=== PATIENT | female | born 1960 | race African-American/Black ===

== ENCOUNTER 2021-01-19 12:04 | Inpatient (IN) | payer OTHER ==
[2021-01-19 13:33] LABS: INR 1.28 (0.83-1.09); PROTHROMBIN TIME (PATIENT) 15.6 SEC (9.7-13.0)
[2021-01-19 13:36] LABS: ACTIVATED PTT 26.3 SECONDS (25.2-36.5)
[2021-01-19 13:51] LABS: BASO % 0.3 % (0-2.0); EOS % 0.6 % (0-4.5); HEMATOCRIT 41.7 % (32.4-45.2); HEMOGLOBIN 13.2 GM/dL (10.7-15.3); LYMPH % 7.5 % (8-40); MCH 24.6 pg (25.7-33.7); MCHC 31.6 g/dl (32.0-36.0); MEAN PLT VOLUME 7.7 fl (7.5-11.1); MONO % 6.6 % (3.8-10.2); PLATELET COUNT 341 K/MM3 (134-434); RBC 5.35 M/mm3 (3.60-5.2); RDW 18.8 % (11.6-15.6); WHITE BLOOD COUNT 8.1 K/mm3 (4.0-10.0)
[2021-01-19 13:58] LABS: CALCIUM 9.3 mg/dL (8.5-10.1)
[2021-01-19 13:59] LABS: ALBUMIN 3.1 g/dl (3.4-5.0); BLOOD UREA NITROGEN 19.8 mg/dL (7-18); MAGNESIUM 2.3 mg/dL (1.8-2.4)
[2021-01-19] MEDS ORDERED: FUROSEMIDE 40 MG/4 ML INJECTABLE VIAL IVPUSH ONE ×2 (14:03→16:12)
[2021-01-19 14:04] LABS: BILIRUBIN,TOTAL 1.8 mg/dL (0.2-1); TOT PROT 7.5 g/dl (6.4-8.2)
[2021-01-19 14:08] LABS: N-TERMINAL BNP 15423.9 pg/ml (5-125)
[2021-01-19] MEDS ORDERED: FUROSEMIDE 40 MG/4 ML INJECTABLE VIAL ONE ×2 (14:08→16:29)
[2021-01-19 14:21] LABS: PHOSPHOROUS 3.2 mg/dL (2.5-4.9)
[2021-01-19] MEDS ORDERED: ASPIRIN 81 MG CHEWABLE TABLETS PO ONE (15:26)
[2021-01-19] MEDS ORDERED: ASPIRIN 81 MG CHEWABLE TABLETS ONE (15:53)
[2021-01-19] MEDS ORDERED: amLODIPine BESYLATE 5 MG TABLET (FP) PO ONE (16:11)
[2021-01-19] MEDS ORDERED: amLODIPine BESYLATE 5 MG TABLET (FP) ONE (16:28)
[2021-01-19 17:42] LABS: EPI CELLS 9 /uL (0-25.1); HYALINE CASTS 5 /uL (0-3.1); PH,URINE 5.5 (5.0-8.0); URINE APPEARANCE CLEAR; URINE BACTERIA 47 /uL (0-1359); URINE BILIRUBIN NEGATIVE (NEGATIVE); URINE COLOR YELLOW; URINE GLUCOSE (UA) NEGATIVE (NEGATIVE); URINE KETONE NEGATIVE (NEGATIVE); URINE LEUK ESTERASE NEGATIVE (NEGATIVE); URINE NITRITE NEGATIVE (NEGATIVE); URINE PROTEIN 2+ (NEGATIVE); URINE RBC 21 /uL (0-23.9); URINE WBC 9 /uL (0-25.8)
[2021-01-19] MEDS: LISINOPRIL 10 MG TABLET PO SCH (18:58)
[2021-01-19] MEDS ORDERED: LISINOPRIL 5 MG TABLET PO SCH (19:00)
[2021-01-20] MEDS ORDERED: FUROSEMIDE 40 MG/4 ML INJECTABLE VIAL IVPUSH SCH (06:00)
[2021-01-20] MEDS ORDERED: metoPROLOL SUCCINATE 25 MG TAB.SR.24H (FP) PO SCH (10:00)
[2021-01-20] MEDS: FUROSEMIDE 40 MG/4 ML INJECTABLE VIAL IVPUSH SCH (10:53)
[2021-01-20] MEDS: ENOXAPARIN NA (PORCINE) 40 MG/0.4 ML DISP.SYRIN SQ SCH (10:54)
[2021-01-20] MEDS: LISINOPRIL 10 MG TABLET PO SCH (10:54)
[2021-01-20] MEDS ORDERED: PT OWN MED DRAWER 7, Y5N ONE (11:27)
[2021-01-20 13:48] LABS: HEMATOCRIT 42.2 % (32.4-45.2); HEMOGLOBIN 13.2 GM/dL (10.7-15.3); MCH 24.5 pg (25.7-33.7); MCHC 31.2 g/dl (32.0-36.0); MEAN CELL VOLUME 78.3 fl (80-96); MEAN PLT VOLUME 7.5 fl (7.5-11.1); PLATELET COUNT 335 K/MM3 (134-434); RBC 5.39 M/mm3 (3.60-5.2); WHITE BLOOD COUNT 10.3 K/mm3 (4.0-10.0)
[2021-01-20 14:26] LABS: ALBUMIN 2.9 g/dl (3.4-5.0); CALCIUM 9.6 mg/dL (8.5-10.1); MAGNESIUM 1.9 mg/dL (1.8-2.4)
[2021-01-20 14:29] LABS: CREATININE 0.8 mg/dL (0.55-1.3)
[2021-01-20 14:30] LABS: PHOSPHOROUS 3.3 mg/dL (2.5-4.9); TOT PROT 6.7 g/dl (6.4-8.2)
[2021-01-20 14:32] LABS: BILIRUBIN,TOTAL 1.4 mg/dL (0.2-1)
[2021-01-20] MEDS ORDERED: POTASSIUM CHLORIDE TABS 20 MEQ TABLET.ER (FP) PO ONE (15:15)
[2021-01-20] MEDS: ACETAMINOPHEN 325 MG TABLET (FP) PO PRN (16:55)
[2021-01-20 17:36] LABS: ARTERIAL BLD GAS O2 SATURATION 96.8 mmHg (95-98); ARTERIAL BLOOD GAS BASE EXCESS 4.6 mmol/L (-2-2); ARTERIAL BLOOD GAS PO2 96.7 mmHg (80-100); ARTERIAL BLOOD GAS pH 7.334 (7.350-7.450)
[2021-01-20 17:38] LABS: ALLENS TEST POSITIVE
[2021-01-20] MEDS ORDERED: DEXTROSE 5%-WATER - 50 ML IVPB ONE (18:24)
[2021-01-20] MEDS ORDERED: cefTRIAXone SODIUM 1 GM VIAL ONE (18:24)
[2021-01-20] MEDS: AZITHROMYCIN IVPB 500 MG/250 ML BAG IVPB SCH (18:47)
[2021-01-20] MEDS: CEFTRIAXONE 1 GM in DEXTROSE 5%-WATER - 50 ML IVPB SCH (18:48)
[2021-01-21 09:03] LABS: HEMATOCRIT 41.4 % (32.4-45.2); HEMOGLOBIN 12.9 GM/dL (10.7-15.3); MCH 24.6 pg (25.7-33.7); MCHC 31.1 g/dl (32.0-36.0); MEAN CELL VOLUME 79.1 fl (80-96); MEAN PLT VOLUME 7.5 fl (7.5-11.1); PLATELET COUNT 330 K/MM3 (134-434); RBC 5.23 M/mm3 (3.60-5.2); RDW 18.9 % (11.6-15.6); WHITE BLOOD COUNT 9.1 K/mm3 (4.0-10.0)
[2021-01-21 09:13] LABS: CALCIUM 9.2 mg/dL (8.5-10.1)
[2021-01-21 09:14] LABS: ALBUMIN 2.9 g/dl (3.4-5.0); BLOOD UREA NITROGEN 16.5 mg/dL (7-18); MAGNESIUM 2.1 mg/dL (1.8-2.4)
[2021-01-21 09:17] LABS: CREATININE 0.8 mg/dL (0.55-1.3); PHOSPHOROUS 2.4 mg/dL (2.5-4.9)
[2021-01-21 09:18] LABS: BILIRUBIN,TOTAL 1.2 mg/dL (0.2-1); TOT PROT 6.6 g/dl (6.4-8.2)
[2021-01-21] MEDS ORDERED: cefTRIAXone SODIUM 1 GM VIAL ONE (09:27)
[2021-01-21] MEDS ORDERED: DEXTROSE 5%-WATER - 50 ML IVPB ONE ×3 (09:27→18:20)
[2021-01-21] MEDS ORDERED: METOPROLOL TARTRATE 25 MG TABLET (FP) PO SCH (10:00)
[2021-01-21] MEDS: FUROSEMIDE 40 MG/4 ML INJECTABLE VIAL IVPUSH SCH (10:09)
[2021-01-21] MEDS: LISINOPRIL 10 MG TABLET PO SCH (10:09)
[2021-01-21] MEDS: ENOXAPARIN NA (PORCINE) 40 MG/0.4 ML DISP.SYRIN SQ SCH (10:09)
[2021-01-21] MEDS: CEFTRIAXONE 1 GM in DEXTROSE 5%-WATER - 50 ML IVPB SCH (10:10)
[2021-01-21] MEDS: AZITHROMYCIN IVPB 500 MG/250 ML BAG IVPB SCH (10:10)
[2021-01-21] MEDS ORDERED: KCL 10 MEQ IVPB 10 MEQ/100 ML INFUS.BAG IVPB ONE (11:45)
[2021-01-21] MEDS ORDERED: SODIUM PHOSPHATE - 30 MM in SODIUM CHLORIDE 250 ML IVPB ONE (11:49)
[2021-01-21] MEDS ORDERED: EPINEPHrine 1:10,000 (P-F SYR) 1 MG/10 ML DISP.SYRIN ONE (12:13)
[2021-01-21] MEDS ORDERED: NOREPINEPHRINE BITARTRATE 8,000 MCG/500 ML BAG IVPB ONE (12:27)
[2021-01-21] MEDS: NOREPINEPHRINE NS PREMIX 8,000 MCG/500 ML BAG IVPB SCH (12:50)
[2021-01-21] MEDS: MAGNESIUM SULF 50% (8.12 MEQ/2 ML-1 GM VIAL) IVPB ONE ×2 (13:36→18:28)
[2021-01-21] MEDS: NAPH,MB-DB/K PH,MBDB POWDER PACKET PO SCH ×2 (13:57→21:51)
[2021-01-21] MEDS ORDERED: PT OWN MED DRAWER 7, Y5N ONE (14:00)
[2021-01-21] MEDS ORDERED: HEPARIN NA (PORCINE) 5,000 UNITS/ML 1ML VIAL IVPUSH PRN ×2 (14:16)
[2021-01-21] MEDS ORDERED: HEPARIN NA (PORCINE) 5,000 UNITS/ML 1ML VIAL SQ SCH (14:30)
[2021-01-21] MEDS ORDERED: HEPARIN - 25,000 UNIT in SODIUM CHLORIDE 495 ML IV SCH (14:30)
[2021-01-21] MEDS ORDERED: PIPERACILLIN/TAZOBACTAM 3.375 GM VIAL IVPB ONE ×2 (15:10→18:20)
[2021-01-21 15:12] LABS: BASO % 0.1 % (0-2.0); EOS % 0.1 % (0-4.5); HEMATOCRIT 42.8 % (32.4-45.2); LYMPH % 1.9 % (8-40); MCH 23.9 pg (25.7-33.7); MCHC 30.3 g/dl (32.0-36.0); MEAN CELL VOLUME 78.9 fl (80-96); MEAN PLT VOLUME 7.5 fl (7.5-11.1); MONO % 2.9 % (3.8-10.2); PLATELET COUNT 311 K/MM3 (134-434); RBC 5.43 M/mm3 (3.60-5.2); RDW 19.2 % (11.6-15.6); WHITE BLOOD COUNT 19.4 K/mm3 (4.0-10.0)
[2021-01-21 15:17] LABS: INR 1.31 (0.83-1.09)
[2021-01-21 15:20] LABS: ACTIVATED PTT 30.6 SECONDS (25.2-36.5)
[2021-01-21] MEDS: PIPERACILLIN/TAZOB 3.375 GM 3.375 GM in DEXTROSE 5%-WATER - 50 ML IVPB SCH ×2 (15:42→18:24)
[2021-01-21 16:07] LABS: ALBUMIN 2.4 g/dl (3.4-5.0); BLOOD UREA NITROGEN 18.4 mg/dL (7-18); CALCIUM 8.2 mg/dL (8.5-10.1)
[2021-01-21 16:11] LABS: CREATININE 1.1 mg/dL (0.55-1.3)
[2021-01-21 16:12] LABS: BILIRUBIN,TOTAL 0.9 mg/dL (0.2-1); TOT PROT 5.6 g/dl (6.4-8.2)
[2021-01-21] MEDS: POTASSIUM CHLORIDE 10 MEQ PREMIX IVPB (POTASSIUM RIDER) IVPB SCH ×4 (16:39→22:57)
[2021-01-21] MEDS: FENTANYL NS IVPB 500 MCG/100 ML BAG IVPB SCH (17:03)
[2021-01-21] MEDS: VANCOMYCIN 1 GRAM (PRE-DOCKED) 1,000 MG/250 ML BAG IVPB SCH (17:03)
[2021-01-21 18:01] LABS: ANISOCYTOSIS 1+; MACROCYTOSIS 0; PLATELET ESTIMATE NORMAL
[2021-01-21] MEDS: ENOXAPARIN NA (PORCINE) 100 MG/1 ML DISP.SYRIN SQ SCH ×2 (18:29→21:51)
[2021-01-21] MEDS ORDERED: POTASSIUM CHLORIDE 10 MEQ PREMIX IVPB (POTASSIUM RIDER) IVPB SCH (18:30)
[2021-01-21] MEDS: PROPOFOL 1,000,000 MCG/100 ML VIAL IVPB SCH (19:45)
[2021-01-21] MEDS ORDERED: GLYCOPYRROLATE 0.2 MG/1 ML VIAL IM STA (20:33)
[2021-01-21 22:39] LABS: ARTERIAL BLD GAS O2 SATURATION 86.9 mmHg (95-98); ARTERIAL BLOOD GAS BASE EXCESS 3.2 mmol/L (-2-2); ARTERIAL BLOOD GAS PO2 57.3 mmHg (80-100); ARTERIAL BLOOD GAS pH 7.321 (7.350-7.450)
[2021-01-21 22:40] LABS: ALLENS TEST POSITIVE
[2021-01-21 22:41] LABS: VENT MODE A/C; VENT RATE 16
[2021-01-21 23:10] LABS: EPI CELLS >36 /uL (0-25.1); HYALINE CASTS 1 /uL (0-3.1); URINE APPEARANCE CLEAR; URINE BACTERIA 56 /uL (0-1359); URINE BILIRUBIN NEGATIVE (NEGATIVE); URINE COLOR YELLOW; URINE GLUCOSE (UA) NEGATIVE (NEGATIVE); URINE KETONE NEGATIVE (NEGATIVE); URINE LEUK ESTERASE NEGATIVE (NEGATIVE); URINE NITRITE NEGATIVE (NEGATIVE); URINE PROTEIN 2+ (NEGATIVE); URINE RBC 231 /uL (0-23.9); URINE UROBILINOGEN 0.2 mg/dL (0.2-1.0); URINE WBC 37 /uL (0-25.8)
[2021-01-22] MEDS ORDERED: PIPERACILLIN/TAZOBACTAM 3.375 GM VIAL IVPB ONE ×2 (01:36→09:12)
[2021-01-22] MEDS ORDERED: DEXTROSE 5%-WATER - 50 ML IVPB ONE ×2 (01:36→09:12)
[2021-01-22] MEDS: PIPERACILLIN/TAZOB 3.375 GM 3.375 GM in DEXTROSE 5%-WATER - 50 ML IVPB SCH ×3 (02:30→17:23)
[2021-01-22 02:35] LABS: COCAINE, UR NEGATIVE ng/ml (CUTOFF=300); METHADONE, UR NEGATIVE ng/ml (CUTOFF=300); OPIATES, URI NEGATIVE ng/ml (CUTOFF=300); URINE AMPHETAMINES NEGATIVE ng/ml (CUTOFF=500); URINE BARBITURATES NEGATIVE ng/ml (CUTOFF=200); URINE BENZODIAZEPINES NEGATIVE ng/ml (CUTOFF=200)
[2021-01-22 02:36] LABS: PHENCYCLIDINE,URINE NEGATIVE ng/ml (CUTOFF=25)
[2021-01-22] MEDS: VANCOMYCIN 1 GRAM (PRE-DOCKED) 1,000 MG/250 ML BAG IVPB SCH ×2 (03:15→14:14)
[2021-01-22] MEDS: NAPH,MB-DB/K PH,MBDB POWDER PACKET PO SCH ×3 (05:01→21:42)
[2021-01-22 07:10] LABS: BLOOD UREA NITROGEN 19.9 mg/dL (7-18); CALCIUM 8.7 mg/dL (8.5-10.1)
[2021-01-22 07:14] LABS: CREATININE 1.1 mg/dL (0.55-1.3)
[2021-01-22 07:17] LABS: BASO % 0.1 % (0-2.0); EOS % 1.1 % (0-4.5); HEMATOCRIT 45.3 % (32.4-45.2); HEMOGLOBIN 13.7 GM/dL (10.7-15.3); LYMPH % 8.4 % (8-40); MCH 23.9 pg (25.7-33.7); MCHC 30.2 g/dl (32.0-36.0); MEAN PLT VOLUME 7.6 fl (7.5-11.1); MONO % 6.4 % (3.8-10.2); PLATELET COUNT 273 K/MM3 (134-434); RBC 5.74 M/mm3 (3.60-5.2); RDW 18.7 % (11.6-15.6); WHITE BLOOD COUNT 9.9 K/mm3 (4.0-10.0)
[2021-01-22] MEDS: FENTANYL NS IVPB 500 MCG/100 ML BAG IVPB SCH ×2 (08:10→13:46)
[2021-01-22 08:49] LABS: MAGNESIUM 1.8 mg/dL (1.8-2.4)
[2021-01-22 08:53] LABS: PHOSPHOROUS 3.2 mg/dL (2.5-4.9)
[2021-01-22] MEDS: ENOXAPARIN NA (PORCINE) 100 MG/1 ML DISP.SYRIN SQ SCH ×2 (09:19→21:41)
[2021-01-22] MEDS: FAMOTIDINE 20 MG/50 ML IVPB 20 MG/50 ML MG IVPB SCH ×2 (09:20→21:41)
[2021-01-22] MEDS: FUROSEMIDE 40 MG/4 ML INJECTABLE VIAL IVPUSH SCH (12:01)
[2021-01-22] MEDS: NOREPINEPHRINE NS PREMIX 8,000 MCG/500 ML BAG IVPB SCH (17:23)
[2021-01-22] MEDS ORDERED: FENTANYL NS IVPB 500 MCG/100 ML BAG IVPB SCH (22:15)
[2021-01-23] MEDS ORDERED: PIPERACILLIN/TAZOBACTAM 3.375 GM VIAL IVPB ONE ×3 (00:51→18:45)
[2021-01-23] MEDS ORDERED: DEXTROSE 5%-WATER - 50 ML IVPB ONE ×3 (00:52→18:45)
[2021-01-23] MEDS: PIPERACILLIN/TAZOB 3.375 GM 3.375 GM in DEXTROSE 5%-WATER - 50 ML IVPB SCH ×3 (01:36→18:52)
[2021-01-23] MEDS: PROPOFOL 1,000,000 MCG/100 ML VIAL IVPB SCH (01:36)
[2021-01-23] MEDS: VANCOMYCIN 1 GRAM (PRE-DOCKED) 1,000 MG/250 ML BAG IVPB SCH (02:34)
[2021-01-23] MEDS: NAPH,MB-DB/K PH,MBDB POWDER PACKET PO SCH ×3 (06:34→21:15)
[2021-01-23] MEDS ORDERED: SODIUM CHLORIDE 250 ML IV STA (06:37)
[2021-01-23 07:47] LABS: HEMATOCRIT 45.6 % (32.4-45.2); HEMOGLOBIN 14.6 GM/dL (10.7-15.3); MCH 24.6 pg (25.7-33.7); MCHC 32.1 g/dl (32.0-36.0); MEAN CELL VOLUME 76.8 fl (80-96); MEAN PLT VOLUME 8.1 fl (7.5-11.1); PLATELET COUNT 316 K/MM3 (134-434); RBC 5.94 M/mm3 (3.60-5.2); RDW 18.9 % (11.6-15.6); WHITE BLOOD COUNT 10.9 K/mm3 (4.0-10.0)
[2021-01-23 08:01] LABS: BLOOD UREA NITROGEN 24.3 mg/dL (7-18); MAGNESIUM 1.7 mg/dL (1.8-2.4)
[2021-01-23 08:04] LABS: CREATININE 1.7 mg/dL (0.55-1.3); PHOSPHOROUS 3.4 mg/dL (2.5-4.9)
[2021-01-23] MEDS: FAMOTIDINE 20 MG/50 ML IVPB 20 MG/50 ML MG IVPB SCH ×2 (09:36→21:15)
[2021-01-23] MEDS: ENOXAPARIN NA (PORCINE) 100 MG/1 ML DISP.SYRIN SQ SCH ×2 (09:36→21:16)
[2021-01-23] MEDS: NOREPINEPHRINE NS PREMIX 8,000 MCG/500 ML BAG IVPB SCH (14:36)
[2021-01-23] MEDS ORDERED: LORazepam 2 MG/ML SDV VIAL IVPUSH PRN (21:55)
[2021-01-24] MEDS ORDERED: PIPERACILLIN/TAZOBACTAM 3.375 GM VIAL IVPB ONE ×4 (01:41→22:39)
[2021-01-24] MEDS: PIPERACILLIN/TAZOB 3.375 GM 3.375 GM in DEXTROSE 5%-WATER - 50 ML IVPB SCH ×3 (03:20→17:00)
[2021-01-24 06:52] LABS: HEMATOCRIT 41.4 % (32.4-45.2); HEMOGLOBIN 13.4 GM/dL (10.7-15.3); MCH 24.7 pg (25.7-33.7); MCHC 32.5 g/dl (32.0-36.0); MEAN CELL VOLUME 76.2 fl (80-96); MEAN PLT VOLUME 7.8 fl (7.5-11.1); PLATELET COUNT 236 K/MM3 (134-434); RBC 5.44 M/mm3 (3.60-5.2); RDW 18.5 % (11.6-15.6); WHITE BLOOD COUNT 10.3 K/mm3 (4.0-10.0)
[2021-01-24] MEDS: NAPH,MB-DB/K PH,MBDB POWDER PACKET PO SCH ×3 (06:56→22:41)
[2021-01-24 07:50] LABS: MAGNESIUM 1.7 mg/dL (1.8-2.4)
[2021-01-24 07:52] LABS: CREATININE 2.4 mg/dL (0.55-1.3)
[2021-01-24 07:53] LABS: PHOSPHOROUS 3.5 mg/dL (2.5-4.9)
[2021-01-24 07:54] LABS: TOT PROT 5.3 g/dl (6.4-8.2)
[2021-01-24] MEDS ORDERED: DEXTROSE 5%-WATER - 50 ML IVPB ONE ×3 (08:10→22:39)
[2021-01-24] MEDS: FAMOTIDINE 20 MG/50 ML IVPB 20 MG/50 ML MG IVPB SCH ×2 (09:01→22:41)
[2021-01-24] MEDS: ENOXAPARIN NA (PORCINE) 100 MG/1 ML DISP.SYRIN SQ SCH ×2 (09:02→22:41)
[2021-01-24] MEDS: ACETAMINOPHEN 325 MG TABLET (FP) PO PRN (09:02)
[2021-01-24] MEDS: SCOPOLAMINE HYDROBROMIDE 1 PATCH PATCH.TD72 TD SCH (16:37)
[2021-01-24] MEDS ORDERED: PT OWN MED DRAWER 7, Y5N ONE ×2 (18:25→22:39)
[2021-01-24] MEDS ORDERED: SCOPOLAMINE HYDROBROMIDE 1 PATCH PATCH.TD72 TD SCH (22:30)
[2021-01-25] MEDS: NOREPINEPHRINE NS PREMIX 8,000 MCG/500 ML BAG IVPB SCH (03:05)
[2021-01-25] MEDS: PIPERACILLIN/TAZOB 3.375 GM 3.375 GM in DEXTROSE 5%-WATER - 50 ML IVPB SCH ×3 (03:11→18:06)
[2021-01-25] MEDS: ACETAMINOPHEN 325 MG TABLET (FP) PO PRN (03:54)
[2021-01-25] MEDS: NAPH,MB-DB/K PH,MBDB POWDER PACKET PO SCH ×3 (06:50→21:21)
[2021-01-25 07:25] LABS: HEMATOCRIT 37.2 % (32.4-45.2); HEMOGLOBIN 11.9 GM/dL (10.7-15.3); MCH 24.3 pg (25.7-33.7); MCHC 32.1 g/dl (32.0-36.0); MEAN CELL VOLUME 75.8 fl (80-96); MEAN PLT VOLUME 8.1 fl (7.5-11.1); PLATELET COUNT 176 K/MM3 (134-434); RDW 18.9 % (11.6-15.6); WHITE BLOOD COUNT 11.6 K/mm3 (4.0-10.0)
[2021-01-25 08:00] LABS: ALBUMIN 1.8 g/dl (3.4-5.0); BILIRUBIN,TOTAL 0.9 mg/dL (0.2-1); BLOOD UREA NITROGEN 32.6 mg/dL (7-18); CALCIUM 8.3 mg/dL (8.5-10.1); CREATININE 2.8 mg/dL (0.55-1.3); TOT PROT 5.1 g/dl (6.4-8.2)
[2021-01-25] MEDS ORDERED: PIPERACILLIN/TAZOBACTAM 3.375 GM VIAL IVPB ONE ×2 (10:12→16:45)
[2021-01-25] MEDS ORDERED: DEXTROSE 5%-WATER - 50 ML IVPB ONE ×2 (10:12→16:45)
[2021-01-25] MEDS ORDERED: PT OWN MED DRAWER 7, Y5N ONE (10:12)
[2021-01-25] MEDS: ENOXAPARIN NA (PORCINE) 100 MG/1 ML DISP.SYRIN SQ SCH ×5 (10:34→21:23)
[2021-01-25] MEDS: FAMOTIDINE 20 MG/50 ML IVPB 20 MG/50 ML MG IVPB SCH ×2 (10:34→21:20)
[2021-01-25] MEDS ORDERED: METOPROLOL TARTRATE 5 MG/5 ML VIAL IVPUSH ONE (12:44)
[2021-01-25] MEDS ORDERED: ENOXAPARIN NA (PORCINE) 100 MG/1 ML DISP.SYRIN SQ ONE (16:04)
[2021-01-25 16:22] VITALS: BMI 39.4
[2021-01-26] MEDS ORDERED: DEXTROSE 5%-WATER - 50 ML IVPB ONE ×3 (01:07→16:57)
[2021-01-26] MEDS ORDERED: PIPERACILLIN/TAZOBACTAM 3.375 GM VIAL IVPB ONE ×4 (01:07→16:57)
[2021-01-26] MEDS: PIPERACILLIN/TAZOB 3.375 GM 3.375 GM in DEXTROSE 5%-WATER - 50 ML IVPB SCH ×3 (02:37→17:23)
[2021-01-26] MEDS: NAPH,MB-DB/K PH,MBDB POWDER PACKET PO SCH ×3 (06:28→21:20)
[2021-01-26 06:43] LABS: HEMATOCRIT 37.2 % (32.4-45.2); HEMOGLOBIN 11.8 GM/dL (10.7-15.3); MCH 24.1 pg (25.7-33.7); MCHC 31.6 g/dl (32.0-36.0); MEAN CELL VOLUME 76.2 fl (80-96); PLATELET COUNT 182 K/MM3 (134-434); RBC 4.88 M/mm3 (3.60-5.2); RDW 19.5 % (11.6-15.6); WHITE BLOOD COUNT 11.8 K/mm3 (4.0-10.0)
[2021-01-26 07:07] LABS: CALCIUM 8.1 mg/dL (8.5-10.1)
[2021-01-26 07:08] LABS: ALBUMIN 1.7 g/dl (3.4-5.0); BLOOD UREA NITROGEN 34.1 mg/dL (7-18)
[2021-01-26 07:10] LABS: BILIRUBIN,TOTAL 0.7 mg/dL (0.2-1); TOT PROT 5.1 g/dl (6.4-8.2)
[2021-01-26 07:11] LABS: CREATININE 2.7 mg/dL (0.55-1.3); PHOSPHOROUS 3.8 mg/dL (2.5-4.9)
[2021-01-26] MEDS: KCL 10 MEQ IVPB 10 MEQ/100 ML INFUS.BAG IVPB SCH ×3 (08:51→11:22)
[2021-01-26] MEDS: FAMOTIDINE 20 MG/50 ML IVPB 20 MG/50 ML MG IVPB SCH ×2 (09:05→21:20)
[2021-01-26] MEDS: amLODIPine BESYLATE 10 MG TABLET (FP) PO SCH (09:18)
[2021-01-26] MEDS: ENOXAPARIN NA (PORCINE) 100 MG/1 ML DISP.SYRIN SQ SCH (09:19)
[2021-01-26] MEDS ORDERED: amLODIPine BESYLATE 10 MG TABLET (FP) PO SCH (10:00)
[2021-01-26] MEDS ORDERED: METOPROLOL TARTRATE 5 MG/5 ML VIAL IVPUSH PRN ×2 (10:34→10:36)
[2021-01-26] MEDS: hydrALAZINE HCL 20 MG/ML VIAL IVPUSH PRN (13:18)
[2021-01-26] MEDS: ENOXAPARIN NA (PORCINE) 80 MG/0.8 ML DISP.SYRIN SQ SCH ×2 (13:23→21:20)
[2021-01-26 14:08] LABS: BF WBC & OTHER NUCLEATED CELLS 2109 /mm3
[2021-01-26 14:42] LABS: BODY FLUID BASOPHIL 0 %; BODY FLUID HISTIOCYTES 0 %; BODY FLUID MACROPHAGES 3 %; BODY FLUID MESOTHELIAL 4 %; BODY FLUID MONOCYTE 0 %; BODY FLUID PLASMA CELL 0 %; BODYL FLD EOSINOPHIL 0 %
[2021-01-26 15:47] LABS: CALCIUM 7.9 mg/dL (8.5-10.1)
[2021-01-26 15:48] LABS: BLOOD UREA NITROGEN 33.3 mg/dL (7-18)
[2021-01-26 15:51] LABS: CREATININE 2.7 mg/dL (0.55-1.3)
[2021-01-26] MEDS: POTASSIUM CHLORIDE 20 MEQ PREMIX IVPB 100 ML IVPB SCH ×2 (15:51→17:08)
[2021-01-27] MEDS ORDERED: DEXTROSE 5%-WATER - 50 ML IVPB ONE ×3 (01:02→17:14)
[2021-01-27] MEDS ORDERED: PIPERACILLIN/TAZOBACTAM 3.375 GM VIAL IVPB ONE ×3 (01:02→17:13)
[2021-01-27] MEDS: PIPERACILLIN/TAZOB 3.375 GM 3.375 GM in DEXTROSE 5%-WATER - 50 ML IVPB SCH ×3 (01:43→18:27)
[2021-01-27] MEDS: NAPH,MB-DB/K PH,MBDB POWDER PACKET PO SCH ×3 (05:40→21:03)
[2021-01-27 07:25] LABS: HEMATOCRIT 33.6 % (32.4-45.2); HEMOGLOBIN 10.6 GM/dL (10.7-15.3); MCH 24.1 pg (25.7-33.7); MCHC 31.7 g/dl (32.0-36.0); MEAN CELL VOLUME 76.1 fl (80-96); MEAN PLT VOLUME 8.2 fl (7.5-11.1); PLATELET COUNT 184 K/MM3 (134-434); RBC 4.41 M/mm3 (3.60-5.2); RDW 18.6 % (11.6-15.6); WHITE BLOOD COUNT 8.8 K/mm3 (4.0-10.0)
[2021-01-27 07:44] LABS: CALCIUM 7.6 mg/dL (8.5-10.1)
[2021-01-27 07:45] LABS: BLOOD UREA NITROGEN 32.3 mg/dL (7-18)
[2021-01-27 07:48] LABS: CREATININE 2.6 mg/dL (0.55-1.3)
[2021-01-27] MEDS ORDERED: KCL 10 MEQ IVPB 10 MEQ/100 ML INFUS.BAG IVPB SCH (08:45)
[2021-01-27] MEDS: amLODIPine BESYLATE 10 MG TABLET (FP) PO SCH (09:00)
[2021-01-27] MEDS ORDERED: POTASSIUM CHLORIDE 20 MEQ PREMIX IVPB 100 ML IVPB ONE (09:01)
[2021-01-27] MEDS: ENOXAPARIN NA (PORCINE) 80 MG/0.8 ML DISP.SYRIN SQ SCH ×2 (09:02→21:03)
[2021-01-27] MEDS: FAMOTIDINE 20 MG/50 ML IVPB 20 MG/50 ML MG IVPB SCH ×2 (09:03→21:03)
[2021-01-27] MEDS: SCOPOLAMINE HYDROBROMIDE 1 PATCH PATCH.TD72 TD SCH (14:47)
[2021-01-28] MEDS ORDERED: DEXTROSE 5%-WATER - 50 ML IVPB ONE ×3 (00:42→18:05)
[2021-01-28] MEDS ORDERED: PIPERACILLIN/TAZOBACTAM 3.375 GM VIAL IVPB ONE ×3 (00:42→18:04)
[2021-01-28] MEDS ORDERED: DEXMEDETOMIDINE IN 0.9 % NACL 200 MCG/50 ML EACH IVPB SCH (00:45)
[2021-01-28] MEDS: PIPERACILLIN/TAZOB 3.375 GM 3.375 GM in DEXTROSE 5%-WATER - 50 ML IVPB SCH ×3 (01:23→18:08)
[2021-01-28] MEDS: DEXMEDETOMIDINE IN 0.9 % NACL 400 MCG/100 ML VIAL IVPB SCH (01:24)
[2021-01-28] MEDS: NAPH,MB-DB/K PH,MBDB POWDER PACKET PO SCH ×3 (06:17→21:45)
[2021-01-28 07:32] LABS: HEMATOCRIT 31.4 % (32.4-45.2); HEMOGLOBIN 9.6 GM/dL (10.7-15.3); MCH 23.7 pg (25.7-33.7); MCHC 30.7 g/dl (32.0-36.0); MEAN CELL VOLUME 77.2 fl (80-96); MEAN PLT VOLUME 8.9 fl (7.5-11.1); PLATELET COUNT 187 K/MM3 (134-434); RBC 4.07 M/mm3 (3.60-5.2); WHITE BLOOD COUNT 8.7 K/mm3 (4.0-10.0)
[2021-01-28 08:20] LABS: BLOOD UREA NITROGEN 30.4 mg/dL (7-18); CALCIUM 8.3 mg/dL (8.5-10.1); CREATININE 2.4 mg/dL (0.55-1.3)
[2021-01-28 08:21] LABS: ALBUMIN 1.5 g/dl (3.4-5.0)
[2021-01-28 08:22] LABS: BILIRUBIN,TOTAL 0.5 mg/dL (0.2-1); TOT PROT 4.8 g/dl (6.4-8.2)
[2021-01-28] MEDS ORDERED: PT OWN MED DRAWER 7, Y5N ONE (08:57)
[2021-01-28] MEDS: FAMOTIDINE 20 MG/50 ML IVPB 20 MG/50 ML MG IVPB SCH ×2 (09:01→21:44)
[2021-01-28] MEDS: ENOXAPARIN NA (PORCINE) 80 MG/0.8 ML DISP.SYRIN SQ SCH ×2 (09:02→21:45)
[2021-01-28] MEDS: amLODIPine BESYLATE 10 MG TABLET (FP) PO SCH (09:13)
[2021-01-28] MEDS: hydrALAZINE HCL 20 MG/ML VIAL IVPUSH PRN (09:15)
[2021-01-28] MEDS: KCL 10 MEQ IVPB 10 MEQ/100 ML INFUS.BAG IVPB SCH ×5 (13:21→23:00)
[2021-01-28 14:07] LABS: BODY FLUID ALBUMIN 1.7 g/dL (Not Estab.)
[2021-01-28 20:58] LABS: CREATININE 2.4 mg/dL (0.55-1.3); MAGNESIUM 2.1 mg/dL (1.8-2.4); PHOSPHOROUS 2.4 mg/dL (2.5-4.9)
[2021-01-28] MEDS ORDERED: POTASSIUM CHLORIDE ORAL LIQUID 20 MEQ/15 ML PO ONE (21:45)
[2021-01-29] MEDS: KCL 10 MEQ IVPB 10 MEQ/100 ML INFUS.BAG IVPB SCH (00:35)
[2021-01-29] MEDS ORDERED: DEXTROSE 5%-WATER - 50 ML IVPB ONE ×3 (00:43→18:08)
[2021-01-29] MEDS ORDERED: PIPERACILLIN/TAZOBACTAM 3.375 GM VIAL IVPB ONE ×3 (00:43→18:08)
[2021-01-29] MEDS: DEXMEDETOMIDINE IN 0.9 % NACL 400 MCG/100 ML VIAL IVPB SCH (01:25)
[2021-01-29] MEDS ORDERED: PROPOFOL 1,000,000 MCG/100 ML VIAL ONE (02:11)
[2021-01-29] MEDS: PIPERACILLIN/TAZOB 3.375 GM 3.375 GM in DEXTROSE 5%-WATER - 50 ML IVPB SCH ×3 (02:51→18:12)
[2021-01-29] MEDS: PROPOFOL 1,000,000 MCG/100 ML VIAL IVPB SCH ×3 (02:53→21:48)
[2021-01-29] MEDS: NAPH,MB-DB/K PH,MBDB POWDER PACKET PO SCH ×3 (06:54→21:49)
[2021-01-29 07:08] LABS: HEMOGLOBIN 10.3 GM/dL (10.7-15.3); MCH 23.9 pg (25.7-33.7); MCHC 31.1 g/dl (32.0-36.0); MEAN CELL VOLUME 76.9 fl (80-96); MEAN PLT VOLUME 8.8 fl (7.5-11.1); PLATELET COUNT 241 K/MM3 (134-434); RBC 4.29 M/mm3 (3.60-5.2); RDW 19.1 % (11.6-15.6); WHITE BLOOD COUNT 11.4 K/mm3 (4.0-10.0)
[2021-01-29 07:57] LABS: ALBUMIN 1.6 g/dl (3.4-5.0); BILIRUBIN,TOTAL 0.5 mg/dL (0.2-1); BLOOD UREA NITROGEN 30.5 mg/dL (7-18); CREATININE 2.4 mg/dL (0.55-1.3); MAGNESIUM 2.2 mg/dL (1.8-2.4); PHOSPHOROUS 2.4 mg/dL (2.5-4.9); TOT PROT 5.1 g/dl (6.4-8.2)
[2021-01-29] MEDS: FAMOTIDINE 20 MG/50 ML IVPB 20 MG/50 ML MG IVPB SCH ×2 (09:01→21:49)
[2021-01-29] MEDS: ENOXAPARIN NA (PORCINE) 80 MG/0.8 ML DISP.SYRIN SQ SCH (09:02)
[2021-01-29] MEDS: amLODIPine BESYLATE 10 MG TABLET (FP) PO SCH ×2 (09:02→16:15)
[2021-01-29] MEDS ORDERED: METOPROLOL TARTRATE 5 MG/5 ML VIAL ONE (15:18)
[2021-01-29] MEDS: METOPROLOL TARTRATE 5 MG/5 ML VIAL IVPUSH PRN (15:20)
[2021-01-29] MEDS: ACETAMINOPHEN 325 MG TABLET (FP) PO PRN (21:49)
[2021-01-29] MEDS: ENOXAPARIN NA (PORCINE) 100 MG/1 ML DISP.SYRIN SQ SCH (21:49)
[2021-01-30] MEDS ORDERED: DEXTROSE 5%-WATER - 50 ML IVPB ONE ×3 (00:54→17:39)
[2021-01-30] MEDS ORDERED: PIPERACILLIN/TAZOBACTAM 3.375 GM VIAL IVPB ONE ×3 (00:54→17:39)
[2021-01-30] MEDS: DEXMEDETOMIDINE IN 0.9 % NACL 400 MCG/100 ML VIAL IVPB SCH (01:14)
[2021-01-30] MEDS: PIPERACILLIN/TAZOB 3.375 GM 3.375 GM in DEXTROSE 5%-WATER - 50 ML IVPB SCH ×3 (01:14→17:47)
[2021-01-30] MEDS: PROPOFOL 1,000,000 MCG/100 ML VIAL IVPB SCH ×2 (04:04→22:00)
[2021-01-30] MEDS: ACETAMINOPHEN 325 MG TABLET (FP) PO PRN (05:16)
[2021-01-30] MEDS: NAPH,MB-DB/K PH,MBDB POWDER PACKET PO SCH ×3 (05:16→21:05)
[2021-01-30 07:19] LABS: ALBUMIN 1.5 g/dl (3.4-5.0); CALCIUM 8.1 mg/dL (8.5-10.1)
[2021-01-30 07:20] LABS: MAGNESIUM 2.3 mg/dL (1.8-2.4)
[2021-01-30 07:23] LABS: CREATININE 2.4 mg/dL (0.55-1.3); PHOSPHOROUS 2.9 mg/dL (2.5-4.9)
[2021-01-30 07:24] LABS: BILIRUBIN,TOTAL 0.5 mg/dL (0.2-1); TOT PROT 4.9 g/dl (6.4-8.2)
[2021-01-30 07:31] LABS: HEMATOCRIT 32.9 % (32.4-45.2); HEMOGLOBIN 9.9 GM/dL (10.7-15.3); MCHC 30.2 g/dl (32.0-36.0); MEAN CELL VOLUME 79.3 fl (80-96); MEAN PLT VOLUME 8.4 fl (7.5-11.1); PLATELET COUNT 295 K/MM3 (134-434); RBC 4.15 M/mm3 (3.60-5.2); RDW 19.6 % (11.6-15.6); WHITE BLOOD COUNT 9.2 K/mm3 (4.0-10.0)
[2021-01-30] MEDS: amLODIPine BESYLATE 10 MG TABLET (FP) PO SCH (09:49)
[2021-01-30] MEDS: ENOXAPARIN NA (PORCINE) 100 MG/1 ML DISP.SYRIN SQ SCH ×2 (09:49→21:05)
[2021-01-30] MEDS: FAMOTIDINE 20 MG/50 ML IVPB 20 MG/50 ML MG IVPB SCH ×2 (09:50→21:06)
[2021-01-30] MEDS: SCOPOLAMINE HYDROBROMIDE 1 PATCH PATCH.TD72 TD SCH (14:15)
[2021-01-31] MEDS: hydrALAZINE HCL 20 MG/ML VIAL IVPUSH PRN ×2 (00:30→09:13)
[2021-01-31] MEDS ORDERED: PIPERACILLIN/TAZOBACTAM 3.375 GM VIAL IVPB ONE ×4 (01:08→20:19)
[2021-01-31] MEDS ORDERED: DEXTROSE 5%-WATER - 50 ML IVPB ONE ×4 (01:09→20:19)
[2021-01-31] MEDS: PIPERACILLIN/TAZOB 3.375 GM 3.375 GM in DEXTROSE 5%-WATER - 50 ML IVPB SCH ×3 (01:10→17:19)
[2021-01-31] MEDS: PROPOFOL 1,000,000 MCG/100 ML VIAL IVPB SCH (06:11)
[2021-01-31] MEDS: NAPH,MB-DB/K PH,MBDB POWDER PACKET PO SCH ×3 (06:11→21:18)
[2021-01-31] MEDS: DEXMEDETOMIDINE IN 0.9 % NACL 400 MCG/100 ML VIAL IVPB SCH (06:12)
[2021-01-31 06:31] LABS: HEMATOCRIT 28.8 % (32.4-45.2); HEMOGLOBIN 9.2 GM/dL (10.7-15.3); MCH 24.6 pg (25.7-33.7); MEAN PLT VOLUME 7.8 fl (7.5-11.1); PLATELET COUNT 321 K/MM3 (134-434); RBC 3.74 M/mm3 (3.60-5.2); RDW 19.6 % (11.6-15.6); WHITE BLOOD COUNT 9.6 K/mm3 (4.0-10.0)
[2021-01-31] MEDS: METOPROLOL TARTRATE 5 MG/5 ML VIAL IVPUSH PRN (06:38)
[2021-01-31 07:12] LABS: CALCIUM 8.1 mg/dL (8.5-10.1)
[2021-01-31 07:13] LABS: ALBUMIN 1.6 g/dl (3.4-5.0); BLOOD UREA NITROGEN 29.4 mg/dL (7-18); MAGNESIUM 2.2 mg/dL (1.8-2.4)
[2021-01-31 07:16] LABS: CREATININE 2.1 mg/dL (0.55-1.3); PHOSPHOROUS 2.8 mg/dL (2.5-4.9)
[2021-01-31 07:17] LABS: BILIRUBIN,TOTAL 0.3 mg/dL (0.2-1)
[2021-01-31] MEDS: FAMOTIDINE 20 MG/50 ML IVPB 20 MG/50 ML MG IVPB SCH ×2 (09:11→21:18)
[2021-01-31] MEDS: amLODIPine BESYLATE 10 MG TABLET (FP) PO SCH (09:12)
[2021-01-31] MEDS: ENOXAPARIN NA (PORCINE) 100 MG/1 ML DISP.SYRIN SQ SCH ×2 (09:12→21:18)
[2021-01-31] MEDS ORDERED: LORazepam 2 MG/ML SDV VIAL IVPUSH ONE (09:55)
[2021-01-31] MEDS ORDERED: LORazepam 2 MG/ML SDV VIAL ONE (09:57)
[2021-01-31 10:32] LABS: EPI CELLS 22 /uL (0-25.1); HYALINE CASTS 1 /uL (0-3.1); URINE APPEARANCE CLEAR; URINE BACTERIA 19 /uL (0-1359); URINE BILIRUBIN NEGATIVE (NEGATIVE); URINE COLOR YELLOW; URINE GLUCOSE (UA) NEGATIVE (NEGATIVE); URINE KETONE NEGATIVE (NEGATIVE); URINE LEUK ESTERASE NEGATIVE (NEGATIVE); URINE NITRITE NEGATIVE (NEGATIVE); URINE PROTEIN 2+ (NEGATIVE); URINE RBC 27 /uL (0-23.9); URINE UROBILINOGEN 0.2 mg/dL (0.2-1.0); URINE WBC 11 /uL (0-25.8)
[2021-01-31] MEDS: ACETAMINOPHEN 325 MG TABLET (FP) PO PRN (20:28)
[2021-02-01] MEDS: DEXMEDETOMIDINE IN 0.9 % NACL 400 MCG/100 ML VIAL IVPB SCH (02:36)
[2021-02-01] MEDS: PROPOFOL 1,000,000 MCG/100 ML VIAL IVPB SCH (02:37)
[2021-02-01] MEDS: PIPERACILLIN/TAZOB 3.375 GM 3.375 GM in DEXTROSE 5%-WATER - 50 ML IVPB SCH ×3 (02:37→17:17)
[2021-02-01] MEDS: NAPH,MB-DB/K PH,MBDB POWDER PACKET PO SCH ×3 (06:38→21:51)
[2021-02-01 07:20] LABS: BASO % 0.8 % (0-2.0); EOS % 2.8 % (0-4.5); HEMATOCRIT 29.2 % (32.4-45.2); LYMPH % 6.3 % (8-40); MCH 24.1 pg (25.7-33.7); MCHC 30.8 g/dl (32.0-36.0); MEAN CELL VOLUME 78.3 fl (80-96); MEAN PLT VOLUME 8.3 fl (7.5-11.1); NEUT % 83.1 % (42.8-82.8); PLATELET COUNT 362 K/MM3 (134-434); RBC 3.72 M/mm3 (3.60-5.2); RDW 19.4 % (11.6-15.6); WHITE BLOOD COUNT 11.3 K/mm3 (4.0-10.0)
[2021-02-01 08:23] LABS: ALBUMIN 1.8 g/dl (3.4-5.0); BILIRUBIN,TOTAL 0.4 mg/dL (0.2-1); BLOOD UREA NITROGEN 28.6 mg/dL (7-18); CALCIUM 8.1 mg/dL (8.5-10.1); CREATININE 2.1 mg/dL (0.55-1.3); MAGNESIUM 2.3 mg/dL (1.8-2.4); TOT PROT 5.6 g/dl (6.4-8.2)
[2021-02-01] MEDS ORDERED: PIPERACILLIN/TAZOBACTAM 3.375 GM VIAL IVPB ONE ×3 (08:34→20:49)
[2021-02-01] MEDS ORDERED: DEXTROSE 5%-WATER - 50 ML IVPB ONE ×3 (08:34→20:49)
[2021-02-01] MEDS: LACTOBACILLUS ACIDOPHILUS 1 TABLET PO SCH (09:01)
[2021-02-01] MEDS: ENOXAPARIN NA (PORCINE) 100 MG/1 ML DISP.SYRIN SQ SCH ×2 (09:01→20:45)
[2021-02-01] MEDS: amLODIPine BESYLATE 10 MG TABLET (FP) PO SCH (09:01)
[2021-02-01] MEDS: FAMOTIDINE 20 MG/50 ML IVPB 20 MG/50 ML MG IVPB SCH ×2 (09:01→20:45)
[2021-02-01] MEDS ORDERED: METOPROLOL TARTRATE 25 MG TABLET (FP) PO SCH (10:00)
[2021-02-01] MEDS: hydrALAZINE HCL 20 MG/ML VIAL IVPUSH PRN ×2 (12:15→23:34)
[2021-02-01] MEDS: ACETAMINOPHEN 325 MG TABLET (FP) PO PRN (12:16)
[2021-02-01 12:46] LABS: ANISOCYTOSIS 1+; MACROCYTOSIS 0; OVALOCYTE 1+; PLATELET ESTIMATE NORMAL; TEAR DROP CELLS 1+
[2021-02-01] MEDS: MORPHINE SULFATE 2 MG/ML VIAL IVPUSH PRN (20:45)
[2021-02-01] MEDS: METOPROLOL TARTRATE 25 MG TABLET (FP) PO SCH ×2 (20:45→22:00)
[2021-02-01] MEDS ORDERED: FUROSEMIDE 40 MG/4 ML INJECTABLE VIAL IVPUSH ONE (20:59)
[2021-02-01] MEDS: hydrALAZINE HCL 25 MG TABLET (FP) PO SCH (22:00)
[2021-02-02] MEDS: PIPERACILLIN/TAZOB 3.375 GM 3.375 GM in DEXTROSE 5%-WATER - 50 ML IVPB SCH ×3 (04:45→17:06)
[2021-02-02] MEDS: MORPHINE SULFATE 2 MG/ML VIAL IVPUSH PRN ×3 (05:55→21:45)
[2021-02-02 06:41] LABS: HEMATOCRIT 28.9 % (32.4-45.2); HEMOGLOBIN 9.1 GM/dL (10.7-15.3); MCH 24.2 pg (25.7-33.7); MCHC 31.6 g/dl (32.0-36.0); MEAN CELL VOLUME 76.5 fl (80-96); MEAN PLT VOLUME 7.6 fl (7.5-11.1); PLATELET COUNT 420 K/MM3 (134-434); RBC 3.78 M/mm3 (3.60-5.2); RDW 19.4 % (11.6-15.6); WHITE BLOOD COUNT 10.6 K/mm3 (4.0-10.0)
[2021-02-02] MEDS: DEXMEDETOMIDINE IN 0.9 % NACL 400 MCG/100 ML VIAL IVPB SCH (06:57)
[2021-02-02] MEDS: NAPH,MB-DB/K PH,MBDB POWDER PACKET PO SCH ×3 (06:58→21:28)
[2021-02-02] MEDS: PROPOFOL 1,000,000 MCG/100 ML VIAL IVPB SCH (06:58)
[2021-02-02 07:26] LABS: CALCIUM 8.2 mg/dL (8.5-10.1)
[2021-02-02 07:27] LABS: ALBUMIN 1.7 g/dl (3.4-5.0); BLOOD UREA NITROGEN 26.5 mg/dL (7-18)
[2021-02-02 07:30] LABS: CREATININE 1.8 mg/dL (0.55-1.3)
[2021-02-02 07:32] LABS: BILIRUBIN,TOTAL 0.4 mg/dL (0.2-1); TOT PROT 5.3 g/dl (6.4-8.2)
[2021-02-02] MEDS ORDERED: PIPERACILLIN/TAZOBACTAM 3.375 GM VIAL IVPB ONE ×2 (08:16→17:05)
[2021-02-02] MEDS ORDERED: DEXTROSE 5%-WATER - 50 ML IVPB ONE ×2 (08:16→17:05)
[2021-02-02] MEDS: amLODIPine BESYLATE 10 MG TABLET (FP) PO SCH ×2 (08:17→10:36)
[2021-02-02] MEDS: LACTOBACILLUS ACIDOPHILUS 1 TABLET PO SCH ×2 (08:18→10:35)
[2021-02-02] MEDS: METOPROLOL TARTRATE 25 MG TABLET (FP) PO SCH ×3 (08:18→21:27)
[2021-02-02] MEDS: hydrALAZINE HCL 25 MG TABLET (FP) PO SCH ×2 (08:18→21:27)
[2021-02-02] MEDS: FAMOTIDINE 20 MG/50 ML IVPB 20 MG/50 ML MG IVPB SCH ×2 (09:00→21:27)
[2021-02-02] MEDS: ENOXAPARIN NA (PORCINE) 100 MG/1 ML DISP.SYRIN SQ SCH ×2 (09:38→21:27)
[2021-02-02] MEDS: KCL 10 MEQ IVPB 10 MEQ/100 ML INFUS.BAG IVPB SCH ×3 (09:44→12:27)
[2021-02-02] MEDS ORDERED: PROPOFOL 200 MG/20 ML VIAL IVPUSH ONE ×2 (11:52→13:00)
[2021-02-02] MEDS ORDERED: ROCURONIUM BROMIDE 50 MG/5 ML SYRINGE IVPUSH ONE ×2 (11:56→13:30)
[2021-02-02] MEDS ORDERED: MIDAZOLAM HCL 5 MG/1 ML Single Dose Vial ONE (12:56)
[2021-02-02] MEDS ORDERED: MIDAZOLAM HCL 5 MG/1 ML Single Dose Vial IVPUSH ONE (13:00)
[2021-02-02] MEDS ORDERED: ROCURONIUM BROMIDE 100 MG/10 ML VIAL ONE (13:21)
[2021-02-02] MEDS ORDERED: LIDOCAINE 1%/EPI 1:100000 (20 ML MULTI DOSE VIAL) IJ ONE (13:30)
[2021-02-02] MEDS: SCOPOLAMINE HYDROBROMIDE 1 PATCH PATCH.TD72 TD SCH (16:00)
[2021-02-02] MEDS: hydrALAZINE HCL 20 MG/ML VIAL IVPUSH PRN (17:04)
[2021-02-03] MEDS ORDERED: DEXTROSE 5%-WATER - 50 ML IVPB ONE (02:12)
[2021-02-03] MEDS ORDERED: PIPERACILLIN/TAZOBACTAM 3.375 GM VIAL IVPB ONE (02:12)
[2021-02-03] MEDS: PIPERACILLIN/TAZOB 3.375 GM 3.375 GM in DEXTROSE 5%-WATER - 50 ML IVPB SCH (02:45)
[2021-02-03] MEDS: hydrALAZINE HCL 20 MG/ML VIAL IVPUSH PRN (03:40)
[2021-02-03] MEDS: MORPHINE SULFATE 2 MG/ML VIAL IVPUSH PRN ×2 (03:45→21:03)
[2021-02-03 07:17] LABS: HEMATOCRIT 30.9 % (32.4-45.2); HEMOGLOBIN 9.4 GM/dL (10.7-15.3); MCH 24.2 pg (25.7-33.7); MCHC 30.5 g/dl (32.0-36.0); MEAN CELL VOLUME 79.4 fl (80-96); MEAN PLT VOLUME 8.2 fl (7.5-11.1); PLATELET COUNT 443 K/MM3 (134-434); RBC 3.89 M/mm3 (3.60-5.2); RDW 19.6 % (11.6-15.6); WHITE BLOOD COUNT 13.4 K/mm3 (4.0-10.0)
[2021-02-03] MEDS: PROPOFOL 1,000,000 MCG/100 ML VIAL IVPB SCH (07:44)
[2021-02-03] MEDS: DEXMEDETOMIDINE IN 0.9 % NACL 400 MCG/100 ML VIAL IVPB SCH (07:44)
[2021-02-03] MEDS: NAPH,MB-DB/K PH,MBDB POWDER PACKET PO SCH ×4 (07:45→21:03)
[2021-02-03 07:53] LABS: ALBUMIN 1.9 g/dl (3.4-5.0); BILIRUBIN,TOTAL 0.4 mg/dL (0.2-1); BLOOD UREA NITROGEN 24.8 mg/dL (7-18); CALCIUM 8.5 mg/dL (8.5-10.1); MAGNESIUM 2.3 mg/dL (1.8-2.4)
[2021-02-03 07:55] LABS: TOT PROT 5.8 g/dl (6.4-8.2)
[2021-02-03 07:56] LABS: CREATININE 1.7 mg/dL (0.55-1.3); PHOSPHOROUS 3.8 mg/dL (2.5-4.9)
[2021-02-03] MEDS: hydrALAZINE HCL 25 MG TABLET (FP) PO SCH ×2 (10:42→21:02)
[2021-02-03] MEDS: ENOXAPARIN NA (PORCINE) 100 MG/1 ML DISP.SYRIN SQ SCH ×2 (10:43→21:02)
[2021-02-03] MEDS: METOPROLOL TARTRATE 25 MG TABLET (FP) PO SCH ×2 (10:43→21:02)
[2021-02-03] MEDS: LACTOBACILLUS ACIDOPHILUS 1 TABLET PO SCH (11:43)
[2021-02-03] MEDS: FAMOTIDINE 20 MG/50 ML IVPB 20 MG/50 ML MG IVPB SCH ×2 (11:44→21:02)
[2021-02-03] MEDS: amLODIPine BESYLATE 10 MG TABLET (FP) PO SCH (11:44)
[2021-02-03] MEDS: NYSTATIN 100,000 UNIT/GM TOPICAL CREAM 15 GM TUBE TP SCH ×2 (16:59→19:59)
[2021-02-04] MEDS: NYSTATIN 100,000 UNIT/GM TOPICAL CREAM 15 GM TUBE TP SCH ×5 (00:15→18:24)
[2021-02-04] MEDS: MORPHINE SULFATE 2 MG/ML VIAL IVPUSH PRN ×2 (02:30→12:32)
[2021-02-04] MEDS: PROPOFOL 1,000,000 MCG/100 ML VIAL IVPB SCH (04:51)
[2021-02-04] MEDS ORDERED: PT OWN MED DRAWER 7, Y5N ONE (06:26)
[2021-02-04 06:35] LABS: HEMATOCRIT 25.5 % (32.4-45.2); MCH 24.3 pg (25.7-33.7); MCHC 31.3 g/dl (32.0-36.0); MEAN CELL VOLUME 77.5 fl (80-96); MEAN PLT VOLUME 7.7 fl (7.5-11.1); PLATELET COUNT 456 K/MM3 (134-434); RBC 3.29 M/mm3 (3.60-5.2); RDW 19.4 % (11.6-15.6); WHITE BLOOD COUNT 13.8 K/mm3 (4.0-10.0)
[2021-02-04 06:54] LABS: CALCIUM 8.6 mg/dL (8.5-10.1)
[2021-02-04 06:55] LABS: ALBUMIN 1.7 g/dl (3.4-5.0); BLOOD UREA NITROGEN 25.6 mg/dL (7-18)
[2021-02-04 06:58] LABS: CREATININE 1.7 mg/dL (0.55-1.3)
[2021-02-04 07:00] LABS: BILIRUBIN,TOTAL 0.5 mg/dL (0.2-1); TOT PROT 5.3 g/dl (6.4-8.2)
[2021-02-04] MEDS: NAPH,MB-DB/K PH,MBDB POWDER PACKET PO SCH ×3 (07:04→21:44)
[2021-02-04] MEDS: FAMOTIDINE 20 MG/50 ML IVPB 20 MG/50 ML MG IVPB SCH ×2 (09:29→21:43)
[2021-02-04] MEDS: LACTOBACILLUS ACIDOPHILUS 1 TABLET PO SCH (12:54)
[2021-02-04] MEDS: METOPROLOL TARTRATE 25 MG TABLET (FP) PO SCH ×2 (12:54→21:43)
[2021-02-04] MEDS: hydrALAZINE HCL 25 MG TABLET (FP) PO SCH ×2 (12:54→21:43)
[2021-02-04] MEDS: amLODIPine BESYLATE 10 MG TABLET (FP) PO SCH (12:55)
[2021-02-04] MEDS: ENOXAPARIN NA (PORCINE) 100 MG/1 ML DISP.SYRIN SQ SCH ×3 (12:55→21:48)
[2021-02-04 20:36] LABS: HEMATOCRIT 25.4 % (32.4-45.2); HEMOGLOBIN 7.8 GM/dL (10.7-15.3); MCHC 30.7 g/dl (32.0-36.0); MEAN CELL VOLUME 78.2 fl (80-96); MEAN PLT VOLUME 7.8 fl (7.5-11.1); PLATELET COUNT 487 K/MM3 (134-434); RBC 3.25 M/mm3 (3.60-5.2); RDW 19.6 % (11.6-15.6); WHITE BLOOD COUNT 13.5 K/mm3 (4.0-10.0)
[2021-02-04] MEDS ORDERED: METOPROLOL TARTRATE 5 MG/5 ML VIAL IVPUSH PRN (23:14)
[2021-02-04] MEDS ORDERED: ACETAMINOPHEN 325 MG TABLET (FP) PO PRN (23:14)
[2021-02-04] MEDS ORDERED: PROPOFOL 1,000,000 MCG/100 ML VIAL IVPB SCH (23:14)
[2021-02-04] MEDS ORDERED: hydrALAZINE HCL 20 MG/ML VIAL IVPUSH PRN (23:14)
[2021-02-05] MEDS: NYSTATIN 100,000 UNIT/GM TOPICAL CREAM 15 GM TUBE TP SCH ×5 (01:42→23:02)
[2021-02-05] MEDS: MORPHINE SULFATE 2 MG/ML VIAL IVPUSH PRN (03:57)
[2021-02-05] MEDS: NAPH,MB-DB/K PH,MBDB POWDER PACKET PO SCH ×2 (06:19→14:18)
[2021-02-05 08:34] LABS: HEMATOCRIT 27.6 % (32.4-45.2); HEMOGLOBIN 8.8 GM/dL (10.7-15.3); MCHC 31.8 g/dl (32.0-36.0); MEAN CELL VOLUME 78.5 fl (80-96); MEAN PLT VOLUME 7.5 fl (7.5-11.1); PLATELET COUNT 528 K/MM3 (134-434); RBC 3.51 M/mm3 (3.60-5.2); RDW 19.6 % (11.6-15.6); WHITE BLOOD COUNT 13.3 K/mm3 (4.0-10.0)
[2021-02-05 09:01] LABS: CREATININE 1.6 mg/dL (0.55-1.3)
[2021-02-05 09:02] LABS: BILIRUBIN,TOTAL 1.1 mg/dL (0.2-1); TOT PROT 5.8 g/dl (6.4-8.2)
[2021-02-05] MEDS: METOPROLOL TARTRATE 25 MG TABLET (FP) PO SCH ×2 (09:39→23:02)
[2021-02-05] MEDS: amLODIPine BESYLATE 10 MG TABLET (FP) PO SCH (09:39)
[2021-02-05] MEDS: hydrALAZINE HCL 25 MG TABLET (FP) PO SCH ×2 (09:39→23:02)
[2021-02-05] MEDS: ENOXAPARIN NA (PORCINE) 100 MG/1 ML DISP.SYRIN SQ SCH ×2 (09:39→23:04)
[2021-02-05] MEDS: LACTOBACILLUS ACIDOPHILUS 1 TABLET PO SCH (09:40)
[2021-02-05] MEDS ORDERED: FAMOTIDINE 20 MG/50 ML IVPB 20 MG/50 ML MG IVPB SCH (10:00)
[2021-02-05] MEDS ORDERED: PT OWN MED DRAWER 7, Y5N ONE (14:00)
[2021-02-05] MEDS: SCOPOLAMINE HYDROBROMIDE 1 PATCH PATCH.TD72 TD SCH (14:18)
[2021-02-05] MEDS: PANTOPRAZOLE SODIUM 40 MG VIAL IVPUSH SCH (23:02)
[2021-02-06] MEDS: NYSTATIN 100,000 UNIT/GM TOPICAL CREAM 15 GM TUBE TP SCH ×3 (05:25→17:32)
[2021-02-06 09:33] LABS: BASO % 1.2 % (0-2.0); EOS % 2.6 % (0-4.5); LYMPH % 5.5 % (8-40); MCH 25.4 pg (25.7-33.7); MEAN CELL VOLUME 79.2 fl (80-96); MEAN PLT VOLUME 7.7 fl (7.5-11.1); MONO % 4.6 % (3.8-10.2); NEUT % 86.1 % (42.8-82.8); PLATELET COUNT 476 K/MM3 (134-434); RBC 3.15 M/mm3 (3.60-5.2); RDW 19.8 % (11.6-15.6); WHITE BLOOD COUNT 12.9 K/mm3 (4.0-10.0)
[2021-02-06 09:42] LABS: INR 1.09 (0.83-1.09); PROTHROMBIN TIME (PATIENT) 13.4 SEC (9.7-13.0)
[2021-02-06] MEDS: METOPROLOL TARTRATE 25 MG TABLET (FP) PO SCH ×2 (10:37→21:10)
[2021-02-06] MEDS: PANTOPRAZOLE SODIUM 40 MG VIAL IVPUSH SCH ×2 (10:38→21:10)
[2021-02-06] MEDS: LACTOBACILLUS ACIDOPHILUS 1 TABLET PO SCH (10:38)
[2021-02-06] MEDS: hydrALAZINE HCL 25 MG TABLET (FP) PO SCH ×2 (10:38→21:10)
[2021-02-06] MEDS: amLODIPine BESYLATE 10 MG TABLET (FP) PO SCH (10:38)
[2021-02-06 11:34] LABS: ALBUMIN 2.1 g/dl (3.4-5.0); BLOOD UREA NITROGEN 33.9 mg/dL (7-18)
[2021-02-06 11:38] LABS: CREATININE 1.9 mg/dL (0.55-1.3)
[2021-02-06] MEDS: ENOXAPARIN NA (PORCINE) 100 MG/1 ML DISP.SYRIN SQ SCH (11:38)
[2021-02-06 11:39] LABS: BILIRUBIN,TOTAL 0.4 mg/dL (0.2-1); TOT PROT 6.1 g/dl (6.4-8.2)
[2021-02-06 11:41] LABS: CALCIUM 9.1 mg/dL (8.5-10.1)
[2021-02-06] MEDS ORDERED: DEXTROSE 5%-WATER - 1,000 ML IV SCH (16:15)
[2021-02-07] MEDS: NYSTATIN 100,000 UNIT/GM TOPICAL CREAM 15 GM TUBE TP SCH ×5 (00:40→23:01)
[2021-02-07 09:48] LABS: BASO % 0.3 % (0-2.0); EOS % 3.3 % (0-4.5); HEMATOCRIT 26.5 % (32.4-45.2); HEMOGLOBIN 8.5 GM/dL (10.7-15.3); LYMPH % 5.6 % (8-40); MCH 25.2 pg (25.7-33.7); MEAN CELL VOLUME 78.6 fl (80-96); MEAN PLT VOLUME 7.8 fl (7.5-11.1); MONO % 3.7 % (3.8-10.2); NEUT % 87.1 % (42.8-82.8); PLATELET COUNT 493 K/MM3 (134-434); RBC 3.38 M/mm3 (3.60-5.2); RDW 20.1 % (11.6-15.6); WHITE BLOOD COUNT 12.7 K/mm3 (4.0-10.0)
[2021-02-07] MEDS: hydrALAZINE HCL 25 MG TABLET (FP) PO SCH ×2 (10:14→23:01)
[2021-02-07] MEDS: PANTOPRAZOLE SODIUM 40 MG VIAL IVPUSH SCH ×2 (10:14→23:01)
[2021-02-07] MEDS: LACTOBACILLUS ACIDOPHILUS 1 TABLET PO SCH (10:14)
[2021-02-07] MEDS: METOPROLOL TARTRATE 25 MG TABLET (FP) PO SCH ×2 (10:14→23:01)
[2021-02-07] MEDS: amLODIPine BESYLATE 10 MG TABLET (FP) PO SCH (10:14)
[2021-02-07 10:23] LABS: PROTHROMBIN TIME (PATIENT) 12.1 SEC (9.7-13.0)
[2021-02-07 10:33] LABS: ALBUMIN 1.8 g/dl (3.4-5.0); CALCIUM 8.6 mg/dL (8.5-10.1)
[2021-02-07 10:34] LABS: BLOOD UREA NITROGEN 31.7 mg/dL (7-18)
[2021-02-07 10:37] LABS: CREATININE 1.6 mg/dL (0.55-1.3)
[2021-02-07 10:38] LABS: BILIRUBIN,TOTAL 0.4 mg/dL (0.2-1); TOT PROT 5.7 g/dl (6.4-8.2)
[2021-02-07] MEDS: MORPHINE SULFATE 2 MG/ML VIAL IVPUSH PRN (10:41)
[2021-02-07] MEDS ORDERED: hydrALAZINE HCL 20 MG/ML VIAL IVPB PRN (15:04)
[2021-02-07] MEDS: METOPROLOL TARTRATE 5 MG/5 ML VIAL IVPB PRN (15:23)
[2021-02-08] MEDS: METOPROLOL TARTRATE 5 MG/5 ML VIAL IVPB PRN ×2 (02:11→17:30)
[2021-02-08] MEDS: NYSTATIN 100,000 UNIT/GM TOPICAL CREAM 15 GM TUBE TP SCH ×3 (05:29→17:32)
[2021-02-08] MEDS ORDERED: PT OWN MED DRAWER 7, Y5N ONE ×2 (06:52→16:56)
[2021-02-08] MEDS: hydrALAZINE HCL 25 MG TABLET (FP) PO SCH ×2 (10:45→22:43)
[2021-02-08] MEDS: PANTOPRAZOLE SODIUM 40 MG VIAL IVPUSH SCH ×2 (10:45→22:48)
[2021-02-08] MEDS: LACTOBACILLUS ACIDOPHILUS 1 TABLET PO SCH (10:45)
[2021-02-08] MEDS: METOPROLOL TARTRATE 25 MG TABLET (FP) PO SCH ×2 (10:45→22:44)
[2021-02-08] MEDS: amLODIPine BESYLATE 10 MG TABLET (FP) PO SCH (10:45)
[2021-02-08] MEDS: ENOXAPARIN NA (PORCINE) 80 MG/0.8 ML DISP.SYRIN SQ SCH ×2 (11:15→22:48)
[2021-02-08 13:04] LABS: BASO % 0.9 % (0-2.0); EOS % 4.1 % (0-4.5); HEMATOCRIT 26.8 % (32.4-45.2); HEMOGLOBIN 8.8 GM/dL (10.7-15.3); LYMPH % 5.4 % (8-40); MCH 25.9 pg (25.7-33.7); MCHC 32.8 g/dl (32.0-36.0); MEAN CELL VOLUME 78.8 fl (80-96); MEAN PLT VOLUME 7.6 fl (7.5-11.1); MONO % 5.1 % (3.8-10.2); NEUT % 84.5 % (42.8-82.8); PLATELET COUNT 464 K/MM3 (134-434); RDW 20.5 % (11.6-15.6); WHITE BLOOD COUNT 9.7 K/mm3 (4.0-10.0)
[2021-02-08 13:33] LABS: CALCIUM 8.7 mg/dL (8.5-10.1)
[2021-02-08 13:34] LABS: ALBUMIN 1.8 g/dl (3.4-5.0); BLOOD UREA NITROGEN 27.8 mg/dL (7-18)
[2021-02-08 13:37] LABS: CREATININE 1.3 mg/dL (0.55-1.3)
[2021-02-08 13:39] LABS: BILIRUBIN,TOTAL 0.5 mg/dL (0.2-1); TOT PROT 5.8 g/dl (6.4-8.2)
[2021-02-08] MEDS: SCOPOLAMINE HYDROBROMIDE 1 PATCH PATCH.TD72 TD SCH (17:30)
[2021-02-08] MEDS: ATORVASTATIN CA 80 MG TABLET (FP) PO SCH (22:43)
[2021-02-09] MEDS: NYSTATIN 100,000 UNIT/GM TOPICAL CREAM 15 GM TUBE TP SCH ×4 (00:15→18:41)
[2021-02-09] MEDS: METOPROLOL TARTRATE 5 MG/5 ML VIAL IVPB PRN ×3 (01:23→10:22)
[2021-02-09 09:18] LABS: MEAN CELL VOLUME 78.7 fl (80-96); MEAN PLT VOLUME 7.7 fl (7.5-11.1)
[2021-02-09 09:21] LABS: HEMATOCRIT 27.1 % (32.4-45.2); MCHC 33.1 g/dl (32.0-36.0); PLATELET COUNT 474 K/MM3 (134-434); RBC 3.44 M/mm3 (3.60-5.2); RDW 20.6 % (11.6-15.6); WHITE BLOOD COUNT 10.2 K/mm3 (4.0-10.0)
[2021-02-09 09:40] LABS: PHOSPHOROUS 3.2 mg/dL (2.5-4.9)
[2021-02-09 09:41] LABS: BILIRUBIN,TOTAL 0.5 mg/dL (0.2-1)
[2021-02-09 09:42] LABS: TOT PROT 5.8 g/dl (6.4-8.2)
[2021-02-09 09:48] LABS: ALBUMIN 1.8 g/dl (3.4-5.0); BLOOD UREA NITROGEN 25.9 mg/dL (7-18)
[2021-02-09 09:50] LABS: CREATININE 1.3 mg/dL (0.55-1.3)
[2021-02-09 09:53] LABS: CALCIUM 8.4 mg/dL (8.5-10.1); MAGNESIUM 2.1 mg/dL (1.8-2.4)
[2021-02-09] MEDS: ENOXAPARIN NA (PORCINE) 80 MG/0.8 ML DISP.SYRIN SQ SCH ×2 (10:21→22:14)
[2021-02-09] MEDS: PANTOPRAZOLE SODIUM 40 MG VIAL IVPUSH SCH ×2 (10:22→22:14)
[2021-02-09] MEDS: hydrALAZINE HCL 25 MG TABLET (FP) PO SCH ×2 (10:23→22:13)
[2021-02-09] MEDS: METOPROLOL TARTRATE 25 MG TABLET (FP) PO SCH ×2 (10:24→22:13)
[2021-02-09] MEDS: amLODIPine BESYLATE 10 MG TABLET (FP) PO SCH (10:24)
[2021-02-09] MEDS: LACTOBACILLUS ACIDOPHILUS 1 TABLET PO SCH (10:24)
[2021-02-09] MEDS ORDERED: METOPROLOL TARTRATE 5 MG/5 ML VIAL IVPB ONE (13:01)
[2021-02-09] MEDS: BANATROL PLUS POWDER PACKET PEG SCH ×2 (14:16→23:14)
[2021-02-09] MEDS ORDERED: ATORVASTATIN CA 40 MG TABLET (FP) ONE (22:06)
[2021-02-09] MEDS ORDERED: PT OWN MED DRAWER 7, Y5N ONE (22:07)
[2021-02-09] MEDS: ATORVASTATIN CA 80 MG TABLET (FP) PO SCH (22:14)
[2021-02-10] MEDS: NYSTATIN 100,000 UNIT/GM TOPICAL CREAM 15 GM TUBE TP SCH ×4 (01:18→17:35)
[2021-02-10] MEDS ORDERED: PT OWN MED DRAWER 7, Y5N ONE ×2 (04:47→21:14)
[2021-02-10] MEDS: BANATROL PLUS POWDER PACKET PEG SCH ×3 (05:27→21:22)
[2021-02-10] MEDS: LACTOBACILLUS ACIDOPHILUS 1 TABLET PO SCH (11:28)
[2021-02-10] MEDS: hydrALAZINE HCL 25 MG TABLET (FP) PO SCH ×2 (11:28→21:21)
[2021-02-10] MEDS: METOPROLOL TARTRATE 25 MG TABLET (FP) PO SCH ×2 (11:28→21:21)
[2021-02-10] MEDS: amLODIPine BESYLATE 10 MG TABLET (FP) PO SCH (11:28)
[2021-02-10] MEDS: ENOXAPARIN NA (PORCINE) 80 MG/0.8 ML DISP.SYRIN SQ SCH ×2 (11:29→21:22)
[2021-02-10] MEDS: PANTOPRAZOLE SODIUM 40 MG VIAL IVPUSH SCH ×2 (11:30→21:22)
[2021-02-10] MEDS: ATORVASTATIN CA 80 MG TABLET (FP) PO SCH (21:21)
[2021-02-11] MEDS ORDERED: PT OWN MED DRAWER 7, Y5N ONE ×3 (04:57→22:55)
[2021-02-11] MEDS: BANATROL PLUS POWDER PACKET PEG SCH ×3 (05:00→22:57)
[2021-02-11] MEDS: NYSTATIN 100,000 UNIT/GM TOPICAL CREAM 15 GM TUBE TP SCH ×5 (05:00→23:12)
[2021-02-11] MEDS: METOPROLOL TARTRATE 5 MG/5 ML VIAL IVPB PRN (06:39)
[2021-02-11 10:15] LABS: HEMATOCRIT 26.5 % (32.4-45.2); HEMOGLOBIN 8.4 GM/dL (10.7-15.3); MCH 25.2 pg (25.7-33.7); MCHC 31.9 g/dl (32.0-36.0); MEAN CELL VOLUME 78.8 fl (80-96); MEAN PLT VOLUME 7.6 fl (7.5-11.1); PLATELET COUNT 408 K/MM3 (134-434); RBC 3.36 M/mm3 (3.60-5.2); RDW 20.9 % (11.6-15.6); WHITE BLOOD COUNT 9.1 K/mm3 (4.0-10.0)
[2021-02-11] MEDS: amLODIPine BESYLATE 10 MG TABLET (FP) PO SCH (10:42)
[2021-02-11] MEDS: LACTOBACILLUS ACIDOPHILUS 1 TABLET PO SCH (10:42)
[2021-02-11] MEDS: LISINOPRIL 10 MG TABLET PO SCH (10:42)
[2021-02-11] MEDS: PANTOPRAZOLE 40 MG TABLET PO SCH (10:42)
[2021-02-11] MEDS: CARVEDILOL 6.25 MG TABLET (FP) PO SCH ×2 (10:42→22:56)
[2021-02-11] MEDS: ENOXAPARIN NA (PORCINE) 80 MG/0.8 ML DISP.SYRIN SQ SCH ×2 (10:42→22:57)
[2021-02-11 10:48] LABS: ALBUMIN 1.7 g/dl (3.4-5.0); BLOOD UREA NITROGEN 21.8 mg/dL (7-18); CALCIUM 8.8 mg/dL (8.5-10.1)
[2021-02-11 10:52] LABS: BILIRUBIN,TOTAL 0.5 mg/dL (0.2-1); CREATININE 1.1 mg/dL (0.55-1.3); TOT PROT 5.7 g/dl (6.4-8.2)
[2021-02-11] MEDS: SCOPOLAMINE HYDROBROMIDE 1 PATCH PATCH.TD72 TD SCH (16:18)
[2021-02-11] MEDS: ATORVASTATIN CA 80 MG TABLET (FP) PO SCH (22:56)
[2021-02-12] MEDS: BANATROL PLUS POWDER PACKET PEG SCH ×2 (05:00→15:09)
[2021-02-12] MEDS: NYSTATIN 100,000 UNIT/GM TOPICAL CREAM 15 GM TUBE TP SCH ×3 (05:33→17:36)
[2021-02-12] MEDS: CARVEDILOL 6.25 MG TABLET (FP) PO SCH (09:49)
[2021-02-12] MEDS: amLODIPine BESYLATE 10 MG TABLET (FP) PO SCH (09:49)
[2021-02-12] MEDS: PANTOPRAZOLE 40 MG TABLET PO SCH (09:49)
[2021-02-12] MEDS: LACTOBACILLUS ACIDOPHILUS 1 TABLET PO SCH (09:49)
[2021-02-12] MEDS: ENOXAPARIN NA (PORCINE) 80 MG/0.8 ML DISP.SYRIN SQ SCH (09:49)
[2021-02-12] MEDS: LISINOPRIL 10 MG TABLET PO SCH (09:49)
[2021-02-12 12:25] LABS: ALBUMIN 1.8 g/dl (3.4-5.0); CALCIUM 8.8 mg/dL (8.5-10.1)
[2021-02-12 12:26] LABS: BLOOD UREA NITROGEN 20.4 mg/dL (7-18)
[2021-02-12 12:31] LABS: TOT PROT 5.9 g/dl (6.4-8.2)
[2021-02-12 12:36] LABS: BILIRUBIN,TOTAL 0.5 mg/dL (0.2-1)
[2021-02-12 17:41] VITALS: BP 158/75; PULSE 73; TEMP 98.5
== END 2021-02-12 17:37 | DRG 4 ==
LOC: JER 12:04 → JERBED 14:48 → J4W 18:12 → JICU 01-21 12:06 → J5S 02-04 23:16
PROVIDERS: ADMIT Student in an Organized Health Care Education/Training Program; ATTEND Internal Medicine
PROC: 5A1955Z Respiratory Ventilation, Greater than 96 Consecutive Hours (ICD-10-PCS; principal; 2021-01-21)
PROC: 0CHY7BZ Insertion of Airway into Mouth and Throat, Via Natural or Artificial Opening (ICD-10-PCS; 2021-01-21)
PROC: 0DH67UZ Insertion of Feeding Device into Stomach, Via Natural or Artificial Opening (ICD-10-PCS; 2021-01-21)
PROC: 3E0G76Z Introduction of Nutritional Substance into Upper GI, Via Natural or Artificial Opening (ICD-10-PCS; 2021-01-21)
PROC: 5A12012 Performance of Cardiac Output, Single, Manual (ICD-10-PCS; 2021-01-21)
PROC: 05HN33Z Insertion of Infusion Device into Left Internal Jugular Vein, Percutaneous Approach (ICD-10-PCS; 2021-01-22)
PROC: B544ZZA Ultrasonography of Left Jugular Veins, Guidance (ICD-10-PCS; 2021-01-22)
PROC: 0W9G3ZX Drainage of Peritoneal Cavity, Percutaneous Approach, Diagnostic (ICD-10-PCS; 2021-01-26)
PROC: 0BJ08ZZ Inspection of Tracheobronchial Tree, Via Natural or Artificial Opening Endoscopic (ICD-10-PCS; 2021-02-02)
PROC: 0B113F4 Bypass Trachea to Cutaneous with Tracheostomy Device, Percutaneous Approach (ICD-10-PCS; 2021-02-02)
PROC: 30233N1 Transfusion of Nonautologous Red Blood Cells into Peripheral Vein, Percutaneous Approach (ICD-10-PCS; 2021-02-05)
PROC: 0DH63UZ Insertion of Feeding Device into Stomach, Percutaneous Approach (ICD-10-PCS; 2021-02-08)
PROC: 0WBH3ZX Excision of Retroperitoneum, Percutaneous Approach, Diagnostic (ICD-10-PCS; 2021-02-08)
DX: I26.99 Other pulmonary embolism without acute cor pulmonale (principal); J81.0 Acute pulmonary edema; J96.01 Acute respiratory failure with hypoxia; I11.0 Hypertensive heart disease with heart failure; E87.0 Hyperosmolality and hypernatremia; G47.30 Sleep apnea, unspecified; J18.9 Pneumonia, unspecified organism; N17.0 Acute kidney failure with tubular necrosis; I50.21 Acute systolic (congestive) heart failure; R18.8 Other ascites; E87.5 Hyperkalemia; E87.70 Fluid overload, unspecified; G93.1 Anoxic brain damage, not elsewhere classified; I46.9 Cardiac arrest, cause unspecified; I31.3 Pericardial effusion (noninflammatory); D25.9 Leiomyoma of uterus, unspecified; E87.1 Hypo-osmolality and hyponatremia; R57.9 Shock, unspecified; J98.11 Atelectasis; E87.6 Hypokalemia; R73.03 Prediabetes; E66.01 Morbid (severe) obesity due to excess calories; Z68.37 Body mass index [BMI] 37.0-37.9, adult; R00.1 Bradycardia, unspecified; D72.829 Elevated white blood cell count, unspecified; N85.8 Other specified noninflammatory disorders of uterus; R97.1 Elevated cancer antigen 125 [CA 125]; Z87.11 Personal history of peptic ulcer disease
CPT/HCPCS: 36415; 36430; 36511; 36600; 49180; 49440; 70450-TC; 71045-TC-FY; 71270-TC; 74018-TC-FY; 74178-TC; 80048; 80053; 80061; 80307; 81003; 82042; 82105; 82150; 82272; 82378; 82436; 82465; 82550; 82553; 82565; 82728; 82803; 82945; 82962; 83036; 83615; 83721; 83735; 83880; 83986; 84100; 84132; 84133; 84156; 84300; 84439; 84443; 84484; 84702; 85025; 85027; 85379; 85384; 85610; 85730; 86140; 86304; 86769; 86850; 86900; 86901; 86922; 87040; 87070; 87075; 87077; 87086; 87205; 87804; 88108; 88305-TC; 93005; 93010; 93225; 93226; 93306-TC; 93970-TC; 94002; 94660; 97162-GP; 99291; C9803; J1644; P9017; P9038; P9058; U0003; U0005

== ENCOUNTER 2021-03-07 00:45 | Inpatient (IN) | payer OTHER ==
[2021-03-07] MEDS ORDERED: ACETAMINOPHEN 1000 MG/100 ML VIAL (NON FORMULARY) IVPB ONE (01:05)
[2021-03-07 01:12] LABS: BASO % 0.5 % (0-2.0); EOS % 2.3 % (0-4.5); HEMATOCRIT 16.8 % (32.4-45.2); LYMPH % 10.5 % (8-40); MCH 24.8 pg (25.7-33.7); MCHC 28.4 g/dl (32.0-36.0); MEAN CELL VOLUME 87.5 fl (80-96); MEAN PLT VOLUME 12.1 fl (7.5-11.1); MONO % 1.1 % (3.8-10.2); NEUT % 85.6 % (42.8-82.8); PLATELET COUNT 173 K/MM3 (134-434); RBC 1.92 M/mm3 (3.60-5.2); RDW 23.8 % (11.6-15.6); WHITE BLOOD COUNT 13.5 K/mm3 (4.0-10.0)
[2021-03-07] MEDS ORDERED: ACETAMINOPHEN INJECTION 100 ML IVPB ONE (01:12)
[2021-03-07 01:20] LABS: INR 1.89 (0.83-1.09); PROTHROMBIN TIME (PATIENT) 22.8 SEC (9.7-13.0)
[2021-03-07 01:22] LABS: ACTIVATED PTT 32.8 SECONDS (25.2-36.5)
[2021-03-07 01:26] LABS: HEMOGLOBIN 4.8 GM/dL (10.7-15.3)
[2021-03-07 01:39] LABS: CO2 27 mmol/L (21-32)
[2021-03-07 01:43] LABS: BILIRUBIN,TOTAL 0.6 mg/dL (0.2-1)
[2021-03-07 01:45] LABS: ALK PHOS 67 U/L (45-117)
[2021-03-07 01:50] LABS: EPI CELLS 2 /uL (0-25.1); HYALINE CASTS 1 /uL (0-3.1); PH,URINE 6.5 (5.0-8.0); URINE APPEARANCE TURBID; URINE BACTERIA >9,000 /uL (0-1359); URINE BILIRUBIN NEGATIVE (NEGATIVE); URINE COLOR DK YELLOW; URINE GLUCOSE (UA) NEGATIVE (NEGATIVE); URINE KETONE NEGATIVE (NEGATIVE); URINE LEUK ESTERASE 2+ (NEGATIVE); URINE NITRITE NEGATIVE (NEGATIVE); URINE PROTEIN 2+ (NEGATIVE); URINE RBC 42 /uL (0-23.9); URINE UROBILINOGEN 0.2 mg/dL (0.2-1.0); URINE WBC 949 /uL (0-25.8)
[2021-03-07 01:50] LABS: ALBUMIN 1.5 g/dl (3.4-5.0); ANION GAP 2 MMOL/L (8-16); BLOOD UREA NITROGEN 174.4 mg/dL (7-18); CALCIUM 8.6 mg/dL (8.5-10.1); CHLORIDE 123 mmol/L (98-107); CREATININE 5.9 mg/dL (0.55-1.3); GLUCOSE,RANDOM 254 mg/dL (74-106); LACTIC ACID 2.6 mmol/L (0.4-2.0); SGOT/AST 402 U/L (15-37); SGPT/ALT 126 U/L (13-61); SODIUM 152 mmol/L (136-145); TOT PROT 7.6 g/dl (6.4-8.2)
[2021-03-07] MEDS ORDERED: LACTATED RINGERS SOLUTION 1000 ML INFUS.BAG IV ONE (01:52)
[2021-03-07] MEDS ORDERED: CALCIUM GLUCONATE 10% - 1,000 MG/10 ML VIAL IVPB ONE (01:56)
[2021-03-07] MEDS ORDERED: CALCIUM GLUC IN NACL, ISO-OSM 1 GM/50 ML BAG IVPB ONE (02:06)
[2021-03-07] MEDS ORDERED: PIPERACILLIN/TAZOB 2.25 GM 2.25 GM in DEXTROSE 5%-WATER - 50 ML IVPB ONE (03:10)
[2021-03-07] MEDS ORDERED: VANCOMYCIN 1,000 MG in DEXTROSE 5%-WATER - 250 ML IVPB ONE (03:10)
[2021-03-07 03:28] LABS: ANION GAP 7 MMOL/L (8-16); BLOOD UREA NITROGEN 179.1 mg/dL (7-18); CALCIUM 8.5 mg/dL (8.5-10.1); CHLORIDE 126 mmol/L (98-107); CO2 26 mmol/L (21-32); CREATININE 5.8 mg/dL (0.55-1.3); GLUCOSE,RANDOM 261 mg/dL (74-106); SODIUM 158 mmol/L (136-145)
[2021-03-07] MEDS ORDERED: INSULIN REGULAR HUMAN 100 UNITS/ML *VIAL IVPUSH ONE ×3 (03:30→07:41)
[2021-03-07] MEDS ORDERED: DEXTROSE 50%-WATER - 25 GM/50 ML VIAL IVPUSH ONE ×2 (03:30→07:42)
[2021-03-07] MEDS ORDERED: PIPERACILLIN/TAZOB 2.25 GM 2.25 GM/50 ML BAG IVPB ONE (03:54)
[2021-03-07] MEDS ORDERED: VANCOMYCIN 1 GRAM (PRE-DOCKED) 1,000 MG/250 ML BAG IVPB ONE (03:54)
[2021-03-07] MEDS ORDERED: DEXTROSE 50%-WATER 25 GM/50 ML DISP.SYRIN ONE (03:54)
[2021-03-07 04:45] LABS: N-TERMINAL BNP 2153.1 pg/ml (5-125)
[2021-03-07] MEDS ORDERED: DEXTROSE 5%-WATER - 1,000 ML IV SCH (04:45)
[2021-03-07] MEDS ORDERED: SODIUM CHLORIDE 1,000 ML IV SCH ×2 (05:15)
[2021-03-07 06:37] LABS: ANISOCYTOSIS 3+; MACROCYTOSIS 0; PLATELET ESTIMATE NORMAL
[2021-03-07 07:22] LABS: CHLORIDE 124 mmol/L (98-107); SODIUM 156 mmol/L (136-145)
[2021-03-07 07:23] LABS: CALCIUM 8.9 mg/dL (8.5-10.1)
[2021-03-07 07:24] LABS: CO2 26 mmol/L (21-32); GLUCOSE,RANDOM 348 mg/dL (74-106)
[2021-03-07 07:27] LABS: CREATININE 5.8 mg/dL (0.55-1.3)
[2021-03-07 07:32] LABS: ANION GAP 6 MMOL/L (8-16); BLOOD UREA NITROGEN 170.4 mg/dL (7-18)
[2021-03-07] MEDS ORDERED: SODIUM BICARBONATE 8.4% 50 MEQ/50 ML DISP.SYRIN IVPUSH ONE (07:42)
[2021-03-07] MEDS ORDERED: INSULIN REGULAR 100 UNITS in SODIUM CHLORIDE 99 ML IVPB SCH (07:45)
[2021-03-07] MEDS ORDERED: PIPERACILLIN/TAZOBACTAM 2.25 GM VIAL IVPB ONE ×2 (09:21→17:12)
[2021-03-07] MEDS ORDERED: PT OWN MED DRAWER 7, Y5N ONE ×2 (09:21→17:12)
[2021-03-07] MEDS ORDERED: DEXTROSE 5%-WATER - 50 ML IVPB ONE ×2 (09:21→17:13)
[2021-03-07] MEDS ORDERED: PIPERACILLIN/TAZOB 2.25 GM 2.25 GM in DEXTROSE 5%-WATER - 50 ML IVPB SCH (10:00)
[2021-03-07] MEDS ORDERED: PANTOPRAZOLE SODIUM 40 MG VIAL IVPUSH SCH (10:00)
[2021-03-07] MEDS: MUPIROCIN 2% TOPICAL OINTMENT FOR DECOLONIZATION NS SCH ×2 (10:42→21:10)
[2021-03-07 12:04] LABS: HEMATOCRIT 22.6 % (32.4-45.2); HEMOGLOBIN 7.2 GM/dL (10.7-15.3); MCH 27.8 pg (25.7-33.7); MCHC 31.7 g/dl (32.0-36.0); MEAN CELL VOLUME 87.7 fl (80-96); MEAN PLT VOLUME 11.5 fl (7.5-11.1); PLATELET COUNT 169 K/MM3 (134-434); RBC 2.57 M/mm3 (3.60-5.2); RDW 17.9 % (11.6-15.6); WHITE BLOOD COUNT 14.2 K/mm3 (4.0-10.0)
[2021-03-07 12:24] LABS: LACTIC ACID 2.7 mmol/L (0.4-2.0)
[2021-03-07 12:37] VITALS: BMI 36.6
[2021-03-07 13:17] LABS: ALBUMIN 1.7 g/dl (3.4-5.0); ALK PHOS 77 U/L (45-117); ANION GAP 8 MMOL/L (8-16); BILIRUBIN,TOTAL 0.5 mg/dL (0.2-1); BLOOD UREA NITROGEN 172.1 mg/dL (7-18); CALCIUM 8.7 mg/dL (8.5-10.1); CHLORIDE 124 mmol/L (98-107); CO2 24 mmol/L (21-32); CREATININE 5.9 mg/dL (0.55-1.3); GLUCOSE,RANDOM 363 mg/dL (74-106); SGOT/AST 313 U/L (15-37); SGPT/ALT 118 U/L (13-61); SODIUM 157 mmol/L (136-145); TOT PROT 6.6 g/dl (6.4-8.2)
[2021-03-07] MEDS ORDERED: FUROSEMIDE INJECTION 100 MG in DEXTROSE 5%-WATER - 90 ML IVPB SCH (15:15)
[2021-03-07 15:40] LABS: CHLORIDE 124 mmol/L (98-107); SODIUM 156 mmol/L (136-145)
[2021-03-07 15:42] LABS: CO2 26 mmol/L (21-32); GLUCOSE,RANDOM 289 mg/dL (74-106)
[2021-03-07 15:45] LABS: CREATININE 5.9 mg/dL (0.55-1.3)
[2021-03-07 15:46] LABS: ANION GAP 6 MMOL/L (8-16); BLOOD UREA NITROGEN 168.8 mg/dL (7-18)
[2021-03-07] MEDS ORDERED: TUBE FEED DECLOGGING SOLUTION 12,000 UNITS GT ONE (17:00)
[2021-03-07] MEDS: PIPERACILLIN/TAZOB 2.25 GM 2.25 GM in DEXTROSE 5%-WATER - 50 ML IVPB SCH (17:15)
[2021-03-07] MEDS: SODIUM ZIRCONIUM CYCLOSILICATE (LOKELMA) 5 GM PACKET PO SCH (18:04)
[2021-03-07] MEDS: CHLORHEXIDINE GLUCONATE 4% CLEANSER FOR DECOLONIZATION TP SCH (21:10)
[2021-03-07 21:42] LABS: CHLORIDE 124 mmol/L (98-107); SODIUM 157 mmol/L (136-145)
[2021-03-07 21:43] LABS: CALCIUM 9.3 mg/dL (8.5-10.1)
[2021-03-07 21:44] LABS: CO2 26 mmol/L (21-32); GLUCOSE,RANDOM 165 mg/dL (74-106)
[2021-03-07 21:47] LABS: CREATININE 5.9 mg/dL (0.55-1.3)
[2021-03-07 21:51] LABS: ANION GAP 7 MMOL/L (8-16); BLOOD UREA NITROGEN 172.6 mg/dL (7-18)
[2021-03-07 23:06] LABS: CHLORIDE 125 mmol/L (98-107); SODIUM 158 mmol/L (136-145)
[2021-03-07 23:07] LABS: CO2 26 mmol/L (21-32)
[2021-03-07 23:08] LABS: GLUCOSE,RANDOM 136 mg/dL (74-106)
[2021-03-07 23:11] LABS: CREATININE 5.9 mg/dL (0.55-1.3)
[2021-03-07 23:15] LABS: ANION GAP 7 MMOL/L (8-16); BLOOD UREA NITROGEN 175.7 mg/dL (7-18)
[2021-03-07] MEDS ORDERED: CALCIUM GLUCONATE IN NACL 1 GM/50 ML BAG IVPB ONE (23:28)
[2021-03-07] MEDS ORDERED: ALBUTEROL SO4 0.083% IH SOL 2.5 MG/3 ML VIAL.NEB. NEB ONE (23:32)
[2021-03-07] MEDS ORDERED: INSULIN SLIDING SCALE (NOVOLOG) 1 VIAL SQ SCH ×2 (23:45→23:59)
[2021-03-08] MEDS ORDERED: SODIUM ZIRCONIUM CYCLOSILICATE (LOKELMA) 5 GM PACKET PO ONE ×3 (00:23→17:12)
[2021-03-08] MEDS ORDERED: DEXTROSE 5%-WATER - 50 ML IVPB ONE ×4 (01:00→22:46)
[2021-03-08] MEDS ORDERED: INSULIN SLIDING SCALE (NOVOLOG) 1 VIAL SQ SCH (01:00)
[2021-03-08] MEDS ORDERED: PIPERACILLIN/TAZOBACTAM 2.25 GM VIAL IVPB ONE ×4 (01:00→22:46)
[2021-03-08] MEDS: PIPERACILLIN/TAZOB 2.25 GM 2.25 GM in DEXTROSE 5%-WATER - 50 ML IVPB SCH ×3 (01:53→17:37)
[2021-03-08 03:22] LABS: CHLORIDE 124 mmol/L (98-107); SODIUM 156 mmol/L (136-145)
[2021-03-08 03:23] LABS: CALCIUM 9.2 mg/dL (8.5-10.1)
[2021-03-08 03:24] LABS: CO2 25 mmol/L (21-32); GLUCOSE,RANDOM 99 mg/dL (74-106)
[2021-03-08 03:26] LABS: ANION GAP 7 MMOL/L (8-16)
[2021-03-08 03:36] LABS: CREATININE 6.2 mg/dL (0.55-1.3)
[2021-03-08 03:37] LABS: BLOOD UREA NITROGEN 166.4 mg/dL (7-18)
[2021-03-08] MEDS ORDERED: ALBUTEROL SO4 0.5 % INH SOLN 2.5 MG/0.5 ML VIAL.NEB. NEB ONE ×4 (03:42→21:34)
[2021-03-08] MEDS ORDERED: CALCIUM GLUCONATE IN NACL 1 GM/50 ML BAG IVPB ONE ×2 (03:42→17:15)
[2021-03-08] MEDS ORDERED: DEXTROSE 50%-WATER - 25 GM/50 ML VIAL IVPUSH ONE ×4 (03:42→20:52)
[2021-03-08] MEDS ORDERED: INSULIN REGULAR HUMAN 100 UNITS/ML *VIAL IVPUSH ONE ×4 (03:42→20:52)
[2021-03-08] MEDS ORDERED: DEXTROSE 50%-WATER 25 GM/50 ML DISP.SYRIN ONE ×3 (03:58→21:18)
[2021-03-08] MEDS ORDERED: ALBUTEROL SO4 0.083% IH SOL 2.5 MG/3 ML VIAL.NEB. NEB ONE (04:28)
[2021-03-08 06:46] LABS: HEMATOCRIT 24.2 % (32.4-45.2); HEMOGLOBIN 7.7 GM/dL (10.7-15.3); MCH 27.5 pg (25.7-33.7); MCHC 31.9 g/dl (32.0-36.0); MEAN CELL VOLUME 86.1 fl (80-96); MEAN PLT VOLUME 10.9 fl (7.5-11.1); PLATELET COUNT 181 K/MM3 (134-434); RBC 2.81 M/mm3 (3.60-5.2); RDW 18.6 % (11.6-15.6); WHITE BLOOD COUNT 15.2 K/mm3 (4.0-10.0)
[2021-03-08 07:20] LABS: CHLORIDE 122 mmol/L (98-107); SODIUM 155 mmol/L (136-145)
[2021-03-08 07:30] LABS: ALBUMIN 1.6 g/dl (3.4-5.0); CALCIUM 9.4 mg/dL (8.5-10.1); CO2 25 mmol/L (21-32); MAGNESIUM 3.6 mg/dL (1.8-2.4)
[2021-03-08 07:31] LABS: GLUCOSE,RANDOM 123 mg/dL (74-106)
[2021-03-08 07:33] LABS: CREATININE 6.1 mg/dL (0.55-1.3); SGOT/AST 253 U/L (15-37); SGPT/ALT 113 U/L (13-61)
[2021-03-08 07:34] LABS: PHOSPHOROUS 6.7 mg/dL (2.5-4.9)
[2021-03-08 07:35] LABS: BILIRUBIN,TOTAL 0.5 mg/dL (0.2-1); TOT PROT 6.7 g/dl (6.4-8.2)
[2021-03-08 07:37] LABS: ALK PHOS 76 U/L (45-117)
[2021-03-08 08:25] LABS: ANION GAP 8 MMOL/L (8-16)
[2021-03-08] MEDS: MUPIROCIN 2% TOPICAL OINTMENT FOR DECOLONIZATION NS SCH ×2 (10:05→21:23)
[2021-03-08] MEDS: PANTOPRAZOLE SODIUM 40 MG VIAL IVPUSH SCH (10:05)
[2021-03-08] MEDS: SODIUM ZIRCONIUM CYCLOSILICATE (LOKELMA) 5 GM PACKET PO SCH (10:05)
[2021-03-08] MEDS ORDERED: SODIUM CHLORIDE 1,000 ML IV SCH (10:30)
[2021-03-08] MEDS ORDERED: FUROSEMIDE 40 MG/4 ML INJECTABLE VIAL IVPUSH ONE ×2 (11:31→17:10)
[2021-03-08] MEDS ORDERED: SODIUM CHLORIDE 0.45% 1,000 ML IV SCH (11:45)
[2021-03-08 16:52] LABS: CHLORIDE 121 mmol/L (98-107); SODIUM 153 mmol/L (136-145)
[2021-03-08 16:54] LABS: CALCIUM 9.4 mg/dL (8.5-10.1); CO2 22 mmol/L (21-32)
[2021-03-08 16:55] LABS: GLUCOSE,RANDOM 113 mg/dL (74-106)
[2021-03-08 16:58] LABS: CREATININE 6.1 mg/dL (0.55-1.3)
[2021-03-08 16:59] LABS: ANION GAP 10 MMOL/L (8-16); BLOOD UREA NITROGEN 165.6 mg/dL (7-18)
[2021-03-08] MEDS ORDERED: SODIUM CHLORIDE 500 ML IV STA (17:08)
[2021-03-08] MEDS ORDERED: SODIUM CHLORIDE 1,000 ML IV STA (17:11)
[2021-03-08] MEDS ORDERED: SODIUM BICARBONATE 8.4% 50 MEQ/50 ML DISP.SYRIN IVPUSH ONE (17:16)
[2021-03-08] MEDS: SODIUM CHLORIDE 0.45% 1,000 ML IV SCH (17:31)
[2021-03-08] MEDS ORDERED: CALCIUM CHLORIDE 1 GM/10 ML *DISP.SYRIN IVPB ONE (20:53)
[2021-03-08] MEDS: CHLORHEXIDINE GLUCONATE 4% CLEANSER FOR DECOLONIZATION TP SCH (21:24)
[2021-03-09] MEDS: PIPERACILLIN/TAZOB 2.25 GM 2.25 GM in DEXTROSE 5%-WATER - 50 ML IVPB SCH ×3 (02:00→18:38)
[2021-03-09 04:44] LABS: CHLORIDE 118 mmol/L (98-107); SODIUM 150 mmol/L (136-145)
[2021-03-09 04:46] LABS: CALCIUM 8.7 mg/dL (8.5-10.1)
[2021-03-09 04:47] LABS: ANION GAP 10 MMOL/L (8-16); CO2 23 mmol/L (21-32); GLUCOSE,RANDOM 102 mg/dL (74-106)
[2021-03-09 05:00] LABS: BLOOD UREA NITROGEN 170.5 mg/dL (7-18)
[2021-03-09 06:52] LABS: HEMATOCRIT 21.5 % (32.4-45.2); MCH 27.7 pg (25.7-33.7); MCHC 32.3 g/dl (32.0-36.0); MEAN CELL VOLUME 85.8 fl (80-96); PLATELET COUNT 187 K/MM3 (134-434); RBC 2.51 M/mm3 (3.60-5.2); RDW 18.4 % (11.6-15.6); WHITE BLOOD COUNT 13.7 K/mm3 (4.0-10.0)
[2021-03-09 06:58] LABS: CHLORIDE 119 mmol/L (98-107); SODIUM 151 mmol/L (136-145)
[2021-03-09 07:01] LABS: CALCIUM 8.9 mg/dL (8.5-10.1)
[2021-03-09 07:02] LABS: ALBUMIN 1.4 g/dl (3.4-5.0); ANION GAP 8 MMOL/L (8-16); CO2 23 mmol/L (21-32); GLUCOSE,RANDOM 104 mg/dL (74-106); MAGNESIUM 3.2 mg/dL (1.8-2.4)
[2021-03-09 07:05] LABS: CREATININE 5.9 mg/dL (0.55-1.3); PHOSPHOROUS 8.8 mg/dL (2.5-4.9); SGOT/AST 192 U/L (15-37); SGPT/ALT 105 U/L (13-61)
[2021-03-09 07:06] LABS: BILIRUBIN,TOTAL 0.5 mg/dL (0.2-1); TOT PROT 6.1 g/dl (6.4-8.2)
[2021-03-09 07:08] LABS: ALK PHOS 75 U/L (45-117)
[2021-03-09 07:17] LABS: BLOOD UREA NITROGEN > 150.0 mg/dL (7-18)
[2021-03-09] MEDS ORDERED: PT OWN MED DRAWER 7, Y5N ONE (09:15)
[2021-03-09] MEDS ORDERED: PIPERACILLIN/TAZOBACTAM 2.25 GM VIAL IVPB ONE ×3 (09:16→21:44)
[2021-03-09] MEDS ORDERED: DEXTROSE 5%-WATER - 50 ML IVPB ONE ×3 (09:16→21:44)
[2021-03-09] MEDS: PANTOPRAZOLE SODIUM 40 MG VIAL IVPUSH SCH (10:30)
[2021-03-09] MEDS: MUPIROCIN 2% TOPICAL OINTMENT FOR DECOLONIZATION NS SCH ×2 (10:30→22:21)
[2021-03-09] MEDS: SODIUM ZIRCONIUM CYCLOSILICATE (LOKELMA) 5 GM PACKET PO SCH (10:30)
[2021-03-09] MEDS: NAPH,MB-DB/K PH,MBDB POWDER PACKET PO SCH ×2 (14:19→22:20)
[2021-03-09] MEDS ORDERED: FUROSEMIDE 40 MG/4 ML INJECTABLE VIAL IVPUSH ONE (16:15)
[2021-03-09] MEDS ORDERED: ARTIFICIAL TEARS (POLYVINYL ALCOHOL) OPTH DROPS OU PRN (16:16)
[2021-03-09] MEDS ORDERED: SODIUM ZIRCONIUM CYCLOSILICATE (LOKELMA) 5 GM PACKET PO ONE ×2 (17:00→18:00)
[2021-03-09] MEDS: SODIUM CHLORIDE 0.45% 1,000 ML IV SCH (17:06)
[2021-03-09] MEDS ORDERED: SODIUM ZIRCONIUM CYCLOSILICATE (LOKELMA) 10 GM PACKET PO ONE (18:00)
[2021-03-09] MEDS: CHLORHEXIDINE GLUCONATE 4% CLEANSER FOR DECOLONIZATION TP SCH (22:20)
[2021-03-09] MEDS: INSULIN SLIDING SCALE (NOVOLOG) 1 VIAL SQ SCH (23:25)
[2021-03-10] MEDS: PIPERACILLIN/TAZOB 2.25 GM 2.25 GM in DEXTROSE 5%-WATER - 50 ML IVPB SCH ×3 (01:00→17:00)
[2021-03-10] MEDS: INSULIN SLIDING SCALE (NOVOLOG) 1 VIAL SQ SCH ×4 (06:25→22:11)
[2021-03-10 07:41] LABS: HEMATOCRIT 20.9 % (32.4-45.2); MCH 27.1 pg (25.7-33.7); MCHC 31.5 g/dl (32.0-36.0); MEAN PLT VOLUME 10.2 fl (7.5-11.1); PLATELET COUNT 183 K/MM3 (134-434); RBC 2.43 M/mm3 (3.60-5.2); RDW 18.4 % (11.6-15.6); WHITE BLOOD COUNT 12.4 K/mm3 (4.0-10.0)
[2021-03-10 07:48] LABS: HEMOGLOBIN 6.6 GM/dL (10.7-15.3)
[2021-03-10 07:59] LABS: CHLORIDE 115 mmol/L (98-107); SODIUM 149 mmol/L (136-145)
[2021-03-10] MEDS ORDERED: AMINO ACIDS/PROTEIN HYDROLYS 30 ML LIQUID.PKT PO SCH (08:00)
[2021-03-10 08:14] LABS: ANION GAP 14 MMOL/L (8-16); CALCIUM 7.9 mg/dL (8.5-10.1); CO2 19 mmol/L (21-32); GLUCOSE,RANDOM 98 mg/dL (74-106)
[2021-03-10 08:15] LABS: ALBUMIN 1.4 g/dl (3.4-5.0); MAGNESIUM 3.2 mg/dL (1.8-2.4)
[2021-03-10 08:18] LABS: CREATININE 5.9 mg/dL (0.55-1.3); SGOT/AST 164 U/L (15-37); SGPT/ALT 95 U/L (13-61)
[2021-03-10 08:19] LABS: TOT PROT 6.1 g/dl (6.4-8.2)
[2021-03-10 08:21] LABS: ALK PHOS 84 U/L (45-117)
[2021-03-10 08:22] LABS: BILIRUBIN,TOTAL 0.5 mg/dL (0.2-1)
[2021-03-10] MEDS: PANTOPRAZOLE SODIUM 40 MG VIAL IVPUSH SCH (10:39)
[2021-03-10] MEDS: SODIUM ZIRCONIUM CYCLOSILICATE (LOKELMA) 5 GM PACKET PO SCH (10:40)
[2021-03-10] MEDS: NAPH,MB-DB/K PH,MBDB POWDER PACKET PO SCH (10:40)
[2021-03-10] MEDS: MUPIROCIN 2% TOPICAL OINTMENT FOR DECOLONIZATION NS SCH (10:41)
[2021-03-10] MEDS ORDERED: SODIUM CHLORIDE 250 ML IV PRN (13:09)
[2021-03-10] MEDS: CALCIUM ACETATE 667 MG CAPSULE (FP) PO SCH ×2 (14:23→18:09)
[2021-03-10] MEDS: SODIUM CHLORIDE 0.45% 1,000 ML IV SCH (18:09)
[2021-03-10] MEDS ORDERED: SODIUM CHLORIDE 0.45% 1,000 ML IV SCH (20:57)
[2021-03-11] MEDS ORDERED: PIPERACILLIN/TAZOBACTAM 2.25 GM VIAL IVPB ONE ×3 (01:34→17:41)
[2021-03-11] MEDS ORDERED: DEXTROSE 5%-WATER - 50 ML IVPB ONE ×3 (01:35→17:41)
[2021-03-11] MEDS: PIPERACILLIN/TAZOB 2.25 GM 2.25 GM in DEXTROSE 5%-WATER - 50 ML IVPB SCH ×3 (02:06→17:48)
[2021-03-11] MEDS: INSULIN SLIDING SCALE (NOVOLOG) 1 VIAL SQ SCH ×4 (06:31→22:39)
[2021-03-11 08:25] LABS: HEMATOCRIT 20.6 % (32.4-45.2); MCH 26.5 pg (25.7-33.7); MCHC 31.7 g/dl (32.0-36.0); MEAN CELL VOLUME 83.6 fl (80-96); MEAN PLT VOLUME 9.7 fl (7.5-11.1); PLATELET COUNT 193 K/MM3 (134-434); RBC 2.46 M/mm3 (3.60-5.2); RDW 17.8 % (11.6-15.6)
[2021-03-11 08:32] LABS: CHLORIDE 111 mmol/L (98-107); SODIUM 145 mmol/L (136-145)
[2021-03-11 08:35] LABS: ALBUMIN 1.4 g/dl (3.4-5.0); ANION GAP 12 MMOL/L (8-16); CO2 23 mmol/L (21-32); GLUCOSE,RANDOM 113 mg/dL (74-106)
[2021-03-11 08:37] LABS: CREATININE 4.6 mg/dL (0.55-1.3); SGOT/AST 156 U/L (15-37); SGPT/ALT 85 U/L (13-61)
[2021-03-11 08:40] LABS: ALK PHOS 86 U/L (45-117); BILIRUBIN,TOTAL 0.4 mg/dL (0.2-1); TOT PROT 5.6 g/dl (6.4-8.2)
[2021-03-11 08:44] LABS: BLOOD UREA NITROGEN 125.2 mg/dL (7-18)
[2021-03-11 08:57] LABS: HEMOGLOBIN 6.5 GM/dL (10.7-15.3)
[2021-03-11] MEDS ORDERED: SODIUM ZIRCONIUM CYCLOSILICATE (LOKELMA) 5 GM PACKET PO SCH (10:00)
[2021-03-11] MEDS: AMINO ACIDS/PROTEIN HYDROLYS 30 ML LIQUID.PKT PO SCH (10:59)
[2021-03-11] MEDS: CALCIUM ACETATE 667 MG CAPSULE (FP) PO SCH ×3 (10:59→17:48)
[2021-03-11] MEDS: PANTOPRAZOLE SODIUM 40 MG VIAL IVPUSH SCH (11:00)
[2021-03-11] MEDS: BANATROL PLUS POWDER PACKET PO SCH ×2 (14:34→23:07)
[2021-03-11] MEDS ORDERED: SODIUM CHLORIDE 250 ML IV PRN (14:55)
[2021-03-11 19:54] LABS: HEMATOCRIT 22.3 % (32.4-45.2); HEMOGLOBIN 7.3 GM/dL (10.7-15.3); MCH 27.3 pg (25.7-33.7); MCHC 32.8 g/dl (32.0-36.0); MEAN CELL VOLUME 83.3 fl (80-96); MEAN PLT VOLUME 9.5 fl (7.5-11.1); PLATELET COUNT 196 K/MM3 (134-434); RBC 2.68 M/mm3 (3.60-5.2); WHITE BLOOD COUNT 14.3 K/mm3 (4.0-10.0)
[2021-03-11] MEDS ORDERED: PT OWN MED DRAWER 7, Y5N ONE (22:25)
[2021-03-12] MEDS ORDERED: DEXTROSE 5%-WATER - 50 ML IVPB ONE ×3 (02:49→16:44)
[2021-03-12] MEDS ORDERED: PIPERACILLIN/TAZOBACTAM 2.25 GM VIAL IVPB ONE ×3 (02:49→16:44)
[2021-03-12] MEDS: PIPERACILLIN/TAZOB 2.25 GM 2.25 GM in DEXTROSE 5%-WATER - 50 ML IVPB SCH ×3 (02:57→16:59)
[2021-03-12] MEDS: INSULIN SLIDING SCALE (NOVOLOG) 1 VIAL SQ SCH ×4 (06:33→23:00)
[2021-03-12] MEDS: BANATROL PLUS POWDER PACKET PO SCH ×3 (06:33→23:00)
[2021-03-12 08:47] LABS: BASO % 0.1 % (0-2.0); EOS % 3.6 % (0-4.5); HEMATOCRIT 21.7 % (32.4-45.2); HEMOGLOBIN 7.2 GM/dL (10.7-15.3); MCH 27.5 pg (25.7-33.7); MCHC 33.1 g/dl (32.0-36.0); MEAN CELL VOLUME 82.9 fl (80-96); MEAN PLT VOLUME 9.2 fl (7.5-11.1); MONO % 2.7 % (3.8-10.2); NEUT % 89.6 % (42.8-82.8); PLATELET COUNT 208 K/MM3 (134-434); RBC 2.62 M/mm3 (3.60-5.2); RDW 17.6 % (11.6-15.6); WHITE BLOOD COUNT 12.3 K/mm3 (4.0-10.0)
[2021-03-12 09:06] LABS: CHLORIDE 109 mmol/L (98-107); SODIUM 146 mmol/L (136-145)
[2021-03-12 09:08] LABS: ALBUMIN 1.3 g/dl (3.4-5.0); ANION GAP 15 MMOL/L (8-16); CO2 22 mmol/L (21-32); GLUCOSE,RANDOM 109 mg/dL (74-106)
[2021-03-12 09:12] LABS: CREATININE 4.7 mg/dL (0.55-1.3); SGOT/AST 160 U/L (15-37); SGPT/ALT 86 U/L (13-61)
[2021-03-12 09:13] LABS: BILIRUBIN,TOTAL 0.4 mg/dL (0.2-1); TOT PROT 5.4 g/dl (6.4-8.2)
[2021-03-12 09:15] LABS: ALK PHOS 99 U/L (45-117)
[2021-03-12 09:16] LABS: BLOOD UREA NITROGEN 120.1 mg/dL (7-18); CALCIUM 6.2 mg/dL (8.5-10.1)
[2021-03-12 09:45] LABS: ANISOCYTOSIS 0; MACROCYTOSIS 0; PLATELET ESTIMATE NORMAL
[2021-03-12] MEDS: CALCIUM ACETATE 667 MG CAPSULE (FP) PO SCH ×3 (10:26→16:58)
[2021-03-12] MEDS: PANTOPRAZOLE SODIUM 40 MG VIAL IVPUSH SCH (10:26)
[2021-03-12] MEDS: AMINO ACIDS/PROTEIN HYDROLYS 30 ML LIQUID.PKT PO SCH (10:27)
[2021-03-12] MEDS ORDERED: ACETAMINOPHEN 1000 MG/100 ML VIAL (NON FORMULARY) IVPB ONE (16:03)
[2021-03-12 16:09] LABS: HEP B CORE AB, TOT Negative (Negative)
[2021-03-12 19:48] LABS: HEMATOCRIT 22.4 % (32.4-45.2); HEMOGLOBIN 7.4 GM/dL (10.7-15.3); MCH 27.1 pg (25.7-33.7); MCHC 32.8 g/dl (32.0-36.0); MEAN CELL VOLUME 82.7 fl (80-96); MEAN PLT VOLUME 8.9 fl (7.5-11.1); PLATELET COUNT 211 K/MM3 (134-434); RBC 2.71 M/mm3 (3.60-5.2); RDW 17.1 % (11.6-15.6)
[2021-03-12] MEDS ORDERED: PT OWN MED DRAWER 7, Y5N ONE (23:00)
[2021-03-13] MEDS ORDERED: ACETAMINOPHEN 650 MG/20.3 ML ORAL SOLUTION (CUPS) PO ONE (00:45)
[2021-03-13] MEDS ORDERED: PIPERACILLIN/TAZOBACTAM 2.25 GM VIAL IVPB ONE ×3 (01:03→17:49)
[2021-03-13] MEDS ORDERED: DEXTROSE 5%-WATER - 50 ML IVPB ONE ×3 (01:03→17:49)
[2021-03-13] MEDS: PIPERACILLIN/TAZOB 2.25 GM 2.25 GM in DEXTROSE 5%-WATER - 50 ML IVPB SCH ×3 (01:05→17:52)
[2021-03-13] MEDS: BANATROL PLUS POWDER PACKET PO SCH ×3 (06:13→21:24)
[2021-03-13] MEDS: INSULIN SLIDING SCALE (NOVOLOG) 1 VIAL SQ SCH ×4 (06:13→21:25)
[2021-03-13 09:02] LABS: HEMATOCRIT 26.3 % (32.4-45.2); HEMOGLOBIN 8.7 GM/dL (10.7-15.3); MCH 27.7 pg (25.7-33.7); MEAN CELL VOLUME 84.2 fl (80-96); MEAN PLT VOLUME 8.4 fl (7.5-11.1); PLATELET COUNT 210 K/MM3 (134-434); RBC 3.13 M/mm3 (3.60-5.2); WHITE BLOOD COUNT 14.3 K/mm3 (4.0-10.0)
[2021-03-13 09:03] LABS: CHLORIDE 102 mmol/L (98-107); SODIUM 139 mmol/L (136-145)
[2021-03-13 09:05] LABS: ANION GAP 8 MMOL/L (8-16); CO2 29 mmol/L (21-32)
[2021-03-13 09:06] LABS: GLUCOSE,RANDOM 113 mg/dL (74-106); MAGNESIUM 2.2 mg/dL (1.8-2.4)
[2021-03-13 09:09] LABS: PHOSPHOROUS 5.1 mg/dL (2.5-4.9)
[2021-03-13 09:10] LABS: CREATININE 3.2 mg/dL (0.55-1.3)
[2021-03-13 09:12] LABS: CALCIUM 6.8 mg/dL (8.5-10.1)
[2021-03-13] MEDS ORDERED: PT OWN MED DRAWER 7, Y5N ONE ×2 (09:46→13:53)
[2021-03-13] MEDS: CALCIUM ACETATE 667 MG CAPSULE (FP) PO SCH ×3 (09:49→17:52)
[2021-03-13] MEDS: AMINO ACIDS/PROTEIN HYDROLYS 30 ML LIQUID.PKT PO SCH (09:49)
[2021-03-13] MEDS: SILVER SULFADIAZINE 1% TOP CREAM 50 GM JAR TP SCH (10:50)
[2021-03-13] MEDS: PANTOPRAZOLE SODIUM 40 MG VIAL IVPUSH SCH (10:50)
[2021-03-13] MEDS: KCL 10 MEQ IVPB 10 MEQ/100 ML INFUS.BAG IVPB SCH ×2 (12:02→12:52)
[2021-03-13] MEDS ORDERED: POTASSIUM CHLORIDE ORAL LIQUID 20 MEQ/15 ML PO ONE (13:22)
[2021-03-14] MEDS ORDERED: PIPERACILLIN/TAZOBACTAM 2.25 GM VIAL IVPB ONE ×4 (02:46→17:22)
[2021-03-14] MEDS ORDERED: DEXTROSE 5%-WATER - 50 ML IVPB ONE ×3 (02:46→17:22)
[2021-03-14] MEDS: PIPERACILLIN/TAZOB 2.25 GM 2.25 GM in DEXTROSE 5%-WATER - 50 ML IVPB SCH ×3 (02:48→17:34)
[2021-03-14] MEDS: BANATROL PLUS POWDER PACKET PO SCH ×3 (05:27→21:54)
[2021-03-14] MEDS ORDERED: PT OWN MED DRAWER 7, Y5N ONE ×2 (05:27→21:50)
[2021-03-14] MEDS: INSULIN SLIDING SCALE (NOVOLOG) 1 VIAL SQ SCH ×4 (06:09→21:57)
[2021-03-14 09:55] LABS: BASO % 0.2 % (0-2.0); EOS % 2.9 % (0-4.5); HEMATOCRIT 27.6 % (32.4-45.2); HEMOGLOBIN 9.2 GM/dL (10.7-15.3); LYMPH % 4.2 % (8-40); MCH 27.4 pg (25.7-33.7); MCHC 33.2 g/dl (32.0-36.0); MEAN CELL VOLUME 82.5 fl (80-96); MEAN PLT VOLUME 7.6 fl (7.5-11.1); MONO % 2.5 % (3.8-10.2); NEUT % 90.2 % (42.8-82.8); PLATELET COUNT 267 K/MM3 (134-434); RBC 3.35 M/mm3 (3.60-5.2); WHITE BLOOD COUNT 18.2 K/mm3 (4.0-10.0)
[2021-03-14] MEDS: CALCIUM ACETATE 667 MG CAPSULE (FP) PO SCH ×3 (10:07→17:34)
[2021-03-14] MEDS: PANTOPRAZOLE SODIUM 40 MG VIAL IVPUSH SCH (10:07)
[2021-03-14] MEDS: AMINO ACIDS/PROTEIN HYDROLYS 30 ML LIQUID.PKT PO SCH (10:07)
[2021-03-14] MEDS: SILVER SULFADIAZINE 1% TOP CREAM 50 GM JAR TP SCH (10:07)
[2021-03-14 10:19] LABS: BLOOD UREA NITROGEN 88.3 mg/dL (7-18); CALCIUM 7.4 mg/dL (8.5-10.1)
[2021-03-14 10:22] LABS: CREATININE 3.5 mg/dL (0.55-1.3)
[2021-03-14 10:57] LABS: ANISOCYTOSIS 0; MACROCYTOSIS 0; PLATELET ESTIMATE NORMAL
[2021-03-14] MEDS ORDERED: SODIUM CHLORIDE 0.45% 1,000 ML IV SCH (12:00)
[2021-03-15] MEDS ORDERED: PIPERACILLIN/TAZOBACTAM 2.25 GM VIAL IVPB ONE ×2 (01:38→09:02)
[2021-03-15] MEDS ORDERED: DEXTROSE 5%-WATER - 50 ML IVPB ONE ×2 (01:38→09:02)
[2021-03-15] MEDS: PIPERACILLIN/TAZOB 2.25 GM 2.25 GM in DEXTROSE 5%-WATER - 50 ML IVPB SCH ×2 (01:41→09:36)
[2021-03-15] MEDS ORDERED: PT OWN MED DRAWER 7, Y5N ONE ×2 (05:10→09:01)
[2021-03-15] MEDS: INSULIN SLIDING SCALE (NOVOLOG) 1 VIAL SQ SCH ×4 (06:37→23:48)
[2021-03-15] MEDS: BANATROL PLUS POWDER PACKET PO SCH ×2 (06:37→13:31)
[2021-03-15 08:40] LABS: BASO % 0.1 % (0-2.0); EOS % 2.8 % (0-4.5); HEMATOCRIT 27.8 % (32.4-45.2); HEMOGLOBIN 9.3 GM/dL (10.7-15.3); LYMPH % 3.3 % (8-40); MCH 27.7 pg (25.7-33.7); MCHC 33.3 g/dl (32.0-36.0); MEAN CELL VOLUME 83.3 fl (80-96); MEAN PLT VOLUME 7.8 fl (7.5-11.1); MONO % 2.1 % (3.8-10.2); NEUT % 91.7 % (42.8-82.8); PLATELET COUNT 300 K/MM3 (134-434); RBC 3.34 M/mm3 (3.60-5.2); RDW 17.2 % (11.6-15.6); WHITE BLOOD COUNT 17.2 K/mm3 (4.0-10.0)
[2021-03-15] MEDS: AMINO ACIDS/PROTEIN HYDROLYS 30 ML LIQUID.PKT PO SCH (09:36)
[2021-03-15] MEDS: CALCIUM ACETATE 667 MG CAPSULE (FP) PO SCH ×3 (09:36→17:29)
[2021-03-15] MEDS: SILVER SULFADIAZINE 1% TOP CREAM 50 GM JAR TP SCH (09:37)
[2021-03-15] MEDS: PANTOPRAZOLE SODIUM 40 MG VIAL IVPUSH SCH (09:37)
[2021-03-15 10:39] LABS: ALBUMIN 1.5 g/dl (3.4-5.0); BLOOD UREA NITROGEN 92.1 mg/dL (7-18); CALCIUM 7.8 mg/dL (8.5-10.1)
[2021-03-15 10:42] LABS: CREATININE 3.3 mg/dL (0.55-1.3)
[2021-03-15 10:44] LABS: BILIRUBIN,TOTAL 0.7 mg/dL (0.2-1); TOT PROT 5.9 g/dl (6.4-8.2)
[2021-03-15 11:48] LABS: ANISOCYTOSIS 0; MACROCYTOSIS 0; PLATELET ESTIMATE NORMAL
[2021-03-15] MEDS ORDERED: FUROSEMIDE 40 MG/4 ML INJECTABLE VIAL IVPUSH ONE (11:51)
[2021-03-15] MEDS ORDERED: ADENOSINE 6 MG/2 ML VIAL IVPUSH ONE (14:25)
[2021-03-15] MEDS ORDERED: METOPROLOL TARTRATE 5 MG/5 ML VIAL IVPUSH ONE (14:32)
[2021-03-15 15:22] LABS: HEMATOCRIT 28.4 % (32.4-45.2); HEMOGLOBIN 9.3 GM/dL (10.7-15.3); MCH 27.7 pg (25.7-33.7); MCHC 32.9 g/dl (32.0-36.0); MEAN CELL VOLUME 84.2 fl (80-96); MEAN PLT VOLUME 7.8 fl (7.5-11.1); PLATELET COUNT 313 K/MM3 (134-434); RBC 3.37 M/mm3 (3.60-5.2); WHITE BLOOD COUNT 17.4 K/mm3 (4.0-10.0)
[2021-03-15 15:36] LABS: CALCIUM 7.7 mg/dL (8.5-10.1)
[2021-03-15 15:37] LABS: BLOOD UREA NITROGEN 93.9 mg/dL (7-18)
[2021-03-15 15:41] LABS: CREATININE 3.4 mg/dL (0.55-1.3)
[2021-03-15] MEDS ORDERED: dilTIAZem HCL 50 MG/10 ML - 10 ML VIAL IVPUSH ONE (16:33)
[2021-03-15] MEDS ORDERED: dilTIAZem HCL 50 MG/10 ML - 10 ML VIAL IVPUSH PRN ×2 (16:52→17:05)
[2021-03-15] MEDS ORDERED: ACETAMINOPHEN 1000 MG/100 ML VIAL (NON FORMULARY) IVPB ONE (16:56)
[2021-03-15] MEDS ORDERED: METOPROLOL TARTRATE 5 MG/5 ML VIAL IVPB ONE (17:02)
[2021-03-15] MEDS ORDERED: CHLORHEXIDINE GLUCONATE 4% CLEANSER FOR DECOLONIZATION TP SCH (22:00)
[2021-03-15] MEDS ORDERED: MUPIROCIN 2% TOPICAL OINTMENT FOR DECOLONIZATION NS SCH ×2 (22:00)
[2021-03-15] MEDS: DILTIAZEM INJECTION 125 MG in SODIUM CHLORIDE 100 ML IVPB SCH (23:47)
[2021-03-16] MEDS: BANATROL PLUS POWDER PACKET PO SCH ×3 (00:15→13:25)
[2021-03-16] MEDS: INSULIN SLIDING SCALE (NOVOLOG) 1 VIAL SQ SCH ×4 (06:20→23:02)
[2021-03-16 06:23] LABS: ARTERIAL BLOOD GAS BASE EXCESS -0.4 mmol/L (-2-2); ARTERIAL BLOOD GAS PO2 107.8 mmHg (80-100); ARTERIAL BLOOD GAS pH 7.416 (7.350-7.450)
[2021-03-16 06:24] LABS: ALLENS TEST POSITIVE; VENT MODE A/C VC; VENT RATE 18
[2021-03-16 08:59] LABS: BASO % 0.1 % (0-2.0); EOS % 2.7 % (0-4.5); LYMPH % 4.7 % (8-40); MCHC 33.2 g/dl (32.0-36.0); MEAN CELL VOLUME 84.6 fl (80-96); MONO % 2.4 % (3.8-10.2); NEUT % 90.1 % (42.8-82.8); PLATELET COUNT 371 K/MM3 (134-434); RBC 3.55 M/mm3 (3.60-5.2); RDW 16.7 % (11.6-15.6)
[2021-03-16 09:18] LABS: ALBUMIN 1.6 g/dl (3.4-5.0); BLOOD UREA NITROGEN 97.2 mg/dL (7-18); MAGNESIUM 2.3 mg/dL (1.8-2.4)
[2021-03-16 09:21] LABS: BILIRUBIN,TOTAL 0.5 mg/dL (0.2-1); TOT PROT 6.1 g/dl (6.4-8.2)
[2021-03-16 09:22] LABS: CREATININE 3.4 mg/dL (0.55-1.3); PHOSPHOROUS 6.3 mg/dL (2.5-4.9)
[2021-03-16 10:47] LABS: ANISOCYTOSIS 0; HELMET CELLS 0; HOWELL-JOLLY BODIES 0; MACROCYTOSIS 0; OVALOCYTE 0; PLATELET ESTIMATE NORMAL; ROULEAU 0; SICKELED CELLS 0; TARGET CELLS 0; TEAR DROP CELLS 0; TOXIC GRANULATION 0
[2021-03-16] MEDS: SILVER SULFADIAZINE 1% TOP CREAM 50 GM JAR TP SCH (11:41)
[2021-03-16] MEDS: AMINO ACIDS/PROTEIN HYDROLYS 30 ML LIQUID.PKT PO SCH (11:41)
[2021-03-16] MEDS: PANTOPRAZOLE SODIUM 40 MG VIAL IVPUSH SCH (11:41)
[2021-03-16] MEDS: CALCIUM ACETATE 667 MG CAPSULE (FP) PO SCH ×3 (11:41→18:20)
[2021-03-16] MEDS: DILTIAZEM INJECTION 125 MG in SODIUM CHLORIDE 100 ML IVPB SCH (18:21)
[2021-03-17] MEDS: INSULIN SLIDING SCALE (NOVOLOG) 1 VIAL SQ SCH ×4 (06:39→21:29)
[2021-03-17 08:46] LABS: BASO % 0.4 % (0-2.0); EOS % 2.7 % (0-4.5); HEMATOCRIT 25.8 % (32.4-45.2); HEMOGLOBIN 8.6 GM/dL (10.7-15.3); LYMPH % 4.2 % (8-40); MCHC 33.1 g/dl (32.0-36.0); MEAN CELL VOLUME 84.5 fl (80-96); MEAN PLT VOLUME 7.6 fl (7.5-11.1); MONO % 2.5 % (3.8-10.2); NEUT % 90.2 % (42.8-82.8); PLATELET COUNT 366 K/MM3 (134-434); RBC 3.06 M/mm3 (3.60-5.2); RDW 17.3 % (11.6-15.6); WHITE BLOOD COUNT 17.2 K/mm3 (4.0-10.0)
[2021-03-17 09:03] LABS: CALCIUM 7.9 mg/dL (8.5-10.1)
[2021-03-17 09:04] LABS: ALBUMIN 1.5 g/dl (3.4-5.0); MAGNESIUM 2.4 mg/dL (1.8-2.4)
[2021-03-17 09:07] LABS: BLOOD UREA NITROGEN 98.4 mg/dL (7-18); CREATININE 3.2 mg/dL (0.55-1.3); PHOSPHOROUS 6.3 mg/dL (2.5-4.9)
[2021-03-17 09:08] LABS: BILIRUBIN,TOTAL 0.4 mg/dL (0.2-1); TOT PROT 6.2 g/dl (6.4-8.2)
[2021-03-17] MEDS: AMINO ACIDS/PROTEIN HYDROLYS 30 ML LIQUID.PKT PO SCH (11:26)
[2021-03-17] MEDS: PANTOPRAZOLE SODIUM 40 MG VIAL IVPUSH SCH (11:26)
[2021-03-17] MEDS: CALCIUM ACETATE 667 MG CAPSULE (FP) PO SCH ×3 (11:26→18:45)
[2021-03-17] MEDS: SILVER SULFADIAZINE 1% TOP CREAM 50 GM JAR TP SCH (11:27)
[2021-03-17 19:48] LABS: HEMATOCRIT 23.1 % (32.4-45.2); HEMOGLOBIN 7.4 GM/dL (10.7-15.3); MCH 27.3 pg (25.7-33.7); MCHC 32.1 g/dl (32.0-36.0); MEAN CELL VOLUME 84.9 fl (80-96); MEAN PLT VOLUME 7.7 fl (7.5-11.1); PLATELET COUNT 349 K/MM3 (134-434); RBC 2.72 M/mm3 (3.60-5.2); RDW 17.5 % (11.6-15.6); WHITE BLOOD COUNT 14.6 K/mm3 (4.0-10.0)
[2021-03-17] MEDS: ACETAMINOPHEN 325 MG TABLET (FP) PO PRN (21:26)
[2021-03-18] MEDS: INSULIN SLIDING SCALE (NOVOLOG) 1 VIAL SQ SCH ×4 (06:03→22:15)
[2021-03-18 08:24] LABS: HEMATOCRIT 23.1 % (32.4-45.2); HEMOGLOBIN 7.7 GM/dL (10.7-15.3); MCH 28.3 pg (25.7-33.7); MCHC 33.5 g/dl (32.0-36.0); MEAN CELL VOLUME 84.5 fl (80-96); MEAN PLT VOLUME 7.7 fl (7.5-11.1); PLATELET COUNT 358 K/MM3 (134-434); RBC 2.73 M/mm3 (3.60-5.2); RDW 17.3 % (11.6-15.6); WHITE BLOOD COUNT 13.7 K/mm3 (4.0-10.0)
[2021-03-18 09:01] LABS: ALBUMIN 1.6 g/dl (3.4-5.0); BLOOD UREA NITROGEN 96.4 mg/dL (7-18); CALCIUM 8.1 mg/dL (8.5-10.1); MAGNESIUM 2.4 mg/dL (1.8-2.4)
[2021-03-18 09:04] LABS: CREATININE 2.9 mg/dL (0.55-1.3); PHOSPHOROUS 6.1 mg/dL (2.5-4.9)
[2021-03-18 09:06] LABS: BILIRUBIN,TOTAL 0.3 mg/dL (0.2-1); TOT PROT 6.2 g/dl (6.4-8.2)
[2021-03-18] MEDS: PANTOPRAZOLE SODIUM 40 MG VIAL IVPUSH SCH (11:27)
[2021-03-18] MEDS: AMINO ACIDS/PROTEIN HYDROLYS 30 ML LIQUID.PKT PO SCH (11:28)
[2021-03-18] MEDS: SILVER SULFADIAZINE 1% TOP CREAM 50 GM JAR TP SCH (11:28)
[2021-03-18] MEDS: CALCIUM ACETATE 667 MG CAPSULE (FP) PO SCH ×3 (11:28→18:25)
[2021-03-18] MEDS ORDERED: PT OWN MED DRAWER 7, Y5N ONE (17:54)
[2021-03-18] MEDS: POTASSIUM CHLORIDE ORAL LIQUID 20 MEQ/15 ML PO ONE ×2 (17:56→18:48)
[2021-03-18 18:45] LABS: HEMATOCRIT 25.7 % (32.4-45.2); HEMOGLOBIN 8.5 GM/dL (10.7-15.3); MCH 28.4 pg (25.7-33.7); MCHC 33.1 g/dl (32.0-36.0); MEAN CELL VOLUME 85.8 fl (80-96); MEAN PLT VOLUME 7.7 fl (7.5-11.1); PLATELET COUNT 358 K/MM3 (134-434); RDW 16.7 % (11.6-15.6); WHITE BLOOD COUNT 14.3 K/mm3 (4.0-10.0)
[2021-03-19] MEDS: INSULIN SLIDING SCALE (NOVOLOG) 1 VIAL SQ SCH ×4 (06:02→21:07)
[2021-03-19 08:08] LABS: HEMATOCRIT 25.8 % (32.4-45.2); HEMOGLOBIN 8.4 GM/dL (10.7-15.3); MCH 28.3 pg (25.7-33.7); MCHC 32.7 g/dl (32.0-36.0); MEAN CELL VOLUME 86.4 fl (80-96); MEAN PLT VOLUME 7.6 fl (7.5-11.1); PLATELET COUNT 371 K/MM3 (134-434); RBC 2.99 M/mm3 (3.60-5.2); RDW 16.8 % (11.6-15.6); WHITE BLOOD COUNT 14.2 K/mm3 (4.0-10.0)
[2021-03-19 08:36] LABS: CALCIUM 8.4 mg/dL (8.5-10.1)
[2021-03-19 08:37] LABS: ALBUMIN 1.8 g/dl (3.4-5.0); BLOOD UREA NITROGEN 94.4 mg/dL (7-18); MAGNESIUM 2.4 mg/dL (1.8-2.4)
[2021-03-19 08:40] LABS: CREATININE 2.4 mg/dL (0.55-1.3); PHOSPHOROUS 5.6 mg/dL (2.5-4.9)
[2021-03-19 08:42] LABS: TOT PROT 6.6 g/dl (6.4-8.2)
[2021-03-19 08:43] LABS: BILIRUBIN,TOTAL 0.6 mg/dL (0.2-1)
[2021-03-19] MEDS: AMINO ACIDS/PROTEIN HYDROLYS 30 ML LIQUID.PKT PO SCH (11:04)
[2021-03-19] MEDS: CALCIUM ACETATE 667 MG CAPSULE (FP) PO SCH ×3 (11:04→18:06)
[2021-03-19] MEDS: SILVER SULFADIAZINE 1% TOP CREAM 50 GM JAR TP SCH (12:43)
[2021-03-19] MEDS: PANTOPRAZOLE SODIUM 40 MG VIAL IVPUSH SCH (12:43)
[2021-03-19] MEDS ORDERED: POTASSIUM CHLORIDE ORAL LIQUID 20 MEQ/15 ML PO ONE (14:32)
[2021-03-19] MEDS: COLLAGENASE CLOSTRIDIUM HIST. 30 GRAMS TUBE TP SCH (16:02)
[2021-03-19] MEDS ORDERED: PIPERACILLIN/TAZOB 3.375 GM 3.375 GM in DEXTROSE 5%-WATER - 50 ML IVPB ONE (18:16)
[2021-03-19] MEDS ORDERED: DEXTROSE 5%-WATER - 50 ML IVPB ONE (19:26)
[2021-03-19] MEDS ORDERED: PIPERACILLIN/TAZOBACTAM 3.375 GM VIAL IVPB ONE (19:26)
[2021-03-19] MEDS ORDERED: ACETAMINOPHEN 1000 MG/100 ML VIAL (NON FORMULARY) IVPB ONE (21:09)
[2021-03-20] MEDS: INSULIN SLIDING SCALE (NOVOLOG) 1 VIAL SQ SCH ×4 (06:04→20:59)
[2021-03-20 09:59] LABS: BASO % 0.5 % (0-2.0); EOS % 2.8 % (0-4.5); HEMATOCRIT 26.4 % (32.4-45.2); HEMOGLOBIN 8.6 GM/dL (10.7-15.3); LYMPH % 5.3 % (8-40); MCHC 32.6 g/dl (32.0-36.0); MEAN PLT VOLUME 7.8 fl (7.5-11.1); MONO % 2.3 % (3.8-10.2); NEUT % 89.1 % (42.8-82.8); PLATELET COUNT 402 K/MM3 (134-434); RBC 3.07 M/mm3 (3.60-5.2); RDW 16.6 % (11.6-15.6); WHITE BLOOD COUNT 13.5 K/mm3 (4.0-10.0)
[2021-03-20] MEDS ORDERED: PIPERACILLIN/TAZOB 3.375 GM 3.375 GM in DEXTROSE 5%-WATER - 50 ML IVPB SCH (10:00)
[2021-03-20 10:16] LABS: CALCIUM 8.2 mg/dL (8.5-10.1)
[2021-03-20 10:17] LABS: ALBUMIN 1.9 g/dl (3.4-5.0); BLOOD UREA NITROGEN 87.1 mg/dL (7-18)
[2021-03-20 10:19] LABS: CREATININE 2.3 mg/dL (0.55-1.3); MAGNESIUM 2.5 mg/dL (1.8-2.4)
[2021-03-20 10:20] LABS: PHOSPHOROUS 4.8 mg/dL (2.5-4.9)
[2021-03-20 10:21] LABS: TOT PROT 7.1 g/dl (6.4-8.2)
[2021-03-20] MEDS ORDERED: PIPERACILLIN/TAZOBACTAM 2.25 GM VIAL IVPB ONE ×3 (10:58→20:51)
[2021-03-20] MEDS ORDERED: DEXTROSE 5%-WATER - 50 ML IVPB ONE ×3 (10:58→20:51)
[2021-03-20] MEDS: PANTOPRAZOLE SODIUM 40 MG VIAL IVPUSH SCH (11:10)
[2021-03-20] MEDS: CALCIUM ACETATE 667 MG CAPSULE (FP) PO SCH ×3 (11:10→17:49)
[2021-03-20] MEDS: PIPERACILLIN/TAZOB 2.25 GM 2.25 GM in DEXTROSE 5%-WATER - 50 ML IVPB SCH ×3 (11:10→20:59)
[2021-03-20] MEDS: AMINO ACIDS/PROTEIN HYDROLYS 30 ML LIQUID.PKT PO SCH ×2 (11:10→12:05)
[2021-03-20] MEDS: COLLAGENASE CLOSTRIDIUM HIST. 30 GRAMS TUBE TP SCH (11:10)
[2021-03-20] MEDS: SILVER SULFADIAZINE 1% TOP CREAM 50 GM JAR TP SCH (11:11)
[2021-03-21] MEDS ORDERED: PIPERACILLIN/TAZOBACTAM 2.25 GM VIAL IVPB ONE ×4 (01:29→22:22)
[2021-03-21] MEDS ORDERED: DEXTROSE 5%-WATER - 50 ML IVPB ONE ×4 (01:29→22:22)
[2021-03-21] MEDS: PIPERACILLIN/TAZOB 2.25 GM 2.25 GM in DEXTROSE 5%-WATER - 50 ML IVPB SCH ×4 (02:05→22:29)
[2021-03-21] MEDS: ACETAMINOPHEN 325 MG TABLET (FP) PO PRN ×2 (05:26→14:28)
[2021-03-21] MEDS: INSULIN SLIDING SCALE (NOVOLOG) 1 VIAL SQ SCH ×4 (06:03→22:36)
[2021-03-21] MEDS: PANTOPRAZOLE SODIUM 40 MG VIAL IVPUSH SCH (09:56)
[2021-03-21] MEDS: COLLAGENASE CLOSTRIDIUM HIST. 30 GRAMS TUBE TP SCH (09:56)
[2021-03-21] MEDS: AMINO ACIDS/PROTEIN HYDROLYS 30 ML LIQUID.PKT PO SCH (09:56)
[2021-03-21] MEDS: SILVER SULFADIAZINE 1% TOP CREAM 50 GM JAR TP SCH (09:56)
[2021-03-21] MEDS: CALCIUM ACETATE 667 MG CAPSULE (FP) PO SCH ×3 (09:56→16:41)
[2021-03-21] MEDS ORDERED: FUROSEMIDE 40 MG TABLET (FP) PO SCH (15:15)
[2021-03-21] MEDS: FUROSEMIDE 40 MG TABLET (FP) GT SCH (16:41)
[2021-03-21] MEDS: ACETAMINOPHEN 650 MG/20.3 ML ORAL SOLUTION (CUPS) GT PRN (22:44)
[2021-03-22] MEDS ORDERED: PIPERACILLIN/TAZOBACTAM 2.25 GM VIAL IVPB ONE ×4 (02:35→22:53)
[2021-03-22] MEDS ORDERED: DEXTROSE 5%-WATER - 50 ML IVPB ONE ×4 (02:36→22:53)
[2021-03-22] MEDS: PIPERACILLIN/TAZOB 2.25 GM 2.25 GM in DEXTROSE 5%-WATER - 50 ML IVPB SCH ×4 (03:43→22:54)
[2021-03-22] MEDS: ACETAMINOPHEN 650 MG/20.3 ML ORAL SOLUTION (CUPS) GT PRN ×2 (04:59→17:10)
[2021-03-22 08:56] LABS: BASO % 0.5 % (0-2.0); EOS % 6.7 % (0-4.5); HEMATOCRIT 24.1 % (32.4-45.2); HEMOGLOBIN 8.1 GM/dL (10.7-15.3); LYMPH % 7.6 % (8-40); MCH 29.3 pg (25.7-33.7); MCHC 33.6 g/dl (32.0-36.0); MEAN CELL VOLUME 87.2 fl (80-96); MEAN PLT VOLUME 7.4 fl (7.5-11.1); MONO % 4.1 % (3.8-10.2); NEUT % 81.1 % (42.8-82.8); PLATELET COUNT 306 K/MM3 (134-434); RBC 2.76 M/mm3 (3.60-5.2); RDW 16.8 % (11.6-15.6); WHITE BLOOD COUNT 9.1 K/mm3 (4.0-10.0)
[2021-03-22 09:15] LABS: CHLORIDE 118 mmol/L (98-107); SODIUM 153 mmol/L (136-145)
[2021-03-22 09:28] LABS: CALCIUM 8.3 mg/dL (8.5-10.1)
[2021-03-22 09:29] LABS: ALBUMIN 1.8 g/dl (3.4-5.0); BLOOD UREA NITROGEN 67.3 mg/dL (7-18); CO2 27 mmol/L (21-32); GLUCOSE,RANDOM 115 mg/dL (74-106)
[2021-03-22 09:32] LABS: CREATININE 1.7 mg/dL (0.55-1.3); SGOT/AST 31 U/L (15-37); SGPT/ALT 35 U/L (13-61)
[2021-03-22 09:33] LABS: BILIRUBIN,TOTAL 0.5 mg/dL (0.2-1); TOT PROT 7.2 g/dl (6.4-8.2)
[2021-03-22 09:35] LABS: ALK PHOS 101 U/L (45-117)
[2021-03-22 09:36] LABS: ANION GAP 8 MMOL/L (8-16)
[2021-03-22 10:27] LABS: MAGNESIUM 2.4 mg/dL (1.8-2.4)
[2021-03-22 10:31] LABS: PHOSPHOROUS 3.8 mg/dL (2.5-4.9)
[2021-03-22] MEDS ORDERED: POTASSIUM CHLORIDE ORAL LIQUID 20 MEQ/15 ML PO ONE (11:45)
[2021-03-22] MEDS: AMINO ACIDS/PROTEIN HYDROLYS 30 ML LIQUID.PKT GT SCH (12:24)
[2021-03-22] MEDS: CALCIUM ACETATE 667 MG CAPSULE (FP) PO SCH ×2 (12:24→17:10)
[2021-03-22] MEDS: COLLAGENASE CLOSTRIDIUM HIST. 30 GRAMS TUBE TP SCH (12:25)
[2021-03-22] MEDS: INSULIN SLIDING SCALE (NOVOLOG) 1 VIAL SQ SCH ×4 (12:25→22:58)
[2021-03-22] MEDS: FUROSEMIDE 40 MG TABLET (FP) GT SCH (12:25)
[2021-03-22] MEDS: PANTOPRAZOLE SODIUM 40 MG VIAL IVPUSH SCH (12:25)
[2021-03-22] MEDS: SILVER SULFADIAZINE 1% TOP CREAM 50 GM JAR TP SCH (12:25)
[2021-03-22] MEDS: NYSTATIN 100,000 UNIT/GM TOPICAL CREAM 15 GM TUBE TP SCH ×2 (14:30→22:54)
[2021-03-22] MEDS: METOPROLOL TARTRATE 25 MG TABLET (FP) PO SCH ×2 (14:30→22:54)
[2021-03-23] MEDS ORDERED: PIPERACILLIN/TAZOBACTAM 2.25 GM VIAL IVPB ONE ×4 (02:01→20:25)
[2021-03-23] MEDS ORDERED: DEXTROSE 5%-WATER - 50 ML IVPB ONE ×4 (02:01→20:26)
[2021-03-23] MEDS: PIPERACILLIN/TAZOB 2.25 GM 2.25 GM in DEXTROSE 5%-WATER - 50 ML IVPB SCH ×4 (03:40→21:20)
[2021-03-23] MEDS: INSULIN SLIDING SCALE (NOVOLOG) 1 VIAL SQ SCH ×4 (06:05→21:21)
[2021-03-23 08:37] LABS: HEMATOCRIT 24.9 % (32.4-45.2); HEMOGLOBIN 8.2 GM/dL (10.7-15.3); MCHC 32.7 g/dl (32.0-36.0); MEAN CELL VOLUME 88.5 fl (80-96); MEAN PLT VOLUME 7.8 fl (7.5-11.1); PLATELET COUNT 266 K/MM3 (134-434); RBC 2.81 M/mm3 (3.60-5.2); RDW 17.2 % (11.6-15.6); WHITE BLOOD COUNT 6.5 K/mm3 (4.0-10.0)
[2021-03-23 08:49] LABS: ALBUMIN 1.8 g/dl (3.4-5.0); BLOOD UREA NITROGEN 55.4 mg/dL (7-18); CALCIUM 8.5 mg/dL (8.5-10.1)
[2021-03-23 08:50] LABS: MAGNESIUM 2.1 mg/dL (1.8-2.4)
[2021-03-23 08:53] LABS: CREATININE 1.3 mg/dL (0.55-1.3); PHOSPHOROUS 3.2 mg/dL (2.5-4.9)
[2021-03-23 08:54] LABS: BILIRUBIN,TOTAL 0.7 mg/dL (0.2-1); TOT PROT 7.1 g/dl (6.4-8.2)
[2021-03-23] MEDS: AMINO ACIDS/PROTEIN HYDROLYS 30 ML LIQUID.PKT GT SCH (09:46)
[2021-03-23] MEDS: COLLAGENASE CLOSTRIDIUM HIST. 30 GRAMS TUBE TP SCH (09:46)
[2021-03-23] MEDS: PANTOPRAZOLE SODIUM 40 MG VIAL IVPUSH SCH (09:46)
[2021-03-23] MEDS: NYSTATIN 100,000 UNIT/GM TOPICAL CREAM 15 GM TUBE TP SCH ×2 (09:46→21:21)
[2021-03-23] MEDS: CALCIUM ACETATE 667 MG CAPSULE (FP) PO SCH ×3 (09:46→18:07)
[2021-03-23] MEDS: METOPROLOL TARTRATE 25 MG TABLET (FP) PO SCH ×2 (09:46→21:20)
[2021-03-23] MEDS: SILVER SULFADIAZINE 1% TOP CREAM 50 GM JAR TP SCH (09:47)
[2021-03-23] MEDS: ACETAMINOPHEN 650 MG/20.3 ML ORAL SOLUTION (CUPS) GT PRN ×3 (10:27→22:41)
[2021-03-23] MEDS: POTASSIUM CHLORIDE ORAL LIQUID 20 MEQ/15 ML PO SCH ×2 (13:37→21:21)
[2021-03-23] MEDS: KCL 10 MEQ IVPB 10 MEQ/100 ML INFUS.BAG IVPB SCH ×2 (15:27→16:42)
[2021-03-24] MEDS ORDERED: DEXTROSE 5%-WATER - 50 ML IVPB ONE ×4 (02:57→22:41)
[2021-03-24] MEDS ORDERED: PIPERACILLIN/TAZOBACTAM 2.25 GM VIAL IVPB ONE ×5 (02:57→22:40)
[2021-03-24] MEDS: PIPERACILLIN/TAZOB 2.25 GM 2.25 GM in DEXTROSE 5%-WATER - 50 ML IVPB SCH ×4 (03:18→22:52)
[2021-03-24] MEDS: INSULIN SLIDING SCALE (NOVOLOG) 1 VIAL SQ SCH ×4 (06:14→22:52)
[2021-03-24] MEDS: CALCIUM ACETATE 667 MG CAPSULE (FP) PO SCH ×3 (08:44→18:20)
[2021-03-24] MEDS: AMINO ACIDS/PROTEIN HYDROLYS 30 ML LIQUID.PKT GT SCH (08:44)
[2021-03-24 08:55] LABS: HEMATOCRIT 24.6 % (32.4-45.2); HEMOGLOBIN 8.1 GM/dL (10.7-15.3); MCHC 32.9 g/dl (32.0-36.0); MEAN CELL VOLUME 88.2 fl (80-96); MEAN PLT VOLUME 7.8 fl (7.5-11.1); PLATELET COUNT 241 K/MM3 (134-434); RBC 2.79 M/mm3 (3.60-5.2); RDW 17.6 % (11.6-15.6); WHITE BLOOD COUNT 6.7 K/mm3 (4.0-10.0)
[2021-03-24 09:35] LABS: ALBUMIN 1.6 g/dl (3.4-5.0); MAGNESIUM 2.2 mg/dL (1.8-2.4)
[2021-03-24 09:36] LABS: CREATININE 1.2 mg/dL (0.55-1.3)
[2021-03-24 09:37] LABS: PHOSPHOROUS 2.2 mg/dL (2.5-4.9)
[2021-03-24 09:38] LABS: BILIRUBIN,TOTAL 0.4 mg/dL (0.2-1); TOT PROT 7.3 g/dl (6.4-8.2)
[2021-03-24] MEDS: METOPROLOL TARTRATE 25 MG TABLET (FP) PO SCH ×2 (10:09→22:51)
[2021-03-24] MEDS: PANTOPRAZOLE SODIUM 40 MG VIAL IVPUSH SCH (10:09)
[2021-03-24] MEDS: COLLAGENASE CLOSTRIDIUM HIST. 30 GRAMS TUBE TP SCH (10:09)
[2021-03-24] MEDS: NYSTATIN 100,000 UNIT/GM TOPICAL CREAM 15 GM TUBE TP SCH ×2 (10:09→22:51)
[2021-03-24] MEDS: POTASSIUM CHLORIDE ORAL LIQUID 20 MEQ/15 ML PO SCH (10:09)
[2021-03-24] MEDS: SILVER SULFADIAZINE 1% TOP CREAM 50 GM JAR TP SCH (10:10)
[2021-03-25] MEDS ORDERED: PIPERACILLIN/TAZOBACTAM 2.25 GM VIAL IVPB ONE ×4 (02:09→21:02)
[2021-03-25] MEDS ORDERED: DEXTROSE 5%-WATER - 50 ML IVPB ONE ×4 (02:09→21:03)
[2021-03-25] MEDS: PIPERACILLIN/TAZOB 2.25 GM 2.25 GM in DEXTROSE 5%-WATER - 50 ML IVPB SCH ×4 (02:46→21:16)
[2021-03-25] MEDS: ACETAMINOPHEN 650 MG/20.3 ML ORAL SOLUTION (CUPS) GT PRN ×3 (06:25→21:18)
[2021-03-25] MEDS: INSULIN SLIDING SCALE (NOVOLOG) 1 VIAL SQ SCH ×4 (06:26→21:31)
[2021-03-25 08:31] LABS: CALCIUM 8.8 mg/dL (8.5-10.1)
[2021-03-25 08:32] LABS: BLOOD UREA NITROGEN 51.2 mg/dL (7-18)
[2021-03-25] MEDS: METOPROLOL TARTRATE 25 MG TABLET (FP) PO SCH ×2 (10:47→21:16)
[2021-03-25] MEDS: AMINO ACIDS/PROTEIN HYDROLYS 30 ML LIQUID.PKT GT SCH (10:47)
[2021-03-25] MEDS: CALCIUM ACETATE 667 MG CAPSULE (FP) PO SCH ×3 (10:47→17:34)
[2021-03-25] MEDS: POTASSIUM CHLORIDE ORAL LIQUID 20 MEQ/15 ML PO SCH (10:48)
[2021-03-25] MEDS: SILVER SULFADIAZINE 1% TOP CREAM 50 GM JAR TP SCH (10:48)
[2021-03-25] MEDS: NYSTATIN 100,000 UNIT/GM TOPICAL CREAM 15 GM TUBE TP SCH ×2 (10:48→21:17)
[2021-03-25] MEDS: COLLAGENASE CLOSTRIDIUM HIST. 30 GRAMS TUBE TP SCH (10:48)
[2021-03-25] MEDS: PANTOPRAZOLE SODIUM 40 MG VIAL IVPUSH SCH (10:49)
[2021-03-25 11:58] LABS: BASO % 0.7 % (0-2.0); EOS % 8.4 % (0-4.5); HEMATOCRIT 23.6 % (32.4-45.2); HEMOGLOBIN 7.5 GM/dL (10.7-15.3); LYMPH % 10.9 % (8-40); MCH 28.3 pg (25.7-33.7); MCHC 31.8 g/dl (32.0-36.0); MEAN PLT VOLUME 8.2 fl (7.5-11.1); MONO % 9.4 % (3.8-10.2); NEUT % 70.6 % (42.8-82.8); PLATELET COUNT 228 K/MM3 (134-434); RBC 2.66 M/mm3 (3.60-5.2); RDW 17.6 % (11.6-15.6); WHITE BLOOD COUNT 6.9 K/mm3 (4.0-10.0)
[2021-03-25 15:20] LABS: ANISOCYTOSIS 1+; MACROCYTOSIS 0; PLATELET ESTIMATE NORMAL; TEAR DROP CELLS 1+
[2021-03-25] MEDS: BANATROL PLUS POWDER PACKET PEG SCH (21:17)
[2021-03-26] MEDS ORDERED: PIPERACILLIN/TAZOBACTAM 2.25 GM VIAL IVPB ONE ×4 (01:42→21:56)
[2021-03-26] MEDS ORDERED: DEXTROSE 5%-WATER - 50 ML IVPB ONE ×4 (01:42→21:56)
[2021-03-26] MEDS: ACETAMINOPHEN 650 MG/20.3 ML ORAL SOLUTION (CUPS) GT PRN ×2 (02:09→16:45)
[2021-03-26] MEDS: PIPERACILLIN/TAZOB 2.25 GM 2.25 GM in DEXTROSE 5%-WATER - 50 ML IVPB SCH ×4 (02:09→21:58)
[2021-03-26] MEDS: BANATROL PLUS POWDER PACKET PEG SCH ×3 (06:08→21:58)
[2021-03-26] MEDS: INSULIN SLIDING SCALE (NOVOLOG) 1 VIAL SQ SCH ×4 (06:38→22:00)
[2021-03-26] MEDS: COLLAGENASE CLOSTRIDIUM HIST. 30 GRAMS TUBE TP SCH (10:35)
[2021-03-26] MEDS: SILVER SULFADIAZINE 1% TOP CREAM 50 GM JAR TP SCH (10:35)
[2021-03-26] MEDS: NYSTATIN 100,000 UNIT/GM TOPICAL CREAM 15 GM TUBE TP SCH ×2 (10:35→21:58)
[2021-03-26] MEDS: AMINO ACIDS/PROTEIN HYDROLYS 30 ML LIQUID.PKT GT SCH (10:35)
[2021-03-26] MEDS: METOPROLOL TARTRATE 25 MG TABLET (FP) PO SCH ×2 (10:35→21:58)
[2021-03-26] MEDS: CALCIUM ACETATE 667 MG CAPSULE (FP) PO SCH ×3 (10:35→16:42)
[2021-03-26] MEDS: POTASSIUM CHLORIDE ORAL LIQUID 20 MEQ/15 ML PO SCH (10:35)
[2021-03-26] MEDS: PANTOPRAZOLE SODIUM 40 MG VIAL IVPUSH SCH (10:35)
[2021-03-26 12:13] LABS: ALBUMIN 1.7 g/dl (3.4-5.0); CALCIUM 8.6 mg/dL (8.5-10.1)
[2021-03-26 12:17] LABS: CREATININE 0.9 mg/dL (0.55-1.3)
[2021-03-26 12:18] LABS: BILIRUBIN,TOTAL 0.4 mg/dL (0.2-1); TOT PROT 7.1 g/dl (6.4-8.2)
[2021-03-26] MEDS ORDERED: PNEUMOC 13-VAL CONJ-DIP CRM/PF 0.5 ML DISP.SYRIN IM ONE (15:19)
[2021-03-26] MEDS ORDERED: PNEUMOCOCCAL 23 VACCINE 0.5 ML VIAL IM ONE (15:30)
[2021-03-26] MEDS: DEXTROSE 5%-WATER - 1,000 ML IV SCH (16:41)
[2021-03-27] MEDS ORDERED: PIPERACILLIN/TAZOBACTAM 2.25 GM VIAL IVPB ONE ×4 (02:15→22:31)
[2021-03-27] MEDS ORDERED: DEXTROSE 5%-WATER - 50 ML IVPB ONE ×4 (02:15→22:31)
[2021-03-27] MEDS: PIPERACILLIN/TAZOB 2.25 GM 2.25 GM in DEXTROSE 5%-WATER - 50 ML IVPB SCH ×4 (02:35→22:37)
[2021-03-27] MEDS: INSULIN SLIDING SCALE (NOVOLOG) 1 VIAL SQ SCH ×4 (06:44→22:38)
[2021-03-27 10:24] LABS: HEMATOCRIT 30.6 % (32.4-45.2); HEMOGLOBIN 9.7 GM/dL (10.7-15.3); MCHC 31.8 g/dl (32.0-36.0); MEAN PLT VOLUME 8.8 fl (7.5-11.1); PLATELET COUNT 260 K/MM3 (134-434); RBC 3.48 M/mm3 (3.60-5.2); RDW 17.1 % (11.6-15.6); WHITE BLOOD COUNT 13.2 K/mm3 (4.0-10.0)
[2021-03-27 10:43] LABS: CALCIUM 8.7 mg/dL (8.5-10.1)
[2021-03-27 10:44] LABS: BLOOD UREA NITROGEN 37.6 mg/dL (7-18)
[2021-03-27 10:50] LABS: CREATININE 0.8 mg/dL (0.55-1.3)
[2021-03-27] MEDS: METOPROLOL TARTRATE 25 MG TABLET (FP) PO SCH ×2 (11:35→22:37)
[2021-03-27] MEDS: AMINO ACIDS/PROTEIN HYDROLYS 30 ML LIQUID.PKT GT SCH (11:35)
[2021-03-27] MEDS: CALCIUM ACETATE 667 MG CAPSULE (FP) PO SCH ×3 (11:35→19:05)
[2021-03-27] MEDS: NYSTATIN 100,000 UNIT/GM TOPICAL CREAM 15 GM TUBE TP SCH ×2 (11:36→22:38)
[2021-03-27] MEDS: SILVER SULFADIAZINE 1% TOP CREAM 50 GM JAR TP SCH (11:36)
[2021-03-27] MEDS: COLLAGENASE CLOSTRIDIUM HIST. 30 GRAMS TUBE TP SCH (11:36)
[2021-03-27] MEDS: BANATROL PLUS POWDER PACKET PEG SCH ×2 (11:36→22:38)
[2021-03-27] MEDS: PANTOPRAZOLE SODIUM 40 MG VIAL IVPUSH SCH (11:37)
[2021-03-27] MEDS: DEXTROSE 5%-WATER - 1,000 ML IV SCH (16:37)
[2021-03-28] MEDS ORDERED: PIPERACILLIN/TAZOBACTAM 2.25 GM VIAL IVPB ONE ×4 (02:26→21:17)
[2021-03-28] MEDS ORDERED: DEXTROSE 5%-WATER - 50 ML IVPB ONE ×4 (02:26→21:18)
[2021-03-28] MEDS: PIPERACILLIN/TAZOB 2.25 GM 2.25 GM in DEXTROSE 5%-WATER - 50 ML IVPB SCH ×4 (03:10→21:31)
[2021-03-28] MEDS: INSULIN SLIDING SCALE (NOVOLOG) 1 VIAL SQ SCH ×4 (06:10→21:31)
[2021-03-28] MEDS ORDERED: INSULIN (NOVOLOG) ASPART 100 UNITS/ML 10ML VIAL ONE (06:57)
[2021-03-28 09:30] LABS: BASO % 0.5 % (0-2.0); EOS % 2.5 % (0-4.5); HEMATOCRIT 27.7 % (32.4-45.2); HEMOGLOBIN 9.1 GM/dL (10.7-15.3); LYMPH % 7.1 % (8-40); MCH 28.3 pg (25.7-33.7); MCHC 32.8 g/dl (32.0-36.0); MEAN CELL VOLUME 86.4 fl (80-96); MEAN PLT VOLUME 8.7 fl (7.5-11.1); NEUT % 78.9 % (42.8-82.8); PLATELET COUNT 279 K/MM3 (134-434); RDW 16.9 % (11.6-15.6); WHITE BLOOD COUNT 13.9 K/mm3 (4.0-10.0)
[2021-03-28 09:58] LABS: ALBUMIN 1.6 g/dl (3.4-5.0); BLOOD UREA NITROGEN 34.7 mg/dL (7-18)
[2021-03-28 10:00] LABS: CALCIUM 8.7 mg/dL (8.5-10.1)
[2021-03-28 10:01] LABS: BILIRUBIN,TOTAL 0.5 mg/dL (0.2-1)
[2021-03-28 10:04] LABS: CREATININE 0.7 mg/dL (0.55-1.3)
[2021-03-28] MEDS ORDERED: PT OWN MED DRAWER 7, Y5N ONE ×2 (10:34→18:02)
[2021-03-28] MEDS: CALCIUM ACETATE 667 MG CAPSULE (FP) PO SCH ×3 (10:49→17:11)
[2021-03-28] MEDS: AMINO ACIDS/PROTEIN HYDROLYS 30 ML LIQUID.PKT GT SCH (10:49)
[2021-03-28] MEDS: PANTOPRAZOLE SODIUM 40 MG VIAL IVPUSH SCH (10:49)
[2021-03-28] MEDS: METOPROLOL TARTRATE 25 MG TABLET (FP) PO SCH ×2 (10:49→21:30)
[2021-03-28] MEDS: BANATROL PLUS POWDER PACKET PEG SCH ×2 (10:50→21:30)
[2021-03-28] MEDS: NYSTATIN 100,000 UNIT/GM TOPICAL CREAM 15 GM TUBE TP SCH ×2 (10:50→21:31)
[2021-03-28] MEDS: COLLAGENASE CLOSTRIDIUM HIST. 30 GRAMS TUBE TP SCH (10:51)
[2021-03-28] MEDS: SILVER SULFADIAZINE 1% TOP CREAM 50 GM JAR TP SCH (10:51)
[2021-03-28 11:26] LABS: ANISOCYTOSIS 0; HELMET CELLS 0; HOWELL-JOLLY BODIES 0; MACROCYTOSIS 0; OVALOCYTE 0; PLATELET ESTIMATE NORMAL; ROULEAU 0; SICKELED CELLS 0; TARGET CELLS 0; TEAR DROP CELLS 0; TOXIC GRANULATION 0
[2021-03-28] MEDS: DEXTROSE 5%-WATER - 1,000 ML IV SCH (17:10)
[2021-03-29] MEDS ORDERED: PIPERACILLIN/TAZOBACTAM 2.25 GM VIAL IVPB ONE ×4 (02:11→21:44)
[2021-03-29] MEDS ORDERED: DEXTROSE 5%-WATER - 50 ML IVPB ONE ×4 (02:12→21:44)
[2021-03-29] MEDS: PIPERACILLIN/TAZOB 2.25 GM 2.25 GM in DEXTROSE 5%-WATER - 50 ML IVPB SCH ×4 (02:45→21:49)
[2021-03-29] MEDS: INSULIN SLIDING SCALE (NOVOLOG) 1 VIAL SQ SCH ×4 (06:16→23:27)
[2021-03-29] MEDS ORDERED: PT OWN MED DRAWER 7, Y5N ONE (09:09)
[2021-03-29] MEDS: BANATROL PLUS POWDER PACKET PEG SCH ×2 (09:22→21:49)
[2021-03-29] MEDS: METOPROLOL TARTRATE 25 MG TABLET (FP) PO SCH ×2 (09:22→21:49)
[2021-03-29] MEDS: AMINO ACIDS/PROTEIN HYDROLYS 30 ML LIQUID.PKT GT SCH (09:22)
[2021-03-29] MEDS: CALCIUM ACETATE 667 MG CAPSULE (FP) PO SCH ×2 (09:22→13:48)
[2021-03-29] MEDS: SILVER SULFADIAZINE 1% TOP CREAM 50 GM JAR TP SCH (09:23)
[2021-03-29] MEDS: PANTOPRAZOLE SODIUM 40 MG VIAL IVPUSH SCH (09:23)
[2021-03-29 10:33] LABS: BASO % 0.5 % (0-2.0); EOS % 1.8 % (0-4.5); HEMOGLOBIN 9.2 GM/dL (10.7-15.3); LYMPH % 6.2 % (8-40); MCH 28.4 pg (25.7-33.7); MCHC 32.9 g/dl (32.0-36.0); MEAN CELL VOLUME 86.2 fl (80-96); MEAN PLT VOLUME 8.5 fl (7.5-11.1); MONO % 8.2 % (3.8-10.2); NEUT % 83.3 % (42.8-82.8); PLATELET COUNT 298 K/MM3 (134-434); RBC 3.25 M/mm3 (3.60-5.2); RDW 16.8 % (11.6-15.6); WHITE BLOOD COUNT 13.3 K/mm3 (4.0-10.0)
[2021-03-29 11:03] LABS: ALBUMIN 1.6 g/dl (3.4-5.0); BLOOD UREA NITROGEN 29.7 mg/dL (7-18); CALCIUM 8.4 mg/dL (8.5-10.1)
[2021-03-29 11:07] LABS: BILIRUBIN,TOTAL 0.3 mg/dL (0.2-1); CREATININE 0.6 mg/dL (0.55-1.3)
[2021-03-29] MEDS: NYSTATIN 100,000 UNIT/GM TOPICAL CREAM 15 GM TUBE TP SCH ×2 (12:19→21:49)
[2021-03-29] MEDS: COLLAGENASE CLOSTRIDIUM HIST. 30 GRAMS TUBE TP SCH (12:19)
[2021-03-29 12:48] LABS: OVALOCYTE 1+; PLATELET ESTIMATE ADEQUATE
[2021-03-29] MEDS: DEXTROSE 5%-WATER - 1,000 ML IV SCH (13:48)
[2021-03-29] MEDS ORDERED: NAPH,MB-DB/K PH,MBDB POWDER PACKET PO ONE (14:18)
[2021-03-30] MEDS ORDERED: PIPERACILLIN/TAZOBACTAM 2.25 GM VIAL IVPB ONE ×4 (01:41→22:19)
[2021-03-30] MEDS ORDERED: DEXTROSE 5%-WATER - 50 ML IVPB ONE ×4 (01:41→22:20)
[2021-03-30] MEDS: PIPERACILLIN/TAZOB 2.25 GM 2.25 GM in DEXTROSE 5%-WATER - 50 ML IVPB SCH ×4 (03:14→22:40)
[2021-03-30] MEDS: INSULIN SLIDING SCALE (NOVOLOG) 1 VIAL SQ SCH ×4 (06:32→23:11)
[2021-03-30] MEDS ORDERED: PT OWN MED DRAWER 7, Y5N ONE ×2 (08:58→22:21)
[2021-03-30] MEDS: AMINO ACIDS/PROTEIN HYDROLYS 30 ML LIQUID.PKT GT SCH (09:24)
[2021-03-30] MEDS: BANATROL PLUS POWDER PACKET PEG SCH ×2 (09:25→23:10)
[2021-03-30] MEDS: METOPROLOL TARTRATE 25 MG TABLET (FP) PO SCH ×2 (09:25→23:10)
[2021-03-30] MEDS: NYSTATIN 100,000 UNIT/GM TOPICAL CREAM 15 GM TUBE TP SCH ×2 (09:25→23:11)
[2021-03-30] MEDS: COLLAGENASE CLOSTRIDIUM HIST. 30 GRAMS TUBE TP SCH (09:25)
[2021-03-30] MEDS: SILVER SULFADIAZINE 1% TOP CREAM 50 GM JAR TP SCH (09:26)
[2021-03-30] MEDS: PANTOPRAZOLE SODIUM 40 MG VIAL IVPUSH SCH (09:26)
[2021-03-30 10:17] LABS: HEMOGLOBIN 8.9 GM/dL (10.7-15.3); MCH 28.4 pg (25.7-33.7); MCHC 32.8 g/dl (32.0-36.0); MEAN CELL VOLUME 86.3 fl (80-96); MEAN PLT VOLUME 8.4 fl (7.5-11.1); PLATELET COUNT 348 K/MM3 (134-434); RBC 3.13 M/mm3 (3.60-5.2); WHITE BLOOD COUNT 16.1 K/mm3 (4.0-10.0)
[2021-03-30 10:47] LABS: ALBUMIN 1.6 g/dl (3.4-5.0); CALCIUM 8.5 mg/dL (8.5-10.1)
[2021-03-30 10:50] LABS: CREATININE 0.6 mg/dL (0.55-1.3); PHOSPHOROUS 2.6 mg/dL (2.5-4.9)
[2021-03-30 10:52] LABS: BILIRUBIN,TOTAL 0.3 mg/dL (0.2-1)
[2021-03-31] MEDS ORDERED: PIPERACILLIN/TAZOBACTAM 2.25 GM VIAL IVPB ONE ×5 (02:30→21:47)
[2021-03-31] MEDS ORDERED: DEXTROSE 5%-WATER - 50 ML IVPB ONE ×5 (02:30→21:47)
[2021-03-31] MEDS: PIPERACILLIN/TAZOB 2.25 GM 2.25 GM in DEXTROSE 5%-WATER - 50 ML IVPB SCH ×4 (02:51→21:58)
[2021-03-31] MEDS: INSULIN SLIDING SCALE (NOVOLOG) 1 VIAL SQ SCH ×4 (06:03→22:03)
[2021-03-31 08:53] LABS: BASO % 0.3 % (0-2.0); EOS % 0.9 % (0-4.5); HEMATOCRIT 25.7 % (32.4-45.2); HEMOGLOBIN 8.5 GM/dL (10.7-15.3); LYMPH % 5.1 % (8-40); MCH 28.3 pg (25.7-33.7); MCHC 33.2 g/dl (32.0-36.0); MEAN CELL VOLUME 85.1 fl (80-96); MEAN PLT VOLUME 7.9 fl (7.5-11.1); MONO % 4.4 % (3.8-10.2); NEUT % 89.3 % (42.8-82.8); PLATELET COUNT 379 K/MM3 (134-434); RBC 3.02 M/mm3 (3.60-5.2); WHITE BLOOD COUNT 17.9 K/mm3 (4.0-10.0)
[2021-03-31 09:25] LABS: CALCIUM 8.4 mg/dL (8.5-10.1)
[2021-03-31 09:26] LABS: ALBUMIN 1.6 g/dl (3.4-5.0); BLOOD UREA NITROGEN 28.8 mg/dL (7-18); MAGNESIUM 1.9 mg/dL (1.8-2.4)
[2021-03-31 09:29] LABS: CREATININE 0.5 mg/dL (0.55-1.3); PHOSPHOROUS 2.6 mg/dL (2.5-4.9)
[2021-03-31 09:31] LABS: BILIRUBIN,TOTAL 0.3 mg/dL (0.2-1)
[2021-03-31] MEDS ORDERED: PT OWN MED DRAWER 7, Y5N ONE (09:47)
[2021-03-31 10:04] LABS: ANISOCYTOSIS 0; HELMET CELLS 0; HOWELL-JOLLY BODIES 0; MACROCYTOSIS 0; OVALOCYTE 0; PLATELET ESTIMATE NORMAL; ROULEAU 0; SICKELED CELLS 0; TARGET CELLS 0; TEAR DROP CELLS 0; TOXIC GRANULATION 0
[2021-03-31] MEDS: BANATROL PLUS POWDER PACKET PEG SCH ×2 (10:59→21:58)
[2021-03-31] MEDS: PANTOPRAZOLE SODIUM 40 MG VIAL IVPUSH SCH (10:59)
[2021-03-31] MEDS: AMINO ACIDS/PROTEIN HYDROLYS 30 ML LIQUID.PKT GT SCH (10:59)
[2021-03-31] MEDS: METOPROLOL TARTRATE 25 MG TABLET (FP) PO SCH ×2 (10:59→22:03)
[2021-03-31] MEDS: COLLAGENASE CLOSTRIDIUM HIST. 30 GRAMS TUBE TP SCH (11:02)
[2021-03-31] MEDS: SILVER SULFADIAZINE 1% TOP CREAM 50 GM JAR TP SCH (11:03)
[2021-03-31] MEDS: NYSTATIN 100,000 UNIT/GM TOPICAL CREAM 15 GM TUBE TP SCH ×2 (11:03→22:03)
[2021-04-01] MEDS ORDERED: DEXTROSE 5%-WATER - 50 ML IVPB ONE ×2 (02:29→11:02)
[2021-04-01] MEDS ORDERED: PIPERACILLIN/TAZOBACTAM 2.25 GM VIAL IVPB ONE ×2 (02:29→11:02)
[2021-04-01] MEDS: PIPERACILLIN/TAZOB 2.25 GM 2.25 GM in DEXTROSE 5%-WATER - 50 ML IVPB SCH ×3 (02:39→15:12)
[2021-04-01] MEDS: INSULIN SLIDING SCALE (NOVOLOG) 1 VIAL SQ SCH ×4 (06:13→21:59)
[2021-04-01] MEDS ORDERED: INSULIN (NOVOLOG) ASPART 100 UNITS/ML 10ML VIAL ONE (06:26)
[2021-04-01] MEDS ORDERED: INSULIN (LEVEMIR) 100 UNITS/ML UNITS SQ ONE (06:26)
[2021-04-01] MEDS ORDERED: PT OWN MED DRAWER 7, Y5N ONE ×2 (11:02→21:30)
[2021-04-01] MEDS: PANTOPRAZOLE SODIUM 40 MG VIAL IVPUSH SCH (11:09)
[2021-04-01] MEDS: AMINO ACIDS/PROTEIN HYDROLYS 30 ML LIQUID.PKT GT SCH (11:09)
[2021-04-01] MEDS: BANATROL PLUS POWDER PACKET PEG SCH ×2 (11:11→22:03)
[2021-04-01] MEDS: METOPROLOL TARTRATE 25 MG TABLET (FP) PO SCH ×2 (11:11→22:00)
[2021-04-01] MEDS: COLLAGENASE CLOSTRIDIUM HIST. 30 GRAMS TUBE TP SCH (11:13)
[2021-04-01] MEDS: SILVER SULFADIAZINE 1% TOP CREAM 50 GM JAR TP SCH (11:13)
[2021-04-01] MEDS: NYSTATIN 100,000 UNIT/GM TOPICAL CREAM 15 GM TUBE TP SCH ×2 (11:13→21:59)
[2021-04-02] MEDS ORDERED: amLODIPine BESYLATE 5 MG TABLET (FP) PO ONE (06:20)
[2021-04-02] MEDS: INSULIN SLIDING SCALE (NOVOLOG) 1 VIAL SQ SCH ×3 (06:33→17:12)
[2021-04-02 08:59] LABS: HEMATOCRIT 28.2 % (32.4-45.2); HEMOGLOBIN 9.1 GM/dL (10.7-15.3); MCH 27.7 pg (25.7-33.7); MCHC 32.3 g/dl (32.0-36.0); MEAN CELL VOLUME 85.7 fl (80-96); MEAN PLT VOLUME 7.8 fl (7.5-11.1); PLATELET COUNT 533 K/MM3 (134-434); RBC 3.29 M/mm3 (3.60-5.2); WHITE BLOOD COUNT 25.7 K/mm3 (4.0-10.0)
[2021-04-02] MEDS ORDERED: PT OWN MED DRAWER 7, Y5N ONE ×2 (09:09→13:28)
[2021-04-02] MEDS: AMINO ACIDS/PROTEIN HYDROLYS 30 ML LIQUID.PKT GT SCH (09:29)
[2021-04-02] MEDS: BANATROL PLUS POWDER PACKET PEG SCH (09:29)
[2021-04-02] MEDS: NYSTATIN 100,000 UNIT/GM TOPICAL CREAM 15 GM TUBE TP SCH (09:29)
[2021-04-02] MEDS: SILVER SULFADIAZINE 1% TOP CREAM 50 GM JAR TP SCH (09:29)
[2021-04-02] MEDS: METOPROLOL TARTRATE 25 MG TABLET (FP) PO SCH (09:29)
[2021-04-02] MEDS ORDERED: PANTOPRAZOLE SOD 40 MG SUSPENSION PACKET PO SCH (10:00)
[2021-04-02 14:23] VITALS: PULSE 80
[2021-04-02 14:56] VITALS: BP 142/88; TEMP 98.2
[2021-04-02] MEDS: COLLAGENASE CLOSTRIDIUM HIST. 30 GRAMS TUBE TP SCH (15:44)
[2021-04-03] MEDS ORDERED: amLODIPine BESYLATE 5 MG TABLET (FP) GT SCH (10:00)
== END 2021-04-02 16:52 | DRG 720 ==
LOC: JER 00:45 → JERBED 04:48 → JICU 07:29 → J5S 03-10 19:53 → JICU 03-15 21:31 → J5S 03-16 01:31
PROVIDERS: ADMIT Internal Medicine
PROC: 30233N1 Transfusion of Nonautologous Red Blood Cells into Peripheral Vein, Percutaneous Approach (ICD-10-PCS; principal; 2021-03-07)
PROC: 5A1955Z Respiratory Ventilation, Greater than 96 Consecutive Hours (ICD-10-PCS; 2021-03-07)
PROC: 3E0G76Z Introduction of Nutritional Substance into Upper GI, Via Natural or Artificial Opening (ICD-10-PCS; 2021-03-07)
PROC: 05HN33Z Insertion of Infusion Device into Left Internal Jugular Vein, Percutaneous Approach (ICD-10-PCS; 2021-03-10)
PROC: B544ZZA Ultrasonography of Left Jugular Veins, Guidance (ICD-10-PCS; 2021-03-10)
PROC: 5A1D70Z Performance of Urinary Filtration, Intermittent, Less than 6 Hours Per Day (ICD-10-PCS; 2021-03-10)
PROC: 5A1D70Z Performance of Urinary Filtration, Intermittent, Less than 6 Hours Per Day (ICD-10-PCS; 2021-03-12)
DX: A41.89 Other specified sepsis (principal); R65.20 Severe sepsis without septic shock; D62 Acute posthemorrhagic anemia; R74.01 Elevation of levels of liver transaminase levels; E87.5 Hyperkalemia; R41.82 Altered mental status, unspecified; R73.03 Prediabetes; N39.0 Urinary tract infection, site not specified; B96.20 Unspecified Escherichia coli [E. coli] as the cause of diseases classified elsewhere; B96.89 Other specified bacterial agents as the cause of diseases classified elsewhere; J96.00 Acute respiratory failure, unspecified whether with hypoxia or hypercapnia; E87.0 Hyperosmolality and hypernatremia; E87.2 Acidosis; R23.8 Other skin changes; N17.9 Acute kidney failure, unspecified; I11.0 Hypertensive heart disease with heart failure; I50.30 Unspecified diastolic (congestive) heart failure; I31.3 Pericardial effusion (noninflammatory); C55 Malignant neoplasm of uterus, part unspecified; C79.89 Secondary malignant neoplasm of other specified sites; J98.11 Atelectasis; T17.390A Other foreign object in larynx causing asphyxiation, initial encounter; G93.1 Anoxic brain damage, not elsewhere classified; E87.70 Fluid overload, unspecified; D25.9 Leiomyoma of uterus, unspecified; N93.9 Abnormal uterine and vaginal bleeding, unspecified; R18.8 Other ascites; J96.10 Chronic respiratory failure, unspecified whether with hypoxia or hypercapnia; L89.150 Pressure ulcer of sacral region, unstageable; E87.6 Hypokalemia; E66.9 Obesity, unspecified; Z68.36 Body mass index [BMI] 36.0-36.9, adult; Z93.0 Tracheostomy status; Z87.11 Personal history of peptic ulcer disease
CPT/HCPCS: 36415; 36430; 36511; 36600; 49450; 70450-TC; 71045-TC-FY; 74176-TC; 76700-TC; 76856-TC; 80048; 80053; 81003; 82272; 82550; 82553; 82570; 82728; 82803; 82962; 83605; 83735; 83880; 83930; 83935; 84100; 84132; 84300; 84484; 85025; 85027; 85610; 85730; 86704; 86706; 86707; 86708; 86709; 86803; 86850; 86870; 86900; 86901; 86902; 86922; 87040; 87070; 87086; 87186; 87205; 87324; 87340; 87449; 87899; 90732; 93005; 93010; 94002; 94640; 99285-25; C9803; G0009; G0480; J0131; P9038; P9058; U0003; U0005

== ENCOUNTER 2021-04-28 21:04 | Inpatient (IN) | payer OTHER ==
[2021-04-28] MEDS ORDERED: ACETAMINOPHEN 1000 MG/100 ML VIAL (NON FORMULARY) IVPB ONE (21:28)
[2021-04-28] MEDS ORDERED: SODIUM CHLORIDE 2,123 ML IV ONE (21:28)
[2021-04-28] MEDS ORDERED: ACETAMINOPHEN INJECTION 100 ML IVPB ONE (21:45)
[2021-04-28] MEDS ORDERED: PIPERACILLIN/TAZOB 4.5 GM 4.5 GM in DEXTROSE 5%-WATER 100 ML IVPB ONE (22:23)
[2021-04-28] MEDS ORDERED: VANCOMYCIN HCL 1,500 MG in DEXTROSE 5%-WATER - 500 ML IVPB ONE (22:23)
[2021-04-28 22:27] LABS: EPI CELLS >36 /uL (0-25.1); HYALINE CASTS 9 /uL (0-3.1); PH,URINE 5.5 (5.0-8.0); URINE APPEARANCE CLOUDY; URINE BACTERIA 49 /uL (0-1359); URINE BILIRUBIN NEGATIVE (NEGATIVE); URINE COLOR DK YELLOW; URINE GLUCOSE (UA) NEGATIVE (NEGATIVE); URINE KETONE NEGATIVE (NEGATIVE); URINE LEUK ESTERASE 2+ (NEGATIVE); URINE NITRITE NEGATIVE (NEGATIVE); URINE PROTEIN 2+ (NEGATIVE); URINE UROBILINOGEN 0.2 mg/dL (0.2-1.0); URINE WBC 200 /uL (0-25.8)
[2021-04-28] MEDS ORDERED: VANCOMYCIN 500 MG VIAL (RESTRICTED TO ID ONLY) ONE (22:33)
[2021-04-28] MEDS ORDERED: PIPERACILLIN/TAZOB 4.5 GM 4.5 GM/100 ML BAG IVPB ONE (22:34)
[2021-04-28 22:41] LABS: BASO % 0.4 % (0-2.0); EOS % 0.2 % (0-4.5); HEMATOCRIT 23.7 % (32.4-45.2); LACTIC ACID 4.5 mmol/L (0.4-2.0); MCH 26.6 pg (25.7-33.7); MCHC 28.9 g/dl (32.0-36.0); MEAN CELL VOLUME 92.1 fl (80-96); MEAN PLT VOLUME 11.2 fl (7.5-11.1); MONO % 2.2 % (3.8-10.2); NEUT % 85.2 % (42.8-82.8); PLATELET COUNT 273 10^3/uL (134-434); RBC 2.58 M/mm3 (3.60-5.2); RDW 18.5 % (11.6-15.6)
[2021-04-28 22:42] LABS: WHITE BLOOD COUNT 31.9 K/mm3 (4.0-10.0)
[2021-04-28 22:43] LABS: HEMOGLOBIN 6.9 GM/dL (10.7-15.3)
[2021-04-28] MEDS ORDERED: VANCOMYCIN PREMIX 1.5 GM 1,500 MG/300 ML BAG IVPB ONE (22:45)
[2021-04-28 22:47] LABS: INR 1.18 (0.83-1.09); PROTHROMBIN TIME (PATIENT) 14.2 SEC (9.7-13.0)
[2021-04-28 22:51] LABS: ACTIVATED PTT 36.1 SECONDS (25.2-36.5)
[2021-04-28 23:00] LABS: CHLORIDE 121 mmol/L (98-107); SODIUM 155 mmol/L (136-145)
[2021-04-28 23:03] LABS: CALCIUM 9.5 mg/dL (8.5-10.1)
[2021-04-28 23:03] LABS: ARTERIAL BLD GAS O2 SATURATION 57.5 mmHg (95-98); ARTERIAL BLOOD GAS BASE EXCESS -5.2 mmol/L (-2-2); ARTERIAL BLOOD GAS pH 7.203 (7.350-7.450)
[2021-04-28 23:04] LABS: ALBUMIN 2.4 g/dl (3.4-5.0); CO2 25 mmol/L (21-32); GLUCOSE,RANDOM 152 mg/dL (74-106)
[2021-04-28 23:05] LABS: ALLENS TEST POSITIVE
[2021-04-28 23:06] LABS: VENT MODE V-AC; VENT RATE 18
[2021-04-28 23:07] LABS: CREATININE 3.1 mg/dL (0.55-1.3); SGOT/AST 221 U/L (15-37); SGPT/ALT 163 U/L (13-61)
[2021-04-28 23:07] LABS: ARTERIAL BLOOD GAS PO2 36.9 mmHg (80-100)
[2021-04-28 23:09] LABS: BILIRUBIN,TOTAL 0.8 mg/dL (0.2-1); TOT PROT 8.1 g/dl (6.4-8.2)
[2021-04-28 23:10] LABS: ALK PHOS 131 U/L (45-117)
[2021-04-28 23:24] LABS: URINE RBC 356.9 /uL (0-23.9); YEAST MANY (NEGATIVE)
[2021-04-28 23:28] LABS: ANION GAP 10 MMOL/L (8-16); BLOOD UREA NITROGEN 169.9 mg/dL (7-18)
[2021-04-28] MEDS ORDERED: CALCIUM GLUCONATE 10% - 1,000 MG/10 ML VIAL IVPB ONE (23:30)
[2021-04-28] MEDS ORDERED: CALCIUM GLUCONATE 10% - 1,000 MG/10 ML VIAL ONE (23:42)
[2021-04-29] MEDS ORDERED: SODIUM BICARBONATE 8.4% 50 MEQ/50 ML VIAL IVPUSH ONE (00:31)
[2021-04-29] MEDS ORDERED: INSULIN REGULAR HUMAN 100 UNITS/ML *VIAL SQ ONE (00:31)
[2021-04-29] MEDS ORDERED: DEXTROSE 50%-WATER - 25 GM/50 ML VIAL IVPUSH ONE ×2 (00:40→09:00)
[2021-04-29] MEDS ORDERED: SODIUM BICARBONATE 8.4% 50 MEQ/50 ML VIAL ONE (00:47)
[2021-04-29] MEDS ORDERED: DEXTROSE 50%-WATER 25 GM/50 ML DISP.SYRIN ONE (00:47)
[2021-04-29] MEDS ORDERED: INSULIN REGULAR HUMAN 100 UNITS/ML *VIAL ONE (00:48)
[2021-04-29 01:12] LABS: ANISOCYTOSIS 2+; MACROCYTOSIS 0; PLATELET ESTIMATE NORMAL; ROULEAU 1+
[2021-04-29] MEDS: SODIUM CHLORIDE 0.45% 1,000 ML IV SCH (01:21)
[2021-04-29 03:07] LABS: LACTIC ACID 5.7 mmol/L (0.4-2.0)
[2021-04-29] MEDS ORDERED: PIPERACILLIN/TAZOB 2.25 GM 2.25 GM in DEXTROSE 5%-WATER - 50 ML IVPB SCH (05:15)
[2021-04-29] MEDS ORDERED: PIPERACILLIN/TAZOB 4.5 GM 4.5 GM in DEXTROSE 5%-WATER 100 ML IVPB SCH (06:00)
[2021-04-29 06:32] LABS: CHLORIDE 121 mmol/L (98-107); SODIUM 155 mmol/L (136-145)
[2021-04-29 06:34] LABS: CALCIUM 8.7 mg/dL (8.5-10.1); GLUCOSE,RANDOM 223 mg/dL (74-106)
[2021-04-29 06:35] LABS: CO2 23 mmol/L (21-32); MAGNESIUM 3.8 mg/dL (1.8-2.4)
[2021-04-29 06:38] LABS: PHOSPHOROUS 3.9 mg/dL (2.5-4.9); SGOT/AST 159 U/L (15-37); SGPT/ALT 135 U/L (13-61)
[2021-04-29 06:39] LABS: BILIRUBIN,TOTAL 0.7 mg/dL (0.2-1); TOT PROT 7.2 g/dl (6.4-8.2)
[2021-04-29 06:40] LABS: ALK PHOS 118 U/L (45-117)
[2021-04-29 06:47] LABS: BASO % 0.5 % (0-2.0); EOS % 0.2 % (0-4.5); HEMATOCRIT 26.5 % (32.4-45.2); LYMPH % 5.7 % (8-40); MCHC 30.1 g/dl (32.0-36.0); MEAN CELL VOLUME 89.9 fl (80-96); MEAN PLT VOLUME 11.1 fl (7.5-11.1); MONO % 2.7 % (3.8-10.2); NEUT % 90.9 % (42.8-82.8); PLATELET COUNT 166 10^3/uL (134-434); RBC 2.95 M/mm3 (3.60-5.2); RDW 17.6 % (11.6-15.6); WHITE BLOOD COUNT 22.8 K/mm3 (4.0-10.0)
[2021-04-29] MEDS ORDERED: DEXTROSE 5%-WATER - 50 ML IVPB ONE ×2 (06:50→08:48)
[2021-04-29] MEDS ORDERED: PIPERACILLIN/TAZOBACTAM 2.25 GM VIAL IVPB ONE ×2 (06:50→08:48)
[2021-04-29 07:00] LABS: ANION GAP 11 MMOL/L (8-16); BLOOD UREA NITROGEN 181.6 mg/dL (7-18); LACTIC ACID 3.4 mmol/L (0.4-2.0)
[2021-04-29] MEDS: SODIUM ZIRCONIUM CYCLOSILICATE (LOKELMA) 5 GM PACKET PO SCH ×2 (08:57→14:49)
[2021-04-29] MEDS ORDERED: CALCIUM GLUCONATE 10% - 1,000 MG/10 ML VIAL IVPB ONE (09:00)
[2021-04-29] MEDS: PANTOPRAZOLE SODIUM 40 MG VIAL IVPUSH SCH ×2 (09:00→22:28)
[2021-04-29] MEDS ORDERED: INSULIN REGULAR HUMAN 100 UNITS/ML *VIAL IVPUSH ONE (09:00)
[2021-04-29] MEDS ORDERED: PT OWN MED DRAWER 7, Y5N ONE ×2 (09:16→22:25)
[2021-04-29] MEDS: MUPIROCIN 2% TOPICAL OINTMENT FOR DECOLONIZATION NS SCH ×2 (09:18→22:28)
[2021-04-29] MEDS ORDERED: PANTOPRAZOLE SODIUM 40 MG VIAL IVPUSH SCH (10:00)
[2021-04-29] MEDS ORDERED: PANTOPRAZOLE 40 MG TABLET PO SCH (10:00)
[2021-04-29 10:47] LABS: ANISOCYTOSIS 1+; MACROCYTOSIS 0; PLATELET ESTIMATE NORMAL; TEAR DROP CELLS 1+
[2021-04-29] MEDS ORDERED: MIDAZOLAM HCL 2 MG/2 ML SINGLE DOSE VIAL ONE (11:29)
[2021-04-29] MEDS ORDERED: MIDAZOLAM HCL 5 MG/1 ML Single Dose Vial IVPUSH ONE (12:46)
[2021-04-29] MEDS ORDERED: TIGECYCLINE 100 MG in DEXTROSE 5%-WATER - 100 ML IVPB ONE (13:00)
[2021-04-29] MEDS ORDERED: CEFTAZIDIME/AVIBACTAM 1.25 GM in DEXTROSE 5%-WATER - 100 ML IVPB SCH (13:15)
[2021-04-29] MEDS ORDERED: SODIUM CHLORIDE 250 ML IV PRN (13:41)
[2021-04-29] MEDS: COLLAGENASE CLOSTRIDIUM HIST. 30 GRAMS TUBE TP SCH (15:02)
[2021-04-29] MEDS ORDERED: SODIUM CHLORIDE 1,000 ML IV ONE (15:09)
[2021-04-29 16:13] LABS: IRON SERUM 23 ug/dL (50-175); TOTAL IRON BINDING CAPACITY 133 ug/dL (250-450)
[2021-04-29] MEDS ORDERED: MIDAZOLAM HCL 2 MG/2 ML SINGLE DOSE VIAL IVPUSH ONE (16:32)
[2021-04-29 16:55] LABS: RETICULOCYTES 1.11 % (0.5-1.5)
[2021-04-29 21:59] LABS: HEMATOCRIT 20.1 % (32.4-45.2); MCH 27.7 pg (25.7-33.7); MCHC 32.3 g/dl (32.0-36.0); MEAN CELL VOLUME 85.8 fl (80-96); MEAN PLT VOLUME 10.5 fl (7.5-11.1); PLATELET COUNT 131 10^3/uL (134-434); RBC 2.34 M/mm3 (3.60-5.2); WHITE BLOOD COUNT 15.3 K/mm3 (4.0-10.0)
[2021-04-29 22:04] LABS: HEMOGLOBIN 6.5 GM/dL (10.7-15.3)
[2021-04-29 22:16] LABS: CALCIUM 8.1 mg/dL (8.5-10.1)
[2021-04-29 22:20] LABS: CREATININE 1.5 mg/dL (0.55-1.3)
[2021-04-29 22:21] LABS: BLOOD UREA NITROGEN 93.4 mg/dL (7-18)
[2021-04-29] MEDS: CHLORHEXIDINE GLUCONATE 4% CLEANSER FOR DECOLONIZATION TP SCH (22:28)
[2021-04-30] MEDS ORDERED: VANCOMYCIN 1 GRAM (PRE-DOCKED) 1,000 MG/250 ML BAG IVPB ONE
[2021-04-30] MEDS ORDERED: TIGECYCLINE 50 MG in DEXTROSE 5%-WATER - 100 ML IVPB SCH (02:00)
[2021-04-30] MEDS ORDERED: CEFTAZIDIME/AVIBACTAM 0.94 GM in DEXTROSE 5%-WATER - 250 ML IVPB SCH (02:00)
[2021-04-30] MEDS: TIGECYCLINE 50 MG in DEXTROSE 5%-WATER - 100 ML IVPB SCH ×2 (02:47→15:02)
[2021-04-30 06:51] LABS: BASO % 0.5 % (0-2.0); EOS % 0.5 % (0-4.5); HEMATOCRIT 26.9 % (32.4-45.2); HEMOGLOBIN 8.9 GM/dL (10.7-15.3); LYMPH % 1.8 % (8-40); MCH 28.4 pg (25.7-33.7); MCHC 33.1 g/dl (32.0-36.0); MEAN CELL VOLUME 85.9 fl (80-96); MEAN PLT VOLUME 10.2 fl (7.5-11.1); MONO % 1.2 % (3.8-10.2); PLATELET COUNT 114 10^3/uL (134-434); RBC 3.14 M/mm3 (3.60-5.2); RDW 15.4 % (11.6-15.6); WHITE BLOOD COUNT 16.3 K/mm3 (4.0-10.0)
[2021-04-30 07:19] LABS: ALBUMIN 1.8 g/dl (3.4-5.0); BLOOD UREA NITROGEN 101.6 mg/dL (7-18); CALCIUM 8.2 mg/dL (8.5-10.1); MAGNESIUM 2.7 mg/dL (1.8-2.4)
[2021-04-30 07:23] LABS: CREATININE 1.5 mg/dL (0.55-1.3); PHOSPHOROUS 3.5 mg/dL (2.5-4.9)
[2021-04-30 07:24] LABS: BILIRUBIN,TOTAL 0.9 mg/dL (0.2-1); TOT PROT 6.2 g/dl (6.4-8.2)
[2021-04-30] MEDS: PANTOPRAZOLE SODIUM 40 MG VIAL IVPUSH SCH ×2 (09:51→22:19)
[2021-04-30] MEDS: SODIUM ZIRCONIUM CYCLOSILICATE (LOKELMA) 5 GM PACKET PO SCH (09:53)
[2021-04-30] MEDS: MUPIROCIN 2% TOPICAL OINTMENT FOR DECOLONIZATION NS SCH ×2 (09:58→22:19)
[2021-04-30] MEDS: COLLAGENASE CLOSTRIDIUM HIST. 30 GRAMS TUBE TP SCH (09:59)
[2021-04-30 10:23] LABS: ANISOCYTOSIS 1+; MACROCYTOSIS 0; PLATELET ESTIMATE DECREASED
[2021-04-30 10:49] LABS: ARTERIAL BLOOD GAS BASE EXCESS -2.5 mmol/L (-2-2); ARTERIAL BLOOD GAS PO2 107.2 mmHg (80-100); ARTERIAL BLOOD GAS pH 7.407 (7.350-7.450)
[2021-04-30 10:50] LABS: ALLENS TEST POSITIVE; VENT MODE A/C; VENT RATE 18
[2021-04-30] MEDS: CEFTAZIDIME/AVIBACTAM 1.25 GM in DEXTROSE 5%-WATER - 100 ML IVPB SCH ×2 (11:23→17:38)
[2021-04-30] MEDS: SODIUM CHLORIDE 0.45% 1,000 ML IV SCH ×3 (13:58→21:30)
[2021-04-30] MEDS ORDERED: PT OWN MED DRAWER 7, Y5N ONE (15:01)
[2021-04-30 21:59] LABS: BASO % 0.6 % (0-2.0); EOS % 0.7 % (0-4.5); HEMATOCRIT 22.9 % (32.4-45.2); HEMOGLOBIN 7.6 GM/dL (10.7-15.3); LYMPH % 2.1 % (8-40); MCH 28.3 pg (25.7-33.7); MEAN CELL VOLUME 85.6 fl (80-96); MEAN PLT VOLUME 10.6 fl (7.5-11.1); MONO % 2.3 % (3.8-10.2); NEUT % 94.3 % (42.8-82.8); PLATELET COUNT 108 10^3/uL (134-434); RBC 2.67 M/mm3 (3.60-5.2); RDW 15.4 % (11.6-15.6); WHITE BLOOD COUNT 12.3 K/mm3 (4.0-10.0)
[2021-04-30] MEDS ORDERED: ATORVASTATIN CA 80 MG TABLET (FP) PO SCH (22:00)
[2021-04-30] MEDS: CHLORHEXIDINE GLUCONATE 4% CLEANSER FOR DECOLONIZATION TP SCH (22:19)
[2021-04-30 22:47] LABS: ANISOCYTOSIS 1+; MACROCYTOSIS 1+; PLATELET ESTIMATE DECREASED
[2021-04-30] MEDS: VANCOMYCIN 250 MG/5 ML ORAL SOLUTION PO SCH (23:26)
[2021-05-01] MEDS ORDERED: VANCOMYCIN 250 MG/5 ML ORAL SOLUTION PO SCH
[2021-05-01] MEDS: TIGECYCLINE 50 MG in DEXTROSE 5%-WATER - 100 ML IVPB SCH ×2 (02:09→14:30)
[2021-05-01] MEDS: CEFTAZIDIME/AVIBACTAM 1.25 GM in DEXTROSE 5%-WATER - 100 ML IVPB SCH ×3 (03:00→17:38)
[2021-05-01] MEDS: VANCOMYCIN 250 MG/5 ML ORAL SOLUTION PO SCH ×3 (05:01→17:26)
[2021-05-01 06:34] LABS: BASO % 0.2 % (0-2.0); EOS % 0.4 % (0-4.5); HEMATOCRIT 27.5 % (32.4-45.2); LYMPH % 1.5 % (8-40); MCH 28.1 pg (25.7-33.7); MCHC 32.8 g/dl (32.0-36.0); MEAN CELL VOLUME 85.7 fl (80-96); MEAN PLT VOLUME 10.2 fl (7.5-11.1); MONO % 2.1 % (3.8-10.2); NEUT % 95.8 % (42.8-82.8); PLATELET COUNT 133 10^3/uL (134-434); RBC 3.21 M/mm3 (3.60-5.2); RDW 15.7 % (11.6-15.6); WHITE BLOOD COUNT 14.6 K/mm3 (4.0-10.0)
[2021-05-01 06:52] LABS: ALBUMIN 1.7 g/dl (3.4-5.0); CALCIUM 8.3 mg/dL (8.5-10.1)
[2021-05-01 06:53] LABS: BLOOD UREA NITROGEN 94.7 mg/dL (7-18); MAGNESIUM 2.7 mg/dL (1.8-2.4)
[2021-05-01 06:56] LABS: CREATININE 1.3 mg/dL (0.55-1.3); PHOSPHOROUS 4.2 mg/dL (2.5-4.9)
[2021-05-01 06:57] LABS: BILIRUBIN,TOTAL 0.5 mg/dL (0.2-1)
[2021-05-01] MEDS: SODIUM CHLORIDE 0.45% 1,000 ML IV SCH ×2 (07:50→17:32)
[2021-05-01] MEDS ORDERED: ADENOSINE 6 MG/2 ML VIAL IVPUSH ONE (08:06)
[2021-05-01] MEDS: AMINO ACIDS/PROTEIN HYDROLYS 30 ML LIQUID.PKT PO SCH ×2 (08:55→17:26)
[2021-05-01] MEDS ORDERED: PT OWN MED DRAWER 7, Y5N ONE ×2 (09:07→17:37)
[2021-05-01 09:13] LABS: ANISOCYTOSIS 1+; MACROCYTOSIS 0; PLATELET ESTIMATE DECREASED
[2021-05-01] MEDS: PANTOPRAZOLE SODIUM 40 MG VIAL IVPUSH SCH ×2 (09:43→22:04)
[2021-05-01] MEDS: COLLAGENASE CLOSTRIDIUM HIST. 30 GRAMS TUBE TP SCH (09:44)
[2021-05-01] MEDS: MUPIROCIN 2% TOPICAL OINTMENT FOR DECOLONIZATION NS SCH ×2 (09:44→22:03)
[2021-05-01] MEDS: KCL 10 MEQ IVPB 10 MEQ/100 ML INFUS.BAG IVPB SCH ×3 (09:52→11:55)
[2021-05-01] MEDS: CHLORHEXIDINE GLUCONATE 4% CLEANSER FOR DECOLONIZATION TP SCH (22:04)
[2021-05-02] MEDS ORDERED: PT OWN MED DRAWER 7, Y5N ONE ×2 (01:17→09:26)
[2021-05-02] MEDS: TIGECYCLINE 50 MG in DEXTROSE 5%-WATER - 100 ML IVPB SCH ×2 (01:56→13:58)
[2021-05-02] MEDS: CEFTAZIDIME/AVIBACTAM 1.25 GM in DEXTROSE 5%-WATER - 100 ML IVPB SCH ×3 (01:57→17:20)
[2021-05-02] MEDS: VANCOMYCIN 250 MG/5 ML ORAL SOLUTION PO SCH ×4 (06:40→17:21)
[2021-05-02 06:42] LABS: BASO % 0.1 % (0-2.0); EOS % 0.6 % (0-4.5); HEMATOCRIT 26.9 % (32.4-45.2); HEMOGLOBIN 8.8 GM/dL (10.7-15.3); LYMPH % 3.2 % (8-40); MCH 28.1 pg (25.7-33.7); MCHC 32.7 g/dl (32.0-36.0); MEAN PLT VOLUME 9.9 fl (7.5-11.1); MONO % 2.6 % (3.8-10.2); NEUT % 93.5 % (42.8-82.8); PLATELET COUNT 139 10^3/uL (134-434); RBC 3.13 M/mm3 (3.60-5.2); RDW 15.5 % (11.6-15.6); WHITE BLOOD COUNT 11.5 K/mm3 (4.0-10.0)
[2021-05-02 06:57] LABS: CALCIUM 8.4 mg/dL (8.5-10.1)
[2021-05-02 06:58] LABS: ALBUMIN 1.7 g/dl (3.4-5.0); BLOOD UREA NITROGEN 78.1 mg/dL (7-18); MAGNESIUM 2.5 mg/dL (1.8-2.4)
[2021-05-02 07:01] LABS: CREATININE 0.9 mg/dL (0.55-1.3); PHOSPHOROUS 3.1 mg/dL (2.5-4.9)
[2021-05-02 07:02] LABS: BILIRUBIN,TOTAL 0.4 mg/dL (0.2-1)
[2021-05-02 07:03] LABS: TOT PROT 5.9 g/dl (6.4-8.2)
[2021-05-02 09:46] LABS: ANISOCYTOSIS 0; MACROCYTOSIS 0; PLATELET ESTIMATE DECREASED
[2021-05-02] MEDS: PANTOPRAZOLE SODIUM 40 MG VIAL IVPUSH SCH ×2 (10:03→22:00)
[2021-05-02] MEDS: AMINO ACIDS/PROTEIN HYDROLYS 30 ML LIQUID.PKT PO SCH ×2 (10:03→17:20)
[2021-05-02] MEDS ORDERED: POTASSIUM CHLORIDE ORAL LIQUID 20 MEQ/15 ML PO ONE (10:06)
[2021-05-02] MEDS: COLLAGENASE CLOSTRIDIUM HIST. 30 GRAMS TUBE TP SCH (10:08)
[2021-05-02] MEDS: MUPIROCIN 2% TOPICAL OINTMENT FOR DECOLONIZATION NS SCH ×2 (10:08→22:00)
[2021-05-02] MEDS: LACTOBACILLUS ACIDOPHILUS 1 TABLET PEG SCH ×2 (10:42→22:00)
[2021-05-02 11:23] VITALS: BMI 25.0
[2021-05-02] MEDS: BANATROL PLUS POWDER PACKET PEG SCH ×2 (14:22→22:00)
[2021-05-02] MEDS: CHLORHEXIDINE GLUCONATE 4% CLEANSER FOR DECOLONIZATION TP SCH (22:00)
[2021-05-03] MEDS: TIGECYCLINE 50 MG in DEXTROSE 5%-WATER - 100 ML IVPB SCH ×2 (01:24→14:40)
[2021-05-03] MEDS: CEFTAZIDIME/AVIBACTAM 1.25 GM in DEXTROSE 5%-WATER - 100 ML IVPB SCH ×3 (03:00→17:45)
[2021-05-03] MEDS: VANCOMYCIN 250 MG/5 ML ORAL SOLUTION PO SCH ×4 (06:16→17:48)
[2021-05-03] MEDS: BANATROL PLUS POWDER PACKET PEG SCH ×3 (06:16→22:00)
[2021-05-03 07:41] LABS: BASO % 0.3 % (0-2.0); EOS % 0.7 % (0-4.5); LYMPH % 3.2 % (8-40); MCH 27.9 pg (25.7-33.7); MEAN CELL VOLUME 87.1 fl (80-96); MONO % 2.9 % (3.8-10.2); NEUT % 92.9 % (42.8-82.8); RBC 3.21 M/mm3 (3.60-5.2); RDW 16.4 % (11.6-15.6); WHITE BLOOD COUNT 16.7 K/mm3 (4.0-10.0)
[2021-05-03 07:57] LABS: ALBUMIN 1.7 g/dl (3.4-5.0); BLOOD UREA NITROGEN 72.8 mg/dL (7-18); CALCIUM 8.5 mg/dL (8.5-10.1); MAGNESIUM 2.5 mg/dL (1.8-2.4)
[2021-05-03 08:01] LABS: BILIRUBIN,TOTAL 0.4 mg/dL (0.2-1); CREATININE 0.7 mg/dL (0.55-1.3); TOT PROT 6.1 g/dl (6.4-8.2)
[2021-05-03] MEDS ORDERED: PT OWN MED DRAWER 7, Y5N ONE (08:08)
[2021-05-03] MEDS: AMINO ACIDS/PROTEIN HYDROLYS 30 ML LIQUID.PKT PO SCH ×2 (08:13→17:45)
[2021-05-03 09:21] LABS: ANISOCYTOSIS 0; HELMET CELLS 0; HOWELL-JOLLY BODIES 0; MACROCYTOSIS 0; OVALOCYTE 0; PLATELET ESTIMATE NORMAL; ROULEAU 0; SICKELED CELLS 0; TARGET CELLS 0; TEAR DROP CELLS 0; TOXIC GRANULATION 0
[2021-05-03 09:22] LABS: MEAN PLT VOLUME 9.4 fl (7.5-11.1); PLATELET COUNT 181 10^3/uL (134-434)
[2021-05-03] MEDS: PANTOPRAZOLE SODIUM 40 MG VIAL IVPUSH SCH ×2 (09:24→22:00)
[2021-05-03] MEDS: COLLAGENASE CLOSTRIDIUM HIST. 30 GRAMS TUBE TP SCH (09:26)
[2021-05-03] MEDS: LACTOBACILLUS ACIDOPHILUS 1 TABLET PEG SCH ×2 (09:26→22:00)
[2021-05-03] MEDS: MULTIVIT-MINERALS ORAL LIQUID PEG SCH (09:26)
[2021-05-03] MEDS: MUPIROCIN 2% TOPICAL OINTMENT FOR DECOLONIZATION NS SCH ×2 (09:26→22:00)
[2021-05-03] MEDS ORDERED: POTASSIUM CHLORIDE TABS 20 MEQ TABLET.ER (FP) PO ONE (09:53)
[2021-05-03 14:07] LABS: HEP B CORE AB, TOT Negative (Negative)
[2021-05-03] MEDS ORDERED: POTASSIUM CHLORIDE ORAL LIQUID 20 MEQ/15 ML PO ONE (15:29)
[2021-05-03] MEDS: POTASSIUM CHLORIDE 10 MEQ in DEXTROSE 5%-WATER - 1,000 ML IV SCH (16:43)
[2021-05-03] MEDS: CHLORHEXIDINE GLUCONATE 4% CLEANSER FOR DECOLONIZATION TP SCH (22:00)
[2021-05-04] MEDS: TIGECYCLINE 50 MG in DEXTROSE 5%-WATER - 100 ML IVPB SCH (02:32)
[2021-05-04] MEDS: CEFTAZIDIME/AVIBACTAM 1.25 GM in DEXTROSE 5%-WATER - 100 ML IVPB SCH ×2 (02:32→10:15)
[2021-05-04] MEDS: BANATROL PLUS POWDER PACKET PEG SCH ×3 (06:31→21:48)
[2021-05-04] MEDS: VANCOMYCIN 250 MG/5 ML ORAL SOLUTION PO SCH ×5 (06:31→23:12)
[2021-05-04 06:54] LABS: BASO % 0.2 % (0-2.0); EOS % 2.1 % (0-4.5); HEMATOCRIT 26.1 % (32.4-45.2); HEMOGLOBIN 8.5 GM/dL (10.7-15.3); LYMPH % 6.1 % (8-40); MCH 28.6 pg (25.7-33.7); MCHC 32.7 g/dl (32.0-36.0); MEAN CELL VOLUME 87.4 fl (80-96); MEAN PLT VOLUME 9.2 fl (7.5-11.1); MONO % 4.3 % (3.8-10.2); NEUT % 87.3 % (42.8-82.8); PLATELET COUNT 180 10^3/uL (134-434); RBC 2.98 M/mm3 (3.60-5.2); RDW 16.3 % (11.6-15.6); WHITE BLOOD COUNT 10.4 K/mm3 (4.0-10.0)
[2021-05-04 07:22] LABS: BLOOD UREA NITROGEN 61.9 mg/dL (7-18)
[2021-05-04 07:23] LABS: ALBUMIN 1.6 g/dl (3.4-5.0)
[2021-05-04 07:25] LABS: CREATININE 0.6 mg/dL (0.55-1.3)
[2021-05-04 07:26] LABS: BILIRUBIN,TOTAL 0.8 mg/dL (0.2-1); PHOSPHOROUS 1.9 mg/dL (2.5-4.9)
[2021-05-04 07:27] LABS: CALCIUM 7.9 mg/dL (8.5-10.1); TOT PROT 5.8 g/dl (6.4-8.2)
[2021-05-04 07:29] LABS: MAGNESIUM 2.2 mg/dL (1.8-2.4)
[2021-05-04] MEDS ORDERED: POTASSIUM PHOSPHATE 20 MM in SODIUM CHLORIDE 500 ML IVPB ONE (08:28)
[2021-05-04] MEDS: AMINO ACIDS/PROTEIN HYDROLYS 30 ML LIQUID.PKT PO SCH ×2 (08:45→18:18)
[2021-05-04] MEDS: PANTOPRAZOLE SODIUM 40 MG VIAL IVPUSH SCH ×2 (10:14→21:48)
[2021-05-04] MEDS: LACTOBACILLUS ACIDOPHILUS 1 TABLET PEG SCH ×2 (10:15→21:49)
[2021-05-04] MEDS: COLLAGENASE CLOSTRIDIUM HIST. 30 GRAMS TUBE TP SCH (10:15)
[2021-05-04] MEDS: MULTIVIT-MINERALS ORAL LIQUID PEG SCH (10:22)
[2021-05-04] MEDS: POTASSIUM CHLORIDE 10 MEQ in DEXTROSE 5%-WATER - 1,000 ML IV SCH ×2 (12:34→23:17)
[2021-05-04] MEDS ORDERED: CEFTAZIDIME/AVIBACTAM 2.5 GM in DEXTROSE 5%-WATER - 250 ML IVPB SCH (18:00)
[2021-05-04] MEDS: CHLORHEXIDINE GLUCONATE 4% CLEANSER FOR DECOLONIZATION TP SCH (21:49)
[2021-05-05] MEDS: ACETAMINOPHEN 650 MG/20.3 ML ORAL SOLUTION (CUPS) PEG PRN (02:04)
[2021-05-05] MEDS: CEFTAZIDIME/AVIBACTAM 2.5 GM in DEXTROSE 5%-WATER - 250 ML IVPB SCH ×3 (02:47→19:48)
[2021-05-05] MEDS ORDERED: BANATROL PLUS POWDER PACKET PEG SCH (06:00)
[2021-05-05] MEDS: VANCOMYCIN 250 MG/5 ML ORAL SOLUTION PO SCH ×3 (06:04→18:26)
[2021-05-05] MEDS ORDERED: AMINO ACIDS/PROTEIN HYDROLYS 30 ML LIQUID.PKT PO SCH (08:00)
[2021-05-05] MEDS: POTASSIUM CHLORIDE 10 MEQ in DEXTROSE 5%-WATER - 1,000 ML IV SCH (08:42)
[2021-05-05 09:05] LABS: BASO % 0.4 % (0-2.0); EOS % 1.9 % (0-4.5); HEMATOCRIT 26.7 % (32.4-45.2); HEMOGLOBIN 8.8 GM/dL (10.7-15.3); LYMPH % 5.6 % (8-40); MCH 28.6 pg (25.7-33.7); MCHC 32.8 g/dl (32.0-36.0); MEAN CELL VOLUME 87.2 fl (80-96); MEAN PLT VOLUME 8.4 fl (7.5-11.1); MONO % 4.3 % (3.8-10.2); NEUT % 87.8 % (42.8-82.8); PLATELET COUNT 214 10^3/uL (134-434); RBC 3.06 M/mm3 (3.60-5.2); RDW 16.5 % (11.6-15.6); WHITE BLOOD COUNT 11.6 K/mm3 (4.0-10.0)
[2021-05-05 09:35] LABS: ALBUMIN 1.8 g/dl (3.4-5.0)
[2021-05-05 09:37] LABS: CALCIUM 8.2 mg/dL (8.5-10.1)
[2021-05-05 09:38] LABS: BLOOD UREA NITROGEN 42.7 mg/dL (7-18)
[2021-05-05 09:40] LABS: CREATININE 0.4 mg/dL (0.55-1.3)
[2021-05-05 09:42] LABS: BILIRUBIN,TOTAL 0.4 mg/dL (0.2-1)
[2021-05-05] MEDS ORDERED: PT OWN MED DRAWER 7, Y5N ONE ×2 (10:41→18:05)
[2021-05-05] MEDS: COLLAGENASE CLOSTRIDIUM HIST. 30 GRAMS TUBE TP SCH (11:05)
[2021-05-05] MEDS: MULTIVIT-MINERALS ORAL LIQUID PEG SCH (11:06)
[2021-05-05] MEDS: PANTOPRAZOLE SODIUM 40 MG VIAL IVPUSH SCH ×2 (11:06→21:41)
[2021-05-05] MEDS: LACTOBACILLUS ACIDOPHILUS 1 TABLET PEG SCH ×2 (11:06→21:41)
[2021-05-05] MEDS ORDERED: CHLORHEXIDINE GLUCONATE 4% CLEANSER FOR DECOLONIZATION TP SCH (22:00)
[2021-05-05] MEDS ORDERED: METOPROLOL TARTRATE 25 MG TABLET (FP) PEG ONE (22:05)
[2021-05-06] MEDS: VANCOMYCIN 250 MG/5 ML ORAL SOLUTION PO SCH ×5 (00:49→23:55)
[2021-05-06] MEDS: CEFTAZIDIME/AVIBACTAM 2.5 GM in DEXTROSE 5%-WATER - 250 ML IVPB SCH ×3 (03:34→17:37)
[2021-05-06] MEDS ORDERED: METOPROLOL TARTRATE 25 MG TABLET (FP) PEG ONE (05:31)
[2021-05-06] MEDS ORDERED: PT OWN MED DRAWER 7, Y5N ONE ×3 (10:07→20:34)
[2021-05-06] MEDS: MULTIVIT-MINERALS ORAL LIQUID PEG SCH (10:58)
[2021-05-06] MEDS: METOPROLOL TARTRATE 25 MG TABLET (FP) PO SCH ×3 (10:59→21:24)
[2021-05-06] MEDS: LACTOBACILLUS ACIDOPHILUS 1 TABLET PEG SCH ×2 (10:59→21:25)
[2021-05-06] MEDS: LOSARTAN POTASSIUM 50 MG TABLET PO SCH (10:59)
[2021-05-06] MEDS: PANTOPRAZOLE SODIUM 40 MG VIAL IVPUSH SCH ×2 (11:00→21:25)
[2021-05-06 12:32] LABS: ALBUMIN 1.6 g/dl (3.4-5.0); BLOOD UREA NITROGEN 26.4 mg/dL (7-18); CALCIUM 7.8 mg/dL (8.5-10.1)
[2021-05-06 12:35] LABS: PHOSPHOROUS 1.5 mg/dL (2.5-4.9)
[2021-05-06 12:36] LABS: BILIRUBIN,TOTAL 0.5 mg/dL (0.2-1)
[2021-05-06 12:39] LABS: CREATININE 0.4 mg/dL (0.55-1.3)
[2021-05-06] MEDS: SODIUM PHOSPHATE - 30 MM in DEXTROSE 5%-WATER - 250 ML IVPB ONE ×2 (13:35→20:35)
[2021-05-06] MEDS: COLLAGENASE CLOSTRIDIUM HIST. 30 GRAMS TUBE TP SCH (14:45)
[2021-05-06] MEDS: amLODIPine BESYLATE 10 MG TABLET (FP) PO SCH (16:29)
[2021-05-06] MEDS: ACETAMINOPHEN 650 MG/20.3 ML ORAL SOLUTION (CUPS) PEG PRN (22:01)
[2021-05-07] MEDS: CEFTAZIDIME/AVIBACTAM 2.5 GM in DEXTROSE 5%-WATER - 250 ML IVPB SCH ×2 (01:48→09:24)
[2021-05-07] MEDS: VANCOMYCIN 250 MG/5 ML ORAL SOLUTION PO SCH ×3 (05:22→17:01)
[2021-05-07] MEDS: METOPROLOL TARTRATE 25 MG TABLET (FP) PO SCH ×2 (09:22→22:06)
[2021-05-07] MEDS: LOSARTAN POTASSIUM 50 MG TABLET PO SCH (09:22)
[2021-05-07] MEDS: PANTOPRAZOLE SODIUM 40 MG VIAL IVPUSH SCH (09:22)
[2021-05-07] MEDS: MULTIVIT-MINERALS ORAL LIQUID PEG SCH (09:22)
[2021-05-07] MEDS: amLODIPine BESYLATE 10 MG TABLET (FP) PO SCH (09:23)
[2021-05-07] MEDS: LACTOBACILLUS ACIDOPHILUS 1 TABLET PEG SCH ×2 (09:23→22:06)
[2021-05-07] MEDS: COLLAGENASE CLOSTRIDIUM HIST. 30 GRAMS TUBE TP SCH (12:00)
[2021-05-07] MEDS ORDERED: NAPH,MB-DB/K PH,MBDB POWDER PACKET PO ONE (13:42)
[2021-05-07] MEDS ORDERED: PT OWN MED DRAWER 7, Y5N ONE (21:17)
[2021-05-07] MEDS: FAMOTIDINE 40 MG/5 ML ORAL SUSPENSION NGT SCH (23:00)
[2021-05-08] MEDS: VANCOMYCIN 250 MG/5 ML ORAL SOLUTION PO SCH ×4 (01:23→17:53)
[2021-05-08] MEDS: METOPROLOL TARTRATE 25 MG TABLET (FP) PO SCH ×2 (10:22→21:20)
[2021-05-08] MEDS: amLODIPine BESYLATE 10 MG TABLET (FP) PO SCH (10:22)
[2021-05-08] MEDS: LOSARTAN POTASSIUM 50 MG TABLET PO SCH (10:22)
[2021-05-08] MEDS: LACTOBACILLUS ACIDOPHILUS 1 TABLET PEG SCH ×2 (10:22→21:20)
[2021-05-08] MEDS: COLLAGENASE CLOSTRIDIUM HIST. 30 GRAMS TUBE TP SCH (10:25)
[2021-05-08] MEDS: MULTIVIT-MINERALS ORAL LIQUID PEG SCH (10:25)
[2021-05-08] MEDS: FAMOTIDINE 40 MG/5 ML ORAL SUSPENSION NGT SCH ×2 (10:25→21:20)
[2021-05-08] MEDS ORDERED: PT OWN MED DRAWER 7, Y5N ONE (21:17)
[2021-05-09] MEDS: VANCOMYCIN 250 MG/5 ML ORAL SOLUTION PO SCH ×4 (00:06→17:24)
[2021-05-09] MEDS ORDERED: PT OWN MED DRAWER 7, Y5N ONE ×2 (09:25→21:18)
[2021-05-09] MEDS: MULTIVIT-MINERALS ORAL LIQUID PEG SCH (09:26)
[2021-05-09] MEDS: LOSARTAN POTASSIUM 50 MG TABLET PO SCH (09:26)
[2021-05-09] MEDS: LACTOBACILLUS ACIDOPHILUS 1 TABLET PEG SCH ×2 (09:26→21:15)
[2021-05-09] MEDS: amLODIPine BESYLATE 10 MG TABLET (FP) PO SCH (09:26)
[2021-05-09] MEDS: METOPROLOL TARTRATE 25 MG TABLET (FP) PO SCH ×2 (09:26→21:15)
[2021-05-09] MEDS: FAMOTIDINE 40 MG/5 ML ORAL SUSPENSION NGT SCH ×2 (09:27→21:19)
[2021-05-09] MEDS: ACETAMINOPHEN 650 MG/20.3 ML ORAL SOLUTION (CUPS) PEG PRN (09:34)
[2021-05-09] MEDS: COLLAGENASE CLOSTRIDIUM HIST. 30 GRAMS TUBE TP SCH (14:00)
[2021-05-09 16:15] LABS: ALBUMIN 1.8 g/dl (3.4-5.0); CALCIUM 8.5 mg/dL (8.5-10.1)
[2021-05-09 16:19] LABS: CREATININE 0.3 mg/dL (0.55-1.3); PHOSPHOROUS 1.8 mg/dL (2.5-4.9)
[2021-05-09 16:20] LABS: BILIRUBIN,TOTAL 0.4 mg/dL (0.2-1); TOT PROT 6.5 g/dl (6.4-8.2)
[2021-05-09 16:21] LABS: BLOOD UREA NITROGEN 16.2 mg/dL (7-18)
[2021-05-10] MEDS: VANCOMYCIN 250 MG/5 ML ORAL SOLUTION PO SCH ×3 (00:05→12:59)
[2021-05-10] MEDS ORDERED: AMINO ACIDS/PROTEIN HYDROLYS 30 ML LIQUID.PKT GT SCH (08:00)
[2021-05-10 10:09] LABS: HEMATOCRIT 27.5 % (32.4-45.2); HEMOGLOBIN 8.8 GM/dL (10.7-15.3); MCH 28.6 pg (25.7-33.7); MCHC 32.2 g/dl (32.0-36.0); MEAN CELL VOLUME 88.7 fl (80-96); MEAN PLT VOLUME 7.8 fl (7.5-11.1); PLATELET COUNT 322 10^3/uL (134-434); RDW 17.6 % (11.6-15.6); WHITE BLOOD COUNT 13.9 K/mm3 (4.0-10.0)
[2021-05-10] MEDS: METOPROLOL TARTRATE 25 MG TABLET (FP) PO SCH (10:17)
[2021-05-10] MEDS: LACTOBACILLUS ACIDOPHILUS 1 TABLET PEG SCH (10:17)
[2021-05-10] MEDS: LOSARTAN POTASSIUM 50 MG TABLET PO SCH (10:17)
[2021-05-10] MEDS: amLODIPine BESYLATE 10 MG TABLET (FP) PO SCH (10:17)
[2021-05-10] MEDS: MULTIVIT-MINERALS ORAL LIQUID PEG SCH (10:18)
[2021-05-10] MEDS: FAMOTIDINE 40 MG/5 ML ORAL SUSPENSION NGT SCH (10:18)
[2021-05-10] MEDS: COLLAGENASE CLOSTRIDIUM HIST. 30 GRAMS TUBE TP SCH (10:22)
[2021-05-10 10:39] LABS: ALBUMIN 1.7 g/dl (3.4-5.0); BLOOD UREA NITROGEN 14.3 mg/dL (7-18); CALCIUM 8.3 mg/dL (8.5-10.1)
[2021-05-10 10:44] LABS: BILIRUBIN,TOTAL 0.3 mg/dL (0.2-1); TOT PROT 6.3 g/dl (6.4-8.2)
[2021-05-10 10:53] LABS: CREATININE 0.2 mg/dL (0.55-1.3)
[2021-05-10 19:32] VITALS: BP 147/89; PULSE 91; TEMP 98.8
== END 2021-05-10 16:56 | DRG 720 ==
LOC: JER 21:04 → JERBED 22:24 → JICU 04-29 04:57 → J5S 05-04 22:45
PROVIDERS: ADMIT Internal Medicine Pulmonary Disease; ATTEND Family Medicine
PROC: 5A1955Z Respiratory Ventilation, Greater than 96 Consecutive Hours (ICD-10-PCS; principal; 2021-04-28)
PROC: 3E0G76Z Introduction of Nutritional Substance into Upper GI, Via Natural or Artificial Opening (ICD-10-PCS; 2021-04-28)
PROC: 30233N1 Transfusion of Nonautologous Red Blood Cells into Peripheral Vein, Percutaneous Approach (ICD-10-PCS; 2021-04-29)
PROC: 05HN33Z Insertion of Infusion Device into Left Internal Jugular Vein, Percutaneous Approach (ICD-10-PCS; 2021-04-29)
PROC: B544ZZA Ultrasonography of Left Jugular Veins, Guidance (ICD-10-PCS; 2021-04-29)
PROC: 5A1D70Z Performance of Urinary Filtration, Intermittent, Less than 6 Hours Per Day (ICD-10-PCS; 2021-04-29)
DX: A41.59 Other Gram-negative sepsis (principal); N17.9 Acute kidney failure, unspecified; J69.0 Pneumonitis due to inhalation of food and vomit; G93.1 Anoxic brain damage, not elsewhere classified; I95.9 Hypotension, unspecified; E87.5 Hyperkalemia; E87.0 Hyperosmolality and hypernatremia; A04.72 Enterocolitis due to Clostridium difficile, not specified as recurrent; D72.829 Elevated white blood cell count, unspecified; C55 Malignant neoplasm of uterus, part unspecified; J96.21 Acute and chronic respiratory failure with hypoxia; L89.154 Pressure ulcer of sacral region, stage 4; K80.20 Calculus of gallbladder without cholecystitis without obstruction; E87.2 Acidosis; J98.11 Atelectasis; I11.0 Hypertensive heart disease with heart failure; I50.32 Chronic diastolic (congestive) heart failure; R63.0 Anorexia; Z68.29 Body mass index [BMI] 29.0-29.9, adult; R19.5 Other fecal abnormalities; R18.8 Other ascites; R94.5 Abnormal results of liver function studies; D62 Acute posthemorrhagic anemia; Z87.11 Personal history of peptic ulcer disease; Z93.0 Tracheostomy status; Z93.1 Gastrostomy status; Z22.322 Carrier or suspected carrier of Methicillin resistant Staphylococcus aureus
CPT/HCPCS: 36415; 36430; 36511; 36600; 71045-TC-FY; 71250-TC; 74018-TC-FY; 74176-TC; 80048; 80053; 81003; 82272; 82607; 82728; 82803; 83540; 83550; 83605; 83735; 84100; 84439; 84443; 84484; 85025; 85027; 85045; 85610; 85730; 86140; 86304; 86704; 86706; 86707; 86708; 86709; 86803; 86850; 86900; 86901; 86922; 87040; 87070; 87086; 87184; 87186; 87205; 87324; 87340; 87449; 93005; 93010; 94002; 99291; 99292; C9803; G0480; J0131; J3243; P9038; P9058; U0003; U0005

== ENCOUNTER 2021-05-25 18:56 | Inpatient (IN) | payer OTHER ==
[2021-05-25 21:45] LABS: BASO % 0.2 % (0-2.0); EOS % 0.3 % (0-4.5); HEMOGLOBIN 8.5 GM/dL (10.7-15.3); LYMPH % 2.9 % (8-40); MCH 27.9 pg (25.7-33.7); MCHC 32.7 g/dl (32.0-36.0); MEAN CELL VOLUME 85.2 fl (80-96); MEAN PLT VOLUME 6.7 fl (7.5-11.1); MONO % 4.3 % (3.8-10.2); NEUT % 92.3 % (42.8-82.8); PLATELET COUNT 550 10^3/uL (134-434); RBC 3.06 M/mm3 (3.60-5.2); RDW 16.6 % (11.6-15.6); WHITE BLOOD COUNT 19.6 K/mm3 (4.0-10.0)
[2021-05-25 22:10] LABS: ALBUMIN 1.9 g/dl (3.4-5.0); BLOOD UREA NITROGEN 10.8 mg/dL (7-18); CALCIUM 8.6 mg/dL (8.5-10.1)
[2021-05-25 22:13] LABS: CREATININE 0.3 mg/dL (0.55-1.3)
[2021-05-25 22:15] LABS: BILIRUBIN,TOTAL 0.5 mg/dL (0.2-1); TOT PROT 7.1 g/dl (6.4-8.2)
[2021-05-25 22:46] LABS: PLATELET ESTIMATE INCREASED
[2021-05-26] MEDS ORDERED: PT OWN MED DRAWER 7, Y5N ONE (08:34)
[2021-05-26] MEDS ORDERED: METOPROLOL TARTRATE 25 MG TABLET (FP) ONE (08:34)
[2021-05-26] MEDS ORDERED: LOSARTAN POTASSIUM 50 MG TABLET ONE (08:34)
[2021-05-26] MEDS ORDERED: AMPICILLIN NA/SULBACTAM NA 1.5 GM in SODIUM CHLORIDE 100 ML IVPB SCH (09:00)
[2021-05-26] MEDS: DEXTROSE 5%-NORMAL SALINE 1,000 ML IV SCH (09:31)
[2021-05-26] MEDS: METOPROLOL TARTRATE 25 MG TABLET (FP) PO SCH ×2 (09:32→22:27)
[2021-05-26] MEDS: CARVEDILOL 12.5 MG TABLET (FP) PO SCH ×2 (09:32→22:27)
[2021-05-26] MEDS: LOSARTAN POTASSIUM 50 MG TABLET PO SCH (09:32)
[2021-05-26] MEDS: amLODIPine BESYLATE 10 MG TABLET (FP) PO SCH (09:32)
[2021-05-26] MEDS ORDERED: CARVEDILOL 12.5 MG TABLET (FP) ONE (09:37)
[2021-05-26] MEDS ORDERED: GENTAMICIN INJECTION 100 MG in SODIUM CHLORIDE 100 ML IVPB SCH (10:00)
[2021-05-26] MEDS: VANCOMYCIN 250 MG/5 ML ORAL SOLUTION PO SCH ×3 (12:23→23:15)
[2021-05-26 13:39] LABS: BASO % 0.6 % (0-2.0); EOS % 0.3 % (0-4.5); HEMATOCRIT 28.1 % (32.4-45.2); HEMOGLOBIN 9.4 GM/dL (10.7-15.3); LYMPH % 3.5 % (8-40); MCH 28.4 pg (25.7-33.7); MCHC 33.5 g/dl (32.0-36.0); MEAN CELL VOLUME 84.9 fl (80-96); MEAN PLT VOLUME 6.6 fl (7.5-11.1); MONO % 7.4 % (3.8-10.2); NEUT % 88.2 % (42.8-82.8); PLATELET COUNT 528 10^3/uL (134-434); RBC 3.32 M/mm3 (3.60-5.2); WHITE BLOOD COUNT 17.9 K/mm3 (4.0-10.0)
[2021-05-26 13:49] LABS: INR 1.3 (0.83-1.09); PROTHROMBIN TIME (PATIENT) 15.6 SEC (9.7-13.0)
[2021-05-26 13:51] LABS: ACTIVATED PTT 28.4 SECONDS (25.2-36.5)
[2021-05-26 13:56] LABS: BLOOD UREA NITROGEN 10.1 mg/dL (7-18); CALCIUM 8.9 mg/dL (8.5-10.1)
[2021-05-26 13:57] LABS: MAGNESIUM 2.1 mg/dL (1.8-2.4)
[2021-05-26 14:00] LABS: CREATININE 0.4 mg/dL (0.55-1.3); PHOSPHOROUS 3.6 mg/dL (2.5-4.9)
[2021-05-26 14:01] LABS: BILIRUBIN,TOTAL 0.7 mg/dL (0.2-1)
[2021-05-26 14:22] LABS: ERYTHROCYTE SEDIMENTATION RATE 110 mm/hr (0-30)
[2021-05-26 15:19] LABS: ANISOCYTOSIS 1+; MACROCYTOSIS 1+; PLATELET ESTIMATE INCREASED
[2021-05-26] MEDS: ATORVASTATIN CA 80 MG TABLET (FP) PO SCH (22:27)
[2021-05-27 01:59] LABS: EPI CELLS 4 /uL (0-25.1); HYALINE CASTS 2 /uL (0-3.1); PH,URINE >= 9.0 (5.0-8.0); URINE APPEARANCE CLOUDY; URINE BACTERIA 14 /uL (0-1359); URINE BILIRUBIN NEGATIVE (NEGATIVE); URINE COLOR YELLOW; URINE GLUCOSE (UA) NEGATIVE (NEGATIVE); URINE KETONE NEGATIVE (NEGATIVE); URINE LEUK ESTERASE 3+ (NEGATIVE); URINE NITRITE NEGATIVE (NEGATIVE); URINE PROTEIN 1+ (NEGATIVE); URINE RBC 172 /uL (0-23.9); URINE UROBILINOGEN 0.2 mg/dL (0.2-1.0); URINE WBC 1234 /uL (0-25.8)
[2021-05-27] MEDS: DEXTROSE 5%-NORMAL SALINE 1,000 ML IV SCH ×2 (03:40→10:25)
[2021-05-27] MEDS: VANCOMYCIN 250 MG/5 ML ORAL SOLUTION PO SCH ×2 (05:27→13:04)
[2021-05-27] MEDS: METOPROLOL TARTRATE 25 MG TABLET (FP) PO SCH ×2 (10:24→21:45)
[2021-05-27] MEDS: LOSARTAN POTASSIUM 50 MG TABLET PO SCH (10:24)
[2021-05-27] MEDS: amLODIPine BESYLATE 10 MG TABLET (FP) PO SCH (10:24)
[2021-05-27] MEDS: CARVEDILOL 12.5 MG TABLET (FP) PO SCH ×2 (10:24→21:45)
[2021-05-27 10:51] LABS: RETICULOCYTES 3.04 % (0.5-1.5)
[2021-05-27 10:59] LABS: BASO % 0.8 % (0-2.0); EOS % 0.4 % (0-4.5); HEMATOCRIT 25.7 % (32.4-45.2); HEMOGLOBIN 8.2 GM/dL (10.7-15.3); LYMPH % 5.8 % (8-40); MCH 27.4 pg (25.7-33.7); MEAN CELL VOLUME 85.7 fl (80-96); MEAN PLT VOLUME 6.5 fl (7.5-11.1); PLATELET COUNT 484 10^3/uL (134-434); RDW 16.9 % (11.6-15.6); WHITE BLOOD COUNT 14.8 K/mm3 (4.0-10.0)
[2021-05-27 11:22] LABS: CALCIUM 8.4 mg/dL (8.5-10.1)
[2021-05-27 11:23] LABS: ALBUMIN 1.8 g/dl (3.4-5.0); BLOOD UREA NITROGEN 9.5 mg/dL (7-18)
[2021-05-27 11:25] LABS: CREATININE 0.4 mg/dL (0.55-1.3)
[2021-05-27 11:27] LABS: BILIRUBIN,TOTAL 0.6 mg/dL (0.2-1); TOT PROT 6.4 g/dl (6.4-8.2)
[2021-05-27 12:04] LABS: ANISOCYTOSIS 0; MACROCYTOSIS 0; PLATELET ESTIMATE NORMAL
[2021-05-27] MEDS: ATORVASTATIN CA 80 MG TABLET (FP) PO SCH (21:45)
[2021-05-28] MEDS: DEXTROSE 5%-NORMAL SALINE 1,000 ML IV SCH ×2 (04:56→11:30)
[2021-05-28 09:31] LABS: BASO % 0.7 % (0-2.0); EOS % 0.7 % (0-4.5); HEMATOCRIT 26.3 % (32.4-45.2); HEMOGLOBIN 8.4 GM/dL (10.7-15.3); LYMPH % 6.1 % (8-40); MCH 27.2 pg (25.7-33.7); MCHC 31.8 g/dl (32.0-36.0); MEAN CELL VOLUME 85.5 fl (80-96); MEAN PLT VOLUME 6.9 fl (7.5-11.1); MONO % 5.8 % (3.8-10.2); NEUT % 86.7 % (42.8-82.8); PLATELET COUNT 509 10^3/uL (134-434); RBC 3.08 M/mm3 (3.60-5.2); RDW 16.9 % (11.6-15.6); WHITE BLOOD COUNT 15.6 K/mm3 (4.0-10.0)
[2021-05-28 09:57] LABS: ALBUMIN 1.9 g/dl (3.4-5.0); BLOOD UREA NITROGEN 11.4 mg/dL (7-18)
[2021-05-28 09:59] LABS: BILIRUBIN,TOTAL 0.6 mg/dL (0.2-1); CALCIUM 8.6 mg/dL (8.5-10.1); TOT PROT 6.7 g/dl (6.4-8.2)
[2021-05-28 10:01] LABS: CREATININE 0.4 mg/dL (0.55-1.3)
[2021-05-28] MEDS ORDERED: PT OWN MED DRAWER 7, Y5N ONE (11:23)
[2021-05-28] MEDS: CARVEDILOL 12.5 MG TABLET (FP) PO SCH ×2 (11:31→21:21)
[2021-05-28] MEDS: LOSARTAN POTASSIUM 50 MG TABLET PO SCH (11:31)
[2021-05-28] MEDS: MULTIVIT-MINERALS ORAL LIQUID PO SCH (11:31)
[2021-05-28] MEDS: amLODIPine BESYLATE 10 MG TABLET (FP) PO SCH (11:32)
[2021-05-28] MEDS: METOPROLOL TARTRATE 25 MG TABLET (FP) PO SCH ×2 (11:32→21:21)
[2021-05-28 12:00] LABS: ANISOCYTOSIS 0; MACROCYTOSIS 0; PLATELET ESTIMATE INCREASED
[2021-05-28] MEDS: SODIUM HYPOCHLORITE 0.5% 473 ML- BULK BOTTLE TP SCH (19:25)
[2021-05-28] MEDS: ATORVASTATIN CA 80 MG TABLET (FP) PO SCH (21:21)
[2021-05-29] MEDS: LOSARTAN POTASSIUM 50 MG TABLET PO SCH (10:05)
[2021-05-29] MEDS: amLODIPine BESYLATE 10 MG TABLET (FP) PO SCH (10:05)
[2021-05-29] MEDS: MULTIVIT-MINERALS ORAL LIQUID PO SCH (10:05)
[2021-05-29] MEDS: METOPROLOL TARTRATE 25 MG TABLET (FP) PO SCH ×2 (10:05→21:46)
[2021-05-29] MEDS: CARVEDILOL 12.5 MG TABLET (FP) PO SCH ×2 (10:05→21:46)
[2021-05-29] MEDS ORDERED: ACETAMINOPHEN 650 MG/20.3 ML ORAL SOLUTION (CUPS) PO PRN (11:19)
[2021-05-29] MEDS: SODIUM HYPOCHLORITE 0.5% 473 ML- BULK BOTTLE TP SCH (13:15)
[2021-05-29] MEDS: ATORVASTATIN CA 80 MG TABLET (FP) PO SCH (21:46)
[2021-05-30] MEDS ORDERED: NYSTATIN POWDER 100,000 UNITS/GM - 15 GM TOPICAL POWDER TP SCH (11:00)
[2021-05-30] MEDS: amLODIPine BESYLATE 10 MG TABLET (FP) PO SCH (11:10)
[2021-05-30] MEDS: LOSARTAN POTASSIUM 50 MG TABLET PO SCH (11:10)
[2021-05-30] MEDS: CARVEDILOL 12.5 MG TABLET (FP) PO SCH ×2 (11:10→22:43)
[2021-05-30] MEDS: METOPROLOL TARTRATE 25 MG TABLET (FP) PO SCH ×2 (11:10→22:43)
[2021-05-30] MEDS: MULTIVIT-MINERALS ORAL LIQUID PO SCH (11:11)
[2021-05-30] MEDS: SODIUM HYPOCHLORITE 0.5% 473 ML- BULK BOTTLE TP SCH (13:31)
[2021-05-30] MEDS: ATORVASTATIN CA 80 MG TABLET (FP) PO SCH (22:43)
[2021-05-31 09:00] LABS: BASO % 0.6 % (0-2.0); EOS % 0.7 % (0-4.5); HEMATOCRIT 25.6 % (32.4-45.2); HEMOGLOBIN 7.9 GM/dL (10.7-15.3); LYMPH % 4.5 % (8-40); MCH 26.7 pg (25.7-33.7); MCHC 30.9 g/dl (32.0-36.0); MEAN CELL VOLUME 86.5 fl (80-96); MONO % 4.4 % (3.8-10.2); NEUT % 89.8 % (42.8-82.8); RBC 2.95 M/mm3 (3.60-5.2); RDW 17.2 % (11.6-15.6)
[2021-05-31 09:26] LABS: BLOOD UREA NITROGEN 16.1 mg/dL (7-18); CALCIUM 8.7 mg/dL (8.5-10.1)
[2021-05-31 09:29] LABS: CREATININE 0.3 mg/dL (0.55-1.3)
[2021-05-31 10:14] LABS: ANISOCYTOSIS 0; HELMET CELLS 0; HOWELL-JOLLY BODIES 0; MACROCYTOSIS 0; OVALOCYTE 0; PLATELET ESTIMATE NORMAL; ROULEAU 0; SICKELED CELLS 0; TARGET CELLS 0; TEAR DROP CELLS 0; TOXIC GRANULATION 0
[2021-05-31 10:54] LABS: MEAN PLT VOLUME 7.2 fl (7.5-11.1); PLATELET COUNT 421 10^3/uL (134-434)
[2021-05-31] MEDS: LOSARTAN POTASSIUM 50 MG TABLET PO SCH (11:57)
[2021-05-31] MEDS: CARVEDILOL 12.5 MG TABLET (FP) PO SCH ×2 (11:57→21:09)
[2021-05-31] MEDS: amLODIPine BESYLATE 10 MG TABLET (FP) PO SCH (11:58)
[2021-05-31] MEDS: METOPROLOL TARTRATE 25 MG TABLET (FP) PO SCH ×2 (11:58→21:09)
[2021-05-31] MEDS: SODIUM HYPOCHLORITE 0.5% 473 ML- BULK BOTTLE TP SCH (11:58)
[2021-05-31] MEDS: MULTIVIT-MINERALS ORAL LIQUID PO SCH (11:58)
[2021-05-31] MEDS: VANCOMYCIN 250 MG/5 ML ORAL SOLUTION PO SCH ×2 (18:12→23:22)
[2021-05-31] MEDS: ATORVASTATIN CA 80 MG TABLET (FP) PO SCH (21:09)
[2021-06-01] MEDS: VANCOMYCIN 250 MG/5 ML ORAL SOLUTION PO SCH ×4 (05:57→23:18)
[2021-06-01] MEDS ORDERED: PT OWN MED DRAWER 7, Y5N ONE (10:00)
[2021-06-01] MEDS: SODIUM HYPOCHLORITE 0.5% 473 ML- BULK BOTTLE TP SCH (10:03)
[2021-06-01] MEDS: CARVEDILOL 12.5 MG TABLET (FP) PO SCH ×2 (10:03→21:14)
[2021-06-01] MEDS: METOPROLOL TARTRATE 25 MG TABLET (FP) PO SCH ×2 (10:03→21:14)
[2021-06-01] MEDS: LOSARTAN POTASSIUM 50 MG TABLET PO SCH (10:03)
[2021-06-01] MEDS: amLODIPine BESYLATE 10 MG TABLET (FP) PO SCH (10:03)
[2021-06-01] MEDS: MULTIVIT-MINERALS ORAL LIQUID PO SCH (10:03)
[2021-06-01 10:29] LABS: BASO % 0.6 % (0-2.0); HEMATOCRIT 23.5 % (32.4-45.2); HEMOGLOBIN 7.6 GM/dL (10.7-15.3); LYMPH % 4.8 % (8-40); MCH 27.7 pg (25.7-33.7); MCHC 32.5 g/dl (32.0-36.0); MEAN CELL VOLUME 85.3 fl (80-96); MEAN PLT VOLUME 6.7 fl (7.5-11.1); MONO % 6.3 % (3.8-10.2); NEUT % 87.3 % (42.8-82.8); PLATELET COUNT 431 10^3/uL (134-434); RBC 2.76 M/mm3 (3.60-5.2); RDW 17.2 % (11.6-15.6); WHITE BLOOD COUNT 19.6 K/mm3 (4.0-10.0)
[2021-06-01 10:55] LABS: CALCIUM 8.6 mg/dL (8.5-10.1)
[2021-06-01 10:57] LABS: BLOOD UREA NITROGEN 18.7 mg/dL (7-18)
[2021-06-01 11:00] LABS: CREATININE 0.3 mg/dL (0.55-1.3)
[2021-06-01] MEDS: ATORVASTATIN CA 80 MG TABLET (FP) PO SCH (21:14)
[2021-06-02] MEDS: VANCOMYCIN 250 MG/5 ML ORAL SOLUTION PO SCH ×4 (05:35→23:07)
[2021-06-02] MEDS ORDERED: PT OWN MED DRAWER 7, Y5N ONE (11:07)
[2021-06-02] MEDS: SODIUM HYPOCHLORITE 0.5% 473 ML- BULK BOTTLE TP SCH (11:11)
[2021-06-02] MEDS: METOPROLOL TARTRATE 25 MG TABLET (FP) PO SCH ×2 (11:12→21:59)
[2021-06-02] MEDS: amLODIPine BESYLATE 10 MG TABLET (FP) PO SCH (11:12)
[2021-06-02] MEDS: LOSARTAN POTASSIUM 50 MG TABLET PO SCH (11:12)
[2021-06-02] MEDS: CARVEDILOL 12.5 MG TABLET (FP) PO SCH ×2 (11:12→21:59)
[2021-06-02] MEDS: MULTIVIT-MINERALS ORAL LIQUID PO SCH (11:12)
[2021-06-02] MEDS: ATORVASTATIN CA 80 MG TABLET (FP) PO SCH (21:59)
[2021-06-03] MEDS: VANCOMYCIN 250 MG/5 ML ORAL SOLUTION PO SCH ×4 (05:55→23:37)
[2021-06-03 09:08] LABS: BASO % 0.7 % (0-2.0); EOS % 2.3 % (0-4.5); HEMATOCRIT 22.7 % (32.4-45.2); HEMOGLOBIN 7.1 GM/dL (10.7-15.3); LYMPH % 6.2 % (8-40); MCH 26.9 pg (25.7-33.7); MCHC 31.4 g/dl (32.0-36.0); MEAN CELL VOLUME 85.8 fl (80-96); MEAN PLT VOLUME 6.9 fl (7.5-11.1); MONO % 7.7 % (3.8-10.2); NEUT % 83.1 % (42.8-82.8); PLATELET COUNT 389 10^3/uL (134-434); RBC 2.64 M/mm3 (3.60-5.2); RDW 17.2 % (11.6-15.6); WHITE BLOOD COUNT 14.6 K/mm3 (4.0-10.0)
[2021-06-03] MEDS ORDERED: PT OWN MED DRAWER 7, Y5N ONE (09:29)
[2021-06-03 09:32] LABS: BLOOD UREA NITROGEN 19.8 mg/dL (7-18); CALCIUM 8.8 mg/dL (8.5-10.1)
[2021-06-03 09:35] LABS: CREATININE 0.3 mg/dL (0.55-1.3)
[2021-06-03] MEDS: CARVEDILOL 12.5 MG TABLET (FP) PO SCH ×2 (10:59→22:31)
[2021-06-03] MEDS: amLODIPine BESYLATE 10 MG TABLET (FP) PO SCH (10:59)
[2021-06-03] MEDS: SODIUM HYPOCHLORITE 0.5% 473 ML- BULK BOTTLE TP SCH (10:59)
[2021-06-03] MEDS: METOPROLOL TARTRATE 25 MG TABLET (FP) PO SCH ×2 (10:59→22:31)
[2021-06-03] MEDS: LOSARTAN POTASSIUM 50 MG TABLET PO SCH (10:59)
[2021-06-03] MEDS: MULTIVIT-MINERALS ORAL LIQUID PO SCH (10:59)
[2021-06-03] MEDS: ATORVASTATIN CA 80 MG TABLET (FP) PO SCH (22:31)
[2021-06-04] MEDS: VANCOMYCIN 250 MG/5 ML ORAL SOLUTION PO SCH ×4 (05:42→23:08)
[2021-06-04] MEDS ORDERED: PT OWN MED DRAWER 7, Y5N ONE (10:37)
[2021-06-04] MEDS: SODIUM HYPOCHLORITE 0.5% 473 ML- BULK BOTTLE TP SCH (10:41)
[2021-06-04] MEDS: amLODIPine BESYLATE 10 MG TABLET (FP) PO SCH (10:42)
[2021-06-04] MEDS: MULTIVIT-MINERALS ORAL LIQUID PO SCH (10:42)
[2021-06-04] MEDS: CARVEDILOL 12.5 MG TABLET (FP) PO SCH ×2 (10:42→21:16)
[2021-06-04] MEDS: LOSARTAN POTASSIUM 50 MG TABLET PO SCH (10:42)
[2021-06-04] MEDS: METOPROLOL TARTRATE 25 MG TABLET (FP) PO SCH ×2 (10:42→21:16)
[2021-06-04 10:59] LABS: BASO % 0.9 % (0-2.0); EOS % 2.4 % (0-4.5); HEMATOCRIT 22.9 % (32.4-45.2); HEMOGLOBIN 7.2 GM/dL (10.7-15.3); LYMPH % 6.7 % (8-40); MCH 27.5 pg (25.7-33.7); MCHC 31.4 g/dl (32.0-36.0); MEAN CELL VOLUME 87.8 fl (80-96); MEAN PLT VOLUME 7.2 fl (7.5-11.1); MONO % 8.3 % (3.8-10.2); NEUT % 81.7 % (42.8-82.8); PLATELET COUNT 407 10^3/uL (134-434); RBC 2.61 M/mm3 (3.60-5.2); RDW 17.5 % (11.6-15.6); WHITE BLOOD COUNT 17.1 K/mm3 (4.0-10.0)
[2021-06-04 11:09] LABS: BLOOD UREA NITROGEN 21.1 mg/dL (7-18); CALCIUM 8.8 mg/dL (8.5-10.1)
[2021-06-04 11:12] LABS: CREATININE 0.3 mg/dL (0.55-1.3)
[2021-06-04 11:40] LABS: ANISOCYTOSIS 0; HELMET CELLS 0; HOWELL-JOLLY BODIES 0; MACROCYTOSIS 0; OVALOCYTE 0; PLATELET ESTIMATE NORMAL; ROULEAU 0; SICKELED CELLS 0; TARGET CELLS 0; TEAR DROP CELLS 0; TOXIC GRANULATION 0
[2021-06-04 16:10] VITALS: BMI 23.1
[2021-06-04] MEDS: ATORVASTATIN CA 80 MG TABLET (FP) PO SCH (21:16)
[2021-06-05] MEDS: VANCOMYCIN 250 MG/5 ML ORAL SOLUTION PO SCH ×4 (05:49→23:01)
[2021-06-05] MEDS: amLODIPine BESYLATE 10 MG TABLET (FP) PO SCH (11:32)
[2021-06-05] MEDS: MULTIVIT-MINERALS ORAL LIQUID PO SCH (11:32)
[2021-06-05] MEDS: METOPROLOL TARTRATE 25 MG TABLET (FP) PO SCH ×2 (11:33→21:41)
[2021-06-05] MEDS: CARVEDILOL 12.5 MG TABLET (FP) PO SCH ×2 (11:33→21:41)
[2021-06-05] MEDS: SODIUM HYPOCHLORITE 0.5% 473 ML- BULK BOTTLE TP SCH (11:33)
[2021-06-05] MEDS: LOSARTAN POTASSIUM 50 MG TABLET PO SCH (11:33)
[2021-06-05 11:40] LABS: BASO % 0.8 % (0-2.0); EOS % 3.1 % (0-4.5); HEMATOCRIT 21.3 % (32.4-45.2); LYMPH % 7.2 % (8-40); MCH 27.5 pg (25.7-33.7); MCHC 32.2 g/dl (32.0-36.0); MEAN CELL VOLUME 85.4 fl (80-96); MEAN PLT VOLUME 6.8 fl (7.5-11.1); MONO % 7.3 % (3.8-10.2); NEUT % 81.6 % (42.8-82.8); PLATELET COUNT 430 10^3/uL (134-434); RBC 2.49 M/mm3 (3.60-5.2); RDW 17.3 % (11.6-15.6); WHITE BLOOD COUNT 15.3 K/mm3 (4.0-10.0)
[2021-06-05 11:59] LABS: CALCIUM 8.7 mg/dL (8.5-10.1)
[2021-06-05 12:00] LABS: BLOOD UREA NITROGEN 25.2 mg/dL (7-18)
[2021-06-05 12:03] LABS: CREATININE 0.3 mg/dL (0.55-1.3)
[2021-06-05 12:14] LABS: HEMOGLOBIN 6.8 GM/dL (10.7-15.3)
[2021-06-05 12:48] LABS: ANISOCYTOSIS 2+; MACROCYTOSIS 0; PLATELET ESTIMATE NORMAL
[2021-06-05] MEDS: ATORVASTATIN CA 80 MG TABLET (FP) PO SCH (21:41)
[2021-06-06] MEDS: VANCOMYCIN 250 MG/5 ML ORAL SOLUTION PO SCH ×4 (05:39→23:38)
[2021-06-06 08:17] LABS: BASO % 0.9 % (0-2.0); HEMATOCRIT 26.3 % (32.4-45.2); HEMOGLOBIN 8.7 GM/dL (10.7-15.3); LYMPH % 6.1 % (8-40); MCH 28.2 pg (25.7-33.7); MEAN CELL VOLUME 85.5 fl (80-96); MEAN PLT VOLUME 7.3 fl (7.5-11.1); MONO % 6.4 % (3.8-10.2); NEUT % 83.6 % (42.8-82.8); PLATELET COUNT 491 10^3/uL (134-434); RBC 3.08 M/mm3 (3.60-5.2); RDW 16.7 % (11.6-15.6); WHITE BLOOD COUNT 21.7 K/mm3 (4.0-10.0)
[2021-06-06 08:39] LABS: ALBUMIN 2.1 g/dl (3.4-5.0)
[2021-06-06 08:41] LABS: BLOOD UREA NITROGEN 25.3 mg/dL (7-18)
[2021-06-06 08:43] LABS: CREATININE 0.3 mg/dL (0.55-1.3)
[2021-06-06 08:45] LABS: BILIRUBIN,TOTAL 0.9 mg/dL (0.2-1); TOT PROT 6.8 g/dl (6.4-8.2)
[2021-06-06] MEDS ORDERED: PT OWN MED DRAWER 7, Y5N ONE (10:44)
[2021-06-06] MEDS: MULTIVIT-MINERALS ORAL LIQUID PO SCH (10:52)
[2021-06-06] MEDS: CARVEDILOL 12.5 MG TABLET (FP) PO SCH ×2 (10:52→21:14)
[2021-06-06] MEDS: amLODIPine BESYLATE 10 MG TABLET (FP) PO SCH (10:52)
[2021-06-06] MEDS: METOPROLOL TARTRATE 25 MG TABLET (FP) PO SCH ×2 (10:52→21:14)
[2021-06-06] MEDS: SODIUM HYPOCHLORITE 0.5% 473 ML- BULK BOTTLE TP SCH (10:54)
[2021-06-06] MEDS: LOSARTAN POTASSIUM 50 MG TABLET PO SCH (10:59)
[2021-06-06 11:09] LABS: ANISOCYTOSIS 0; HELMET CELLS 0; HOWELL-JOLLY BODIES 0; MACROCYTOSIS 0; OVALOCYTE 0; PLATELET ESTIMATE INCREASED; ROULEAU 0; SICKELED CELLS 0; TARGET CELLS 0; TEAR DROP CELLS 0; TOXIC GRANULATION 0
[2021-06-06] MEDS: ATORVASTATIN CA 80 MG TABLET (FP) PO SCH (21:14)
[2021-06-07] MEDS: VANCOMYCIN 250 MG/5 ML ORAL SOLUTION PO SCH ×4 (05:07→23:01)
[2021-06-07] MEDS ORDERED: PT OWN MED DRAWER 7, Y5N ONE ×2 (10:38→11:02)
[2021-06-07] MEDS: LOSARTAN POTASSIUM 50 MG TABLET PO SCH (10:43)
[2021-06-07] MEDS: amLODIPine BESYLATE 10 MG TABLET (FP) PO SCH (10:43)
[2021-06-07] MEDS: CARVEDILOL 12.5 MG TABLET (FP) PO SCH ×2 (10:43→21:18)
[2021-06-07] MEDS: METOPROLOL TARTRATE 25 MG TABLET (FP) PO SCH ×2 (10:43→21:18)
[2021-06-07] MEDS: SODIUM HYPOCHLORITE 0.5% 473 ML- BULK BOTTLE TP SCH (10:44)
[2021-06-07] MEDS: MULTIVIT-MINERALS ORAL LIQUID PO SCH (11:13)
[2021-06-07 17:12] LABS: BASO % 0.8 % (0-2.0); EOS % 4.1 % (0-4.5); HEMATOCRIT 24.4 % (32.4-45.2); HEMOGLOBIN 7.9 GM/dL (10.7-15.3); LYMPH % 6.1 % (8-40); MCH 27.6 pg (25.7-33.7); MCHC 32.6 g/dl (32.0-36.0); MEAN CELL VOLUME 84.7 fl (80-96); MEAN PLT VOLUME 6.8 fl (7.5-11.1); MONO % 5.9 % (3.8-10.2); NEUT % 83.1 % (42.8-82.8); PLATELET COUNT 504 10^3/uL (134-434); RBC 2.88 M/mm3 (3.60-5.2); RDW 16.8 % (11.6-15.6); WHITE BLOOD COUNT 18.7 K/mm3 (4.0-10.0)
[2021-06-07 17:33] LABS: BLOOD UREA NITROGEN 31.6 mg/dL (7-18); CALCIUM 9.3 mg/dL (8.5-10.1)
[2021-06-07 17:36] LABS: CREATININE 0.3 mg/dL (0.55-1.3)
[2021-06-07] MEDS: ATORVASTATIN CA 80 MG TABLET (FP) PO SCH (21:18)
[2021-06-08] MEDS: VANCOMYCIN 250 MG/5 ML ORAL SOLUTION PO SCH ×4 (05:08→23:42)
[2021-06-08 08:32] LABS: BASO % 0.7 % (0-2.0); EOS % 3.6 % (0-4.5); HEMATOCRIT 25.7 % (32.4-45.2); HEMOGLOBIN 8.3 GM/dL (10.7-15.3); LYMPH % 7.2 % (8-40); MCH 27.9 pg (25.7-33.7); MCHC 32.5 g/dl (32.0-36.0); MEAN CELL VOLUME 85.9 fl (80-96); MEAN PLT VOLUME 6.9 fl (7.5-11.1); MONO % 5.6 % (3.8-10.2); NEUT % 82.9 % (42.8-82.8); PLATELET COUNT 509 10^3/uL (134-434); RBC 2.99 M/mm3 (3.60-5.2); RDW 17.3 % (11.6-15.6); WHITE BLOOD COUNT 16.9 K/mm3 (4.0-10.0)
[2021-06-08 08:52] LABS: BLOOD UREA NITROGEN 30.5 mg/dL (7-18); CALCIUM 9.3 mg/dL (8.5-10.1)
[2021-06-08 08:55] LABS: CREATININE 0.3 mg/dL (0.55-1.3)
[2021-06-08] MEDS: amLODIPine BESYLATE 10 MG TABLET (FP) PO SCH (09:14)
[2021-06-08] MEDS: LOSARTAN POTASSIUM 50 MG TABLET PO SCH (09:14)
[2021-06-08] MEDS: METOPROLOL TARTRATE 25 MG TABLET (FP) PO SCH ×2 (09:14→22:36)
[2021-06-08] MEDS: CARVEDILOL 12.5 MG TABLET (FP) PO SCH ×2 (09:14→22:36)
[2021-06-08] MEDS: SODIUM HYPOCHLORITE 0.5% 473 ML- BULK BOTTLE TP SCH (09:15)
[2021-06-08] MEDS: MULTIVIT-MINERALS ORAL LIQUID PO SCH (09:15)
[2021-06-08] MEDS: ATORVASTATIN CA 80 MG TABLET (FP) PO SCH (22:36)
[2021-06-09] MEDS: VANCOMYCIN 250 MG/5 ML ORAL SOLUTION PO SCH ×3 (05:47→18:26)
[2021-06-09] MEDS ORDERED: PT OWN MED DRAWER 7, Y5N ONE ×2 (11:56→22:33)
[2021-06-09] MEDS: METOPROLOL TARTRATE 25 MG TABLET (FP) PO SCH ×2 (11:58→22:39)
[2021-06-09] MEDS: amLODIPine BESYLATE 10 MG TABLET (FP) PO SCH (11:58)
[2021-06-09] MEDS: MULTIVIT-MINERALS ORAL LIQUID PO SCH (11:59)
[2021-06-09] MEDS: LOSARTAN POTASSIUM 50 MG TABLET PO SCH (11:59)
[2021-06-09] MEDS: CARVEDILOL 12.5 MG TABLET (FP) PO SCH ×2 (11:59→22:39)
[2021-06-09] MEDS: SODIUM HYPOCHLORITE 0.5% 473 ML- BULK BOTTLE TP SCH (11:59)
[2021-06-09] MEDS: ATORVASTATIN CA 80 MG TABLET (FP) PO SCH (22:39)
[2021-06-10] MEDS: VANCOMYCIN 250 MG/5 ML ORAL SOLUTION PO SCH ×4 (00:03→18:22)
[2021-06-10] MEDS ORDERED: PT OWN MED DRAWER 7, Y5N ONE (10:29)
[2021-06-10] MEDS: CARVEDILOL 12.5 MG TABLET (FP) PO SCH ×2 (10:37→22:27)
[2021-06-10] MEDS: METOPROLOL TARTRATE 25 MG TABLET (FP) PO SCH ×2 (10:37→22:27)
[2021-06-10] MEDS: LOSARTAN POTASSIUM 50 MG TABLET PO SCH (10:37)
[2021-06-10] MEDS: amLODIPine BESYLATE 10 MG TABLET (FP) PO SCH (10:37)
[2021-06-10] MEDS: MULTIVIT-MINERALS ORAL LIQUID PO SCH (10:38)
[2021-06-10] MEDS: SODIUM HYPOCHLORITE 0.5% 473 ML- BULK BOTTLE TP SCH (10:38)
[2021-06-10] MEDS: ATORVASTATIN CA 80 MG TABLET (FP) PO SCH (22:26)
[2021-06-11] MEDS: VANCOMYCIN 250 MG/5 ML ORAL SOLUTION PO SCH ×3 (00:22→11:30)
[2021-06-11] MEDS ORDERED: PT OWN MED DRAWER 7, Y5N ONE (09:55)
[2021-06-11] MEDS: METOPROLOL TARTRATE 25 MG TABLET (FP) PO SCH (10:00)
[2021-06-11] MEDS: CARVEDILOL 12.5 MG TABLET (FP) PO SCH (10:00)
[2021-06-11] MEDS: amLODIPine BESYLATE 10 MG TABLET (FP) PO SCH (10:00)
[2021-06-11] MEDS: LOSARTAN POTASSIUM 50 MG TABLET PO SCH (10:00)
[2021-06-11] MEDS: MULTIVIT-MINERALS ORAL LIQUID PO SCH (10:00)
[2021-06-11] MEDS: SODIUM HYPOCHLORITE 0.5% 473 ML- BULK BOTTLE TP SCH (11:24)
[2021-06-11 15:35] VITALS: BP 124/57; PULSE 73; TEMP 98
== END 2021-06-11 14:53 | DRG 344 ==
LOC: JER 18:56 → JERBED 05-26 02:45 → J5S 05-26 11:16
PROVIDERS: ADMIT Hospitalist; ATTEND Family Medicine
PROC: 5A1955Z Respiratory Ventilation, Greater than 96 Consecutive Hours (ICD-10-PCS; principal; 2021-05-26)
PROC: 3E0G36Z Introduction of Nutritional Substance into Upper GI, Percutaneous Approach (ICD-10-PCS; 2021-05-26)
PROC: 30233N1 Transfusion of Nonautologous Red Blood Cells into Peripheral Vein, Percutaneous Approach (ICD-10-PCS; 2021-06-05)
DX: M46.28 Osteomyelitis of vertebra, sacral and sacrococcygeal region (principal); D72.829 Elevated white blood cell count, unspecified; D64.9 Anemia, unspecified; D47.3 Essential (hemorrhagic) thrombocythemia; E88.09 Other disorders of plasma-protein metabolism, not elsewhere classified; T85.528A Displacement of other gastrointestinal prosthetic devices, implants and grafts, initial encounter; Y83.9 Surgical procedure, unspecified as the cause of abnormal reaction of the patient, or of later complication, without mention of misadventure at the time of the procedure; C55 Malignant neoplasm of uterus, part unspecified; N18.9 Chronic kidney disease, unspecified; I50.30 Unspecified diastolic (congestive) heart failure; Z99.11 Dependence on respirator [ventilator] status; R18.8 Other ascites; Z93.0 Tracheostomy status; Z93.1 Gastrostomy status; L89.154 Pressure ulcer of sacral region, stage 4; J96.21 Acute and chronic respiratory failure with hypoxia; J96.22 Acute and chronic respiratory failure with hypercapnia; E87.70 Fluid overload, unspecified
CPT/HCPCS: 36415; 36430; 71045-TC-FY; 74018-TC-FY; 74177-TC; 80048; 80053; 81003; 82272; 82607; 82728; 82747; 83540; 83550; 83615; 83735; 84100; 84466; 85014; 85025; 85045; 85610; 85651; 85730; 86140; 86850; 86900; 86901; 86922; 87040; 87070; 87205; 87324; 87449; 94002; 99285-25; C9803; P9058; U0003; U0005

== ENCOUNTER 2021-06-23 14:38 | Inpatient (IN) | payer OTHER ==
[2021-06-23 15:56] LABS: BASO % 0.2 % (0-2.0); EOS % 0.5 % (0-4.5); HEMATOCRIT 27.8 % (32.4-45.2); HEMOGLOBIN 9.2 GM/dL (10.7-15.3); MCH 27.4 pg (25.7-33.7); MEAN PLT VOLUME 6.8 fl (7.5-11.1); MONO % 4.4 % (3.8-10.2); NEUT % 91.9 % (42.8-82.8); PLATELET COUNT 500 10^3/uL (134-434); RBC 3.35 M/mm3 (3.60-5.2); WHITE BLOOD COUNT 21.3 K/mm3 (4.0-10.0)
[2021-06-23 15:59] LABS: INR 1.49 (0.83-1.09); PROTHROMBIN TIME (PATIENT) 18.1 SEC (9.7-13.0)
[2021-06-23] MEDS ORDERED: PIPERACILLIN/TAZOB 4.5 GM 4.5 GM in DEXTROSE 5%-WATER - 100 ML IVPB ONE (15:59)
[2021-06-23] MEDS ORDERED: VANCOMYCIN 1,000 MG in DEXTROSE 5%-WATER - 250 ML IVPB ONE (15:59)
[2021-06-23 16:01] LABS: ACTIVATED PTT 30.7 SECONDS (25.2-36.5)
[2021-06-23] MEDS ORDERED: PIPERACILLIN/TAZOB 4.5 GM 4.5 GM/100 ML BAG IVPB ONE (16:03)
[2021-06-23] MEDS ORDERED: VANCOMYCIN 1 GRAM (PRE-DOCKED) 1,000 MG/250 ML BAG IVPB ONE (16:03)
[2021-06-23 16:11] LABS: ALBUMIN 2.5 g/dl (3.4-5.0); BLOOD UREA NITROGEN 40.5 mg/dL (7-18)
[2021-06-23 16:12] LABS: MAGNESIUM 2.5 mg/dL (1.8-2.4)
[2021-06-23 16:14] LABS: CREATININE 0.8 mg/dL (0.55-1.3)
[2021-06-23 16:16] LABS: BILIRUBIN,TOTAL 0.7 mg/dL (0.2-1); TOT PROT 7.8 g/dl (6.4-8.2)
[2021-06-23] MEDS ORDERED: LIDOCAINE HCL 1%, 10 MG/ML (20ML VIAL) ONE (16:18)
[2021-06-23 16:49] LABS: EPI CELLS >36 /uL (0-25.1); HYALINE CASTS 15 /uL (0-3.1); URINE APPEARANCE TURBID; URINE BACTERIA 5634 /uL (0-1359); URINE BILIRUBIN NEGATIVE (NEGATIVE); URINE COLOR YELLOW; URINE GLUCOSE (UA) NEGATIVE (NEGATIVE); URINE KETONE NEGATIVE (NEGATIVE); URINE LEUK ESTERASE 3+ (NEGATIVE); URINE NITRITE NEGATIVE (NEGATIVE); URINE PROTEIN 2+ (NEGATIVE); URINE UROBILINOGEN 0.2 mg/dL (0.2-1.0); URINE WBC 3400 /uL (0-25.8)
[2021-06-23 16:54] LABS: ANISOCYTOSIS 1+; PLATELET ESTIMATE INCREASED
[2021-06-23] MEDS ORDERED: LACTATED RINGERS SOLUTION 1000 ML INFUS.BAG IV ONE (16:58)
[2021-06-23] MEDS ORDERED: CEFTAZIDIME/AVIBACTAM 2.5 GM in DEXTROSE 5%-WATER - 250 ML IVPB ONE (18:12)
[2021-06-23 18:18] LABS: URINE RBC 30.9 /uL (0-23.9)
[2021-06-23 18:19] LABS: URINE CRYSTALS FEW /hpf
[2021-06-23] MEDS ORDERED: MEROPENEM 1 GM in DEXTROSE 5%-WATER 100 ML IVPB SCH (18:30)
[2021-06-23] MEDS ORDERED: CEFTAZIDIME/AVIBACTAM 2.5 GM in DEXTROSE 5%-WATER - 250 ML IVPB SCH ×2 (18:56→19:00)
[2021-06-23] MEDS: SODIUM CHLORIDE 1,000 ML IV SCH (19:55)
[2021-06-23] MEDS: SCOPOLAMINE HYDROBROMIDE 1 PATCH PATCH.TD72 TD SCH (19:56)
[2021-06-23] MEDS ORDERED: CARVEDILOL 12.5 MG TABLET (FP) ONE (21:33)
[2021-06-23] MEDS ORDERED: ATORVASTATIN CA 80 MG TABLET (FP) ONE (21:34)
[2021-06-23] MEDS: CARVEDILOL 12.5 MG TABLET (FP) PEG SCH (22:01)
[2021-06-23] MEDS: ATORVASTATIN CA 80 MG TABLET (FP) PEG SCH (22:01)
[2021-06-24] MEDS: CEFTAZIDIME/AVIBACTAM 2.5 GM in DEXTROSE 5%-WATER - 250 ML IVPB SCH ×2 (02:30→13:38)
[2021-06-24] MEDS ORDERED: ONDANSETRON 4 MG/2 ML VIAL ONE (06:24)
[2021-06-24 09:51] LABS: BASO % 0.3 % (0-2.0); EOS % 1.5 % (0-4.5); HEMATOCRIT 27.1 % (32.4-45.2); LYMPH % 4.9 % (8-40); MCH 27.5 pg (25.7-33.7); MEAN CELL VOLUME 83.2 fl (80-96); MEAN PLT VOLUME 6.6 fl (7.5-11.1); NEUT % 84.3 % (42.8-82.8); PLATELET COUNT 393 10^3/uL (134-434); RBC 3.26 M/mm3 (3.60-5.2); RDW 17.1 % (11.6-15.6); WHITE BLOOD COUNT 15.1 K/mm3 (4.0-10.0)
[2021-06-24] MEDS ORDERED: ENOXAPARIN NA (PORCINE) 40 MG/0.4 ML DISP.SYRIN SQ SCH (10:00)
[2021-06-24 10:10] LABS: CALCIUM 9.5 mg/dL (8.5-10.1)
[2021-06-24 10:11] LABS: ALBUMIN 2.3 g/dl (3.4-5.0); BLOOD UREA NITROGEN 30.9 mg/dL (7-18); MAGNESIUM 2.2 mg/dL (1.8-2.4)
[2021-06-24 10:14] LABS: CREATININE 0.7 mg/dL (0.55-1.3); PHOSPHOROUS 3.3 mg/dL (2.5-4.9)
[2021-06-24 10:15] LABS: BILIRUBIN,TOTAL 0.8 mg/dL (0.2-1); TOT PROT 7.5 g/dl (6.4-8.2)
[2021-06-24 10:51] LABS: PLATELET ESTIMATE ADEQUATE
[2021-06-24] MEDS ORDERED: PT OWN MED DRAWER 7, Y5N ONE ×3 (11:13→21:04)
[2021-06-24] MEDS ORDERED: amLODIPine BESYLATE 5 MG TABLET (FP) ONE (11:18)
[2021-06-24] MEDS ORDERED: ASCORBIC ACID 500 MG TABLET (FP) ONE (11:18)
[2021-06-24] MEDS ORDERED: CARVEDILOL 12.5 MG TABLET (FP) ONE (11:18)
[2021-06-24] MEDS ORDERED: LOSARTAN POTASSIUM 50 MG TABLET ONE (11:19)
[2021-06-24] MEDS: MULTIVIT-MINERALS ORAL LIQUID PEG SCH (11:49)
[2021-06-24] MEDS: LACTOBACILLUS ACIDOPHILUS 1 TABLET GT SCH ×2 (11:49→22:03)
[2021-06-24] MEDS: CARVEDILOL 12.5 MG TABLET (FP) PEG SCH ×2 (11:49→22:04)
[2021-06-24] MEDS: LOSARTAN POTASSIUM 50 MG TABLET PEG SCH (11:50)
[2021-06-24] MEDS: amLODIPine BESYLATE 5 MG TABLET (FP) PEG SCH (11:50)
[2021-06-24] MEDS: ASCORBIC ACID 500 MG/5 ML UNIT DOSE CUP GT SCH ×2 (11:50→22:03)
[2021-06-24] MEDS: FAMOTIDINE 40 MG/5 ML ORAL SUSPENSION PEG SCH ×2 (11:50→22:04)
[2021-06-24] MEDS ORDERED: AZTREONAM 1 GM VIAL (RESTRICTED TO ID) ONE (13:16)
[2021-06-24] MEDS ORDERED: CEFTAZIDIME/AVIBACTAM 2.5 GM in DEXTROSE 5%-WATER - 250 ML IVPB SCH (18:00)
[2021-06-24] MEDS: COLLAGENASE CLOSTRIDIUM HIST. 30 GRAMS TUBE TP SCH (18:45)
[2021-06-24] MEDS: SODIUM CHLORIDE 1,000 ML IV SCH (22:03)
[2021-06-24] MEDS: ATORVASTATIN CA 80 MG TABLET (FP) PEG SCH (22:03)
[2021-06-25 07:18] LABS: HEMATOCRIT 25.1 % (32.4-45.2); HEMOGLOBIN 8.4 GM/dL (10.7-15.3); MCH 27.6 pg (25.7-33.7); MCHC 33.6 g/dl (32.0-36.0); MEAN CELL VOLUME 82.2 fl (80-96); MEAN PLT VOLUME 6.5 fl (7.5-11.1); PLATELET COUNT 314 10^3/uL (134-434); RBC 3.06 M/mm3 (3.60-5.2); RDW 16.9 % (11.6-15.6); WHITE BLOOD COUNT 10.9 K/mm3 (4.0-10.0)
[2021-06-25 07:42] LABS: BLOOD UREA NITROGEN 20.3 mg/dL (7-18); CALCIUM 8.9 mg/dL (8.5-10.1)
[2021-06-25] MEDS: CEFTAZIDIME/AVIBACTAM 2.5 GM in DEXTROSE 5%-WATER - 250 ML IVPB SCH ×3 (07:43→17:39)
[2021-06-25 07:46] LABS: BILIRUBIN,TOTAL 0.7 mg/dL (0.2-1); CREATININE 0.5 mg/dL (0.55-1.3); TOT PROT 6.6 g/dl (6.4-8.2)
[2021-06-25] MEDS ORDERED: PT OWN MED DRAWER 7, Y5N ONE ×4 (09:03→17:12)
[2021-06-25] MEDS: FAMOTIDINE 40 MG/5 ML ORAL SUSPENSION PEG SCH ×2 (09:12→22:41)
[2021-06-25] MEDS: ASCORBIC ACID 500 MG/5 ML UNIT DOSE CUP GT SCH ×2 (09:12→22:41)
[2021-06-25] MEDS: amLODIPine BESYLATE 5 MG TABLET (FP) PEG SCH (09:13)
[2021-06-25] MEDS: MULTIVIT-MINERALS ORAL LIQUID PEG SCH (09:13)
[2021-06-25] MEDS: LOSARTAN POTASSIUM 50 MG TABLET PEG SCH (09:14)
[2021-06-25] MEDS: CARVEDILOL 12.5 MG TABLET (FP) PEG SCH ×2 (09:14→22:40)
[2021-06-25] MEDS: SODIUM CHLORIDE 1,000 ML IV SCH (09:15)
[2021-06-25] MEDS: LACTOBACILLUS ACIDOPHILUS 1 TABLET GT SCH ×2 (09:16→22:39)
[2021-06-25 15:25] VITALS: BMI 23.1
[2021-06-25] MEDS: COLLAGENASE CLOSTRIDIUM HIST. 30 GRAMS TUBE TP SCH (16:09)
[2021-06-25] MEDS ORDERED: POTASSIUM CHLORIDE ORAL LIQUID 20 MEQ/15 ML GT ONE (17:32)
[2021-06-25] MEDS ORDERED: CEFTAZIDIME/AVIBACTAM 2.5 GM in DEXTROSE 5%-WATER - 250 ML IVPB SCH (18:00)
[2021-06-25] MEDS: ATORVASTATIN CA 80 MG TABLET (FP) PEG SCH (22:40)
[2021-06-26] MEDS: CEFTAZIDIME/AVIBACTAM 2.5 GM in DEXTROSE 5%-WATER - 250 ML IVPB SCH ×3 (00:25→19:24)
[2021-06-26 07:30] LABS: HEMATOCRIT 25.1 % (32.4-45.2); HEMOGLOBIN 8.3 GM/dL (10.7-15.3); MCH 27.6 pg (25.7-33.7); MEAN CELL VOLUME 83.8 fl (80-96); MEAN PLT VOLUME 6.7 fl (7.5-11.1); PLATELET COUNT 377 10^3/uL (134-434); RBC 2.99 M/mm3 (3.60-5.2); WHITE BLOOD COUNT 13.3 K/mm3 (4.0-10.0)
[2021-06-26 07:51] LABS: CALCIUM 8.8 mg/dL (8.5-10.1)
[2021-06-26 07:52] LABS: ALBUMIN 1.9 g/dl (3.4-5.0); BLOOD UREA NITROGEN 12.2 mg/dL (7-18)
[2021-06-26 07:55] LABS: CREATININE 0.4 mg/dL (0.55-1.3)
[2021-06-26 07:56] LABS: BILIRUBIN,TOTAL 0.4 mg/dL (0.2-1); TOT PROT 6.7 g/dl (6.4-8.2)
[2021-06-26] MEDS ORDERED: PT OWN MED DRAWER 7, Y5N ONE ×4 (09:48→19:23)
[2021-06-26] MEDS: amLODIPine BESYLATE 5 MG TABLET (FP) PEG SCH (10:07)
[2021-06-26] MEDS: CARVEDILOL 12.5 MG TABLET (FP) PEG SCH ×2 (10:07→22:10)
[2021-06-26] MEDS: MULTIVIT-MINERALS ORAL LIQUID PEG SCH (10:07)
[2021-06-26] MEDS: FAMOTIDINE 40 MG/5 ML ORAL SUSPENSION PEG SCH ×2 (10:08→22:10)
[2021-06-26] MEDS: LACTOBACILLUS ACIDOPHILUS 1 TABLET GT SCH ×2 (10:08→22:10)
[2021-06-26] MEDS: LOSARTAN POTASSIUM 50 MG TABLET PEG SCH (10:08)
[2021-06-26] MEDS: ASCORBIC ACID 500 MG/5 ML UNIT DOSE CUP GT SCH ×2 (10:18→22:10)
[2021-06-26] MEDS: COLLAGENASE CLOSTRIDIUM HIST. 30 GRAMS TUBE TP SCH (13:00)
[2021-06-26] MEDS: SCOPOLAMINE HYDROBROMIDE 1 PATCH PATCH.TD72 TD SCH (19:42)
[2021-06-26] MEDS: SODIUM CHLORIDE 1,000 ML IV SCH (22:09)
[2021-06-26] MEDS: ATORVASTATIN CA 80 MG TABLET (FP) PEG SCH (22:10)
[2021-06-27] MEDS: CEFTAZIDIME/AVIBACTAM 2.5 GM in DEXTROSE 5%-WATER - 250 ML IVPB SCH ×3 (01:16→18:34)
[2021-06-27] MEDS: SODIUM CHLORIDE 1,000 ML IV SCH ×2 (01:19→18:35)
[2021-06-27] MEDS ORDERED: PT OWN MED DRAWER 7, Y5N ONE ×5 (08:18→21:54)
[2021-06-27] MEDS: FAMOTIDINE 40 MG/5 ML ORAL SUSPENSION PEG SCH ×2 (09:03→21:37)
[2021-06-27] MEDS: LOSARTAN POTASSIUM 50 MG TABLET PEG SCH (09:03)
[2021-06-27] MEDS: MULTIVIT-MINERALS ORAL LIQUID PEG SCH (09:04)
[2021-06-27] MEDS: CARVEDILOL 12.5 MG TABLET (FP) PEG SCH ×2 (09:04→21:36)
[2021-06-27] MEDS: ASCORBIC ACID 500 MG/5 ML UNIT DOSE CUP GT SCH ×2 (09:04→21:37)
[2021-06-27] MEDS: amLODIPine BESYLATE 5 MG TABLET (FP) PEG SCH (09:04)
[2021-06-27] MEDS: LACTOBACILLUS ACIDOPHILUS 1 TABLET GT SCH ×2 (09:04→21:37)
[2021-06-27] MEDS: COLLAGENASE CLOSTRIDIUM HIST. 30 GRAMS TUBE TP SCH (09:05)
[2021-06-27] MEDS: ATORVASTATIN CA 80 MG TABLET (FP) PEG SCH (21:37)
[2021-06-28] MEDS: CEFTAZIDIME/AVIBACTAM 2.5 GM in DEXTROSE 5%-WATER - 250 ML IVPB SCH ×3 (03:08→20:08)
[2021-06-28] MEDS ORDERED: BENZOCAINE 20 % GEL TUBE MM PRN (08:57)
[2021-06-28] MEDS ORDERED: PT OWN MED DRAWER 7, Y5N ONE ×4 (09:12→20:59)
[2021-06-28] MEDS ORDERED: FAMOTIDINE 20 MG/50 ML IVPB 20 MG/50 ML MG IVPB ONE (09:15)
[2021-06-28] MEDS: LACTOBACILLUS ACIDOPHILUS 1 TABLET GT SCH ×2 (09:25→21:03)
[2021-06-28] MEDS: BACITRACIN 15 GM TUBE TOPICAL OINTMENT TP SCH (09:25)
[2021-06-28] MEDS: MULTIVIT-MINERALS ORAL LIQUID PEG SCH (09:26)
[2021-06-28] MEDS: CARVEDILOL 12.5 MG TABLET (FP) PEG SCH ×2 (09:26→21:03)
[2021-06-28] MEDS: FAMOTIDINE 40 MG/5 ML ORAL SUSPENSION PEG SCH ×2 (09:27→21:33)
[2021-06-28] MEDS: amLODIPine BESYLATE 5 MG TABLET (FP) PEG SCH (09:27)
[2021-06-28] MEDS: LOSARTAN POTASSIUM 50 MG TABLET PEG SCH (09:27)
[2021-06-28] MEDS: COLLAGENASE CLOSTRIDIUM HIST. 30 GRAMS TUBE TP SCH (09:27)
[2021-06-28] MEDS: ASCORBIC ACID 500 MG/5 ML UNIT DOSE CUP GT SCH ×2 (09:28→21:33)
[2021-06-28] MEDS: ACETAMINOPHEN 650 MG/20.3 ML ORAL SOLUTION (CUPS) PEG PRN (09:28)
[2021-06-28] MEDS: AMINO ACIDS/PROTEIN HYDROLYS 30 ML LIQUID.PKT GT SCH (20:08)
[2021-06-28] MEDS: ATORVASTATIN CA 80 MG TABLET (FP) PEG SCH (21:03)
[2021-06-29] MEDS: CEFTAZIDIME/AVIBACTAM 2.5 GM in DEXTROSE 5%-WATER - 250 ML IVPB SCH ×2 (01:37→10:31)
[2021-06-29 06:18] LABS: HEMATOCRIT 27.4 % (32.4-45.2); MCH 27.3 pg (25.7-33.7); MCHC 32.8 g/dl (32.0-36.0); MEAN CELL VOLUME 83.3 fl (80-96); MEAN PLT VOLUME 6.8 fl (7.5-11.1); PLATELET COUNT 337 10^3/uL (134-434); RBC 3.29 M/mm3 (3.60-5.2); RDW 17.2 % (11.6-15.6); WHITE BLOOD COUNT 14.6 K/mm3 (4.0-10.0)
[2021-06-29 06:43] LABS: ALBUMIN 1.8 g/dl (3.4-5.0)
[2021-06-29 06:44] LABS: BLOOD UREA NITROGEN 12.3 mg/dL (7-18)
[2021-06-29 06:47] LABS: CREATININE 0.4 mg/dL (0.55-1.3)
[2021-06-29 06:48] LABS: BILIRUBIN,TOTAL 0.3 mg/dL (0.2-1); TOT PROT 6.4 g/dl (6.4-8.2)
[2021-06-29] MEDS ORDERED: PT OWN MED DRAWER 7, Y5N ONE ×4 (08:47→21:14)
[2021-06-29] MEDS: FAMOTIDINE 40 MG/5 ML ORAL SUSPENSION PEG SCH ×2 (09:14→21:21)
[2021-06-29] MEDS: ASCORBIC ACID 500 MG/5 ML UNIT DOSE CUP GT SCH ×2 (09:14→21:21)
[2021-06-29] MEDS: LACTOBACILLUS ACIDOPHILUS 1 TABLET GT SCH ×2 (09:14→21:21)
[2021-06-29] MEDS: AMINO ACIDS/PROTEIN HYDROLYS 30 ML LIQUID.PKT GT SCH ×2 (09:14→17:20)
[2021-06-29] MEDS: CARVEDILOL 12.5 MG TABLET (FP) PEG SCH ×2 (09:14→21:21)
[2021-06-29] MEDS: amLODIPine BESYLATE 5 MG TABLET (FP) PEG SCH (09:14)
[2021-06-29] MEDS: BACITRACIN 15 GM TUBE TOPICAL OINTMENT TP SCH (09:15)
[2021-06-29] MEDS: LOSARTAN POTASSIUM 50 MG TABLET PEG SCH (10:31)
[2021-06-29] MEDS: MULTIVIT-MINERALS ORAL LIQUID PEG SCH (10:31)
[2021-06-29] MEDS: COLLAGENASE CLOSTRIDIUM HIST. 30 GRAMS TUBE TP SCH (12:05)
[2021-06-29] MEDS: SCOPOLAMINE HYDROBROMIDE 1 PATCH PATCH.TD72 TD SCH (18:09)
[2021-06-29] MEDS: ATORVASTATIN CA 80 MG TABLET (FP) PEG SCH (21:21)
[2021-06-30] MEDS ORDERED: PT OWN MED DRAWER 7, Y5N ONE (09:39)
[2021-06-30] MEDS: AMINO ACIDS/PROTEIN HYDROLYS 30 ML LIQUID.PKT GT SCH ×2 (09:56→17:31)
[2021-06-30] MEDS: CARVEDILOL 12.5 MG TABLET (FP) PEG SCH ×2 (09:59→22:20)
[2021-06-30] MEDS: amLODIPine BESYLATE 5 MG TABLET (FP) PEG SCH (09:59)
[2021-06-30] MEDS: LACTOBACILLUS ACIDOPHILUS 1 TABLET GT SCH ×2 (09:59→22:20)
[2021-06-30] MEDS: LOSARTAN POTASSIUM 50 MG TABLET PEG SCH (09:59)
[2021-06-30] MEDS: BACITRACIN 15 GM TUBE TOPICAL OINTMENT TP SCH (10:00)
[2021-06-30] MEDS: ASCORBIC ACID 500 MG/5 ML UNIT DOSE CUP GT SCH (10:00)
[2021-06-30] MEDS: MULTIVIT-MINERALS ORAL LIQUID PEG SCH (10:00)
[2021-06-30] MEDS: COLLAGENASE CLOSTRIDIUM HIST. 30 GRAMS TUBE TP SCH (10:00)
[2021-06-30] MEDS: FAMOTIDINE 40 MG/5 ML ORAL SUSPENSION PEG SCH (10:00)
[2021-06-30] MEDS: ACETAMINOPHEN 650 MG/20.3 ML ORAL SOLUTION (CUPS) PEG PRN (18:40)
[2021-06-30] MEDS: ATORVASTATIN CA 80 MG TABLET (FP) PEG SCH (22:20)
[2021-07-01] MEDS: ASCORBIC ACID 500 MG/5 ML UNIT DOSE CUP GT SCH ×3 (01:08→22:30)
[2021-07-01] MEDS: FAMOTIDINE 40 MG/5 ML ORAL SUSPENSION PEG SCH ×3 (01:08→22:30)
[2021-07-01] MEDS ORDERED: PT OWN MED DRAWER 7, Y5N ONE ×2 (09:18→22:04)
[2021-07-01] MEDS: LACTOBACILLUS ACIDOPHILUS 1 TABLET GT SCH ×2 (09:24→22:30)
[2021-07-01] MEDS: AMINO ACIDS/PROTEIN HYDROLYS 30 ML LIQUID.PKT GT SCH ×2 (09:24→17:51)
[2021-07-01] MEDS: BACITRACIN 15 GM TUBE TOPICAL OINTMENT TP SCH (09:24)
[2021-07-01] MEDS: CARVEDILOL 12.5 MG TABLET (FP) PEG SCH ×2 (09:25→22:30)
[2021-07-01] MEDS: LOSARTAN POTASSIUM 50 MG TABLET PEG SCH (09:25)
[2021-07-01] MEDS: COLLAGENASE CLOSTRIDIUM HIST. 30 GRAMS TUBE TP SCH (09:25)
[2021-07-01] MEDS: amLODIPine BESYLATE 5 MG TABLET (FP) PEG SCH (09:25)
[2021-07-01] MEDS: MULTIVIT-MINERALS ORAL LIQUID PEG SCH (09:25)
[2021-07-01] MEDS: ATORVASTATIN CA 80 MG TABLET (FP) PEG SCH (22:30)
[2021-07-02] MEDS ORDERED: PT OWN MED DRAWER 7, Y5N ONE ×3 (10:48→21:19)
[2021-07-02] MEDS: MULTIVIT-MINERALS ORAL LIQUID PEG SCH (10:51)
[2021-07-02] MEDS: AMINO ACIDS/PROTEIN HYDROLYS 30 ML LIQUID.PKT GT SCH ×2 (10:51→17:53)
[2021-07-02] MEDS: amLODIPine BESYLATE 5 MG TABLET (FP) PEG SCH (10:51)
[2021-07-02] MEDS: CARVEDILOL 12.5 MG TABLET (FP) PEG SCH ×2 (10:51→21:20)
[2021-07-02] MEDS: LACTOBACILLUS ACIDOPHILUS 1 TABLET GT SCH ×2 (10:51→21:20)
[2021-07-02] MEDS: ASCORBIC ACID 500 MG/5 ML UNIT DOSE CUP GT SCH ×2 (10:51→21:21)
[2021-07-02] MEDS: LOSARTAN POTASSIUM 50 MG TABLET PEG SCH (10:51)
[2021-07-02] MEDS: BACITRACIN 15 GM TUBE TOPICAL OINTMENT TP SCH (10:52)
[2021-07-02] MEDS: COLLAGENASE CLOSTRIDIUM HIST. 30 GRAMS TUBE TP SCH (10:52)
[2021-07-02] MEDS: FAMOTIDINE 40 MG/5 ML ORAL SUSPENSION PEG SCH ×2 (10:52→21:21)
[2021-07-02 10:56] LABS: HEMATOCRIT 24.5 % (32.4-45.2); HEMOGLOBIN 8.1 GM/dL (10.7-15.3); MCH 27.3 pg (25.7-33.7); MCHC 33.2 g/dl (32.0-36.0); MEAN CELL VOLUME 82.2 fl (80-96); MEAN PLT VOLUME 6.9 fl (7.5-11.1); PLATELET COUNT 293 10^3/uL (134-434); RBC 2.98 M/mm3 (3.60-5.2); RDW 17.7 % (11.6-15.6); WHITE BLOOD COUNT 13.6 K/mm3 (4.0-10.0)
[2021-07-02 11:55] LABS: ANISOCYTOSIS 1+; MACROCYTOSIS 1+; PLATELET ESTIMATE NORMAL
[2021-07-02] MEDS: SCOPOLAMINE HYDROBROMIDE 1 PATCH PATCH.TD72 TD SCH (17:53)
[2021-07-02] MEDS: ATORVASTATIN CA 80 MG TABLET (FP) PEG SCH (21:20)
[2021-07-03 09:53] LABS: BLOOD UREA NITROGEN 22.2 mg/dL (7-18)
[2021-07-03 09:56] LABS: CREATININE 0.4 mg/dL (0.55-1.3)
[2021-07-03] MEDS ORDERED: PT OWN MED DRAWER 7, Y5N ONE ×2 (10:34→21:39)
[2021-07-03] MEDS: AMINO ACIDS/PROTEIN HYDROLYS 30 ML LIQUID.PKT GT SCH ×2 (10:54→18:05)
[2021-07-03] MEDS: MULTIVIT-MINERALS ORAL LIQUID PEG SCH (10:55)
[2021-07-03] MEDS: CARVEDILOL 12.5 MG TABLET (FP) PEG SCH ×2 (10:55→21:41)
[2021-07-03] MEDS: ASCORBIC ACID 500 MG/5 ML UNIT DOSE CUP GT SCH ×2 (10:55→21:43)
[2021-07-03] MEDS: amLODIPine BESYLATE 5 MG TABLET (FP) PEG SCH (10:55)
[2021-07-03] MEDS: LACTOBACILLUS ACIDOPHILUS 1 TABLET GT SCH ×2 (10:55→21:41)
[2021-07-03] MEDS: LOSARTAN POTASSIUM 50 MG TABLET PEG SCH (10:55)
[2021-07-03] MEDS: FAMOTIDINE 40 MG/5 ML ORAL SUSPENSION PEG SCH ×2 (10:55→21:44)
[2021-07-03] MEDS: COLLAGENASE CLOSTRIDIUM HIST. 30 GRAMS TUBE TP SCH (10:55)
[2021-07-03] MEDS: BACITRACIN 15 GM TUBE TOPICAL OINTMENT TP SCH (10:55)
[2021-07-03] MEDS: ATORVASTATIN CA 80 MG TABLET (FP) PEG SCH (21:41)
[2021-07-04] MEDS ORDERED: PT OWN MED DRAWER 7, Y5N ONE ×2 (10:36→21:03)
[2021-07-04] MEDS: BACITRACIN 15 GM TUBE TOPICAL OINTMENT TP SCH (10:43)
[2021-07-04] MEDS: CARVEDILOL 12.5 MG TABLET (FP) PEG SCH ×2 (10:43→21:10)
[2021-07-04] MEDS: AMINO ACIDS/PROTEIN HYDROLYS 30 ML LIQUID.PKT GT SCH ×2 (10:43→18:48)
[2021-07-04] MEDS: LACTOBACILLUS ACIDOPHILUS 1 TABLET GT SCH ×2 (10:43→21:10)
[2021-07-04] MEDS: COLLAGENASE CLOSTRIDIUM HIST. 30 GRAMS TUBE TP SCH (10:44)
[2021-07-04] MEDS: ASCORBIC ACID 500 MG/5 ML UNIT DOSE CUP GT SCH ×2 (10:44→21:10)
[2021-07-04] MEDS: MULTIVIT-MINERALS ORAL LIQUID PEG SCH (10:44)
[2021-07-04] MEDS: FAMOTIDINE 40 MG/5 ML ORAL SUSPENSION PEG SCH ×2 (10:44→21:10)
[2021-07-04] MEDS: amLODIPine BESYLATE 5 MG TABLET (FP) PEG SCH (10:44)
[2021-07-04] MEDS: LOSARTAN POTASSIUM 50 MG TABLET PEG SCH (10:44)
[2021-07-04] MEDS: ATORVASTATIN CA 80 MG TABLET (FP) PEG SCH (21:10)
[2021-07-05] MEDS: AMINO ACIDS/PROTEIN HYDROLYS 30 ML LIQUID.PKT GT SCH ×2 (08:50→18:23)
[2021-07-05] MEDS ORDERED: PT OWN MED DRAWER 7, Y5N ONE ×3 (10:23→22:15)
[2021-07-05] MEDS: LACTOBACILLUS ACIDOPHILUS 1 TABLET GT SCH ×2 (10:28→22:19)
[2021-07-05] MEDS: MULTIVIT-MINERALS ORAL LIQUID PEG SCH (10:28)
[2021-07-05] MEDS: ASCORBIC ACID 500 MG/5 ML UNIT DOSE CUP GT SCH ×2 (10:28→22:21)
[2021-07-05] MEDS: amLODIPine BESYLATE 5 MG TABLET (FP) PEG SCH (10:28)
[2021-07-05] MEDS: LOSARTAN POTASSIUM 50 MG TABLET PEG SCH (10:28)
[2021-07-05] MEDS: FAMOTIDINE 40 MG/5 ML ORAL SUSPENSION PEG SCH ×2 (10:29→22:21)
[2021-07-05] MEDS: CARVEDILOL 12.5 MG TABLET (FP) PEG SCH ×2 (10:31→22:19)
[2021-07-05] MEDS: COLLAGENASE CLOSTRIDIUM HIST. 30 GRAMS TUBE TP SCH (11:11)
[2021-07-05 11:16] LABS: BASO % 0.3 % (0-2.0); EOS % 1.1 % (0-4.5); HEMATOCRIT 24.6 % (32.4-45.2); LYMPH % 3.9 % (8-40); MCH 27.1 pg (25.7-33.7); MCHC 32.8 g/dl (32.0-36.0); MEAN CELL VOLUME 82.8 fl (80-96); MEAN PLT VOLUME 7.5 fl (7.5-11.1); MONO % 5.8 % (3.8-10.2); NEUT % 88.9 % (42.8-82.8); PLATELET COUNT 298 10^3/uL (134-434); RBC 2.97 M/mm3 (3.60-5.2); RDW 17.7 % (11.6-15.6); WHITE BLOOD COUNT 18.9 K/mm3 (4.0-10.0)
[2021-07-05] MEDS: BACITRACIN 15 GM TUBE TOPICAL OINTMENT TP SCH (15:53)
[2021-07-05] MEDS: SCOPOLAMINE HYDROBROMIDE 1 PATCH PATCH.TD72 TD SCH (18:22)
[2021-07-05] MEDS: ATORVASTATIN CA 80 MG TABLET (FP) PEG SCH (22:19)
[2021-07-06] MEDS: AMINO ACIDS/PROTEIN HYDROLYS 30 ML LIQUID.PKT GT SCH ×2 (08:45→16:58)
[2021-07-06 09:19] LABS: BASO % 0.3 % (0-2.0); EOS % 1.2 % (0-4.5); HEMATOCRIT 23.5 % (32.4-45.2); HEMOGLOBIN 7.8 GM/dL (10.7-15.3); LYMPH % 6.2 % (8-40); MCH 27.3 pg (25.7-33.7); MEAN CELL VOLUME 82.6 fl (80-96); MEAN PLT VOLUME 7.5 fl (7.5-11.1); MONO % 6.6 % (3.8-10.2); NEUT % 85.7 % (42.8-82.8); PLATELET COUNT 269 10^3/uL (134-434); RBC 2.85 M/mm3 (3.60-5.2); RDW 18.2 % (11.6-15.6); WHITE BLOOD COUNT 12.3 K/mm3 (4.0-10.0)
[2021-07-06] MEDS: FAMOTIDINE 40 MG/5 ML ORAL SUSPENSION PEG SCH ×2 (09:59→22:16)
[2021-07-06] MEDS: MULTIVIT-MINERALS ORAL LIQUID PEG SCH (10:00)
[2021-07-06] MEDS: ASCORBIC ACID 500 MG/5 ML UNIT DOSE CUP GT SCH ×2 (10:00→22:16)
[2021-07-06] MEDS: CARVEDILOL 12.5 MG TABLET (FP) PEG SCH ×2 (10:03→22:16)
[2021-07-06] MEDS: LACTOBACILLUS ACIDOPHILUS 1 TABLET GT SCH ×2 (10:03→22:16)
[2021-07-06] MEDS: LOSARTAN POTASSIUM 50 MG TABLET PEG SCH (10:03)
[2021-07-06] MEDS: BACITRACIN 15 GM TUBE TOPICAL OINTMENT TP SCH (10:04)
[2021-07-06] MEDS: amLODIPine BESYLATE 5 MG TABLET (FP) PEG SCH (10:04)
[2021-07-06] MEDS: COLLAGENASE CLOSTRIDIUM HIST. 30 GRAMS TUBE TP SCH (12:26)
[2021-07-06 15:35] LABS: BASO % 0.4 % (0-2.0); EOS % 1.5 % (0-4.5); HEMATOCRIT 23.8 % (32.4-45.2); HEMOGLOBIN 7.7 GM/dL (10.7-15.3); LYMPH % 7.1 % (8-40); MCHC 32.6 g/dl (32.0-36.0); MEAN CELL VOLUME 82.9 fl (80-96); MEAN PLT VOLUME 7.7 fl (7.5-11.1); MONO % 6.6 % (3.8-10.2); NEUT % 84.4 % (42.8-82.8); PLATELET COUNT 260 10^3/uL (134-434); RBC 2.87 M/mm3 (3.60-5.2); RDW 18.2 % (11.6-15.6); WHITE BLOOD COUNT 11.7 K/mm3 (4.0-10.0)
[2021-07-06] MEDS ORDERED: PT OWN MED DRAWER 7, Y5N ONE (22:09)
[2021-07-06] MEDS: ATORVASTATIN CA 80 MG TABLET (FP) PEG SCH (22:16)
[2021-07-07] MEDS ORDERED: PT OWN MED DRAWER 7, Y5N ONE (11:18)
[2021-07-07] MEDS: CARVEDILOL 12.5 MG TABLET (FP) PEG SCH (11:21)
[2021-07-07] MEDS: LOSARTAN POTASSIUM 50 MG TABLET PEG SCH (11:21)
[2021-07-07] MEDS: LACTOBACILLUS ACIDOPHILUS 1 TABLET GT SCH (11:21)
[2021-07-07] MEDS: amLODIPine BESYLATE 5 MG TABLET (FP) PEG SCH (11:21)
[2021-07-07] MEDS: FAMOTIDINE 40 MG/5 ML ORAL SUSPENSION PEG SCH (11:21)
[2021-07-07] MEDS: COLLAGENASE CLOSTRIDIUM HIST. 30 GRAMS TUBE TP SCH (11:22)
[2021-07-07] MEDS: ASCORBIC ACID 500 MG/5 ML UNIT DOSE CUP GT SCH (11:22)
[2021-07-07] MEDS: MULTIVIT-MINERALS ORAL LIQUID PEG SCH (11:22)
[2021-07-07] MEDS: AMINO ACIDS/PROTEIN HYDROLYS 30 ML LIQUID.PKT GT SCH (11:22)
[2021-07-07] MEDS: BACITRACIN 15 GM TUBE TOPICAL OINTMENT TP SCH (11:22)
[2021-07-07 12:06] VITALS: PULSE 90
[2021-07-07 14:15] VITALS: BP 140/59; TEMP 97.8
== END 2021-07-07 14:40 | DRG 720 ==
LOC: JER 14:38 → JERBED 15:13 → J2W 06-24 17:43 → J5S 07-01 12:21
PROVIDERS: ADMIT Internal Medicine; ATTEND Family Medicine
PROC: 0WH93YZ Insertion of Other Device into Right Pleural Cavity, Percutaneous Approach (ICD-10-PCS; principal; 2021-06-23)
PROC: 5A1955Z Respiratory Ventilation, Greater than 96 Consecutive Hours (ICD-10-PCS; 2021-06-23)
PROC: 0WP9X0Z Removal of Drainage Device from Right Pleural Cavity, External Approach (ICD-10-PCS; 2021-06-27)
PROC: 30233N1 Transfusion of Nonautologous Red Blood Cells into Peripheral Vein, Percutaneous Approach (ICD-10-PCS; 2021-07-06)
DX: A41.59 Other Gram-negative sepsis (principal); Z93.1 Gastrostomy status; N39.0 Urinary tract infection, site not specified; Z93.0 Tracheostomy status; L89.222 Pressure ulcer of left hip, stage 2; I50.9 Heart failure, unspecified; Z99.11 Dependence on respirator [ventilator] status; J96.10 Chronic respiratory failure, unspecified whether with hypoxia or hypercapnia; L89.154 Pressure ulcer of sacral region, stage 4; J93.11 Primary spontaneous pneumothorax; G93.1 Anoxic brain damage, not elsewhere classified; D72.829 Elevated white blood cell count, unspecified; I10 Essential (primary) hypertension; E78.5 Hyperlipidemia, unspecified; D64.9 Anemia, unspecified
CPT/HCPCS: 36415; 36430; 71045-TC-FY; 76604; 76937; 80048; 80053; 81003; 83605; 83735; 84100; 84484; 85025; 85027; 85610; 85730; 86850; 86900; 86901; 86922; 87040; 87070; 87077; 87086; 87186; 87205; 93005; 93010; 94002; 99283-25; 99291; C9803; P9058; U0003; U0005

== ENCOUNTER 2021-08-16 18:42 | Inpatient (IN) | payer OTHER ==
[2021-08-16] MEDS ORDERED: ACETAMINOPHEN 1000 MG/100 ML VIAL IVPB ONE (19:45)
[2021-08-16] MEDS ORDERED: LACTATED RINGERS SOLUTION 1000 ML INFUS.BAG IV ONE (19:45)
[2021-08-16] MEDS ORDERED: ACETAMINOPHEN INJECTION 100 ML IVPB ONE (20:22)
[2021-08-16 21:10] LABS: HEMATOCRIT 29.2 % (32.4-45.2); HEMOGLOBIN 9.2 GM/dL (10.7-15.3); MCHC 31.5 g/dl (32.0-36.0); MEAN CELL VOLUME 82.4 fl (80-96); MEAN PLT VOLUME 7.1 fl (7.5-11.1); PLATELET COUNT 525 10^3/uL (134-434); RBC 3.55 M/mm3 (3.60-5.2); RDW 18.1 % (11.6-15.6); WHITE BLOOD COUNT 18.1 K/mm3 (4.0-10.0)
[2021-08-16 21:20] LABS: INR 1.14 (0.83-1.09)
[2021-08-16 21:22] LABS: ACTIVATED PTT 22.3 SECONDS (25.2-36.5)
[2021-08-16 21:28] LABS: CHLORIDE 100 mmol/L (98-107); SODIUM 132 mmol/L (136-145)
[2021-08-16 21:31] LABS: CALCIUM 9.9 mg/dL (8.5-10.1)
[2021-08-16 21:32] LABS: ALBUMIN 1.9 g/dl (3.4-5.0); BLOOD UREA NITROGEN 34.4 mg/dL (7-18); CO2 22 mmol/L (21-32); GLUCOSE,RANDOM 112 mg/dL (74-106)
[2021-08-16 21:35] LABS: CREATININE 0.9 mg/dL (0.55-1.3); SGOT/AST 56 U/L (15-37); SGPT/ALT 77 U/L (13-61)
[2021-08-16 21:36] LABS: BILIRUBIN,TOTAL 0.7 mg/dL (0.2-1)
[2021-08-16 21:37] LABS: LACTIC ACID 2.6 mmol/L (0.4-2.0); TOT PROT 8.9 g/dl (6.4-8.2)
[2021-08-16 21:38] LABS: ALK PHOS 446 U/L (45-117)
[2021-08-16 21:51] LABS: ANISOCYTOSIS 2+; MACROCYTOSIS 2+; PLATELET ESTIMATE INCREASED
[2021-08-16 21:54] LABS: ANION GAP 10 MMOL/L (8-16)
[2021-08-16 23:05] LABS: CALCIUM 10.1 mg/dL (8.5-10.1)
[2021-08-16 23:06] LABS: BLOOD UREA NITROGEN 34.5 mg/dL (7-18)
[2021-08-16 23:09] LABS: CREATININE 0.8 mg/dL (0.55-1.3)
[2021-08-17] MEDS ORDERED: VANCOMYCIN 1 GM in D5W (PRE-DOCKED) 1,000 MG/250 ML IVPB ONE (00:12)
[2021-08-17] MEDS ORDERED: PIPERACILLIN/TAZOB 4.5 GM 4.5 GM in DEXTROSE 5%-WATER 100 ML IVPB ONE (00:13)
[2021-08-17] MEDS ORDERED: PIPERACILLIN/TAZOB 4.5 GM 4.5 GM/100 ML BAG IVPB ONE (00:56)
[2021-08-17] MEDS ORDERED: VANCOMYCIN 1 GRAM (PRE-DOCKED) 1,000 MG/250 ML BAG IVPB ONE (00:57)
[2021-08-17 05:03] LABS: LACTIC ACID 2.2 mmol/L (0.4-2.0)
[2021-08-17] MEDS ORDERED: PIPERACILLIN/TAZOB 3.375 GM 3.375 GM in DEXTROSE 5%-WATER - 50 ML IVPB SCH (10:30)
[2021-08-17] MEDS ORDERED: BENZOCAINE 20 % GEL TUBE MM PRN (11:58)
[2021-08-17] MEDS ORDERED: APIXABAN 2.5 MG TABLET PO SCH (12:00)
[2021-08-17] MEDS ORDERED: LOSARTAN POTASSIUM 25 MG TABLET GT SCH (12:00)
[2021-08-17] MEDS ORDERED: ZINC OXIDE TP SCH (12:15)
[2021-08-17] MEDS ORDERED: MENTHOL TP SCH (12:15)
[2021-08-17] MEDS ORDERED: OMEPRAZOLE GT SCH (12:15)
[2021-08-17] MEDS ORDERED: PATIENT'S OWN MEDICATION (NON-FORMULARY) (Aa/Hydrolyzed Collagen, Whey [Lps 15-30 Liquid] GT SCH (12:15)
[2021-08-17] MEDS ORDERED: [UNRECOGNIZED DRUG - OTHER] TP SCH (12:15)
[2021-08-17 13:55] LABS: EPI CELLS 7 /uL (0-25.1); HYALINE CASTS 2 /uL (0-3.1); URINE APPEARANCE TURBID; URINE BACTERIA 1450 /uL (0-1359); URINE BILIRUBIN NEGATIVE (NEGATIVE); URINE COLOR YELLOW; URINE GLUCOSE (UA) NEGATIVE (NEGATIVE); URINE KETONE NEGATIVE (NEGATIVE); URINE LEUK ESTERASE 3+ (NEGATIVE); URINE NITRITE NEGATIVE (NEGATIVE); URINE PROTEIN 1+ (NEGATIVE); URINE UROBILINOGEN 0.2 mg/dL (0.2-1.0); URINE WBC 4422 /uL (0-25.8)
[2021-08-17 13:59] LABS: URINE RBC 23.4 /uL (0-23.9)
[2021-08-17] MEDS ORDERED: SODIUM ZIRCONIUM CYCLOSILICATE (LOKELMA) 5 GM PACKET PO SCH (15:30)
[2021-08-17] MEDS ORDERED: SODIUM CHLORIDE 0.45% 1,000 ML IV SCH (15:30)
[2021-08-17] MEDS ORDERED: PIPERACILLIN/TAZOBACTAM 3.375 GM VIAL IVPB ONE (18:19)
[2021-08-17] MEDS ORDERED: DEXTROSE 5%-WATER - 50 ML IVPB ONE (18:19)
[2021-08-17] MEDS: PIPERACILLIN/TAZOB 3.375 GM 3.375 GM in DEXTROSE 5%-WATER - 50 ML IVPB SCH (19:19)
[2021-08-17] MEDS: APIXABAN 2.5 MG TABLET GT SCH (22:25)
[2021-08-17] MEDS: ATORVASTATIN CA 80 MG TABLET (FP) GT SCH (22:26)
[2021-08-17] MEDS: CARVEDILOL 25 MG TABLET (FP) GT SCH (22:26)
[2021-08-17] MEDS: ASCORBIC ACID 500 MG TABLET (FP) GT SCH (22:26)
[2021-08-17] MEDS: LACTOBACILLUS ACIDOPHILUS 1 TABLET GT SCH (22:26)
[2021-08-18] MEDS ORDERED: PIPERACILLIN/TAZOBACTAM 3.375 GM VIAL IVPB ONE ×3 (01:04→17:22)
[2021-08-18] MEDS ORDERED: DEXTROSE 5%-WATER - 50 ML IVPB ONE ×3 (01:04→17:22)
[2021-08-18] MEDS: PIPERACILLIN/TAZOB 3.375 GM 3.375 GM in DEXTROSE 5%-WATER - 50 ML IVPB SCH ×3 (01:45→17:43)
[2021-08-18 08:34] LABS: HEMATOCRIT 24.9 % (32.4-45.2); HEMOGLOBIN 8.2 GM/dL (10.7-15.3); MCHC 32.8 g/dl (32.0-36.0); MEAN CELL VOLUME 82.2 fl (80-96); PLATELET COUNT 506 10^3/uL (134-434); RBC 3.03 M/mm3 (3.60-5.2); RDW 18.1 % (11.6-15.6)
[2021-08-18 09:14] LABS: CALCIUM 9.3 mg/dL (8.5-10.1)
[2021-08-18 09:15] LABS: ALBUMIN 1.8 g/dl (3.4-5.0); BLOOD UREA NITROGEN 34.6 mg/dL (7-18)
[2021-08-18 09:18] LABS: CREATININE 0.9 mg/dL (0.55-1.3)
[2021-08-18 09:19] LABS: BILIRUBIN,TOTAL 0.8 mg/dL (0.2-1)
[2021-08-18 09:20] LABS: TOT PROT 7.6 g/dl (6.4-8.2)
[2021-08-18 10:02] LABS: ANISOCYTOSIS 0; HELMET CELLS 0; HOWELL-JOLLY BODIES 0; MACROCYTOSIS 0; OVALOCYTE 0; PLATELET ESTIMATE INCREASED; ROULEAU 0; SICKELED CELLS 0; TARGET CELLS 0; TEAR DROP CELLS 0; TOXIC GRANULATION 0
[2021-08-18] MEDS: ASCORBIC ACID 500 MG TABLET (FP) GT SCH ×2 (12:13→22:56)
[2021-08-18] MEDS: LACTOBACILLUS ACIDOPHILUS 1 TABLET GT SCH ×2 (12:13→22:56)
[2021-08-18] MEDS: CARVEDILOL 25 MG TABLET (FP) GT SCH (12:14)
[2021-08-18] MEDS: LOSARTAN POTASSIUM 50 MG TABLET GT SCH (12:14)
[2021-08-18] MEDS: APIXABAN 2.5 MG TABLET GT SCH ×2 (12:14→22:56)
[2021-08-18 16:17] VITALS: BMI 20.4
[2021-08-18] MEDS: ATORVASTATIN CA 80 MG TABLET (FP) GT SCH (22:56)
[2021-08-19] MEDS: CARVEDILOL 25 MG TABLET (FP) GT SCH ×3 (00:13→23:26)
[2021-08-19] MEDS ORDERED: PIPERACILLIN/TAZOBACTAM 3.375 GM VIAL IVPB ONE ×2 (01:01→09:59)
[2021-08-19] MEDS ORDERED: DEXTROSE 5%-WATER - 50 ML IVPB ONE ×2 (01:01→09:59)
[2021-08-19] MEDS: PIPERACILLIN/TAZOB 3.375 GM 3.375 GM in DEXTROSE 5%-WATER - 50 ML IVPB SCH ×2 (01:51→10:06)
[2021-08-19] MEDS: AMINO ACIDS/PROTEIN HYDROLYS 30 ML LIQUID.PKT PEG SCH (09:00)
[2021-08-19] MEDS ORDERED: PT OWN MED DRAWER 7, Y5N ONE ×2 (09:59→18:24)
[2021-08-19] MEDS ORDERED: MULTIVITAMINS (DAILY MVI) TABLET (FP) PO SCH (10:00)
[2021-08-19] MEDS: MULTIVIT-MINERALS ORAL LIQUID GT SCH (10:06)
[2021-08-19] MEDS: APIXABAN 2.5 MG TABLET GT SCH ×2 (10:07→23:26)
[2021-08-19] MEDS: LACTOBACILLUS ACIDOPHILUS 1 TABLET GT SCH ×2 (10:07→23:26)
[2021-08-19] MEDS: LOSARTAN POTASSIUM 50 MG TABLET GT SCH (10:07)
[2021-08-19] MEDS: ASCORBIC ACID 500 MG TABLET (FP) GT SCH ×2 (10:07→23:26)
[2021-08-19 11:41] LABS: BASO % 0.7 % (0-2.0); EOS % 1.9 % (0-4.5); LYMPH % 4.4 % (8-40); MCH 26.5 pg (25.7-33.7); MCHC 31.7 g/dl (32.0-36.0); MEAN CELL VOLUME 83.5 fl (80-96); MEAN PLT VOLUME 6.8 fl (7.5-11.1); MONO % 5.8 % (3.8-10.2); NEUT % 87.2 % (42.8-82.8); PLATELET COUNT 416 10^3/uL (134-434); RBC 2.52 M/mm3 (3.60-5.2); RDW 18.9 % (11.6-15.6); WHITE BLOOD COUNT 12.1 K/mm3 (4.0-10.0)
[2021-08-19 11:55] LABS: HEMOGLOBIN 6.7 GM/dL (10.7-15.3)
[2021-08-19 11:56] LABS: CHLORIDE 85 mmol/L (98-107); SODIUM 128 mmol/L (136-145)
[2021-08-19 12:03] LABS: ANION GAP 22 MMOL/L (8-16); CO2 21 mmol/L (21-32)
[2021-08-19 12:04] LABS: BLOOD UREA NITROGEN 35.4 mg/dL (7-18)
[2021-08-19 12:06] LABS: CREATININE 1.3 mg/dL (0.55-1.3)
[2021-08-19 12:11] LABS: CALCIUM 7.7 mg/dL (8.5-10.1); GLUCOSE,RANDOM 700 mg/dL (74-106)
[2021-08-19 16:58] LABS: BASO % 0.3 % (0-2.0); EOS % 1.8 % (0-4.5); HEMATOCRIT 23.8 % (32.4-45.2); HEMOGLOBIN 7.7 GM/dL (10.7-15.3); LYMPH % 4.9 % (8-40); MCH 26.5 pg (25.7-33.7); MCHC 32.3 g/dl (32.0-36.0); MEAN CELL VOLUME 81.9 fl (80-96); MEAN PLT VOLUME 6.9 fl (7.5-11.1); MONO % 6.3 % (3.8-10.2); NEUT % 86.7 % (42.8-82.8); PLATELET COUNT 452 10^3/uL (134-434); RBC 2.91 M/mm3 (3.60-5.2); RDW 18.7 % (11.6-15.6); WHITE BLOOD COUNT 13.9 K/mm3 (4.0-10.0)
[2021-08-19 17:18] LABS: BLOOD UREA NITROGEN 40.5 mg/dL (7-18)
[2021-08-19 17:21] LABS: CREATININE 1.1 mg/dL (0.55-1.3)
[2021-08-19 17:31] LABS: CALCIUM 9.1 mg/dL (8.5-10.1)
[2021-08-19] MEDS: AMPICILLIN - 1 GM in SODIUM CHLORIDE 100 ML IVPB SCH (18:33)
[2021-08-19] MEDS: ATORVASTATIN CA 80 MG TABLET (FP) GT SCH (23:25)
[2021-08-20] MEDS ORDERED: PT OWN MED DRAWER 7, Y5N ONE ×3 (01:36→16:42)
[2021-08-20] MEDS: AMPICILLIN - 1 GM in SODIUM CHLORIDE 100 ML IVPB SCH ×2 (01:49→11:35)
[2021-08-20 08:11] LABS: HEMATOCRIT 23.3 % (32.4-45.2); HEMOGLOBIN 7.5 GM/dL (10.7-15.3); MCH 26.7 pg (25.7-33.7); MCHC 32.2 g/dl (32.0-36.0); MEAN CELL VOLUME 82.8 fl (80-96); MEAN PLT VOLUME 7.1 fl (7.5-11.1); PLATELET COUNT 455 10^3/uL (134-434); RBC 2.82 M/mm3 (3.60-5.2); RDW 18.5 % (11.6-15.6); WHITE BLOOD COUNT 18.2 K/mm3 (4.0-10.0)
[2021-08-20 08:48] LABS: BLOOD UREA NITROGEN 33.2 mg/dL (7-18); CALCIUM 9.2 mg/dL (8.5-10.1)
[2021-08-20 08:49] LABS: MAGNESIUM 2.7 mg/dL (1.8-2.4)
[2021-08-20 08:51] LABS: CREATININE 0.9 mg/dL (0.55-1.3)
[2021-08-20 09:10] LABS: ANISOCYTOSIS 0; HELMET CELLS 0; HOWELL-JOLLY BODIES 0; MACROCYTOSIS 0; OVALOCYTE 0; PLATELET ESTIMATE NORMAL; ROULEAU 0; SICKELED CELLS 0; TARGET CELLS 0; TEAR DROP CELLS 0; TOXIC GRANULATION 0
[2021-08-20] MEDS: AMINO ACIDS/PROTEIN HYDROLYS 30 ML LIQUID.PKT PEG SCH (10:27)
[2021-08-20] MEDS: MULTIVIT-MINERALS ORAL LIQUID GT SCH (10:27)
[2021-08-20] MEDS: ASCORBIC ACID 500 MG TABLET (FP) GT SCH ×2 (10:29→22:24)
[2021-08-20] MEDS: LACTOBACILLUS ACIDOPHILUS 1 TABLET GT SCH ×2 (10:29→22:24)
[2021-08-20] MEDS: LOSARTAN POTASSIUM 50 MG TABLET GT SCH (10:29)
[2021-08-20] MEDS: APIXABAN 2.5 MG TABLET GT SCH ×2 (10:29→22:25)
[2021-08-20] MEDS: CARVEDILOL 25 MG TABLET (FP) GT SCH ×2 (10:29→21:49)
[2021-08-20] MEDS: LINEZOLID 600 MG PREMIX BAG 600 MG/300 ML BAG IVPB SCH (18:12)
[2021-08-20] MEDS: ATORVASTATIN CA 80 MG TABLET (FP) GT SCH (22:25)
[2021-08-21] MEDS: LINEZOLID 600 MG PREMIX BAG 600 MG/300 ML BAG IVPB SCH ×2 (04:20→18:46)
[2021-08-21] MEDS ORDERED: PT OWN MED DRAWER 7, Y5N ONE ×2 (10:09→18:37)
[2021-08-21] MEDS: MULTIVIT-MINERALS ORAL LIQUID GT SCH (10:13)
[2021-08-21] MEDS: LOSARTAN POTASSIUM 50 MG TABLET GT SCH (10:13)
[2021-08-21] MEDS: APIXABAN 2.5 MG TABLET GT SCH ×2 (10:13→22:05)
[2021-08-21] MEDS: CARVEDILOL 25 MG TABLET (FP) GT SCH ×2 (10:13→22:05)
[2021-08-21] MEDS: ASCORBIC ACID 500 MG TABLET (FP) GT SCH ×2 (10:13→22:05)
[2021-08-21] MEDS: AMINO ACIDS/PROTEIN HYDROLYS 30 ML LIQUID.PKT PEG SCH (10:13)
[2021-08-21] MEDS: LACTOBACILLUS ACIDOPHILUS 1 TABLET GT SCH ×2 (10:13→22:05)
[2021-08-21 12:29] LABS: BASO % 0.5 % (0-2.0); EOS % 1.9 % (0-4.5); HEMATOCRIT 23.4 % (32.4-45.2); HEMOGLOBIN 7.6 GM/dL (10.7-15.3); LYMPH % 5.8 % (8-40); MCH 26.8 pg (25.7-33.7); MCHC 32.4 g/dl (32.0-36.0); MEAN CELL VOLUME 82.5 fl (80-96); MEAN PLT VOLUME 6.7 fl (7.5-11.1); MONO % 6.1 % (3.8-10.2); NEUT % 85.7 % (42.8-82.8); PLATELET COUNT 435 10^3/uL (134-434); RBC 2.83 M/mm3 (3.60-5.2); RDW 18.9 % (11.6-15.6); WHITE BLOOD COUNT 16.9 K/mm3 (4.0-10.0)
[2021-08-21 13:07] LABS: CREATININE 0.7 mg/dL (0.55-1.3)
[2021-08-21 13:09] LABS: ALBUMIN 1.9 g/dl (3.4-5.0)
[2021-08-21 13:10] LABS: BLOOD UREA NITROGEN 29.9 mg/dL (7-18)
[2021-08-21 13:11] LABS: MAGNESIUM 2.1 mg/dL (1.8-2.4)
[2021-08-21 13:14] LABS: TOT PROT 7.5 g/dl (6.4-8.2)
[2021-08-21 13:17] LABS: BILIRUBIN,TOTAL 0.2 mg/dL (0.2-1)
[2021-08-21] MEDS: ATORVASTATIN CA 80 MG TABLET (FP) GT SCH (22:05)
[2021-08-22] MEDS: LINEZOLID 600 MG PREMIX BAG 600 MG/300 ML BAG IVPB SCH ×2 (04:19→18:18)
[2021-08-22 09:24] LABS: HEMATOCRIT 23.6 % (32.4-45.2); HEMOGLOBIN 7.6 GM/dL (10.7-15.3); MCH 26.5 pg (25.7-33.7); MCHC 32.3 g/dl (32.0-36.0); PLATELET COUNT 471 10^3/uL (134-434); RBC 2.87 M/mm3 (3.60-5.2); RDW 18.2 % (11.6-15.6); WHITE BLOOD COUNT 21.7 K/mm3 (4.0-10.0)
[2021-08-22 09:56] LABS: CALCIUM 9.4 mg/dL (8.5-10.1)
[2021-08-22 09:57] LABS: BLOOD UREA NITROGEN 26.2 mg/dL (7-18); MAGNESIUM 2.4 mg/dL (1.8-2.4)
[2021-08-22 10:00] LABS: CREATININE 0.6 mg/dL (0.55-1.3)
[2021-08-22 10:01] LABS: BILIRUBIN,TOTAL 0.3 mg/dL (0.2-1); TOT PROT 7.6 g/dl (6.4-8.2)
[2021-08-22] MEDS ORDERED: PT OWN MED DRAWER 7, Y5N ONE ×2 (10:30→16:17)
[2021-08-22] MEDS: AMINO ACIDS/PROTEIN HYDROLYS 30 ML LIQUID.PKT PEG SCH (10:33)
[2021-08-22] MEDS: APIXABAN 2.5 MG TABLET GT SCH ×2 (10:33→22:45)
[2021-08-22] MEDS: LOSARTAN POTASSIUM 50 MG TABLET GT SCH (10:33)
[2021-08-22] MEDS: CARVEDILOL 25 MG TABLET (FP) GT SCH ×2 (10:33→22:45)
[2021-08-22] MEDS: ASCORBIC ACID 500 MG TABLET (FP) GT SCH ×2 (10:33→22:45)
[2021-08-22] MEDS: MULTIVIT-MINERALS ORAL LIQUID GT SCH (10:33)
[2021-08-22] MEDS: LACTOBACILLUS ACIDOPHILUS 1 TABLET GT SCH ×2 (10:33→22:45)
[2021-08-22 10:35] LABS: ANISOCYTOSIS 1+; MACROCYTOSIS 0; PLATELET ESTIMATE INCREASED
[2021-08-22] MEDS: ATORVASTATIN CA 80 MG TABLET (FP) GT SCH (22:45)
[2021-08-23] MEDS ORDERED: PT OWN MED DRAWER 7, Y5N ONE ×2 (04:06→11:02)
[2021-08-23] MEDS: LINEZOLID 600 MG PREMIX BAG 600 MG/300 ML BAG IVPB SCH ×2 (04:07→16:46)
[2021-08-23 09:01] LABS: BASO % 0.4 % (0-2.0); EOS % 1.8 % (0-4.5); HEMATOCRIT 24.3 % (32.4-45.2); HEMOGLOBIN 7.8 GM/dL (10.7-15.3); LYMPH % 6.5 % (8-40); MCH 26.3 pg (25.7-33.7); MCHC 31.9 g/dl (32.0-36.0); MEAN CELL VOLUME 82.3 fl (80-96); MEAN PLT VOLUME 7.1 fl (7.5-11.1); MONO % 5.7 % (3.8-10.2); NEUT % 85.6 % (42.8-82.8); PLATELET COUNT 452 10^3/uL (134-434); RBC 2.96 M/mm3 (3.60-5.2); RDW 18.9 % (11.6-15.6); WHITE BLOOD COUNT 17.8 K/mm3 (4.0-10.0)
[2021-08-23 09:27] LABS: BLOOD UREA NITROGEN 26.4 mg/dL (7-18)
[2021-08-23 09:28] LABS: CALCIUM 9.5 mg/dL (8.5-10.1); MAGNESIUM 2.2 mg/dL (1.8-2.4)
[2021-08-23 09:31] LABS: CREATININE 0.6 mg/dL (0.55-1.3)
[2021-08-23 09:32] LABS: BILIRUBIN,TOTAL 0.3 mg/dL (0.2-1); TOT PROT 7.4 g/dl (6.4-8.2)
[2021-08-23] MEDS: AMINO ACIDS/PROTEIN HYDROLYS 30 ML LIQUID.PKT PEG SCH ×2 (11:28→16:46)
[2021-08-23] MEDS: LACTOBACILLUS ACIDOPHILUS 1 TABLET GT SCH ×2 (11:29→21:40)
[2021-08-23] MEDS: LOSARTAN POTASSIUM 50 MG TABLET GT SCH (11:29)
[2021-08-23] MEDS: ASCORBIC ACID 500 MG TABLET (FP) GT SCH ×2 (11:29→21:40)
[2021-08-23] MEDS: MULTIVIT-MINERALS ORAL LIQUID GT SCH (11:29)
[2021-08-23] MEDS: CARVEDILOL 25 MG TABLET (FP) GT SCH ×2 (11:29→21:40)
[2021-08-23] MEDS: APIXABAN 2.5 MG TABLET GT SCH ×2 (11:30→21:40)
[2021-08-23] MEDS: ATORVASTATIN CA 80 MG TABLET (FP) GT SCH (21:40)
[2021-08-24] MEDS ORDERED: PT OWN MED DRAWER 7, Y5N ONE ×2 (05:01→08:53)
[2021-08-24] MEDS: LINEZOLID 600 MG PREMIX BAG 600 MG/300 ML BAG IVPB SCH (05:02)
[2021-08-24] MEDS: AMINO ACIDS/PROTEIN HYDROLYS 30 ML LIQUID.PKT PEG SCH ×2 (08:58→18:32)
[2021-08-24] MEDS: LACTOBACILLUS ACIDOPHILUS 1 TABLET GT SCH ×2 (09:00→21:35)
[2021-08-24] MEDS: MULTIVIT-MINERALS ORAL LIQUID GT SCH (09:00)
[2021-08-24] MEDS: CARVEDILOL 25 MG TABLET (FP) GT SCH ×2 (09:00→21:35)
[2021-08-24] MEDS: ASCORBIC ACID 500 MG TABLET (FP) GT SCH ×2 (09:00→21:35)
[2021-08-24] MEDS: LOSARTAN POTASSIUM 50 MG TABLET GT SCH (09:00)
[2021-08-24] MEDS: APIXABAN 2.5 MG TABLET GT SCH ×2 (09:00→21:35)
[2021-08-24] MEDS: ATORVASTATIN CA 80 MG TABLET (FP) GT SCH (21:35)
[2021-08-25 09:30] LABS: BASO % 0.4 % (0-2.0); EOS % 1.8 % (0-4.5); HEMATOCRIT 22.9 % (32.4-45.2); HEMOGLOBIN 7.3 GM/dL (10.7-15.3); LYMPH % 6.9 % (8-40); MCH 26.5 pg (25.7-33.7); MEAN PLT VOLUME 7.1 fl (7.5-11.1); MONO % 4.1 % (3.8-10.2); NEUT % 86.8 % (42.8-82.8); PLATELET COUNT 422 10^3/uL (134-434); RBC 2.76 M/mm3 (3.60-5.2); RDW 19.2 % (11.6-15.6); WHITE BLOOD COUNT 13.9 K/mm3 (4.0-10.0)
[2021-08-25 09:55] LABS: ALBUMIN 1.9 g/dl (3.4-5.0); CALCIUM 9.2 mg/dL (8.5-10.1)
[2021-08-25 09:58] LABS: CREATININE 0.7 mg/dL (0.55-1.3)
[2021-08-25 10:00] LABS: BILIRUBIN,TOTAL 0.3 mg/dL (0.2-1); TOT PROT 7.5 g/dl (6.4-8.2)
[2021-08-25] MEDS ORDERED: PT OWN MED DRAWER 7, Y5N ONE (10:47)
[2021-08-25] MEDS: ASCORBIC ACID 500 MG TABLET (FP) GT SCH ×2 (10:52→21:22)
[2021-08-25] MEDS: CARVEDILOL 25 MG TABLET (FP) GT SCH ×2 (10:52→21:22)
[2021-08-25] MEDS: MULTIVIT-MINERALS ORAL LIQUID GT SCH (10:52)
[2021-08-25] MEDS: LOSARTAN POTASSIUM 50 MG TABLET GT SCH (10:52)
[2021-08-25] MEDS: APIXABAN 2.5 MG TABLET GT SCH ×2 (10:53→21:23)
[2021-08-25] MEDS: AMINO ACIDS/PROTEIN HYDROLYS 30 ML LIQUID.PKT PEG SCH ×2 (10:53→18:28)
[2021-08-25] MEDS: LACTOBACILLUS ACIDOPHILUS 1 TABLET GT SCH ×2 (10:53→21:23)
[2021-08-25] MEDS: ATORVASTATIN CA 80 MG TABLET (FP) GT SCH (21:22)
[2021-08-26 08:17] LABS: BASO % 0.5 % (0-2.0); EOS % 1.9 % (0-4.5); HEMATOCRIT 24.4 % (32.4-45.2); HEMOGLOBIN 8.2 GM/dL (10.7-15.3); LYMPH % 7.3 % (8-40); MCH 27.7 pg (25.7-33.7); MCHC 33.5 g/dl (32.0-36.0); MEAN CELL VOLUME 82.6 fl (80-96); MEAN PLT VOLUME 6.9 fl (7.5-11.1); MONO % 5.1 % (3.8-10.2); NEUT % 85.2 % (42.8-82.8); PLATELET COUNT 407 10^3/uL (134-434); RBC 2.96 M/mm3 (3.60-5.2); RDW 18.3 % (11.6-15.6); WHITE BLOOD COUNT 13.3 K/mm3 (4.0-10.0)
[2021-08-26 08:44] LABS: BLOOD UREA NITROGEN 31.6 mg/dL (7-18); CALCIUM 9.4 mg/dL (8.5-10.1)
[2021-08-26 08:48] LABS: CREATININE 0.6 mg/dL (0.55-1.3)
[2021-08-26] MEDS ORDERED: PT OWN MED DRAWER 7, Y5N ONE (11:33)
[2021-08-26] MEDS: APIXABAN 2.5 MG TABLET GT SCH ×2 (12:05→21:40)
[2021-08-26] MEDS: CARVEDILOL 25 MG TABLET (FP) GT SCH ×2 (12:05→21:39)
[2021-08-26] MEDS: LOSARTAN POTASSIUM 50 MG TABLET GT SCH (12:06)
[2021-08-26] MEDS: LACTOBACILLUS ACIDOPHILUS 1 TABLET GT SCH ×2 (12:06→21:40)
[2021-08-26] MEDS: ASCORBIC ACID 500 MG TABLET (FP) GT SCH ×2 (12:06→21:40)
[2021-08-26] MEDS: MULTIVIT-MINERALS ORAL LIQUID GT SCH (12:06)
[2021-08-26] MEDS: AMINO ACIDS/PROTEIN HYDROLYS 30 ML LIQUID.PKT PEG SCH ×2 (12:06→19:00)
[2021-08-26] MEDS: ATORVASTATIN CA 80 MG TABLET (FP) GT SCH (21:39)
[2021-08-27] MEDS: AMINO ACIDS/PROTEIN HYDROLYS 30 ML LIQUID.PKT PEG SCH ×2 (07:45→17:52)
[2021-08-27] MEDS ORDERED: PT OWN MED DRAWER 7, Y5N ONE (09:53)
[2021-08-27] MEDS: CARVEDILOL 25 MG TABLET (FP) GT SCH (10:21)
[2021-08-27] MEDS: LACTOBACILLUS ACIDOPHILUS 1 TABLET GT SCH (10:21)
[2021-08-27] MEDS: MULTIVIT-MINERALS ORAL LIQUID GT SCH (10:21)
[2021-08-27] MEDS: APIXABAN 2.5 MG TABLET GT SCH (10:21)
[2021-08-27] MEDS: LOSARTAN POTASSIUM 50 MG TABLET GT SCH (10:21)
[2021-08-27] MEDS: ASCORBIC ACID 500 MG TABLET (FP) GT SCH (10:21)
[2021-08-27 10:38] VITALS: TEMP 99
[2021-08-27 17:53] VITALS: BP 115/69; PULSE 78
== END 2021-08-27 17:58 | DRG 463 ==
LOC: JER 18:42 → JERBED 08-17 00:55 → J5S 08-17 16:28
PROVIDERS: ADMIT Internal Medicine; ATTEND Family Medicine
PROC: 5A1955Z Respiratory Ventilation, Greater than 96 Consecutive Hours (ICD-10-PCS; principal; 2021-08-16)
DX: N39.0 Urinary tract infection, site not specified (principal); G93.1 Anoxic brain damage, not elsewhere classified; J90 Pleural effusion, not elsewhere classified; J96.10 Chronic respiratory failure, unspecified whether with hypoxia or hypercapnia; R00.0 Tachycardia, unspecified; R78.81 Bacteremia; E87.2 Acidosis; I42.9 Cardiomyopathy, unspecified; I31.3 Pericardial effusion (noninflammatory); D25.9 Leiomyoma of uterus, unspecified; Q38.2 Macroglossia; R77.8 Other specified abnormalities of plasma proteins; N93.9 Abnormal uterine and vaginal bleeding, unspecified; R94.5 Abnormal results of liver function studies; D64.9 Anemia, unspecified; I42.8 Other cardiomyopathies; R18.8 Other ascites; I11.0 Hypertensive heart disease with heart failure; I50.9 Heart failure, unspecified; E87.5 Hyperkalemia; L89.154 Pressure ulcer of sacral region, stage 4; Z93.1 Gastrostomy status; Z99.11 Dependence on respirator [ventilator] status; Z22.322 Carrier or suspected carrier of Methicillin resistant Staphylococcus aureus
CPT/HCPCS: 36415; 36430; 71045-TC-FY; 74018-TC-FY; 76700-TC; 80048; 80053; 81003; 82550; 82962; 82977; 83540; 83550; 83605; 83735; 84484; 85025; 85610; 85730; 86850; 86900; 86901; 86922; 87040; 87086; 87186; 87804; 93005; 93010; 94002; 99285-25; C9803; J0131; P9058; U0003; U0005

== ENCOUNTER 2022-03-08 10:21 | Inpatient (IN) | payer OTHER ==
[2022-03-08 11:28] LABS: HEMATOCRIT 21.7 % (32.4-45.2); MCH 26.5 pg (25.7-33.7); MCHC 30.6 g/dl (32.0-36.0); MEAN CELL VOLUME 86.6 fl (80-96); MEAN PLT VOLUME 10.4 fl (7.5-11.1); PLATELET COUNT 261 10^3/uL (134-434); RBC 2.51 M/mm3 (3.60-5.2); RDW 17.8 % (11.6-15.6); WHITE BLOOD COUNT 19.6 K/mm3 (4.0-10.0)
[2022-03-08 11:31] LABS: HEMOGLOBIN 6.7 GM/dL (10.7-15.3)
[2022-03-08 11:36] LABS: INR 1.31 (0.83-1.09); PROTHROMBIN TIME (PATIENT) 15.1 SEC (9.7-13.0)
[2022-03-08 11:39] LABS: ACTIVATED PTT 32.5 SECONDS (25.2-36.5)
[2022-03-08 11:53] LABS: CHLORIDE 108 mmol/L (98-107); SODIUM 145 mmol/L (136-145)
[2022-03-08 11:56] LABS: ALBUMIN 2.3 g/dl (3.4-5.0); CALCIUM 9.9 mg/dL (8.5-10.1)
[2022-03-08 11:57] LABS: ANION GAP 9 MMOL/L (8-16); CO2 28 mmol/L (21-32); GLUCOSE,RANDOM 285 mg/dL (74-106)
[2022-03-08 11:59] LABS: CREATININE 3.6 mg/dL (0.55-1.3)
[2022-03-08 12:00] LABS: BILIRUBIN,TOTAL 0.5 mg/dL (0.2-1); SGOT/AST 57 U/L (15-37); SGPT/ALT 58 U/L (13-61); TOT PROT 7.8 g/dl (6.4-8.2)
[2022-03-08 12:02] LABS: ALK PHOS 86 U/L (45-117)
[2022-03-08 12:04] LABS: BLOOD UREA NITROGEN 164.4 mg/dL (7-18)
[2022-03-08] MEDS ORDERED: LACTATED RINGERS SOLUTION 1000 ML INFUS.BAG IV ONE ×2 (12:06→13:10)
[2022-03-08 12:14] LABS: ANISOCYTOSIS 0; MACROCYTOSIS 0
[2022-03-08] MEDS ORDERED: VANCOMYCIN 1 GM in D5W (PRE-DOCKED) 1,000 MG/250 ML IVPB ONE (12:36)
[2022-03-08] MEDS ORDERED: CEFEPIME HCL/D5W 1 GM/50 ML BAG IVPB ONE (12:36)
[2022-03-08] MEDS ORDERED: VANCOMYCIN 1 GRAM (PRE-DOCKED) 1,000 MG/250 ML BAG IVPB ONE (13:08)
[2022-03-08] MEDS ORDERED: CEFEPIME 1 GM/100 ML BAG IVPB ONE (13:09)
[2022-03-08 13:55] LABS: EPI CELLS 19 /uL (0-25.1); HYALINE CASTS 3 /uL (0-3.1); URINE APPEARANCE TURBID; URINE BACTERIA >9,000 /uL (0-1359); URINE BILIRUBIN NEGATIVE (NEGATIVE); URINE COLOR YELLOW; URINE GLUCOSE (UA) NEGATIVE (NEGATIVE); URINE KETONE NEGATIVE (NEGATIVE); URINE LEUK ESTERASE 3+ (NEGATIVE); URINE NITRITE NEGATIVE (NEGATIVE); URINE PROTEIN 2+ (NEGATIVE); URINE UROBILINOGEN 0.2 mg/dL (0.2-1.0); URINE WBC 4542 /uL (0-25.8)
[2022-03-08 14:38] LABS: CHLORIDE 109 mmol/L (98-107); SODIUM 148 mmol/L (136-145)
[2022-03-08 14:40] LABS: CALCIUM 9.7 mg/dL (8.5-10.1)
[2022-03-08 14:41] LABS: ALBUMIN 2.2 g/dl (3.4-5.0); ANION GAP 10 MMOL/L (8-16); CO2 28 mmol/L (21-32); GLUCOSE,RANDOM 278 mg/dL (74-106)
[2022-03-08 14:44] LABS: CREATININE 3.4 mg/dL (0.55-1.3); SGOT/AST 55 U/L (15-37); SGPT/ALT 56 U/L (13-61)
[2022-03-08 14:46] LABS: ALK PHOS 83 U/L (45-117); BILIRUBIN,TOTAL 0.5 mg/dL (0.2-1); TOT PROT 7.3 g/dl (6.4-8.2)
[2022-03-08 14:48] LABS: BLOOD UREA NITROGEN 151.1 mg/dL (7-18)
[2022-03-08] MEDS ORDERED: PIPERACILLIN/TAZOBACTAM 2.25 GM VIAL IVPB ONE (17:56)
[2022-03-08] MEDS ORDERED: DEXTROSE 5%-WATER - 50 ML IVPB ONE (17:56)
[2022-03-08] MEDS: PIPERACILLIN/TAZOB 2.25 GM 2.25 GM in DEXTROSE 5%-WATER - 50 ML IVPB SCH (17:58)
[2022-03-08] MEDS ORDERED: SODIUM CHLORIDE 1,000 ML IV SCH (18:00)
[2022-03-08 20:59] LABS: HEMATOCRIT 21.5 % (32.4-45.2); MCH 26.7 pg (25.7-33.7); MCHC 31.1 g/dl (32.0-36.0); MEAN PLT VOLUME 10.1 fl (7.5-11.1); PLATELET COUNT 211 10^3/uL (134-434); WHITE BLOOD COUNT 15.8 K/mm3 (4.0-10.0)
[2022-03-08 21:07] LABS: HEMOGLOBIN 6.7 GM/dL (10.7-15.3)
[2022-03-08] MEDS: PANTOPRAZOLE SODIUM 40 MG VIAL IVPUSH SCH (22:24)
[2022-03-08] MEDS: ATORVASTATIN CA 80 MG TABLET (FP) PO SCH (22:24)
[2022-03-08] MEDS: CARVEDILOL 25 MG TABLET (FP) GT SCH (22:24)
[2022-03-09] MEDS ORDERED: DEXTROSE 5%-WATER - 50 ML IVPB ONE ×3 (01:15→18:40)
[2022-03-09] MEDS ORDERED: PIPERACILLIN/TAZOBACTAM 2.25 GM VIAL IVPB ONE ×3 (01:15→18:40)
[2022-03-09] MEDS: PIPERACILLIN/TAZOB 2.25 GM 2.25 GM in DEXTROSE 5%-WATER - 50 ML IVPB SCH ×3 (01:28→18:44)
[2022-03-09] MEDS: SODIUM CHLORIDE 0.45% 1,000 ML IV SCH (07:15)
[2022-03-09 08:34] LABS: HEMATOCRIT 25.1 % (32.4-45.2); HEMOGLOBIN 8.1 GM/dL (10.7-15.3); MCH 27.4 pg (25.7-33.7); MCHC 32.3 g/dl (32.0-36.0); MEAN CELL VOLUME 84.9 fl (80-96); MEAN PLT VOLUME 9.4 fl (7.5-11.1); PLATELET COUNT 205 10^3/uL (134-434); RBC 2.95 M/mm3 (3.60-5.2); RDW 16.2 % (11.6-15.6); WHITE BLOOD COUNT 13.5 K/mm3 (4.0-10.0)
[2022-03-09 08:46] LABS: CHLORIDE 116 mmol/L (98-107); SODIUM 151 mmol/L (136-145)
[2022-03-09 08:48] LABS: ANION GAP 9 MMOL/L (8-16); CO2 26 mmol/L (21-32); GLUCOSE,RANDOM 155 mg/dL (74-106)
[2022-03-09 08:50] LABS: MAGNESIUM 3.1 mg/dL (1.8-2.4)
[2022-03-09 08:51] LABS: CREATININE 2.3 mg/dL (0.55-1.3); PHOSPHOROUS 3.6 mg/dL (2.5-4.9)
[2022-03-09 09:06] LABS: BLOOD UREA NITROGEN 117.2 mg/dL (7-18)
[2022-03-09] MEDS: CARVEDILOL 25 MG TABLET (FP) GT SCH ×2 (11:10→22:40)
[2022-03-09] MEDS: PANTOPRAZOLE SODIUM 40 MG VIAL IVPUSH SCH (11:10)
[2022-03-09 14:49] VITALS: BMI 22.3
[2022-03-09] MEDS: ATORVASTATIN CA 80 MG TABLET (FP) PO SCH (22:40)
[2022-03-10] MEDS ORDERED: PIPERACILLIN/TAZOBACTAM 2.25 GM VIAL IVPB ONE ×2 (02:14→09:51)
[2022-03-10] MEDS ORDERED: DEXTROSE 5%-WATER - 50 ML IVPB ONE ×3 (02:15→15:36)
[2022-03-10] MEDS: PIPERACILLIN/TAZOB 2.25 GM 2.25 GM in DEXTROSE 5%-WATER - 50 ML IVPB SCH ×2 (02:52→10:26)
[2022-03-10] MEDS: SODIUM CHLORIDE 0.45% 1,000 ML IV SCH ×2 (08:00→18:45)
[2022-03-10 08:58] LABS: HEMATOCRIT 24.8 % (32.4-45.2); HEMOGLOBIN 7.9 GM/dL (10.7-15.3); MCH 27.3 pg (25.7-33.7); MCHC 31.8 g/dl (32.0-36.0); MEAN CELL VOLUME 85.7 fl (80-96); MEAN PLT VOLUME 9.3 fl (7.5-11.1); PLATELET COUNT 200 10^3/uL (134-434); RBC 2.89 M/mm3 (3.60-5.2); RDW 16.6 % (11.6-15.6); WHITE BLOOD COUNT 13.4 K/mm3 (4.0-10.0)
[2022-03-10 09:07] LABS: CALCIUM 8.8 mg/dL (8.5-10.1)
[2022-03-10 09:08] LABS: ALBUMIN 1.8 g/dl (3.4-5.0)
[2022-03-10 09:11] LABS: CREATININE 1.8 mg/dL (0.55-1.3)
[2022-03-10 09:13] LABS: BILIRUBIN,TOTAL 0.7 mg/dL (0.2-1); TOT PROT 6.3 g/dl (6.4-8.2)
[2022-03-10 09:23] LABS: BLOOD UREA NITROGEN 87.5 mg/dL (7-18)
[2022-03-10] MEDS: AMINO ACIDS/PROTEIN HYDROLYS 30 ML LIQUID.PKT PEG SCH (10:23)
[2022-03-10] MEDS: MULTIVIT-MINERALS ORAL LIQUID PEG SCH (10:25)
[2022-03-10] MEDS: PANTOPRAZOLE SODIUM 40 MG VIAL IVPUSH SCH (10:25)
[2022-03-10] MEDS: CARVEDILOL 25 MG TABLET (FP) GT SCH ×2 (10:26→21:54)
[2022-03-10] MEDS: ZINC SULFATE 220 MG CAPSULE (FP) PO SCH (10:26)
[2022-03-10 11:29] LABS: ANISOCYTOSIS 2+; MACROCYTOSIS 2+
[2022-03-10] MEDS ORDERED: cefTRIAXone SODIUM 1 GM VIAL ONE (15:36)
[2022-03-10] MEDS: CEFTRIAXONE 1 GM in DEXTROSE 5%-WATER - 50 ML IVPB SCH (15:47)
[2022-03-10] MEDS: ATORVASTATIN CA 80 MG TABLET (FP) PO SCH (21:54)
[2022-03-11] MEDS: SODIUM CHLORIDE 0.45% 1,000 ML IV SCH ×2 (05:35→07:30)
[2022-03-11] MEDS ORDERED: DEXTROSE 5%-WATER - 50 ML IVPB ONE (09:29)
[2022-03-11] MEDS ORDERED: cefTRIAXone SODIUM 1 GM VIAL ONE (09:29)
[2022-03-11] MEDS: AMINO ACIDS/PROTEIN HYDROLYS 30 ML LIQUID.PKT PEG SCH (09:56)
[2022-03-11] MEDS: CEFTRIAXONE 1 GM in DEXTROSE 5%-WATER - 50 ML IVPB SCH (09:56)
[2022-03-11] MEDS: MULTIVIT-MINERALS ORAL LIQUID PEG SCH (09:57)
[2022-03-11] MEDS: PANTOPRAZOLE SODIUM 40 MG VIAL IVPUSH SCH (09:57)
[2022-03-11] MEDS: ZINC SULFATE 220 MG CAPSULE (FP) PO SCH (09:57)
[2022-03-11] MEDS: CARVEDILOL 25 MG TABLET (FP) GT SCH ×2 (09:57→22:00)
[2022-03-11 10:46] LABS: HEMATOCRIT 22.4 % (32.4-45.2); HEMOGLOBIN 7.2 GM/dL (10.7-15.3); MCH 27.3 pg (25.7-33.7); MCHC 31.9 g/dl (32.0-36.0); MEAN CELL VOLUME 85.6 fl (80-96); MEAN PLT VOLUME 9.1 fl (7.5-11.1); PLATELET COUNT 202 10^3/uL (134-434); RBC 2.62 M/mm3 (3.60-5.2); RDW 16.3 % (11.6-15.6); WHITE BLOOD COUNT 11.7 K/mm3 (4.0-10.0)
[2022-03-11 11:11] LABS: ANISOCYTOSIS 0; MACROCYTOSIS 0
[2022-03-11 11:33] LABS: ALBUMIN 1.8 g/dl (3.4-5.0); BILIRUBIN,TOTAL 0.5 mg/dL (0.2-1); BLOOD UREA NITROGEN 51.1 mg/dL (7-18); CALCIUM 8.6 mg/dL (8.5-10.1); CREATININE 1.1 mg/dL (0.55-1.3); TOT PROT 6.1 g/dl (6.4-8.2)
[2022-03-11] MEDS ORDERED: FUROSEMIDE 40 MG/4 ML INJECTABLE VIAL IVPUSH ONE ×2 (12:51→23:15)
[2022-03-11] MEDS ORDERED: ACETAMINOPHEN 325 MG TABLET (FP) PO PRN (14:58)
[2022-03-11] MEDS ORDERED: ACETAMINOPHEN 650 MG/20.3 ML ORAL SOLUTION (CUPS) PO PRN (15:08)
[2022-03-11] MEDS: ACETAMINOPHEN 650 MG/20.3 ML ORAL SOLUTION (CUPS) GT PRN (15:24)
[2022-03-11] MEDS: FAMOTIDINE 40 MG/5 ML ORAL SUSPENSION GT SCH (22:00)
[2022-03-11] MEDS: ATORVASTATIN CA 80 MG TABLET (FP) PO SCH (22:00)
[2022-03-12] MEDS: ACETAMINOPHEN 650 MG/20.3 ML ORAL SOLUTION (CUPS) GT PRN (02:44)
[2022-03-12] MEDS ORDERED: DEXTROSE 5%-WATER - 50 ML IVPB ONE (09:29)
[2022-03-12] MEDS ORDERED: cefTRIAXone SODIUM 1 GM VIAL ONE (09:29)
[2022-03-12] MEDS: CEFTRIAXONE 1 GM in DEXTROSE 5%-WATER - 50 ML IVPB SCH (09:31)
[2022-03-12] MEDS: CARVEDILOL 25 MG TABLET (FP) GT SCH ×2 (09:31→22:43)
[2022-03-12] MEDS: AMINO ACIDS/PROTEIN HYDROLYS 30 ML LIQUID.PKT PEG SCH (09:31)
[2022-03-12] MEDS: MULTIVIT-MINERALS ORAL LIQUID PEG SCH (09:32)
[2022-03-12] MEDS: FAMOTIDINE 40 MG/5 ML ORAL SUSPENSION GT SCH ×2 (09:32→22:43)
[2022-03-12 11:18] LABS: HEMATOCRIT 32.8 % (32.4-45.2); HEMOGLOBIN 10.8 GM/dL (10.7-15.3); MCH 27.6 pg (25.7-33.7); MCHC 32.9 g/dl (32.0-36.0); MEAN CELL VOLUME 83.9 fl (80-96); MEAN PLT VOLUME 8.4 fl (7.5-11.1); PLATELET COUNT 207 10^3/uL (134-434); RBC 3.91 M/mm3 (3.60-5.2); RDW 16.4 % (11.6-15.6); WHITE BLOOD COUNT 12.7 K/mm3 (4.0-10.0)
[2022-03-12 11:40] LABS: ALBUMIN 1.9 g/dl (3.4-5.0); CALCIUM 8.8 mg/dL (8.5-10.1)
[2022-03-12 11:43] LABS: CREATININE 0.9 mg/dL (0.55-1.3)
[2022-03-12 11:44] LABS: BILIRUBIN,TOTAL 0.6 mg/dL (0.2-1); TOT PROT 6.5 g/dl (6.4-8.2)
[2022-03-12] MEDS ORDERED: SODIUM CHLORIDE 1,000 ML IV SCH (18:30)
[2022-03-12] MEDS: ATORVASTATIN CA 80 MG TABLET (FP) PO SCH (22:43)
[2022-03-13] MEDS ORDERED: DEXTROSE 5%-WATER - 50 ML IVPB ONE (09:58)
[2022-03-13] MEDS ORDERED: cefTRIAXone SODIUM 1 GM VIAL ONE (09:58)
[2022-03-13] MEDS: CEFTRIAXONE 1 GM in DEXTROSE 5%-WATER - 50 ML IVPB SCH (10:04)
[2022-03-13] MEDS: MULTIVIT-MINERALS ORAL LIQUID PEG SCH (13:33)
[2022-03-13] MEDS: AMINO ACIDS/PROTEIN HYDROLYS 30 ML LIQUID.PKT PEG SCH (13:33)
[2022-03-13] MEDS: CARVEDILOL 25 MG TABLET (FP) GT SCH ×2 (13:34→21:12)
[2022-03-13] MEDS: FAMOTIDINE 40 MG/5 ML ORAL SUSPENSION GT SCH ×2 (13:34→21:12)
[2022-03-13] MEDS: POTASSIUM CHLORIDE 20 MEQ in AMINO ACIDS 4.25%/D5W 1,000 ML IV SCH (17:15)
[2022-03-13] MEDS: ATORVASTATIN CA 80 MG TABLET (FP) PO SCH (21:12)
[2022-03-14] MEDS: POTASSIUM CHLORIDE 20 MEQ in AMINO ACIDS 4.25%/D5W 1,000 ML IV SCH ×2 (01:34→14:25)
[2022-03-14] MEDS: CARVEDILOL 25 MG TABLET (FP) GT SCH ×2 (10:01→21:18)
[2022-03-14] MEDS ORDERED: DEXTROSE 5%-WATER - 50 ML IVPB ONE (10:59)
[2022-03-14] MEDS ORDERED: cefTRIAXone SODIUM 1 GM VIAL ONE (10:59)
[2022-03-14] MEDS: CEFTRIAXONE 1 GM in DEXTROSE 5%-WATER - 50 ML IVPB SCH (11:00)
[2022-03-14] MEDS ORDERED: ZINC OXIDE/PETROLATUM,WHITE 1 APPLIC OINT...G. TP PRN (11:00)
[2022-03-14 12:25] LABS: BLOOD UREA NITROGEN 34.9 mg/dL (7-18); CALCIUM 9.1 mg/dL (8.5-10.1)
[2022-03-14 12:26] LABS: CREATININE 0.8 mg/dL (0.55-1.3)
[2022-03-14 12:28] LABS: TOT PROT 6.8 g/dl (6.4-8.2)
[2022-03-14 12:29] LABS: BILIRUBIN,TOTAL 0.5 mg/dL (0.2-1)
[2022-03-14] MEDS: MULTIVIT-MINERALS ORAL LIQUID PEG SCH (14:06)
[2022-03-14] MEDS: AMINO ACIDS/PROTEIN HYDROLYS 30 ML LIQUID.PKT PEG SCH (14:06)
[2022-03-14] MEDS: LOSARTAN POTASSIUM 50 MG TABLET PO SCH (14:06)
[2022-03-14] MEDS: FAMOTIDINE 40 MG/5 ML ORAL SUSPENSION GT SCH ×2 (14:07→21:18)
[2022-03-14] MEDS: ACETAMINOPHEN 650 MG/20.3 ML ORAL SOLUTION (CUPS) GT PRN ×2 (14:59→21:16)
[2022-03-14] MEDS: ATORVASTATIN CA 80 MG TABLET (FP) PO SCH (21:18)
[2022-03-14] MEDS: D5-1/2NS+20 MEQ KCL - 20 MEQ/1,000 ML INFUS.BAG IV SCH (22:54)
[2022-03-15] MEDS ORDERED: cefTRIAXone SODIUM 1 GM VIAL ONE (09:16)
[2022-03-15] MEDS ORDERED: DEXTROSE 5%-WATER - 50 ML IVPB ONE (09:16)
[2022-03-15] MEDS: D5-1/2NS+20 MEQ KCL - 20 MEQ/1,000 ML INFUS.BAG IV SCH (09:19)
[2022-03-15] MEDS: CEFTRIAXONE 1 GM in DEXTROSE 5%-WATER - 50 ML IVPB SCH (09:19)
[2022-03-15 09:22] LABS: CALCIUM 8.9 mg/dL (8.5-10.1)
[2022-03-15 09:23] LABS: BLOOD UREA NITROGEN 32.8 mg/dL (7-18)
[2022-03-15 09:26] LABS: CREATININE 0.6 mg/dL (0.55-1.3)
[2022-03-15 09:27] LABS: BILIRUBIN,TOTAL 0.4 mg/dL (0.2-1)
[2022-03-15 09:28] LABS: TOT PROT 6.2 g/dl (6.4-8.2)
[2022-03-15] MEDS: CARVEDILOL 25 MG TABLET (FP) GT SCH ×2 (10:53→21:13)
[2022-03-15] MEDS: FAMOTIDINE 40 MG/5 ML ORAL SUSPENSION GT SCH ×2 (14:04→21:13)
[2022-03-15] MEDS: AMINO ACIDS/PROTEIN HYDROLYS 30 ML LIQUID.PKT PEG SCH (14:04)
[2022-03-15] MEDS: LOSARTAN POTASSIUM 50 MG TABLET PO SCH (14:04)
[2022-03-15] MEDS: MULTIVIT-MINERALS ORAL LIQUID PEG SCH (14:05)
[2022-03-15] MEDS: ATORVASTATIN CA 80 MG TABLET (FP) PO SCH (21:13)
[2022-03-16 08:41] LABS: CALCIUM 9.4 mg/dL (8.5-10.1)
[2022-03-16 08:42] LABS: ALBUMIN 2.1 g/dl (3.4-5.0); BLOOD UREA NITROGEN 27.7 mg/dL (7-18)
[2022-03-16 08:45] LABS: CREATININE 0.6 mg/dL (0.55-1.3)
[2022-03-16 08:46] LABS: TOT PROT 6.4 g/dl (6.4-8.2)
[2022-03-16 08:47] LABS: BILIRUBIN,TOTAL 0.4 mg/dL (0.2-1)
[2022-03-16] MEDS ORDERED: cefTRIAXone SODIUM 1 GM VIAL ONE (09:05)
[2022-03-16] MEDS ORDERED: DEXTROSE 5%-WATER - 50 ML IVPB ONE (09:05)
[2022-03-16] MEDS: FAMOTIDINE 40 MG/5 ML ORAL SUSPENSION GT SCH (09:12)
[2022-03-16] MEDS: MULTIVIT-MINERALS ORAL LIQUID PEG SCH (09:12)
[2022-03-16] MEDS: LOSARTAN POTASSIUM 50 MG TABLET PO SCH (09:13)
[2022-03-16] MEDS: CARVEDILOL 25 MG TABLET (FP) GT SCH (09:13)
[2022-03-16] MEDS: CEFTRIAXONE 1 GM in DEXTROSE 5%-WATER - 50 ML IVPB SCH (09:14)
[2022-03-16] MEDS: AMINO ACIDS/PROTEIN HYDROLYS 30 ML LIQUID.PKT PEG SCH (09:14)
[2022-03-16 18:31] VITALS: BP 128/83; PULSE 82; TEMP 98.7
== END 2022-03-16 18:57 | DRG 661 ==
LOC: JER 10:21 → JERBED 12:33 → J5S 16:43
PROVIDERS: ADMIT Family Medicine; ATTEND Family Medicine
PROC: 5A1955Z Respiratory Ventilation, Greater than 96 Consecutive Hours (ICD-10-PCS; 2022-03-08)
PROC: 0D20XUZ Change Feeding Device in Upper Intestinal Tract, External Approach (ICD-10-PCS; principal; 2022-03-15)
DX: D68.32 Hemorrhagic disorder due to extrinsic circulating anticoagulants (principal); J96.10 Chronic respiratory failure, unspecified whether with hypoxia or hypercapnia; N17.9 Acute kidney failure, unspecified; G93.1 Anoxic brain damage, not elsewhere classified; T45.515A Adverse effect of anticoagulants, initial encounter; D64.9 Anemia, unspecified; E87.0 Hyperosmolality and hypernatremia; L89.154 Pressure ulcer of sacral region, stage 4; E87.5 Hyperkalemia; K14.8 Other diseases of tongue; R19.04 Left lower quadrant abdominal swelling, mass and lump; D72.829 Elevated white blood cell count, unspecified; E66.9 Obesity, unspecified; Z68.22 Body mass index [BMI] 22.0-22.9, adult; I48.0 Paroxysmal atrial fibrillation; R97.1 Elevated cancer antigen 125 [CA 125]; N13.6 Pyonephrosis; B96.20 Unspecified Escherichia coli [E. coli] as the cause of diseases classified elsewhere; B95.1 Streptococcus, group B, as the cause of diseases classified elsewhere; I13.0 Hypertensive heart and chronic kidney disease with heart failure and stage 1 through stage 4 chronic kidney disease, or unspecified chronic kidney disease; N18.9 Chronic kidney disease, unspecified; T85.528A Displacement of other gastrointestinal prosthetic devices, implants and grafts, initial encounter; Y83.8 Other surgical procedures as the cause of abnormal reaction of the patient, or of later complication, without mention of misadventure at the time of the procedure; I50.9 Heart failure, unspecified; Z85.42 Personal history of malignant neoplasm of other parts of uterus; Z87.11 Personal history of peptic ulcer disease; Z99.11 Dependence on respirator [ventilator] status; Z93.0 Tracheostomy status
CPT/HCPCS: 36415; 36430; 71045-TC-FY; 74018-TC-FY; 74150-TC; 76775-TC; 80048; 80053; 81003; 82272; 82570; 83735; 84100; 84300; 84443; 84484; 85025; 85027; 85610; 85730; 86850; 86900; 86901; 86922; 87040; 87077; 87086; 87186; 93005; 93010; 94002; 99285-25; C9803-CS; G0480; P9058; U0003; U0005

== ENCOUNTER 2022-06-28 19:12 | Inpatient (IN) | payer OTHER ==
[2022-06-28 20:25] LABS: BASO % 0.6 % (0-2.0); EOS % 3.8 % (0-4.5); HEMATOCRIT 30.1 % (32.4-45.2); LYMPH % 12.9 % (8-40); MCH 28.1 pg (25.7-33.7); MCHC 33.3 g/dl (32.0-36.0); MEAN CELL VOLUME 84.5 fl (80-96); MEAN PLT VOLUME 8.1 fl (7.5-11.1); MONO % 6.1 % (3.8-10.2); NEUT % 76.6 % (42.8-82.8); PLATELET COUNT 319 10^3/uL (134-434); RBC 3.56 M/mm3 (3.60-5.2); RDW 15.2 % (11.6-15.6)
[2022-06-28 20:32] LABS: INR 1.09 (0.83-1.09); PROTHROMBIN TIME (PATIENT) 12.5 SEC (9.7-13.0)
[2022-06-28 20:34] LABS: ACTIVATED PTT 26.7 SECONDS (25.2-36.5)
[2022-06-28 20:59] LABS: CALCIUM 9.8 mg/dL (8.5-10.1)
[2022-06-28 21:00] LABS: ALBUMIN 3.3 g/dl (3.4-5.0); BLOOD UREA NITROGEN 38.4 mg/dL (7-18)
[2022-06-28 21:03] LABS: CREATININE 0.9 mg/dL (0.55-1.3)
[2022-06-28 21:05] LABS: BILIRUBIN,TOTAL 0.8 mg/dL (0.2-1); TOT PROT 8.2 g/dl (6.4-8.2)
[2022-06-28 21:19] LABS: ANISOCYTOSIS 1+; MACROCYTOSIS 0
[2022-06-29] MEDS ORDERED: ACETAMINOPHEN 650 MG/20.3 ML ORAL SOLUTION (CUPS) GT PRN (00:38)
[2022-06-29 02:57] LABS: ARTERIAL BLOOD GAS BASE EXCESS 1.6 mmol/L (-2-2); ARTERIAL BLOOD GAS PO2 135.1 mmHg (80-100)
[2022-06-29 03:04] LABS: VENT MODE V-A/C
[2022-06-29 03:05] LABS: VENT RATE 14
[2022-06-29 08:10] LABS: ALBUMIN 3.2 g/dl (3.4-5.0); BLOOD UREA NITROGEN 35.3 mg/dL (7-18); CALCIUM 9.8 mg/dL (8.5-10.1); MAGNESIUM 2.7 mg/dL (1.8-2.4)
[2022-06-29 08:13] LABS: CREATININE 0.8 mg/dL (0.55-1.3); PHOSPHOROUS 3.2 mg/dL (2.5-4.9)
[2022-06-29 08:15] LABS: BILIRUBIN,TOTAL 0.7 mg/dL (0.2-1); HEMATOCRIT 30.3 % (32.4-45.2); HEMOGLOBIN 9.9 GM/dL (10.7-15.3); MCH 27.8 pg (25.7-33.7); MCHC 32.8 g/dl (32.0-36.0); MEAN CELL VOLUME 84.7 fl (80-96); MEAN PLT VOLUME 8.4 fl (7.5-11.1); PLATELET COUNT 294 10^3/uL (134-434); RBC 3.58 M/mm3 (3.60-5.2); RDW 15.2 % (11.6-15.6); WHITE BLOOD COUNT 7.7 K/mm3 (4.0-10.0)
[2022-06-29 09:47] LABS: ANISOCYTOSIS 0; HELMET CELLS 0; HOWELL-JOLLY BODIES 0; MACROCYTOSIS 0; OVALOCYTE 0; ROULEAU 0; SICKELED CELLS 0; TARGET CELLS 0; TEAR DROP CELLS 0; TOXIC GRANULATION 0
[2022-06-29] MEDS: ENOXAPARIN NA (PORCINE) 40 MG/0.4 ML DISP.SYRIN SQ SCH (10:18)
[2022-06-29] MEDS: CARVEDILOL 25 MG TABLET (FP) GT SCH ×2 (10:18→21:40)
[2022-06-29] MEDS: FAMOTIDINE 40 MG/5 ML ORAL SUSPENSION GT SCH ×2 (10:18→21:41)
[2022-06-29] MEDS: amLODIPine BESYLATE 10 MG TABLET (FP) GT SCH (10:18)
[2022-06-29] MEDS: MUPIROCIN 2% TOPICAL OINTMENT FOR DECOLONIZATION NS SCH ×2 (11:00→21:40)
[2022-06-29] MEDS: ATORVASTATIN CA 80 MG TABLET (FP) PO SCH (21:40)
[2022-06-29] MEDS: CHLORHEXIDINE GLUCONATE 4% CLEANSER FOR DECOLONIZATION TP SCH (21:41)
[2022-06-30 08:44] LABS: ALBUMIN 3.4 g/dl (3.4-5.0)
[2022-06-30 08:45] LABS: BLOOD UREA NITROGEN 33.6 mg/dL (7-18); MAGNESIUM 2.6 mg/dL (1.8-2.4)
[2022-06-30 08:48] LABS: BASO % 0.6 % (0-2.0); CREATININE 0.8 mg/dL (0.55-1.3); EOS % 3.2 % (0-4.5); HEMATOCRIT 30.1 % (32.4-45.2); HEMOGLOBIN 10.1 GM/dL (10.7-15.3); LYMPH % 14.2 % (8-40); MCH 28.1 pg (25.7-33.7); MCHC 33.6 g/dl (32.0-36.0); MEAN CELL VOLUME 83.6 fl (80-96); MEAN PLT VOLUME 8.4 fl (7.5-11.1); MONO % 6.7 % (3.8-10.2); NEUT % 75.3 % (42.8-82.8); PHOSPHOROUS 3.2 mg/dL (2.5-4.9); PLATELET COUNT 313 10^3/uL (134-434); RDW 14.9 % (11.6-15.6)
[2022-06-30] MEDS: CARVEDILOL 25 MG TABLET (FP) GT SCH ×2 (09:39→21:12)
[2022-06-30] MEDS: MUPIROCIN 2% TOPICAL OINTMENT FOR DECOLONIZATION NS SCH ×2 (09:39→21:12)
[2022-06-30] MEDS: ENOXAPARIN NA (PORCINE) 40 MG/0.4 ML DISP.SYRIN SQ SCH (09:39)
[2022-06-30] MEDS: FAMOTIDINE 40 MG/5 ML ORAL SUSPENSION GT SCH ×2 (09:40→21:12)
[2022-06-30] MEDS: amLODIPine BESYLATE 10 MG TABLET (FP) GT SCH (09:40)
[2022-06-30] MEDS ORDERED: PROPOFOL 200 MG/20 ML VIAL IVPUSH ONE ×2 (11:22→12:31)
[2022-06-30] MEDS ORDERED: PROPOFOL 1,000,000 MCG/100 ML VIAL IVPB SCH (11:45)
[2022-06-30] MEDS ORDERED: MIDAZOLAM HCL 2 MG/2 ML SINGLE DOSE VIAL IVPUSH ONE ×2 (12:10→12:26)
[2022-06-30 14:12] VITALS: BMI 20.4
[2022-06-30] MEDS: ATORVASTATIN CA 80 MG TABLET (FP) PO SCH (21:12)
[2022-06-30] MEDS: CHLORHEXIDINE GLUCONATE 4% CLEANSER FOR DECOLONIZATION TP SCH (21:12)
[2022-07-01 07:51] LABS: BASO % 0.5 % (0-2.0); EOS % 3.6 % (0-4.5); HEMATOCRIT 31.4 % (32.4-45.2); HEMOGLOBIN 10.4 GM/dL (10.7-15.3); LYMPH % 11.8 % (8-40); MCH 27.9 pg (25.7-33.7); MCHC 33.1 g/dl (32.0-36.0); MEAN CELL VOLUME 84.3 fl (80-96); MEAN PLT VOLUME 8.1 fl (7.5-11.1); MONO % 7.6 % (3.8-10.2); NEUT % 76.5 % (42.8-82.8); PLATELET COUNT 323 10^3/uL (134-434); RBC 3.72 M/mm3 (3.60-5.2); RDW 14.8 % (11.6-15.6); WHITE BLOOD COUNT 9.1 K/mm3 (4.0-10.0)
[2022-07-01 08:18] LABS: ALBUMIN 3.2 g/dl (3.4-5.0); BLOOD UREA NITROGEN 27.8 mg/dL (7-18); CALCIUM 9.6 mg/dL (8.5-10.1); MAGNESIUM 2.4 mg/dL (1.8-2.4); PHOSPHOROUS 3.4 mg/dL (2.5-4.9)
[2022-07-01 08:21] LABS: BILIRUBIN,TOTAL 1.2 mg/dL (0.2-1); CREATININE 0.8 mg/dL (0.55-1.3); TOT PROT 7.8 g/dl (6.4-8.2)
[2022-07-01] MEDS: MUPIROCIN 2% TOPICAL OINTMENT FOR DECOLONIZATION NS SCH (10:08)
[2022-07-01] MEDS: amLODIPine BESYLATE 10 MG TABLET (FP) GT SCH (10:09)
[2022-07-01] MEDS: CARVEDILOL 25 MG TABLET (FP) GT SCH (10:09)
[2022-07-01] MEDS: ENOXAPARIN NA (PORCINE) 40 MG/0.4 ML DISP.SYRIN SQ SCH (10:09)
[2022-07-01] MEDS: FAMOTIDINE 40 MG/5 ML ORAL SUSPENSION GT SCH (10:10)
[2022-07-01 20:29] VITALS: RESP 19
[2022-07-01 22:26] VITALS: BP 154/99; PULSE 94; TEMP 98.7
== END 2022-07-01 22:15 | DRG 143 ==
LOC: JER 19:12 → JERBED 20:04 → JICU 23:37
PROVIDERS: ADMIT Internal Medicine Pulmonary Disease; ATTEND Internal Medicine Pulmonary Disease
PROC: 0BJ08ZZ Inspection of Tracheobronchial Tree, Via Natural or Artificial Opening Endoscopic (ICD-10-PCS; 2022-06-28)
PROC: 5A1945Z Respiratory Ventilation, 24-96 Consecutive Hours (ICD-10-PCS; 2022-06-28)
PROC: 0B21XFZ Change Tracheostomy Device in Trachea, External Approach (ICD-10-PCS; principal; 2022-06-30)
DX: J95.03 Malfunction of tracheostomy stoma (principal); Y84.8 Other medical procedures as the cause of abnormal reaction of the patient, or of later complication, without mention of misadventure at the time of the procedure; G93.1 Anoxic brain damage, not elsewhere classified; J96.21 Acute and chronic respiratory failure with hypoxia; E78.5 Hyperlipidemia, unspecified; I13.0 Hypertensive heart and chronic kidney disease with heart failure and stage 1 through stage 4 chronic kidney disease, or unspecified chronic kidney disease; N18.9 Chronic kidney disease, unspecified; C55 Malignant neoplasm of uterus, part unspecified; I50.9 Heart failure, unspecified
CPT/HCPCS: 36415; 36600; 71045-TC-FY; 74018-TC-FY; 80053; 82803; 83735; 84100; 85025; 85610; 85730; 86850; 86900; 86901; 93005; 93010; 94002; 99285-25; C9803-CS; U0003; U0005

== ENCOUNTER 2022-09-11 19:12 | Observation (INO) | payer OTHER ==
[2022-09-11 21:53] LABS: BASO % 0.6 % (0-2.0); EOS % 3.4 % (0-4.5); HEMATOCRIT 34.1 % (32.4-45.2); HEMOGLOBIN 11.3 GM/dL (10.7-15.3); LYMPH % 12.2 % (8-40); MCH 27.5 pg (25.7-33.7); MCHC 33.2 g/dl (32.0-36.0); MEAN CELL VOLUME 82.7 fl (80-96); MEAN PLT VOLUME 7.6 fl (7.5-11.1); MONO % 8.8 % (3.8-10.2); PLATELET COUNT 292 10^3/uL (134-434); RBC 4.12 M/mm3 (3.60-5.2); RDW 16.7 % (11.6-15.6); WHITE BLOOD COUNT 8.2 K/mm3 (4.0-10.0)
[2022-09-11 22:21] LABS: ALBUMIN 3.3 g/dl (3.4-5.0); BLOOD UREA NITROGEN 30.6 mg/dL (7-18)
[2022-09-11 22:24] LABS: CREATININE 0.7 mg/dL (0.55-1.3)
[2022-09-11 22:26] LABS: BILIRUBIN,TOTAL 0.6 mg/dL (0.2-1); TOT PROT 8.1 g/dl (6.4-8.2)
[2022-09-12] MEDS ORDERED: ACETAMINOPHEN 650 MG/20.3 ML ORAL SOLUTION (CUPS) GT PRN (05:46)
[2022-09-12] MEDS: SCOPOLAMINE HYDROBROMIDE 1 PATCH PATCH.TD72 TD SCH (11:53)
[2022-09-12] MEDS ORDERED: CARVEDILOL 25 MG TABLET (FP) ONE (11:58)
[2022-09-12] MEDS ORDERED: amLODIPine BESYLATE 10 MG TABLET (FP) ONE (11:58)
[2022-09-12] MEDS ORDERED: ENOXAPARIN NA (PORCINE) 40 MG/0.4 ML DISP.SYRIN SQ ONE (11:58)
[2022-09-12] MEDS ORDERED: PANTOPRAZOLE SODIUM 40 MG VIAL ONE (11:59)
[2022-09-12] MEDS: amLODIPine BESYLATE 10 MG TABLET (FP) GT SCH (12:07)
[2022-09-12] MEDS: ENOXAPARIN NA (PORCINE) 40 MG/0.4 ML DISP.SYRIN SQ SCH (12:07)
[2022-09-12] MEDS: PANTOPRAZOLE SODIUM 40 MG VIAL IVPUSH SCH (12:08)
[2022-09-12] MEDS: CARVEDILOL 25 MG TABLET (FP) GT SCH (12:09)
[2022-09-12] MEDS: ASCORBIC ACID 500 MG TABLET (FP) GT SCH (12:20)
[2022-09-12] MEDS: MULTIVIT-MINERALS ORAL LIQUID GT SCH (12:20)
[2022-09-12] MEDS: ALBUTEROL SO4 2.5/IPRATROPIUM 0.5 INH SOL 3 ML VIAL.NEB. NEB SCH (21:36)
[2022-09-13] MEDS: ALBUTEROL SO4 2.5/IPRATROPIUM 0.5 INH SOL 3 ML VIAL.NEB. NEB SCH ×4 (08:10→20:05)
[2022-09-13 10:21] LABS: INR 1.19 (0.83-1.09); PROTHROMBIN TIME (PATIENT) 13.7 SEC (9.7-13.0)
[2022-09-13 10:23] LABS: BASO % 0.5 % (0-2.0); EOS % 3.3 % (0-4.5); HEMATOCRIT 37.2 % (32.4-45.2); HEMOGLOBIN 11.8 GM/dL (10.7-15.3); LYMPH % 14.1 % (8-40); MCH 26.4 pg (25.7-33.7); MCHC 31.6 g/dl (32.0-36.0); MEAN CELL VOLUME 83.6 fl (80-96); MEAN PLT VOLUME 7.9 fl (7.5-11.1); MONO % 8.8 % (3.8-10.2); NEUT % 73.3 % (42.8-82.8); PLATELET COUNT 335 10^3/uL (134-434); RBC 4.45 M/mm3 (3.60-5.2); WHITE BLOOD COUNT 7.5 K/mm3 (4.0-10.0)
[2022-09-13 10:24] LABS: ACTIVATED PTT 32.4 SECONDS (25.2-36.5)
[2022-09-13] MEDS: PANTOPRAZOLE SODIUM 40 MG VIAL IVPUSH SCH (10:41)
[2022-09-13] MEDS: amLODIPine BESYLATE 10 MG TABLET (FP) GT SCH (10:41)
[2022-09-13] MEDS: ASCORBIC ACID 500 MG TABLET (FP) GT SCH (10:41)
[2022-09-13 10:42] LABS: CALCIUM 10.4 mg/dL (8.5-10.1)
[2022-09-13] MEDS: ENOXAPARIN NA (PORCINE) 40 MG/0.4 ML DISP.SYRIN SQ SCH (10:42)
[2022-09-13] MEDS: MULTIVIT-MINERALS ORAL LIQUID GT SCH (10:42)
[2022-09-13 10:43] LABS: BLOOD UREA NITROGEN 33.8 mg/dL (7-18); MAGNESIUM 2.6 mg/dL (1.8-2.4)
[2022-09-13] MEDS: CARVEDILOL 25 MG TABLET (FP) GT SCH ×2 (10:43→23:32)
[2022-09-13 10:46] LABS: CREATININE 0.9 mg/dL (0.55-1.3); PHOSPHOROUS 3.6 mg/dL (2.5-4.9)
[2022-09-13 13:14] VITALS: BMI 21.2
[2022-09-13] MEDS ORDERED: SODIUM CHLORIDE 0.45% 1,000 ML IV SCH (13:45)
[2022-09-13] MEDS: COLLAGENASE CLOSTRIDIUM HIST. 30 GRAMS TUBE TP SCH (15:39)
[2022-09-13] MEDS: ATORVASTATIN CA 80 MG TABLET (FP) GT SCH (23:30)
[2022-09-14] MEDS: ALBUTEROL SO4 2.5/IPRATROPIUM 0.5 INH SOL 3 ML VIAL.NEB. NEB SCH ×4 (08:35→20:10)
[2022-09-14] MEDS: ENOXAPARIN NA (PORCINE) 40 MG/0.4 ML DISP.SYRIN SQ SCH (10:40)
[2022-09-14] MEDS: amLODIPine BESYLATE 10 MG TABLET (FP) GT SCH (10:41)
[2022-09-14] MEDS: MULTIVIT-MINERALS ORAL LIQUID GT SCH (10:41)
[2022-09-14] MEDS: ASCORBIC ACID 500 MG TABLET (FP) GT SCH (10:41)
[2022-09-14] MEDS: CARVEDILOL 25 MG TABLET (FP) GT SCH (10:41)
[2022-09-14] MEDS: PANTOPRAZOLE SODIUM 40 MG VIAL IVPUSH SCH (10:43)
[2022-09-14] MEDS: COLLAGENASE CLOSTRIDIUM HIST. 30 GRAMS TUBE TP SCH (10:45)
[2022-09-15] MEDS: CARVEDILOL 25 MG TABLET (FP) GT SCH ×2 (00:38→13:21)
[2022-09-15] MEDS: ATORVASTATIN CA 80 MG TABLET (FP) GT SCH ×2 (00:38→00:42)
[2022-09-15] MEDS: SCOPOLAMINE HYDROBROMIDE 1 PATCH PATCH.TD72 TD SCH (06:46)
[2022-09-15] MEDS: ALBUTEROL SO4 2.5/IPRATROPIUM 0.5 INH SOL 3 ML VIAL.NEB. NEB SCH (08:10)
[2022-09-15 09:58] VITALS: RESP 18
[2022-09-15] MEDS: ENOXAPARIN NA (PORCINE) 40 MG/0.4 ML DISP.SYRIN SQ SCH (10:01)
[2022-09-15] MEDS: PANTOPRAZOLE SODIUM 40 MG VIAL IVPUSH SCH (10:01)
[2022-09-15] MEDS: ASCORBIC ACID 500 MG TABLET (FP) GT SCH (10:02)
[2022-09-15] MEDS: MULTIVIT-MINERALS ORAL LIQUID GT SCH (10:02)
[2022-09-15] MEDS: COLLAGENASE CLOSTRIDIUM HIST. 30 GRAMS TUBE TP SCH (10:25)
[2022-09-15 12:19] LABS: ALBUMIN 3.1 g/dl (3.4-5.0); BLOOD UREA NITROGEN 36.1 mg/dL (7-18); CALCIUM 9.7 mg/dL (8.5-10.1)
[2022-09-15 12:22] LABS: CREATININE 0.9 mg/dL (0.55-1.3)
[2022-09-15 12:24] LABS: BILIRUBIN,TOTAL 0.7 mg/dL (0.2-1); TOT PROT 7.4 g/dl (6.4-8.2)
[2022-09-15] MEDS: amLODIPine BESYLATE 10 MG TABLET (FP) GT SCH (13:22)
[2022-09-15 14:06] VITALS: BP 121/81; PULSE 74; TEMP 97.6
== END 2022-09-15 16:18 ==
LOC: JER 19:12 → JERBED 22:39 → J5S 09-12 21:16
PROVIDERS: ADMIT Family Medicine; ATTEND Family Medicine
PROC: 3E0F7GC Introduction of Other Therapeutic Substance into Respiratory Tract, Via Natural or Artificial Opening (ICD-10-PCS; principal; 2022-09-11)
PROC: 3E023GC Introduction of Other Therapeutic Substance into Muscle, Percutaneous Approach (ICD-10-PCS; 2022-09-11)
PROC: 3E033GC Introduction of Other Therapeutic Substance into Peripheral Vein, Percutaneous Approach (ICD-10-PCS; 2022-09-11)
PROC: 3E0337Z Introduction of Electrolytic and Water Balance Substance into Peripheral Vein, Percutaneous Approach (ICD-10-PCS; 2022-09-11)
DX: I13.0 Hypertensive heart and chronic kidney disease with heart failure and stage 1 through stage 4 chronic kidney disease, or unspecified chronic kidney disease (principal); J90 Pleural effusion, not elsewhere classified; R09.3 Abnormal sputum; G93.1 Anoxic brain damage, not elsewhere classified; Z93.0 Tracheostomy status; R79.89 Other specified abnormal findings of blood chemistry; I50.9 Heart failure, unspecified; D64.9 Anemia, unspecified; E83.52 Hypercalcemia; Q38.2 Macroglossia; I25.2 Old myocardial infarction; R18.8 Other ascites
CPT/HCPCS: 0241U-QW; 36415; 71045-TC-FY; 80048; 80053; 83735; 84100; 85025; 85610; 85730; 94002; 94640; 99285-25; E0372; G0378

== ENCOUNTER 2023-01-16 18:09 | Inpatient (IN) | payer OTHER ==
[2023-01-16 18:39] VITALS: BMI 23.1
[2023-01-16] MEDS ORDERED: ACETAMINOPHEN 1000 MG/100 ML BAG IVPB ONE (18:39)
[2023-01-16 19:54] LABS: VENOUS BASE EXCESS 0.1 mmol/L (-2-2); VENOUS O2 SATURATION 79.2 % (70-80); VENOUS PCO2 31.2 mmHg (38-52); VENOUS PH 7.481 (7.310-7.410)
[2023-01-16] MEDS ORDERED: ACETAMINOPHEN INJECTION 100 ML IVPB ONE (19:54)
[2023-01-16 19:59] LABS: BASO % 0.1 % (0-2.0); EOS % 0.7 % (0-4.5); HEMATOCRIT 38.6 % (32.4-45.2); HEMOGLOBIN 11.8 GM/dL (10.7-15.3); LYMPH % 2.2 % (8-40); MCHC 30.7 g/dl (32.0-36.0); MEAN CELL VOLUME 81.6 fl (80-96); MEAN PLT VOLUME 8.4 fl (7.5-11.1); MONO % 4.9 % (3.8-10.2); NEUT % 92.1 % (42.8-82.8); PLATELET COUNT 503 10^3/uL (134-434); RBC 4.73 M/mm3 (3.60-5.2); RDW 17.4 % (11.6-15.6); WHITE BLOOD COUNT 23.6 K/mm3 (4.0-10.0)
[2023-01-16 20:06] LABS: INR 1.09 (0.83-1.09); PROTHROMBIN TIME (PATIENT) 12.6 SEC (9.7-13.0)
[2023-01-16 20:09] LABS: ACTIVATED PTT 26.9 SECONDS (25.2-36.5)
[2023-01-16] MEDS ORDERED: PIPERACILLIN/TAZOB 3.375 GM 3.375 GM in DEXTROSE 5%-WATER - 50 ML IVPB ONE (20:16)
[2023-01-16] MEDS ORDERED: VANCOMYCIN 1 GM in D5W (PRE-DOCKED) 1,000 MG/250 ML IVPB ONE (20:16)
[2023-01-16 20:18] LABS: CALCIUM 10.2 mg/dL (8.5-10.1); CHLORIDE 108 mmol/L (98-107); SODIUM 137 mmol/L (136-145)
[2023-01-16 20:20] LABS: ALBUMIN 3.1 g/dl (3.4-5.0); ANION GAP 4 MMOL/L (8-16); BLOOD UREA NITROGEN 31.7 mg/dL (7-18); CO2 26 mmol/L (21-32); GLUCOSE,RANDOM 151 mg/dL (74-106)
[2023-01-16 20:22] LABS: CREATININE 0.8 mg/dL (0.55-1.3); SGOT/AST 40 U/L (15-37); SGPT/ALT 20 U/L (13-61)
[2023-01-16] MEDS ORDERED: VANCOMYCIN/WATER FOR INJ (PEG) 1,000 MG/200 ML BAG IVPB ONE (20:23)
[2023-01-16] MEDS ORDERED: PIPERACILLIN/TAZOB 3.375 GM 3.375 GM/50 ML BAG IVPB ONE (20:23)
[2023-01-16 20:25] LABS: ALK PHOS 102 U/L (45-117); BILIRUBIN,TOTAL 0.7 mg/dL (0.2-1); TOT PROT 8.9 g/dl (6.4-8.2)
[2023-01-16 20:27] LABS: N-TERMINAL BNP 326.2 pg/ml (5-125)
[2023-01-16 20:29] LABS: LACTIC ACID 2.4 mmol/L (0.4-2.0)
[2023-01-16] MEDS ORDERED: LACTATED RINGERS SOLUTION 1,000 ML/1,000 ML INFUS.BAG IV STA (20:38)
[2023-01-16 20:56] LABS: ANISOCYTOSIS 2+; MACROCYTOSIS 0
[2023-01-16 21:46] LABS: EPI CELLS 27 /uL (0-25.1); HYALINE CASTS 11 /uL (0-3.1); URINE APPEARANCE TURBID; URINE BACTERIA >9,000 /uL (0-1359); URINE BILIRUBIN NEGATIVE (NEGATIVE); URINE COLOR YELLOW; URINE GLUCOSE (UA) NEGATIVE (NEGATIVE); URINE KETONE TRACE (NEGATIVE); URINE LEUK ESTERASE 2+ (NEGATIVE); URINE NITRITE NEGATIVE (NEGATIVE); URINE PROTEIN 1+ (NEGATIVE); URINE RBC 74 /uL (0-23.9); URINE WBC 400 /uL (0-25.8)
[2023-01-16 22:26] LABS: URINE CRYSTALS NONE SEEN /hpf
[2023-01-16] MEDS: LACTATED RINGERS SOLUTION 1,000 ML/1,000 ML INFUS.BAG IV SCH (23:18)
[2023-01-17 07:09] LABS: BASO % 0.4 % (0-2.0); HEMATOCRIT 31.1 % (32.4-45.2); HEMOGLOBIN 9.7 GM/dL (10.7-15.3); LYMPH % 4.5 % (8-40); MCH 25.8 pg (25.7-33.7); MCHC 31.4 g/dl (32.0-36.0); MEAN CELL VOLUME 82.3 fl (80-96); MEAN PLT VOLUME 8.3 fl (7.5-11.1); MONO % 5.6 % (3.8-10.2); NEUT % 88.5 % (42.8-82.8); PLATELET COUNT 382 10^3/uL (134-434); RBC 3.77 M/mm3 (3.60-5.2); RDW 17.4 % (11.6-15.6); WHITE BLOOD COUNT 13.5 K/mm3 (4.0-10.0)
[2023-01-17 07:15] LABS: CALCIUM 9.8 mg/dL (8.5-10.1); MAGNESIUM 2.4 mg/dL (1.8-2.4)
[2023-01-17 07:16] LABS: BLOOD UREA NITROGEN 30.3 mg/dL (7-18)
[2023-01-17 07:18] LABS: PHOSPHOROUS 2.8 mg/dL (2.5-4.9)
[2023-01-17 07:20] LABS: CREATININE 0.6 mg/dL (0.55-1.3)
[2023-01-17] MEDS ORDERED: ACETAMINOPHEN 650 MG/20.3 ML ORAL SOLUTION (CUPS) GT PRN (08:31)
[2023-01-17] MEDS ORDERED: ASCORBIC ACID 500 MG TABLET (FP) ONE (09:47)
[2023-01-17] MEDS ORDERED: CARVEDILOL 25 MG TABLET (FP) ONE (09:47)
[2023-01-17] MEDS ORDERED: ACETAMINOPHEN 650 MG/20.3 ML ORAL SOLUTION (CUPS) ONE (09:47)
[2023-01-17] MEDS ORDERED: ENOXAPARIN NA (PORCINE) 40 MG/0.4 ML DISP.SYRIN SQ ONE (09:48)
[2023-01-17] MEDS ORDERED: PIPERACILLIN/TAZOB 3.375 GM 3.375 GM/50 ML BAG IVPB ONE ×2 (09:48→17:37)
[2023-01-17] MEDS: PIPERACILLIN/TAZOB 3.375 GM 3.375 GM in DEXTROSE 5%-WATER - 50 ML IVPB SCH ×3 (09:54→19:58)
[2023-01-17] MEDS: SCOPOLAMINE HYDROBROMIDE 1 PATCH PATCH.TD72 TD SCH (09:54)
[2023-01-17] MEDS: FAMOTIDINE 40 MG/5 ML ORAL SUSPENSION GT SCH (10:25)
[2023-01-17] MEDS: ENOXAPARIN NA (PORCINE) 40 MG/0.4 ML DISP.SYRIN SQ SCH (10:25)
[2023-01-17] MEDS: ASCORBIC ACID 500 MG TABLET (FP) GT SCH (10:25)
[2023-01-17] MEDS: amLODIPine BESYLATE 10 MG TABLET (FP) GT SCH (10:25)
[2023-01-17] MEDS: CARVEDILOL 25 MG TABLET (FP) GT SCH (10:25)
[2023-01-17 22:01] LABS: HEMATOCRIT 27.4 % (32.4-45.2); HEMOGLOBIN 8.7 GM/dL (10.7-15.3); MCH 25.8 pg (25.7-33.7); MCHC 31.7 g/dl (32.0-36.0); MEAN CELL VOLUME 81.5 fl (80-96); MEAN PLT VOLUME 7.9 fl (7.5-11.1); PLATELET COUNT 319 10^3/uL (134-434); RBC 3.36 M/mm3 (3.60-5.2); RDW 17.3 % (11.6-15.6); WHITE BLOOD COUNT 10.3 K/mm3 (4.0-10.0)
[2023-01-18] MEDS: CARVEDILOL 25 MG TABLET (FP) GT SCH ×3 (00:53→21:55)
[2023-01-18] MEDS: ATORVASTATIN CA 80 MG TABLET (FP) PO SCH ×2 (00:53→21:55)
[2023-01-18] MEDS ORDERED: CARVEDILOL 25 MG TABLET (FP) ONE ×2 (03:22→21:40)
[2023-01-18] MEDS ORDERED: PIPERACILLIN/TAZOB 3.375 GM 3.375 GM/50 ML BAG IVPB ONE ×2 (03:22→20:23)
[2023-01-18] MEDS ORDERED: ATORVASTATIN CA 80 MG TABLET (FP) ONE ×2 (03:22→21:40)
[2023-01-18] MEDS: LACTATED RINGERS SOLUTION 1,000 ML/1,000 ML INFUS.BAG IV SCH (03:53)
[2023-01-18] MEDS: PIPERACILLIN/TAZOB 3.375 GM 3.375 GM in DEXTROSE 5%-WATER - 50 ML IVPB SCH ×3 (03:54→20:30)
[2023-01-18 06:38] LABS: BASO % 0.5 % (0-2.0); HEMATOCRIT 34.6 % (32.4-45.2); HEMOGLOBIN 10.8 GM/dL (10.7-15.3); LYMPH % 7.6 % (8-40); MCH 26.2 pg (25.7-33.7); MCHC 31.3 g/dl (32.0-36.0); MEAN CELL VOLUME 83.9 fl (80-96); MONO % 8.1 % (3.8-10.2); NEUT % 81.8 % (42.8-82.8); PLATELET COUNT 298 10^3/uL (134-434); RBC 4.12 M/mm3 (3.60-5.2); RDW 17.6 % (11.6-15.6); WHITE BLOOD COUNT 11.2 K/mm3 (4.0-10.0)
[2023-01-18 06:55] LABS: ALBUMIN 2.7 g/dl (3.4-5.0); BLOOD UREA NITROGEN 26.1 mg/dL (7-18); CALCIUM 9.4 mg/dL (8.5-10.1)
[2023-01-18 06:59] LABS: CREATININE 0.6 mg/dL (0.55-1.3)
[2023-01-18 07:01] LABS: TOT PROT 7.5 g/dl (6.4-8.2)
[2023-01-18 07:26] LABS: BILIRUBIN,TOTAL 0.5 mg/dL (0.2-1)
[2023-01-18] MEDS: ENOXAPARIN NA (PORCINE) 40 MG/0.4 ML DISP.SYRIN SQ SCH (20:21)
[2023-01-18] MEDS: amLODIPine BESYLATE 10 MG TABLET (FP) GT SCH (20:21)
[2023-01-18] MEDS: FAMOTIDINE 40 MG/5 ML ORAL SUSPENSION GT SCH (20:22)
[2023-01-18] MEDS: ASCORBIC ACID 500 MG TABLET (FP) GT SCH (20:22)
[2023-01-19] MEDS ORDERED: PIPERACILLIN/TAZOB 3.375 GM 3.375 GM/50 ML BAG IVPB ONE ×2 (03:01→10:57)
[2023-01-19] MEDS: PIPERACILLIN/TAZOB 3.375 GM 3.375 GM in DEXTROSE 5%-WATER - 50 ML IVPB SCH ×2 (03:11→11:16)
[2023-01-19] MEDS ORDERED: TUBE FEED DECLOGGING SOLUTION 12,000 UNITS NR ONE ×2 (08:00→21:15)
[2023-01-19] MEDS ORDERED: amLODIPine BESYLATE 10 MG TABLET (FP) ONE (10:56)
[2023-01-19] MEDS ORDERED: CARVEDILOL 25 MG TABLET (FP) ONE (10:57)
[2023-01-19] MEDS ORDERED: ENOXAPARIN NA (PORCINE) 40 MG/0.4 ML DISP.SYRIN SQ ONE (10:57)
[2023-01-19] MEDS ORDERED: ASCORBIC ACID 500 MG TABLET (FP) ONE (10:57)
[2023-01-19] MEDS: amLODIPine BESYLATE 10 MG TABLET (FP) GT SCH (11:16)
[2023-01-19] MEDS: ENOXAPARIN NA (PORCINE) 40 MG/0.4 ML DISP.SYRIN SQ SCH (11:16)
[2023-01-19] MEDS: CARVEDILOL 25 MG TABLET (FP) GT SCH (11:16)
[2023-01-19] MEDS: ASCORBIC ACID 500 MG TABLET (FP) GT SCH (11:16)
[2023-01-19] MEDS: FAMOTIDINE 40 MG/5 ML ORAL SUSPENSION GT SCH (11:16)
[2023-01-19] MEDS: CEFTRIAXONE 1 GM in DEXTROSE 5%-WATER - 50 ML IVPB SCH (18:56)
[2023-01-19] MEDS ORDERED: CEFTRIAXONE 1 GM/50 ML BAG ONE (18:57)
[2023-01-20] MEDS ORDERED: CARVEDILOL 25 MG TABLET (FP) ONE ×2 (02:01→09:08)
[2023-01-20] MEDS ORDERED: ATORVASTATIN CA 80 MG TABLET (FP) ONE (02:01)
[2023-01-20] MEDS: CARVEDILOL 25 MG TABLET (FP) GT SCH ×2 (02:08→09:26)
[2023-01-20] MEDS: ATORVASTATIN CA 80 MG TABLET (FP) PO SCH (02:08)
[2023-01-20 06:47] LABS: BASO % 0.4 % (0-2.0); HEMATOCRIT 27.5 % (32.4-45.2); HEMOGLOBIN 8.9 GM/dL (10.7-15.3); LYMPH % 11.6 % (8-40); MCH 26.6 pg (25.7-33.7); MCHC 32.5 g/dl (32.0-36.0); MEAN CELL VOLUME 81.9 fl (80-96); MEAN PLT VOLUME 7.8 fl (7.5-11.1); MONO % 6.9 % (3.8-10.2); NEUT % 78.1 % (42.8-82.8); PLATELET COUNT 399 10^3/uL (134-434); RBC 3.36 M/mm3 (3.60-5.2); RDW 17.4 % (11.6-15.6); WHITE BLOOD COUNT 8.6 K/mm3 (4.0-10.0)
[2023-01-20 07:09] LABS: CALCIUM 8.9 mg/dL (8.5-10.1)
[2023-01-20 07:10] LABS: ALBUMIN 2.4 g/dl (3.4-5.0); BLOOD UREA NITROGEN 20.5 mg/dL (7-18)
[2023-01-20 07:13] LABS: CREATININE 0.6 mg/dL (0.55-1.3)
[2023-01-20 07:15] LABS: BILIRUBIN,TOTAL 0.4 mg/dL (0.2-1); TOT PROT 6.8 g/dl (6.4-8.2)
[2023-01-20] MEDS ORDERED: amLODIPine BESYLATE 10 MG TABLET (FP) ONE (09:07)
[2023-01-20] MEDS ORDERED: FAMOTIDINE 20 MG TABLET ONE (09:07)
[2023-01-20] MEDS ORDERED: CEFTRIAXONE 1 GM/50 ML BAG ONE (09:08)
[2023-01-20] MEDS ORDERED: ENOXAPARIN NA (PORCINE) 40 MG/0.4 ML DISP.SYRIN SQ ONE (09:08)
[2023-01-20] MEDS ORDERED: ASCORBIC ACID 500 MG TABLET (FP) ONE (09:08)
[2023-01-20] MEDS: SCOPOLAMINE HYDROBROMIDE 1 PATCH PATCH.TD72 TD SCH (09:25)
[2023-01-20] MEDS: CEFTRIAXONE 1 GM in DEXTROSE 5%-WATER - 50 ML IVPB SCH (09:26)
[2023-01-20] MEDS: FAMOTIDINE 40 MG/5 ML ORAL SUSPENSION GT SCH (09:26)
[2023-01-20] MEDS: ENOXAPARIN NA (PORCINE) 40 MG/0.4 ML DISP.SYRIN SQ SCH (09:26)
[2023-01-20] MEDS: ASCORBIC ACID 500 MG TABLET (FP) GT SCH (09:26)
[2023-01-20] MEDS: amLODIPine BESYLATE 10 MG TABLET (FP) GT SCH (09:26)
[2023-01-20 09:33] VITALS: RESP 18
[2023-01-20 12:21] VITALS: BP 104/69; PULSE 77; TEMP 98.4
== END 2023-01-20 13:27 | DRG 720 ==
LOC: JER 18:09 → JERBED 22:17
PROVIDERS: ADMIT Internal Medicine; ATTEND Family Medicine
PROC: 5A1945Z Respiratory Ventilation, 24-96 Consecutive Hours (ICD-10-PCS; principal; 2023-01-16)
DX: A41.89 Other specified sepsis (principal); D64.9 Anemia, unspecified; I48.0 Paroxysmal atrial fibrillation; G93.1 Anoxic brain damage, not elsewhere classified; E78.5 Hyperlipidemia, unspecified; D72.829 Elevated white blood cell count, unspecified; I13.0 Hypertensive heart and chronic kidney disease with heart failure and stage 1 through stage 4 chronic kidney disease, or unspecified chronic kidney disease; N18.9 Chronic kidney disease, unspecified; I50.9 Heart failure, unspecified; J96.11 Chronic respiratory failure with hypoxia; R19.09 Other intra-abdominal and pelvic swelling, mass and lump; N39.0 Urinary tract infection, site not specified; E87.20 Acidosis, unspecified; L89.522 Pressure ulcer of left ankle, stage 2; Q38.2 Macroglossia; Z87.11 Personal history of peptic ulcer disease; Z85.42 Personal history of malignant neoplasm of other parts of uterus; Z93.1 Gastrostomy status; Z99.11 Dependence on respirator [ventilator] status
CPT/HCPCS: 0241U-QW; 36415; 71045-TC-FY; 80048; 80053; 81003; 82550; 82553; 82728; 82803; 83540; 83550; 83605; 83735; 83880; 84100; 84484; 85025; 85027; 85610; 85730; 86850; 86900; 86901; 87040; 87086; 87186; 93005; 93010; 94002; 99285-25; C9803-CS; U0003; U0005

== ENCOUNTER 2023-09-05 15:29 | Emergency (ER) | payer OTHER ==
[2023-09-05 16:01] VITALS: BMI 24.5
[2023-09-05 16:23] VITALS: RESP 15
[2023-09-05 16:42] VITALS: BP 116/69; PULSE 74; TEMP 99
[2023-09-05 16:45] LABS: BASO % 0.6 % (0-2.0); HEMATOCRIT 35.7 % (32.4-45.2); HEMOGLOBIN 11.6 GM/dL (10.7-15.3); LYMPH % 8.7 % (8-40); MCH 25.6 pg (25.7-33.7); MCHC 32.6 g/dl (32.0-36.0); MEAN CELL VOLUME 78.6 fl (80-96); MONO % 9.6 % (3.8-10.2); NEUT % 79.1 % (42.8-82.8); PLATELET COUNT 294 10^3/uL (134-434); RBC 4.54 M/mm3 (3.60-5.2); RDW 18.4 % (11.6-15.6); WHITE BLOOD COUNT 9.8 K/mm3 (4.0-10.0)
[2023-09-05 16:46] LABS: VENOUS BASE EXCESS -0.4 mmol/L (-2-2); VENOUS O2 SATURATION 85.9 % (70-80); VENOUS PCO2 37.1 mmHg (38-52); VENOUS PH 7.424 (7.310-7.410)
[2023-09-05 16:51] LABS: INR 1.09 (0.83-1.09); PROTHROMBIN TIME (PATIENT) 12.6 SEC (9.7-13.0)
[2023-09-05 16:54] LABS: ACTIVATED PTT 33.8 SECONDS (25.2-36.5)
[2023-09-05 17:00] LABS: POTASSIUM 4.4 mmol/L (3.5-5.1)
[2023-09-05 17:04] LABS: BLOOD UREA NITROGEN 27.2 mg/dL (7-18); CALCIUM 10.2 mg/dL (8.5-10.1)
[2023-09-05 17:05] LABS: ALBUMIN 3.4 g/dl (3.4-5.0)
[2023-09-05 17:07] LABS: CREATININE 0.8 mg/dL (0.55-1.3)
[2023-09-05 17:09] LABS: BILIRUBIN,TOTAL 1.1 mg/dL (0.2-1); TOT PROT 8.1 g/dl (6.4-8.2)
== END 2023-09-05 19:45 ==
LOC: JER 15:29
DX: K62.5 Hemorrhage of anus and rectum (principal)
CPT/HCPCS: 36415; 80053; 82272; 82803; 83605; 84484; 85025; 85610; 85730; 86850; 86900; 86901; 99283-25

== ENCOUNTER 2024-02-19 13:03 | Inpatient (IN) | payer OTHER ==
[2024-02-19 13:47] LABS: VENOUS BASE EXCESS -8.4 mmol/L (-2-2); VENOUS O2 SATURATION 27.6 % (70-80); VENOUS PCO2 48.6 mmHg (38-52); VENOUS PH 7.212 (7.310-7.410)
[2024-02-19 13:48] LABS: INR 1.38 (0.83-1.09); PROTHROMBIN TIME (PATIENT) 15.9 SEC (9.7-13.0)
[2024-02-19 14:02] LABS: POTASSIUM 5.4 mmol/L (3.5-5.1)
[2024-02-19 14:04] LABS: ALBUMIN 2.1 g/dl (3.4-5.0); BLOOD UREA NITROGEN 60.2 mg/dL (7-18); CALCIUM 9.3 mg/dL (8.5-10.1)
[2024-02-19 14:07] LABS: CREATININE 2.3 mg/dL (0.55-1.3)
[2024-02-19 14:09] LABS: BILIRUBIN,TOTAL 2.2 mg/dL (0.2-1); TOT PROT 7.7 g/dl (6.4-8.2)
[2024-02-19 14:11] LABS: N-TERMINAL BNP 1646.2 pg/ml (5-125)
[2024-02-19 14:29] LABS: HEMOGLOBIN 8.2 GM/dL (10.7-15.3); MCH 24.3 pg (25.7-33.7); MCHC 30.2 g/dl (32.0-36.0); MEAN CELL VOLUME 80.6 fl (80-96); MEAN PLT VOLUME 7.6 fl (7.5-11.1); PLATELET COUNT 354 10^3/uL (134-434); RBC 3.35 M/mm3 (3.60-5.2); RDW 18.7 % (11.6-15.6); WHITE BLOOD COUNT 29.1 K/mm3 (4.0-10.0)
[2024-02-19] MEDS ORDERED: ACETAMINOPHEN INJECTION 100 ML IVPB ONE (14:32)
[2024-02-19 14:57] LABS: EPI CELLS >36 /uL (0-25.1); HYALINE CASTS 10 /uL (0-3.1); URINE APPEARANCE TURBID; URINE BACTERIA 5934 /uL (0-1359); URINE BILIRUBIN NEGATIVE (NEGATIVE); URINE COLOR YELLOW; URINE GLUCOSE (UA) NEGATIVE (NEGATIVE); URINE KETONE NEGATIVE (NEGATIVE); URINE LEUK ESTERASE 3+ (NEGATIVE); URINE NITRITE NEGATIVE (NEGATIVE); URINE PROTEIN 3+ (NEGATIVE); URINE WBC 12222 /uL (0-25.8)
[2024-02-19] MEDS ORDERED: CALCIUM GLUCONATE 10% - 1,000 MG/10 ML VIAL ONE (14:58)
[2024-02-19] MEDS ORDERED: VANCOMYCIN/WATER 1250 MG 1,250 MG/250 ML BAG IVPB ONE (14:59)
[2024-02-19] MEDS ORDERED: PIPERACILLIN/TAZOB 4.5 GM 4.5 GM/100 ML BAG IVPB ONE (14:59)
[2024-02-19] MEDS: SODIUM CHLORIDE 1,000 ML IV ONE (15:02)
[2024-02-19] MEDS: ACETAMINOPHEN 1000 MG/100 ML BAG IVPB ONE (15:02)
[2024-02-19] MEDS: NOREPINEPHRINE BITARTRATE 4,000 MCG in DEXTROSE 5%-WATER - 496 ML IV SCH (15:03)
[2024-02-19 15:04] LABS: ANISOCYTOSIS 0; HELMET CELLS 0; HOWELL-JOLLY BODIES 0; MACROCYTOSIS 0; OVALOCYTE 0; ROULEAU 0; SICKELED CELLS 0; TARGET CELLS 0; TEAR DROP CELLS 0; TOXIC GRANULATION 0
[2024-02-19] MEDS: CALCIUM GLUCONATE 10% - 1,000 MG/10 ML VIAL IVPB ONE (15:09)
[2024-02-19] MEDS: PIPERACILLIN/TAZOB 4.5 GM 4.5 GM in DEXTROSE 5%-WATER 100 ML IVPB ONE (15:09)
[2024-02-19 15:11] LABS: URINE RBC 107.4 /uL (0-23.9)
[2024-02-19 15:12] LABS: YEAST NEGATIVE (NEGATIVE)
[2024-02-19 15:15] LABS: LACTIC ACID 8.5 mmol/L (0.4-2.0)
[2024-02-19] MEDS: VANCOMYCIN 1,000 MG in DEXTROSE 5%-WATER - 250 ML IVPB ONE (16:36)
[2024-02-19] MEDS: NOREPINEPHRINE 0.9 % NACL 8 MG/250 ML BAG IVPB SCH (16:49)
[2024-02-19] MEDS: SODIUM CHLORIDE 0.9% 500 ML INFUS.BAG IV ONE (17:00)
[2024-02-19] MEDS ORDERED: VASopressin 20 UNITS/ML VIAL IV ONE (17:04)
[2024-02-19] MEDS ORDERED: ATROPINE SULFATE 1 MG/10 ML DISP.SYRIN ONE (17:13)
[2024-02-19] MEDS: VASopressin 40 UNITS/100 ML BAG IV SCH (17:49)
[2024-02-19] MEDS: SODIUM CHLORIDE 1,000 ML IV SCH (17:49)
[2024-02-19 17:55] LABS: LACTIC ACID 4.3 mmol/L (0.4-2.0)
[2024-02-19 18:14] LABS: ARTERIAL BLD GAS O2 SATURATION 98.6 % (95-98); ARTERIAL BLOOD GAS BASE EXCESS -6.2 mmol/L (-2-2); ARTERIAL BLOOD GAS PO2 129.2 mmHg (80-100); ARTERIAL BLOOD GAS pH 7.392 (7.350-7.450)
[2024-02-19] MEDS: MUPIROCIN 2% TOPICAL OINTMENT FOR DECOLONIZATION NS SCH (22:53)
[2024-02-19] MEDS: CHLORHEXIDINE GLUCONATE 4% CLEANSER FOR DECOLONIZATION TP SCH (22:53)
[2024-02-19] MEDS: ATORVASTATIN CA 80 MG TABLET (FP) PO SCH (22:56)
[2024-02-19] MEDS: PIPERACILLIN/TAZOB 4.5 GM 4.5 GM in DEXTROSE 5%-WATER 100 ML IVPB SCH (22:56)
[2024-02-20 06:48] LABS: POTASSIUM 3.8 mmol/L (3.5-5.1)
[2024-02-20 06:51] LABS: CALCIUM 8.5 mg/dL (8.5-10.1)
[2024-02-20 06:52] LABS: ALBUMIN 1.8 g/dl (3.4-5.0); BLOOD UREA NITROGEN 54.1 mg/dL (7-18)
[2024-02-20 06:53] LABS: MAGNESIUM 2.4 mg/dL (1.8-2.4)
[2024-02-20 06:54] LABS: HEMATOCRIT 24.7 % (32.4-45.2); HEMOGLOBIN 7.8 GM/dL (10.7-15.3); MCH 24.9 pg (25.7-33.7); MCHC 31.4 g/dl (32.0-36.0); MEAN CELL VOLUME 79.5 fl (80-96); MEAN PLT VOLUME 8.2 fl (7.5-11.1); PLATELET COUNT 235 10^3/uL (134-434); RBC 3.11 M/mm3 (3.60-5.2); RDW 18.9 % (11.6-15.6)
[2024-02-20 06:57] LABS: BILIRUBIN,TOTAL 3.3 mg/dL (0.2-1); TOT PROT 6.9 g/dl (6.4-8.2)
[2024-02-20] MEDS ORDERED: INSULIN (NOVOLOG) ASPART 100 UNITS/ML 10ML VIAL ONE (08:04)
[2024-02-20] MEDS: INSULIN ASPART SLIDING SCALE (NOVOLOG) 1 VIAL SQ SCH (09:22)
[2024-02-20] MEDS: VANCOMYCIN/WATER 1250 MG 1,250 MG/250 ML BAG IVPB SCH ×2 (09:22→19:43)
[2024-02-20] MEDS: PANTOPRAZOLE SODIUM 40 MG VIAL IVPUSH SCH (09:24)
[2024-02-20] MEDS: POLYETHYLENE GLYCOL (HEALTHYLAX) 3350 17 GM PACKET GT SCH (09:24)
[2024-02-20] MEDS: SODIUM CHLORIDE 1,000 ML IV SCH (09:24)
[2024-02-20 09:55] LABS: ANISOCYTOSIS 0; HELMET CELLS 0; HOWELL-JOLLY BODIES 0; MACROCYTOSIS 0; OVALOCYTE 0; ROULEAU 0; SICKELED CELLS 0; TARGET CELLS 0; TEAR DROP CELLS 0; TOXIC GRANULATION 0
[2024-02-20] MEDS: HEPARIN NA (PORCINE) 5,000 UNITS/ML 1ML VIAL SQ SCH (13:23)
[2024-02-20 13:39] VITALS: BMI 28.9
[2024-02-20] MEDS: PIPERACILLIN/TAZOB 4.5 GM 4.5 GM in DEXTROSE 5%-WATER 100 ML IVPB SCH ×2 (15:17→19:43)
[2024-02-20] MEDS: SODIUM CHLORIDE 500 ML IV STA (18:21)
[2024-02-21 05:21] LABS: HEMATOCRIT 22.9 % (32.4-45.2); HEMOGLOBIN 7.1 GM/dL (10.7-15.3); MCH 24.6 pg (25.7-33.7); MCHC 31.1 g/dl (32.0-36.0); MEAN CELL VOLUME 78.9 fl (80-96); MEAN PLT VOLUME 7.9 fl (7.5-11.1); PLATELET COUNT 194 10^3/uL (134-434); RDW 18.9 % (11.6-15.6); WHITE BLOOD COUNT 19.8 K/mm3 (4.0-10.0)
[2024-02-21 05:47] LABS: POTASSIUM 3.1 mmol/L (3.5-5.1)
[2024-02-21 05:49] LABS: CALCIUM 8.4 mg/dL (8.5-10.1)
[2024-02-21 05:50] LABS: ALBUMIN 1.6 g/dl (3.4-5.0); BLOOD UREA NITROGEN 45.2 mg/dL (7-18); MAGNESIUM 2.3 mg/dL (1.8-2.4)
[2024-02-21 05:53] LABS: CREATININE 1.5 mg/dL (0.55-1.3)
[2024-02-21 05:54] LABS: BILIRUBIN,TOTAL 2.3 mg/dL (0.2-1); TOT PROT 6.5 g/dl (6.4-8.2)
[2024-02-21] MEDS: CALCIUM GLUC IN NACL, ISO-OSM 1 GM/50 ML BAG IVPB ONE (07:35)
[2024-02-21 09:06] LABS: ANISOCYTOSIS 0; HELMET CELLS 0; HOWELL-JOLLY BODIES 0; MACROCYTOSIS 0; OVALOCYTE 0; ROULEAU 0; SICKELED CELLS 0; TARGET CELLS 0; TEAR DROP CELLS 0; TOXIC GRANULATION 0
[2024-02-21] MEDS: dilTIAZem HCL 50 MG/10 ML - 10 ML VIAL IVPUSH ONE ×2 (09:14→09:51)
[2024-02-21] MEDS: DIGOXIN 0.5 MG/2 ML AMPUL IVPUSH ONE (09:22)
[2024-02-21] MEDS: KCL 20 MEQ PREMIX BAG 20 MEQ/100 ML INFUS.BAG IVPB SCH (10:05)
[2024-02-21] MEDS: ACETAMINOPHEN 1000 MG/100 ML BAG IVPB ONE (10:50)
[2024-02-21] MEDS: NOREPINEPHRINE 0.9 % NACL 8 MG/250 ML BAG IVPB SCH (12:00)
[2024-02-21 14:18] LABS: EPI CELLS >36 /uL (0-25.1); HYALINE CASTS 1 /uL (0-3.1); URINE APPEARANCE TURBID; URINE BILIRUBIN NEGATIVE (NEGATIVE); URINE COLOR DK YELLOW; URINE GLUCOSE (UA) TRACE (NEGATIVE); URINE KETONE NEGATIVE (NEGATIVE); URINE LEUK ESTERASE 2+ (NEGATIVE); URINE NITRITE NEGATIVE (NEGATIVE); URINE PROTEIN 2+ (NEGATIVE); URINE RBC 8416 /uL (0-23.9); URINE WBC 2520 /uL (0-25.8)
[2024-02-21 15:32] LABS: URINE BACTERIA 101.8 /uL (0-1359)
[2024-02-21] MEDS ORDERED: VANCOMYCIN/WATER 1250 MG 1,250 MG/250 ML BAG IVPB SCH (21:00)
[2024-02-21 21:55] LABS: HEMATOCRIT 25.3 % (32.4-45.2); MCHC 31.6 g/dl (32.0-36.0); MEAN CELL VOLUME 82.2 fl (80-96); MEAN PLT VOLUME 7.8 fl (7.5-11.1); PLATELET COUNT 185 10^3/uL (134-434); RBC 3.08 M/mm3 (3.60-5.2); RDW 19.7 % (11.6-15.6); WHITE BLOOD COUNT 18.1 K/mm3 (4.0-10.0)
[2024-02-22] MEDS: PHENYLEPHRINE NS PREMIX 50,000 MCG/500 ML BAG CVP SCH (01:29)
[2024-02-22 07:20] LABS: VENOUS O2 SATURATION 93.5 % (70-80); VENOUS PCO2 32.9 mmHg (38-52); VENOUS PH 7.333 (7.310-7.410)
[2024-02-22 07:22] LABS: HEMATOCRIT 24.9 % (32.4-45.2); HEMOGLOBIN 7.8 GM/dL (10.7-15.3); MCHC 31.3 g/dl (32.0-36.0); MEAN PLT VOLUME 8.3 fl (7.5-11.1); PLATELET COUNT 178 10^3/uL (134-434); RDW 19.6 % (11.6-15.6); WHITE BLOOD COUNT 16.2 K/mm3 (4.0-10.0)
[2024-02-22 07:30] LABS: POTASSIUM 3.4 mmol/L (3.5-5.1)
[2024-02-22 07:33] LABS: ALBUMIN 1.6 g/dl (3.4-5.0); BLOOD UREA NITROGEN 31.5 mg/dL (7-18)
[2024-02-22 07:36] LABS: CREATININE 1.2 mg/dL (0.55-1.3); PHOSPHOROUS 2.8 mg/dL (2.5-4.9)
[2024-02-22 07:37] LABS: CALCIUM 8.5 mg/dL (8.5-10.1)
[2024-02-22 07:38] LABS: BILIRUBIN,TOTAL 3.1 mg/dL (0.2-1); MAGNESIUM 2.2 mg/dL (1.8-2.4); TOT PROT 6.2 g/dl (6.4-8.2)
[2024-02-22] MEDS: POTASSIUM CHLORIDE ORAL LIQUID 20 MEQ/15 ML PEG ONE (08:10)
[2024-02-22] MEDS: ACETAMINOPHEN 1000 MG/100 ML BAG IVPB ONE (14:02)
[2024-02-22] MEDS: KCL 20 MEQ PREMIX BAG 20 MEQ/100 ML INFUS.BAG IVPB SCH (15:08)
[2024-02-23 07:15] LABS: HEMATOCRIT 23.8 % (32.4-45.2); HEMOGLOBIN 7.3 GM/dL (10.7-15.3); MCH 25.8 pg (25.7-33.7); MCHC 30.9 g/dl (32.0-36.0); MEAN CELL VOLUME 83.5 fl (80-96); MEAN PLT VOLUME 8.4 fl (7.5-11.1); PLATELET COUNT 147 10^3/uL (134-434); RBC 2.84 M/mm3 (3.60-5.2); RDW 20.3 % (11.6-15.6); WHITE BLOOD COUNT 12.2 K/mm3 (4.0-10.0)
[2024-02-23 07:32] LABS: POTASSIUM 4.4 mmol/L (3.5-5.1)
[2024-02-23 07:40] LABS: CALCIUM 8.6 mg/dL (8.5-10.1)
[2024-02-23 07:41] LABS: ALBUMIN 1.6 g/dl (3.4-5.0); BLOOD UREA NITROGEN 24.6 mg/dL (7-18); MAGNESIUM 2.2 mg/dL (1.8-2.4)
[2024-02-23 07:44] LABS: CREATININE 1.1 mg/dL (0.55-1.3); PHOSPHOROUS 2.1 mg/dL (2.5-4.9)
[2024-02-23 07:45] LABS: BILIRUBIN,TOTAL 1.7 mg/dL (0.2-1)
[2024-02-23 07:46] LABS: TOT PROT 6.3 g/dl (6.4-8.2)
[2024-02-23 08:53] LABS: ANISOCYTOSIS 1+; MACROCYTOSIS 0
[2024-02-23] MEDS: SODIUM CHLORIDE 0.45% 1,000 ML IV SCH (09:00)
[2024-02-23] MEDS: NAPH,MB-DB/K PH,MBDB POWDER PACKET GT ONE (09:32)
[2024-02-24 06:41] LABS: HEMATOCRIT 29.4 % (32.4-45.2); HEMOGLOBIN 9.4 GM/dL (10.7-15.3); MCH 26.7 pg (25.7-33.7); MEAN CELL VOLUME 83.3 fl (80-96); MEAN PLT VOLUME 8.7 fl (7.5-11.1); PLATELET COUNT 137 10^3/uL (134-434); RBC 3.53 M/mm3 (3.60-5.2); RDW 19.3 % (11.6-15.6); WHITE BLOOD COUNT 11.1 K/mm3 (4.0-10.0)
[2024-02-24 07:10] LABS: POTASSIUM 3.7 mmol/L (3.5-5.1)
[2024-02-24 07:16] LABS: CALCIUM 8.4 mg/dL (8.5-10.1)
[2024-02-24 07:17] LABS: ALBUMIN 1.6 g/dl (3.4-5.0); BLOOD UREA NITROGEN 20.5 mg/dL (7-18); MAGNESIUM 2.1 mg/dL (1.8-2.4)
[2024-02-24 07:19] LABS: PHOSPHOROUS 2.2 mg/dL (2.5-4.9)
[2024-02-24 07:21] LABS: TOT PROT 6.4 g/dl (6.4-8.2)
[2024-02-24 07:22] LABS: BILIRUBIN,TOTAL 1.2 mg/dL (0.2-1)
[2024-02-24 08:52] LABS: ANISOCYTOSIS 1+; MACROCYTOSIS 0
[2024-02-24] MEDS: NAPH,MB-DB/K PH,MBDB POWDER PACKET PEG ONE (11:35)
[2024-02-24] MEDS: DEXTROSE 5%-0.45% SALINE 1,000 ML IV SCH (20:19)
[2024-02-24] MEDS: DEXTROSE 5%-WATER 500 ML INFUS.BAG IVPB ONE (20:20)
[2024-02-24] MEDS: POTASSIUM CHLORIDE ORAL LIQUID 20 MEQ/15 ML PO ONE (22:02)
[2024-02-25 07:38] LABS: BASO % 0.2 % (0-2.0); EOS % 1.5 % (0-4.5); HEMOGLOBIN 9.4 GM/dL (10.7-15.3); LYMPH % 7.7 % (8-40); MCHC 32.3 g/dl (32.0-36.0); MEAN CELL VOLUME 83.6 fl (80-96); MEAN PLT VOLUME 8.9 fl (7.5-11.1); MONO % 5.6 % (3.8-10.2); PLATELET COUNT 153 10^3/uL (134-434); RBC 3.47 M/mm3 (3.60-5.2); RDW 19.3 % (11.6-15.6); WHITE BLOOD COUNT 10.5 K/mm3 (4.0-10.0)
[2024-02-25 08:17] LABS: ALBUMIN 1.5 g/dl (3.4-5.0); CALCIUM 7.9 mg/dL (8.5-10.1)
[2024-02-25 08:18] LABS: BLOOD UREA NITROGEN 19.4 mg/dL (7-18); MAGNESIUM 1.7 mg/dL (1.8-2.4)
[2024-02-25 08:20] LABS: CREATININE 0.9 mg/dL (0.55-1.3)
[2024-02-25 08:21] LABS: BILIRUBIN,TOTAL 0.8 mg/dL (0.2-1)
[2024-02-25] MEDS ORDERED: MAGNESIUM SULF 50% (8.12 MEQ/2 ML-1 GM VIAL) IVPB ONE (08:27)
[2024-02-25] MEDS: MAGNESIUM 2GM/50ML STERILE WATER IVPB IVPB ONE (09:15)
[2024-02-25] MEDS ORDERED: INSULIN (NOVOLOG) ASPART 100 UNITS/ML 10ML VIAL ONE (10:35)
[2024-02-25] MEDS ORDERED: ACETAMINOPHEN 1000 MG/100 ML BAG IVPB PRN (12:27)
[2024-02-25] MEDS ORDERED: ACETAMINOPHEN INJECTION 100 ML IVPB ONE (12:29)
[2024-02-26 07:36] LABS: BASO % 0.3 % (0-2.0); EOS % 1.4 % (0-4.5); HEMATOCRIT 28.6 % (32.4-45.2); HEMOGLOBIN 9.2 GM/dL (10.7-15.3); LYMPH % 7.7 % (8-40); MCH 26.9 pg (25.7-33.7); MCHC 32.3 g/dl (32.0-36.0); MEAN CELL VOLUME 83.4 fl (80-96); MEAN PLT VOLUME 8.9 fl (7.5-11.1); MONO % 4.5 % (3.8-10.2); NEUT % 86.1 % (42.8-82.8); PLATELET COUNT 171 10^3/uL (134-434); RBC 3.43 M/mm3 (3.60-5.2); WHITE BLOOD COUNT 9.8 K/mm3 (4.0-10.0)
[2024-02-26 07:59] LABS: CALCIUM 7.9 mg/dL (8.5-10.1)
[2024-02-26 08:00] LABS: ALBUMIN 1.6 g/dl (3.4-5.0); BLOOD UREA NITROGEN 15.7 mg/dL (7-18)
[2024-02-26 08:03] LABS: CREATININE 0.8 mg/dL (0.55-1.3)
[2024-02-26 08:04] LABS: BILIRUBIN,TOTAL 0.7 mg/dL (0.2-1); TOT PROT 6.2 g/dl (6.4-8.2)
[2024-02-26 09:08] LABS: POTASSIUM 3.7 mmol/L (3.5-5.1)
[2024-02-26] MEDS ORDERED: INSULIN (NOVOLOG) ASPART 100 UNITS/ML 10ML VIAL ONE ×2 (16:29→21:47)
[2024-02-26] MEDS: CEFTRIAXONE 2 GM in DEXTROSE 5%-WATER 100 ML IVPB SCH (18:02)
[2024-02-27 07:44] LABS: BASO % 0.3 % (0-2.0); EOS % 1.6 % (0-4.5); HEMATOCRIT 29.7 % (32.4-45.2); HEMOGLOBIN 9.7 GM/dL (10.7-15.3); MCH 27.2 pg (25.7-33.7); MCHC 32.6 g/dl (32.0-36.0); MEAN CELL VOLUME 83.7 fl (80-96); MEAN PLT VOLUME 9.1 fl (7.5-11.1); NEUT % 84.1 % (42.8-82.8); PLATELET COUNT 204 10^3/uL (134-434); RBC 3.55 M/mm3 (3.60-5.2); RDW 20.2 % (11.6-15.6); WHITE BLOOD COUNT 9.7 K/mm3 (4.0-10.0)
[2024-02-27 07:54] LABS: POTASSIUM 3.3 mmol/L (3.5-5.1)
[2024-02-27 08:05] LABS: CALCIUM 8.3 mg/dL (8.5-10.1)
[2024-02-27 08:06] LABS: ALBUMIN 1.6 g/dl (3.4-5.0); BLOOD UREA NITROGEN 11.5 mg/dL (7-18); MAGNESIUM 1.7 mg/dL (1.8-2.4)
[2024-02-27 08:08] LABS: CREATININE 0.7 mg/dL (0.55-1.3); PHOSPHOROUS 2.4 mg/dL (2.5-4.9)
[2024-02-27 08:10] LABS: BILIRUBIN,TOTAL 0.5 mg/dL (0.2-1); TOT PROT 6.5 g/dl (6.4-8.2)
[2024-02-27] MEDS: ASCORBIC ACID 500 MG TABLET (FP) GT SCH (09:40)
[2024-02-27] MEDS: AMINO ACIDS/PROTEIN HYDROLYS 30 ML LIQUID.PKT GT SCH (09:41)
[2024-02-27 14:30] VITALS: TEMP 97.3
[2024-02-27] MEDS: NAPH,MB-DB/K PH,MBDB POWDER PACKET PO ONE (17:14)
[2024-02-27] MEDS: POTASSIUM CHLORIDE ORAL LIQUID 20 MEQ/15 ML PO ONE (17:14)
[2024-02-27] MEDS: MAGNESIUM OXIDE 400 MG TABLET (FP) PO ONE (17:14)
[2024-02-27 18:07] VITALS: BP 142/80
[2024-02-27 20:49] VITALS: PULSE 78
[2024-02-27 20:55] VITALS: RESP 18
== END 2024-02-27 21:00 | DRG 720 ==
LOC: JER 13:03 → JERBED 13:35 → JICU 16:04
PROVIDERS: ADMIT Internal Medicine; ATTEND Internal Medicine
PROC: 5A1955Z Respiratory Ventilation, Greater than 96 Consecutive Hours (ICD-10-PCS; principal; 2024-02-19)
PROC: 4A133B1 Monitoring of Arterial Pressure, Peripheral, Percutaneous Approach (ICD-10-PCS; 2024-02-20)
PROC: 4A133J1 Monitoring of Arterial Pulse, Peripheral, Percutaneous Approach (ICD-10-PCS; 2024-02-20)
PROC: 05HN33Z Insertion of Infusion Device into Left Internal Jugular Vein, Percutaneous Approach (ICD-10-PCS; 2024-02-21)
PROC: B544ZZA Ultrasonography of Left Jugular Veins, Guidance (ICD-10-PCS; 2024-02-21)
PROC: 30233N1 Transfusion of Nonautologous Red Blood Cells into Peripheral Vein, Percutaneous Approach (ICD-10-PCS; 2024-02-21)
PROC: 06HY33Z Insertion of Infusion Device into Lower Vein, Percutaneous Approach (ICD-10-PCS; 2024-02-27)
DX: A40.9 Streptococcal sepsis, unspecified (principal); G93.1 Anoxic brain damage, not elsewhere classified; I13.0 Hypertensive heart and chronic kidney disease with heart failure and stage 1 through stage 4 chronic kidney disease, or unspecified chronic kidney disease; I46.9 Cardiac arrest, cause unspecified; J95.851 Ventilator associated pneumonia; N17.9 Acute kidney failure, unspecified; R57.8 Other shock; Z99.11 Dependence on respirator [ventilator] status; J96.10 Chronic respiratory failure, unspecified whether with hypoxia or hypercapnia; I50.32 Chronic diastolic (congestive) heart failure; R65.21 Severe sepsis with septic shock; Z93.0 Tracheostomy status; E87.0 Hyperosmolality and hypernatremia; E87.20 Acidosis, unspecified; N39.0 Urinary tract infection, site not specified; D64.9 Anemia, unspecified; I48.0 Paroxysmal atrial fibrillation; R74.01 Elevation of levels of liver transaminase levels
CPT/HCPCS: 0241U-QW; 36415; 36430; 36569; 36600; 71045-TC-FY; 74176-TC; 76705-TC; 80053; 81003; 82272; 82803; 82962; 83540; 83550; 83605; 83735; 83880; 84100; 84439; 84443; 84479; 84484; 85025; 85027; 85610; 85730; 86850; 86900; 86901; 86922; 87040; 87070; 87077; 87086; 87186; 87205; 87635; 93005; 93010; 93306-TC; 94002; 99291; G0480; J0131; J1644; J3490; P9058